=== PATIENT | male | born 1970 | race Caucasian/White ===

== ENCOUNTER 2024-02-08 19:25 | Emergency (ER) | payer OTHER, SELFPAY ==
--- NOTE | ~2024-02-08 | XR_ITS ---
EXAMINATION: XR chest 2V Exam Date/Time: 02/08/2024 19:40 CDT HISTORY: SOB WORSENING X 2 DAYS Comparison: 04/25/2019; CT chest 04/25/2019. RESULT: Lines, tubes, and devices: Left chest pacer/AICD. Lungs and pleura: Emphysematous changes in the upper lungs. Cardiomediastinal silhouette: Stable. Other: No acute osseous or upper abdominal finding. IMPRESSION: No acute cardiopulmonary process. Reviewed, dictated and finalized at location K.
[2024-02-08 19:32] VITALS: BP 145/96; PULSE 105; RESP 19; TEMP 36.6; O2SAT 97
[2024-02-08 19:48] LABS: Basophils Percent Auto 0.4 % (0.2-1.2); Eosinophils Absolute Auto 0.2 K/mm3 (0-0.3); Eosinophils Percent Auto 2.2 % (0-4.4); Hematocrit 47.4 % (42.0-52.0); Immature Granulocyte Absolute 0.03 K/mm3 (0.00-0.031); Immature Granulocyte Percent A 0.4 % (0-0.5); Lymphocytes Absolute Auto 2.25 K/mm3 (0.9-3.2); Lymphocytes Percent Auto 32.6 % (18.3-44.2); Mean Corpuscular HGB Conc 33.8 g/dl (32-36); Mean Corpuscular Hemoglobin 30.3 pg (26-34); Mean Corpuscular Volume 89.8 fl (80-100); Mean Platelet Volume 9.2 fl (7.4-10.4); Monocytes Absolute Auto 0.5 K/mm3 (0.1-0.6); Monocytes Percent Auto 7.7 % (2.6-8.5); Neutrophils Absolute Auto 3.9 K/mm3 (1.3-6.7); Neutrophils Percent Auto 56.7 % (45.5-73.1); Platelet Count Result 136 k/mm3 (150-375); Red Blood Count 5.28 M/mm3 (4.6-6.20); Red Cell Distribution Width 12.8 % (11.5-14.5); White Blood Count 6.9 K/mm3 (4.5-10.0)
[2024-02-08 19:56] LABS: INR 0.9; Prothrombin Time 12.5 Seconds (11.1-14.7)
[2024-02-08 19:57] LABS: Partial Thromboplastin Time 27.1 Seconds (22.3-36.8)
[2024-02-08 20:06] LABS: Alanine Aminotransferase 40 U/L (6-50); Albumin Level 4.2 g/dL (3.5-5.1); Alkaline Phosphatase 83 U/L (38-126); Anion Gap 5 mmol/L (4-12); Aspartate Amino Transferase 36 U/L (17-59); Bilirubin,Total 0.6 mg/dL (0.2-1.3); Blood Urea Nitrogen 16 mg/dL (9-20); Calcium 9.3 mg/dL (8.4-10.2); Carbon Dioxide 29 mmol/L (22-30); Chloride 106 mmol/L (98-107); Estimated CRCL calculation 95 ml/min; Estimated Glomerular Filt Rate > 60; Glucose 108 mg/dL (65-110); Potassium 4.3 mmol/L (3.4-5.0); Sodium 140 mmol/L (137-145)
[2024-02-08 20:08] VITALS: PULSE 92; O2SAT 95
[2024-02-08 20:10] VITALS: BP 144/98; PULSE 97; RESP 20; O2SAT 92
--- NOTE | 2024-02-08 20:11 | ECG_ITS ---
Test Date: 2024-02-08 20:17:00 Measurements Intervals [place] Rate: 92 P: 61 MA: 177 QRS: 70 QRSD: 88 T: 34 QT: 349 QTc: 433 Interpretive Statements SINUS RHYTHM LOW QRS VOLTAGE IN EXTREMITY LEADS [QRS DEFLECTION < 0.5 mV IN LIMB LEADS] No previous ECG available for comparison Electronically Signed On 02-09-2024 10:51:12 CDT by Fawn Licona M.D.
[2024-02-08 20:18] LABS: NT Pro B Type Natriuretic Pept 701 pg/mL (19.9-100); Troponin I < 0.012 ng/mL (0.000-0.034)
--- NOTE | 2024-02-08 20:22 | ED.SOB ---
HPI - SOB/Dyspnea General Chief Complaint: Shortness of Breath/Dyspnea Stated Complaint: bloated, SOB Time Seen by Provider: 02/08/24 20:17 Source: patient Mode of arrival: ambulatory Limitations: no limitations History of Present Illness HPI Narrative: 54-year-old male presenting for shortness of breath on exertion. History of CHF , ran out of his Lasix 3 days ago. he accidentally threw his prescription out in the garbage. He is not short of breath at rest but typically only when he walks upstairs or ambulates distances. No chest pain. He says it feels like he just needs some Lasix and to have a prescription. Related Data Allergies Allergy/AdvReac Type Severity Reaction Status Date / Time No Known Allergies Allergy Verified 02/08/24 20:11 Review of Systems Review of Systems: All systems reviewed & are unremarkable except as noted in HPI and below PMFSH Social History Social History Smoking status: Current every day smoker Alcohol intake: never Exam Narrative: Constitutional: Generally well appearing, no acute distress Head: Atraumatic, no deformities. Eyes: Pupils equal, round, and reactive to light. Neck: Supple, no tracheal deviation, no JVD. ENMT: Mucous membranes moist Cardiovascular: S1, S2 auscultated. No murmurs, rubs, or gallops. No S3/S4. Normal Distal pulses. 1+ pitting edema to lower extremities up to the upper ankles Respiratory: Lung sounds equal. No wheezes, rales, or rhonchi. Gastrointestinal: Abdomen was soft and non-tender. Non-distended. No rebound or guarding. Genitourinary: Deferred Musculoskeletal: Normal muscle tone and bulk. No obvious deformities or tenderness over extremities. Skin: No rashes. Neurological: Strength 5/5 in extremities. Cranial nerves I-XII grossly intact. Distal sensation intact. Mental Status: Awake, alert and oriented x3. Follows commands Course Vital Signs Vital signs: Vital Signs Temperature 36.6 C 02/08/24 19:32 Pulse Rate 105 H 02/08/24 19:32 Respiratory Rate 19 02/08/24 19:32 Blood Pressure 145/96 H 02/08/24 19:32 Pulse Oximetry 97 02/08/24 19:32 Oxygen Delivery Room Air 02/08/24 19:32 Temperature 36.6 C 02/08/24 19:32 Pulse Rate 97 02/08/24 20:10 Respiratory Rate 20 02/08/24 20:10 Blood Pressure 144/98 H 02/08/24 20:10 Pulse Oximetry 92 02/08/24 20:10 Oxygen Delivery Room Air 02/08/24 20:08 MDM - SOB/Dyspnea MDM Narrative Medical decision making narrative: 54-year-old male presenting for concern for CHF exacerbation. Seven shortness of breath on exertion self. Ran out of his Lasix 3 days ago. Item damage well-appearing, slightly hypertensive otherwise normal vitals. Normal cardio respiratory exam apart from some slight lower extremity swelling, symmetrical. Seems like mild CHF exacerbation. Obtain some basic labs and BNP. BNP was elevated at 700. Will give him a dose of Lasix here. He seems very stable at this point does not require admission, will be given prescription for his Lasix and instructed to follow-up with PCP. Pt feeling improved and would like to go home at this point. Return precautions were given to the patient include any new or worsening symptoms or development of and not limited to any chest pain, shortness of breath, lightheadedness, abdominal pain, fevers, chills. Patient understands and agrees. They are to follow-up with her PCP. All questions were answered. I reviewed the patient's vital signs, history, allergies, and labs and imaging workup. EKG interpretation: Sinus rhythm rate 92, normal intervals.? No ST elevation or depression.? No T-wave inversion.? Impression: Nonischemic Lab Data 02/08/24 19:40 02/08/24 19:40 Labs: Lab Results 02/08/24 Range/Units 19:40 WBC 6.9 (4.5-10.0) K/mm3 RBC 5.28 (4.6-6.20) M/mm3 Hgb 16.0 (14.0-18.0) g/dL Hct 47.4 (42.0-52.0) % [facility]
[2024-02-08] MEDS: FUROSEMIDE INJ 40 MG/4 ML VIAL IV PUSH (20:25)
[2024-02-08 20:38] VITALS: BP 139/94; PULSE 87; RESP 28; O2SAT 94
== END 2024-02-08 20:38 | disposition home or self-care (01) ==
PROVIDERS: Emergency Provider Emergency Medicine
DX: I50.43 Acute on chronic combined systolic (congestive) and diastolic (congestive) heart failure (principal); T50.1X6A Underdosing of loop [high-ceiling] diuretics, initial encounter; Z91.138 Patient's unintentional underdosing of medication regimen for other reason; F17.200 Nicotine dependence, unspecified, uncomplicated; Z79.899 Other long term (current) drug therapy
CPT/HCPCS: 36415; 71046; 80053; 83880; 84484; 85025; 85055; 85610; 85730; 93005; 96374; 99284; J1940

== ENCOUNTER 2024-03-14 15:02 | Emergency (ER) | payer OTHER, SELFPAY ==
--- NOTE | ~2024-03-14 | CT_ITS ---
CT lumbar spine wo con Ordering provider: Abimbola Thorne PA-C History: 54 years Male with . left sided low back pain . Comparison: None. Technique: CT lumbar spine without contrast. Automated exposure control and iterative reconstruction technique were employed. The dose-length product was 1269.62 mGy-cm. FINDINGS: VERTEBRAE: Normal height and alignment. No subluxation or visible acute fracture. 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 DISC SPACES: Well maintained. T12-L1: No stenosis. L1-L2: No stenosis. L2-L3: No stenosis. L3-L4: No stenosis. L4-L5: No stenosis. Diffuse disc bulge. L5-S1: No stenosis. Diffuse disc bulge with bilateral narrowing of the foramina and the root pankaj morenita. PARASPINOUS SOFT TISSUES: Normal aorta. Bilateral sacroiliitis. IMPRESSION: No acute fracture or dislocation. Limbus vertebrae. Diffuse disc bulge with bilateral narrowing of the foramina and the root compression at the level of L5-S1. Reviewed, dictated and finalized at location A. IMPRESSION: No acute fracture or dislocation. Limbus vertebrae. Diffuse disc bulge with bilateral narrowing of the foramina and the root compre ssion at the level of L5-S1.
[2024-03-14 15:15] VITALS: BP 121/84; PULSE 105; RESP 16; TEMP 36.3; O2SAT 94
--- NOTE | 2024-03-14 16:01 | ED.BACK ---
HPI - Back Pain/Injury General Chief Complaint: Back Pain/Injury <RAQUEL Jeffers Last Filed: 03/14/24 18:22> Stated Complaint: lower left back pain <RAQUEL Jeffers Last Filed: 03/14/24 18:22> Time Seen by Provider: 03/14/24 16:01 <RAQUEL Jeffers Last Filed: 03/14/24 18:22> Focused HPI: This is a 54 year old male that presents to the ER for left sided low back pain. Ongoing since yesterday. Worse with movement. He has not taken anything for pain. No recent injuries. Denies fever, vomiting, dysuria, numbness, weakness, or hematuria. GENERAL: Well-appearing, well-nourished, and in no acute distress. HEAD: Normocephalic, atraumatic. CHEST: Clear to auscultation. ?No respiratory distress. HEART: Regular rate and rhythm.? NEURO: ?Alert and oriented x3. Patient screened in triage and initial orders placed.? ?Additional care and disposition to be based upon?diagnostic testing and treatment. <RAQUEL Jeffers Last Filed: 03/14/24 18:22> Source: patient <RAQUEL Delaney Last Filed: 03/14/24 17:25> Mode of arrival: ambulatory <RAQUEL Delaney Last Filed: 03/14/24 17:25> Limitations: no limitations <RAQUEL Delaney Last Filed: 03/14/24 17:25> History of Present Illness HPI Narrative: Agree with above HPI. Denies radiation of pain. No saddle anesthesia, incontinence, weakness. <RAQUEL Delaney Last Filed: 03/14/24 17:25> Related Data Allergies/Adverse Reactions: Allergies Allergy/AdvReac Type Severity Reaction Status Date / Time No Known Allergies Allergy Verified 03/14/24 16:46 <RAQUEL Jeffers Last Filed: 03/14/24 18:22> Review of Systems Review of Systems: CONSTITUTIONAL: Denies fever, chills, or sweats. GASTROINTESTINAL: Denies abdominal pain, nausea, vomiting, or diarrhea. GENITOURINARY: Denies dysuria or hematuria. MUSCULOSKELETAL: See HPI. NEUROLOGIC: Denies headache, dizziness, numbness, or weakness. <Lian Mahajan PA-C - Last Filed: 03/14/24 17:25> All systems reviewed & are unremarkable except as noted in HPI and below <Lian Mahajan PA-C - Last Filed: 03/14/24 17:25> [facility] Past Medical History Medical History: Medical History (Updated 03/14/24 @ 18:22 by Abimbola Thorne PA-C) History of hypertension Non-ischemic cardiomyopathy <Abimbola Thorne PA-C - Last Filed: 03/14/24 18:22> Social History Social History: Social History Smoking status: Current every day smoker Alcohol intake: never <Abimbola Thorne PA-C - Last Filed: 03/14/24 18:22> Exam Narrative: GENERAL: Well appearing, Obese with BMI of 34.5, non-toxic, in no acute distress. HEAD: Normocephalic, atraumatic. RESPIRATORY: Airway patent, respirations nonlabored. CARDIOVASCULAR: Regular rate and rhythm ABDOMINAL: Soft, nontender, nondistended. Normoactive BS. no tenderness throughout abdomen, flank regions. MUSCULOSKELETAL: Moves all extremities. No gross deformities. Tenderness to palpation in left lumbar region. No midline lumbar spinal tenderness. Positive straight leg raise on left, reproducing pain. Sensation is intact. SKIN: Warm, dry, normal color. NEURO: A&O X3. Speech clear. Cranial nerves II-XII grossly intact. Steady gait. No ataxic movements. PSYCHIATRIC: Appropriate mood and affect. Normal interaction. <Lian Mahajan PA-C - Last Filed: 03/14/24 17:25> Course Vital Signs Vital signs: Vital Signs Temperature 97.3 F L 03/14/24 15:15 Pulse Rate 105 H 03/14/24 15:15 Respiratory Rate 16 03/14/24 15:15 Blood Pressure 121/84 03/14/24 15:15 Pulse Oximetry 94 03/14/24 15:15 Oxygen Delivery Room Air 03/14/24 15:15 Temperature 98 F 03/14/24 17:31 Pulse Rate 96 03/14/24 17:31 Respiratory Rate 15 03/14/24 17:31 Blood Pressure 106/87 03/14/24 1
[2024-03-14 16:45] VITALS: BP 115/93; PULSE 101; RESP 14; TEMP 36.6; O2SAT 95
[2024-03-14] MEDS: ACETAMINOPHEN 500 MG TABLET 1000 MG PO (16:53)
[2024-03-14] MEDS: KETOROLAC 30 MG/ML VIAL (*BKC) IM (16:55)
[2024-03-14 17:31] VITALS: BP 106/87; PULSE 96; RESP 15; TEMP 36.6; O2SAT 96
== END 2024-03-14 17:33 | disposition home or self-care (01) ==
PROVIDERS: Emergency Provider Physician Assistant
DX: M51.37 Other intervertebral disc degeneration, lumbosacral region (principal); S39.012A Strain of muscle, fascia and tendon of lower back, initial encounter; I42.8 Other cardiomyopathies; I10 Essential (primary) hypertension; X58.XXXA Exposure to other specified factors, initial encounter
CPT/HCPCS: 72131; 96372; 99284; A9270; J1885

== ENCOUNTER 2024-07-19 14:46 | Emergency (ER) | payer OTHER, SELFPAY ==
--- NOTE | ~2024-07-19 | XR_ITS ---
EXAMINATION: XR chest 2V DATE: 07/19/2024 15:09 INDICATION: Chest pain and shortness of breath TECHNIQUE: PA and lateral views of the chest were obtained. COMPARISON: Chest radiograph dated 02/08/2024 FINDINGS: The lungs remain clear with no focal airspace opacities, pulmonary edema, pleural effusion or pneumot horax. The cardiomediastinal silhouette is normal. Dual lead pacemaker/AICD seen with leads projectin g over the expected locations of the right atrium and right ventricle. Mild S-shaped scoliosis of t he thoracic spine with mild to moderate spondylosis. Cholecystectomy clips in right upper quadrant. IMPRESSION: 1. No acute cardiopulmonary disease. Reviewed, dictated and finalized at location B. GER TECHNICAL
--- NOTE | ~2024-07-19 | XR_ITS ---
EXAMINATION: XR abdomen/kub 1V DATE: 07/19/2024 16:51 INDICATION: 2 days of constipation TECHNIQUE: A supine view of the abdomen on 2 radiographs was obtained. COMPARISON: 01/26/2019 FINDINGS: Moderate amount of stool scattered throughout the colon. No dilated loops of gas-filled bowel to sugg est obstruction. Cholecystectomy clips in the right upper quadrant. Lung bases are clear. Heart size normal. Dual lead pacemaker/AICD seen with leads projecting over the expected locations of the right atrium and right ventricle. Mild lumbar levocurvature with mild spondylosis. Likely suture line in th e region of the tip the cecum suggesting prior appendectomy. IMPRESSION: 1. Normal bowel gas pattern with moderate amount of colonic stool. Reviewed, dictated and finalized at location B. UCTION MACHINE TENDER
[2024-07-19 14:48] VITALS: BP 136/94; PULSE 107; RESP 18; TEMP 36.6; O2SAT 94
--- NOTE | 2024-07-19 14:48 | ECG_ITS ---
Test Date: 2024-07-19 14:56:24 Measurements Intervals [place] Rate: 101 P: 63 SD: 171 QRS: 74 QRSD: 91 T: 57 QT: 343 QTc: 445 Interpretive Statements SINUS TACHYCARDIA BORDERLINE R WAVE PROGRESSION, ANTERIOR LEADS NONSPECIFIC ST-T WAVE ABNORMALITY- INF/HIGH LAT LEADS BASELINE ARTIFACT- I, II, III, AVR, AVL, AVF, V1, V4-V6 BORDERLINE ECG Compared to ECG 02/08/2024 20:17:00 HEART RATE HAS INCREASED Electronically Signed On 07-19-2024 15:01:45 GRAVITY PROSPECTOR by Charly Prescott D.O.
[2024-07-19 15:10] LABS: Basophils Absolute Auto 0.1 K/mm3 (0.0-0.1); Basophils Percent Auto 0.7 % (0.2-1.2); Eosinophils Absolute Auto 0.1 K/mm3 (0-0.3); Eosinophils Percent Auto 1.7 % (0-4.4); Hematocrit 50.4 % (42.0-52.0); Hemoglobin 17.5 g/dL (14.0-18.0); Immature Granulocyte Absolute 0.04 K/mm3 (0.00-0.031); Immature Granulocyte Percent A 0.5 % (0-0.5); Lymphocytes Absolute Auto 2.03 K/mm3 (0.9-3.2); Lymphocytes Percent Auto 27.2 % (18.3-44.2); Mean Corpuscular HGB Conc 34.7 g/dl (32-36); Mean Corpuscular Hemoglobin 30.6 pg (26-34); Mean Corpuscular Volume 88.1 fl (80-100); Mean Platelet Volume 9.4 fl (7.4-10.4); Monocytes Absolute Auto 0.7 K/mm3 (0.1-0.6); Monocytes Percent Auto 8.8 % (2.6-8.5); Neutrophils Absolute Auto 4.6 K/mm3 (1.3-6.7); Neutrophils Percent Auto 61.1 % (45.5-73.1); Platelet Count Result 161 k/mm3 (150-375); Red Blood Count 5.72 M/mm3 (4.6-6.20); Red Cell Distribution Width 12.5 % (11.5-14.5); White Blood Count 7.5 K/mm3 (4.5-10.0)
[2024-07-19 15:21] LABS: Alanine Aminotransferase 34 U/L (6-50); Albumin Level 4.1 g/dL (3.5-5.1); Alkaline Phosphatase 78 U/L (38-126); Anion Gap 6 mmol/L (4-12); Aspartate Amino Transferase 35 U/L (17-59); Bilirubin,Total 0.6 mg/dL (0.2-1.3); Blood Urea Nitrogen 14 mg/dL (9-20); Calcium 9.2 mg/dL (8.4-10.2); Carbon Dioxide 31 mmol/L (22-30); Chloride 103 mmol/L (98-107); Estimated CRCL calculation 77 ml/min; Estimated Glomerular Filt Rate > 60; Glucose 101 mg/dL (65-110); Potassium 3.9 mmol/L (3.4-5.0); Sodium 140 mmol/L (137-145)
[2024-07-19 16:27] VITALS: BP 127/90; PULSE 94; RESP 19; O2SAT 94
[2024-07-19 16:30] VITALS: O2SAT 94
[2024-07-19 17:00] VITALS: PULSE 94; RESP 26; O2SAT 93
--- NOTE | 2024-07-19 17:55 | ED.SOB ---
HPI - SOB/Dyspnea General Chief Complaint: Shortness of Breath/Dyspnea Stated Complaint: SOB and I haven't pooped in 2.5 days Time Seen by Provider: 07/19/24 16:35 History of Present Illness HPI Narrative: Patient is a 54-year-old male who presents ER with constipation. Reports he has not been able have bowel movement last 2 and half days. He has not tried a medication. Has had bowel surgery previously but he is passing gas and not having any issues with emesis or belching. No fevers or chills or sweats. Related Data Allergies Allergy/AdvReac Type Severity Reaction Status Date / Time No Known Allergies Allergy Verified 07/19/24 14:47 Review of Systems Review of Systems: All systems reviewed & are unremarkable except as noted in HPI and below Constitutional: Constitutional: Reports no additional constitutional complaints Cardiovascular: Cardiovascular: Reports no additional cardiovascular complaints Respiratory: Respiratory: Reports no additional respiratory complaints Gastrointestinal: Gastrointestinal: Reports no additional gastrointestinal complaints Musculoskeletal: Musculoskeletal: Reports no additional musculoskeletal complaints [facility] Past Medical History Medical History (Updated 07/19/24 @ 17:56 by Christopher Gomez MD) History of hypertension Non-ischemic cardiomyopathy Social History Social History Smoking status: Current every day smoker Alcohol intake: never Exam Narrative: GENERAL: Well-appearing, well-nourished, and in no acute distress. HEAD: Normocephalic, atraumatic. ENT: Mucous membranes moist. CHEST: Clear to auscultation. No respiratory distress. HEART: Regular rate and rhythm. Normal peripheral pulses. ABDOMEN: Soft, nontender, nondistended, normal active bowel sounds. EXTREMITIES: Normal range of motion. No edema. NEURO: Alert and oriented x3. PSYCH: Normal mood and affect. Course Course Emergency Course: Patient resting comfortably. No evidence of obstruction. Moderate constipation, magnesium citrate here and stool softeners for home. Vital Signs Vital signs: Vital Signs Temperature 97.9 F 07/19/24 14:48 Pulse Rate 107 H 07/19/24 14:48 Respiratory Rate 18 07/19/24 14:48 Blood Pressure 136/94 H 07/19/24 14:48 Pulse Oximetry 94 07/19/24 14:48 Oxygen Delivery Room Air 07/19/24 14:48 Temperature 97.9 F 07/19/24 14:48 Pulse Rate 90 07/19/24 18:10 Respiratory Rate 22 H 07/19/24 18:10 Blood Pressure 129/89 07/19/24 18:10 Pulse Oximetry 94 07/19/24 18:10 Oxygen Delivery Room Air 07/19/24 16:30 MDM - SOB/Dyspnea Lab Data 07/19/24 14:54 07/19/24 14:54 Labs: Lab Results 07/19/24 Range/Units 14:54 WBC 7.5 (4.5-10.0) K/mm3 RBC 5.72 (4.6-6.20) M/mm3 Hgb 17.5 (14.0-18.0) g/dL Hct 50.4 (42.0-52.0) % MCV 88.1 (80-100) fl MCH 30.6 (26-34) pg MCHC 34.7 (32-36) g/dl RDW 12.5 (11.5-14.5) % Plt Count 161 (150-375) k/mm3 MPV 9.4 (7.4-10.4) fl Immature Gran % (Auto) 0.5 (0-0.5) % Neut % (Auto) 61.1 (45.5-73.1) % Lymph % (Auto) 27.2 (18.3-44.2) % Terrell % (Auto) 8.8 H (2.6-8.5) % Eos % (Auto) 1.7 (0-4.4) % Baso % (Auto) 0.7 (0.2-1.2) % Lymph # (Auto) 2.03 (0.9-3.2) K/mm3 Terrell # (Auto) 0.7 H (0.1-0.6) K/mm3 Eos # (Auto) 0.1 (0-0.3) K/mm3 Baso # (Auto) 0.1 (0.0-0.1) K/mm3 Abs Immat Gran (auto) 0.04 H (0.00-0.031) K/mm3 Absolute Neuts (auto) 4.6 (1.3-6.7) K/mm3 Absolute Nucleated RBC 0.000 (0.0-0.012) K/mm3 Nucleated RBC % 0.0 (0.0-0.2) % Sodium 140 (137-145) mmol/L Potassium 3.9 (3.4-5.0) mmol/L Chloride 103 (98-107) mmol/L Carbon Dioxide 31 H (22-30) mmol/L Anion Gap 6 (4-12) mmol/L BUN 14 (9-20) mg/dL Creatinine 1.10 (0.7-1.3) mg/dL Estim Creat Clear Calc 77 ml/min Estimated GFR > 60 (59 - ) Glucose 101 (65-110) mg/dL Calcium 9.2 (8.4-10.2) mg/dL Total Bilirubin 0.6 (0.2-1.3) mg/dL AST 35 (17-59) U/L ALT 34 (6-50) U/L Alkaline Phosphatase 78 (38-126) U/L Total Protein 7.0 (6.3-8.2) g/dL Albumin 4.1 (3.5-5.1) g/dL Imaging Data Radiologist's impression: ITS Impressions Chest X-Ray 07/19/24 15:11 IMPRESSION: 1. No acute cardiopulmonary disease. Abdomen X-Ray 07/19/24 16:51 IMPRESSION: 1. Normal bowel gas pattern with moderate amount of colonic stool. Discharge Plan Discharge Clinical Impression: Constipation Patient Disposition: Home, Self-Care Condition: Stable Instructions: Constipation (ED) Additional Instructions: Return to the ER if you have fever over 101F, you cannot keep down food/water, you lose consciousness, or have additional concerns. Prescriptions: New docusate sodium [Col-Rite] 100 mg capsule 100 mg PO BID Qty: 14 0RF No Action albuterol sulfate [Ventolin HFA] 90 mcg/actuation HFA aerosol inhaler 1 inhalation INHALATION Q4H PRN (Reason: shortness of breath) Qty: 18 0RF furosemide 20 mg tablet 20 mg PO QAM Qty: 1 0RF potassium chloride [Klor-Con 10] 10 mEq tablet extended release 10 meq PO DAILY Qty: 1 0RF lisinopril 2.5 mg tablet 2.5 mg PO DAILY Qty: 1 0RF omeprazole 40 mg capsule,delayed release(DR/EC) 40 mg PO DAILY Qty: 1 0RF escitalopram oxalate 10 mg tablet 10 mg PO DAILY Qty: 1 0RF amitriptyline 150 mg tablet 150 mg PO ONCE Qty: 1 0RF cyclobenzaprine 10 mg tablet 10 mg PO TID Qty: 1 0RF fluticasone propion-salmeterol 113-14 mcg/actuation aerosol powdr breath activated 1 puff INHALATION BID Qty: 1 0RF carvedilol 6.25 mg tablet 6.25 mg PO Q12H MDD 2 tablets Qty: 60 0RF Rx Instructions: must administer with a meal/food methocarbamol 750 mg tablet 1,500 mg PO TID PRN (Reason: muscle spasm) Qty: 15 0RF lidocaine 5 % adhesive patch,medicated 1 patch topical DAILY Qty: 15 0RF Rx Instructions: leave on most painful area for up to 12 hrs furosemide 20 mg tablet 20 mg PO DAILY Qty: 20 0RF tizanidine 2 mg tablet 2 mg PO TID PRN (Reason: muscle spasticity) Qty: 90 0RF Follow-up/Referrals: UNKNOWN,DOCTOR [Primary Care Provider] - 1 Week
[2024-07-19 18:10] VITALS: BP 129/89; PULSE 90; RESP 22; O2SAT 94
[2024-07-19] MEDS: MAGNESIUM CITRATE 300 ML BTL PO (18:45)
== END 2024-07-19 18:49 | disposition home or self-care (01) ==
PROVIDERS: Emergency Provider Emergency Medicine
DX: K59.00 Constipation, unspecified (principal); I10 Essential (primary) hypertension; I42.8 Other cardiomyopathies; F17.210 Nicotine dependence, cigarettes, uncomplicated; R00.0 Tachycardia, unspecified; R94.31 Abnormal electrocardiogram [ECG] [EKG]
CPT/HCPCS: 36415; 71046; 74018; 80053; 85025; 93005; 99284; A9270

== ENCOUNTER 2025-01-03 08:21 | Emergency (ER) | payer OTHER, SELFPAY ==
--- NOTE | ~2025-01-03 | CT_ITS ---
CT lumbar spine wo con Ordering provider: Jaycee Patel APRN History: 54 years Male with . pain . Comparison: March 14, 2024. Technique: CT lumbar spine without contrast. Automated exposure control and iterative reconstruction technique were employed. The dose-length product was 975.15 mGy-cm. FINDINGS: VERTEBRAE: Normal height and alignment. No subluxation or visible acute fracture. Limbus vertebrae is seen at the level of L4 and L5 unchanged. DISC SPACES: Narrowing of the disc L3-L4. Otherwise, Well maintained. T12-L1: No stenosis. L1-L2: No stenosis. L2-L3: No stenosis. L3-L4: No stenosis. L4-L5: No stenosis. Mild diffuse disc bulge. L5-S1: No stenosis. Mild diffuse disc bulge. Bilateral nerve root compression is not excluded. PARASPINOUS SOFT TISSUES: Mild atheromatous disease of the abdominal aorta. Bilateral sacroiliitis. IMPRESSION: No acute osseous abnormality. Diffuse disc bulge at the level of L4-L5 and L5-S1. Bilateral nerve root compression at the level of L5-S1 is not excluded. Reviewed, dictated and finalized at location A. IMPRESSION: No acute osseous abnormality. Diffuse disc bulge at the level of L4-L5 and L5-S1. Bilateral nerve root compre ssion at the level of L5-S1 is not excluded.
[2025-01-03 08:23] VITALS: BP 120/101; PULSE 101; RESP 16; TEMP 36.4; O2SAT 99
--- OUTSIDE RECORDS SUMMARY | 2025-01-03 08:31 | XMS_ITS | Encounter Summary ---
Author Organization [facility] Address [address] [place] [address] Care Team Providers Care Replanting Machine Operator Name Role Phone Malcolm Conteh MD Primary Care Provider [phone] Reason for Visit * Reason Onset Date Comments TO NOTIFY PCP 07/19/2019 Encounter Details Date Type Department Care Team (Late st Contact Info) Description 07/19/2019 Telephone [facility] [address] [id number] [place] [address] [place] [address] [facility] [address] [place] [address] TO NOTIFY PCP Social History Tobacco Use Types Packs/Day Years Used Date Smoking Tobacco: Former Cigarettes 1 25 1 09/18/1993 - 07/19/2019 Smokeless Tobacco: Never Alcohol Use Standard Drinks/Week Comments Not Currently 0 (1 standard drink = 0.6 oz pur e alcohol) Feeling Safe Answer Date Recorded Within the last year, have y ou been afraid of your partner or ex-partner? No 07/19/2019 Within the last year, have y ou been humiliated or emotionally abused in other ways by your partner or ex-partner? No Within the last year, have y ou been kicked, hit, slapped, or otherwise physically hurt by your partner or ex-partner? No 07/19/2019 Within the last year, have y ou been raped or forced to have any kind of sexual activity by your partner or ex-partner? No 07/19/2019 Social Connections Answer Date Recorded In a typical week, how many times do you talk on the phone with family, friends, or neighbors? Patient declined 07/19/2019 How often do you get togethe r with friends or relatives? Patient declined 07/19/2019 How often do you attend spiritism or buddhism serv ices? Patient declined 07/19/2019 Do you belong to any clubs o r organizations such as spiritism groups, unions, fraternal or athletic groups, or school groups? Patient declined 07/19/2019 How often do you attend meet ings of the clubs or organizations you belong to? Patient declined 07/19/2019 Are you , , di vorced, , never , or living with a partner? Patient declined 07/19/2019 Financial Resource Strain Answer Date R ecorded How hard is it for you to pa y for the very basics like food, housing, medical care, and heating? Not very hard 07/19/2019 Food Insecurity Answer Date Recorded Within the past 12 months, y ou worried that your food would run out before you got the money to buy more. Patient declined Within the past 12 months, t he food you bought just didn't last and you didn't have money to get more. Patient declined Transportation Needs Answer Date Record ed In the past 12 months, has l ack of transportation kept you from medical appointments or from getting medications? Patient declined 07/19/2019 In the past 12 months, has l ack of transportation kept you from meetings, work, or from getting things needed for daily living? Patient declined 07/19/2019 Sex and Gender Information Value Date Recorded Sex Assigned at Not on file Legal Sex Male 10:51 PM CDT Gender Identity Not on file Sexual Orientation Not on file documented as of this encounter Plan of Treatment Not on file documented as of this encounter Visit Diagnoses Not on filedocumented in this encounter Care Teams Replanting Machine Operator Relationship Specialty Start Date End Date Malcolm Conteh MD [facility] [place] [address] PCP - General Internal Medicine 07/19/19 documented as of this encounter
--- OUTSIDE RECORDS SUMMARY | 2025-01-03 08:31 | XMS_ITS | Data Portability ---
Author Organization [facility] [place] [facility] Address [address] [place] [id number] Care Team Providers Care Medical Information Officer Name Role Phone HOWARD ELENA Primary Care Provider [phone] Assessment Encounter Date Assessment Date Assessment LastModified by Organization Details LastModified Time 12/13/2024 12/13/2024 Congestive heart failure secondary to cardiomyopathy, I will get a copy of his cardiac catheterization recent echocardiogram. I will continue with lisinopril. I increased carvedilol to 37.5 mg p.o. b.i.d. to optimize rate control. I will continue with furosemide. I will check a renal profile today in add spironolactone depending on his renal function and electrolytes. Hypertension, well-controlled continue with lisinopril and carvedilol. Lipid screen , I will check a fasting lipid profile today. Status post AICD , I will schedule him for AICD check. Elevated blood glucos e level in the past. I will check A1c today. I will see him again in 4 weeks. [email or web address] Not available 12/13/2024 10:44:18 Plan of Treatment Reminders Order Date Submit Date Provider Last Modified By Organization Details Last Modified Time Details Appointments ANY 2024 01:00P M Device Not available Not available Not available ANY 2024 01:15P M Lupillo san MD Not available Not available Not available NEW PATIENT 30 2024 09:30A M Howard Elena MD Not available Not available Not available Lab lipid panel, serum 2024 025 [facility], [address], [place], [address], 01/03/2025 07:51:05 HbA1c (hemoglo bin A1c), blood 2024 [facility], [address], [address], [place], [address], 01/03/2025 07:51:05 BMP, serum or plasma 2024 [facility], [address], [place], [address], 12/13/2024 21:22:39 CBC 2024 [facility], [address], [place], [address], 01/03/2025 07:51:05 Referral None recorded . Procedures ICD interrog ation, in-perso n (PROC) 2024 [facility] Not available 12/13/2024 10:45:43 Surgeries None recorded . Imaging electroc ardiogra m 2024 sandi In-Office Order, Internal Use Only DO Not Attach Compendium DO Not Attach Compendium, Do Not Delete/merge, [id number] 12/13/2024 10:38:42 Medication Orders carvedil ol 25 mg tablet 2024 [facility] [place], [address], 12/13/2024 10:38:55 lisinopr il 20 mg tablet 2024 025 [facility] [address], [address] [place], [address], 12/13/2024 10:38:55 furosemi de 40 mg tablet 2024 025 [facility] [address] [place], [address], 12/13/2024 10:38:55 tana m chloride ER 20 mEq tablet,e xtended release 2024 025 [facility], [address] [facility], [place], [address], 12/13/2024 10:38:54 Patient TargetsNo targets recorded. Patient Instructions Encounter Date Encounter Id Patient Instructions Last Modified By Organization Details Last Modified Time 12/13/2024 [id number] Quitting Tobacco: Care Instructions [email or web address] Not available 12/13/2024 10:38:41 A healthy lifestyle: care instructions sabdulaziz Not available 12/13/2024 10:38:42 Reason for Referral None Reported. Results Created Date Observation Date Name Description Value Unit Range Abnormal Flag Note LastModifiedBy Organization Detail LastModifiedTime 12/14/1912/13/2024 BASIC METAB OLIC PANEL sodium 141 mmol/ L 134-14 4 normal Not Available [facility] (Lab) [address] [place], [address], 12/13/2024 21:22:39 12/14/19 25 12/13/2024 BASIC METAB OLIC PANEL potassium 4.4 mmol/ L 3.5-5. 2 normal Not Available [facility] (Lab) [address] [facility], [place], [address], 12/13/2024 21:22:39 12/14/19 25 12/13/2024 BASIC METAB OLIC PANEL chloride 102 mmol/ L 96-106 normal Not Available [facility] (Lab) [address] [place], [address], 12/13/2024 21:22:39 12/14/19 25 12/13/2024 BASIC METAB OLIC PANEL carbon dioxide 26 mmol/ L 20-29 normal Not Available [facility] (Lab) [address] [place], [address], 12/13/2024 21:22:39 12/14/19 25 12/13/2024 BASIC METAB OLIC PANEL anion gap 18.0 mmol/ L Not Available [facility] (Lab) [address] [place], [address], 12/13/2024 21:22:39 12/14/19 25 12/13/2024 BASIC METAB OLIC PANEL blood urea nitrogen 16 mg/dL 6-24 normal Not Available [facility] (Lab) [address] [place], [address], 12/13/2024 21:22:39 12/14/19 25 12/13/2024 BASIC METAB OLIC PANEL creatinine 1.01 mg/dL 0.76-1 .27 normal Not Available [facility] (Lab) [address] [place], [address], 12/13/2024 21:22:39 12/14/19 25 12/13/2024 BASIC METAB OLIC PANEL glomerular filtration rate 88 mL/mi n/1 Not Available [facility] (Lab) [address] [place], [address], 12/13/2024 21:22:39 12/14/19 25 12/13/2024 BASIC METAB OLIC PANEL BUN creatinine ratio 16 9-20 normal Not Available [facility] (Lab) [address] [place], [address], 12/13/2024 21:22:39 12/14/19 25 12/13/2024 BASIC METAB OLIC PANEL glucose 111 mg/dL 70-99 high Not Available [facility] (Lab) [address] [place], [address], 12/13/2024 21:22:39 12/14/19 25 12/13/2024 BASIC METAB OLIC PANEL osmolality calculated 283 275-29 5 normal Not Available [facility] (Lab) [address] [place], [address], 12/13/2024 21:22:39 12/14/19 25 12/13/2024 BASIC METAB OLIC PANEL calcium 9.7 mg/dL 8.7-10 .2 normal Not Available [facility] (Lab) [address] [facility], [place], [address], 12/13/2024 21:22:39 12/14/19 25 12/13/2024 BASIC METAB OLIC PANEL hemolysis 27 0-19 high Sligh t to moder ate hemol ysis prese nt in speci men. The potas sium, AST, ALT, and direc t bilir ubin resul ts may be false ly eleva liliane. Not Available [facility] (Lab) [address] [facility], [place], [address], 12/13/2024 21:22:39 12/14/19 25 12/13/2024 BASIC METAB OLIC PANEL icterus 1 0.5-4. 9 Not Available [facility] (Lab) [address] [facility], [place], [address], 12/13/2024 21:22:39 12/14/19 25 12/13/2024 BASIC METAB OLIC PANEL lipemia 14 0-99 Not Available [facility] (Lab) [address] [facility], [place], [address], 12/13/2024 21:22:39 12/14/19 25 12/13/2024 elect rocar diogr am No observ ation record ed. ELEANOR In-Office Order Internal Use Only DO Not Attach Compendium DO Not Attach Compendium, Do Not Delete/merge, [id number] 12/13/2024 10:53:02 12/14/19 elect rocar diogr am No observ ation record ed. [email or web address] Not Available 12/13 10:53:03 Result Notes None recorded. Problems Name Problem SNOMED Code Status Onset Date Resolution Date Notes Provider Name and Address Organization Details Recorded Time Congestive heart failure 41574186 Active 2024 GUILLAUME Gentile, [facility] 10:38:37 Automatic implantable cardiac defibrillator in situ 342514959 Active 2024 GUILLAUME Gentile, [facility] 10:38:42 Hyperglycemia 38686517 Active 2024 GUILLAUME Gentile, [facility] 10:38:50 Notes:Some problems listed i n Document: #[id number] could not be added to this patient's chart. Please review this document and add these problems to the patient's chart manually as needed. Problem Notes Documentation Provider Name and Address Organization Details Recorded Time Testing Coordinator Consult Note : [facility] [address] [facility] [address], [facility] [id number], Michael (id #[id number], : 1970) [facility] [address] [place] [address] Encounter Summary - Progress Note Date Printed: 12/13/2024 Documents sent via fax will include the followingmessage: This fax may contain sensitive and confidential personal health information that is being sent for the sole use of the intended recipient. Unintended recipients are directed to securely destroy any materials received. You are hereby notified that the unauthorized disclosure or other unlawful use of this fax or any personal health information is prohibited. To the extent patient information contained in this fax is subject to 42 CFR Part 2, this regulation prohibits unauthorized disclosure of these records. If you received this fax in error, please visit [email or web address] [email or web address] to notify the sender and confirm that the information will be destroyed. If you do not have internet access, please call to notify the sender and confirm that the information will be destroyed. Thank you for your attention and cooperation. [ID:[id number]] Patient Altaf Dc (54yo, M) #[id number] 1970 Patient Demographics: Address [address] [place] [address] Work Phone Encounter Notes: Encounter Reason/DateTransition of Care Encounter hypertension, new patient dr ferrell 12/13/2024 - 09:00AM [facility] History of Present [id number] gentleman who has a history of cardiomyopathy with severely impaired left ventricular systolic function status post AICD placement referred to me for cardiovascular evaluation as he wants to reestablish with a new dehydrator.He denies complaints of chest pain tightness and pressure. He denies shortness of breath. He is complaining of bloating and abdominal distension. He has no peripheral edema. He denies AICD discharge. He has no dizziness lightheadedness or syncope. He admits for smoking. EK12/13/2024:Sinus Tachycardia,-Left atrial enlargement.-Poor R-wave progressionNon Specific intra ventricular conduction. LABS:07/05/22:cholesterol 190, triglycerides 134, HDL 43, LDL 120, a1c 7.8 CARDIAC TESTING:ECHO 01/23/18:Normal left ventricular size. Normal left ventricular wall thickness. Severe global left ventricular systolic function. Paradoxical septal motion consistent with IVCD or bundle branch block. Diastolic dysfunction is present. Increased left heart filling pressures based on elevated E/E. Ejection fraction is visually estimated at 20-25%. There is mild enlargement of left atrium. Normal right ventricular size. Normal right ventricular systolic function. Linear artifact and right ventricle suggestive of catheter (s), pacemaker lead (s), or ICD lead (s). There is moderate enlargement of right atrium. Linear artifact in right atrium suggestive of catheter (s), pacemaker lead (s), or ICD lead (s). Normal appearance of the tricuspid valve. Mild pulmonary hypertension based on right ventricular systolic pressure. Estimated peak RVSP is 43 mmHg. Mild tricuspid regurgitation. Sinus tachycardia.STRESS ECHO 04/04/14:Contrast enhancement was employed after initial imaging due to sub-optimal quality related to co-morbidity defined by patient s body habitus. Maximal Exercise Stress Echocardiogram, NEGATIVE for myocardial ischemia. Review of SystemsNone recorded Vitals Ht: 5 ft 7 in Fjjmut3412/13/2024 09:07 am Wt: 215.4 lbs With tipqwyo9712/13/2024 09:07 am BMI: 33.704 09:07 am BP: 118/92 sitting L arm12/13/2024 09:12 am Pulse: 102 bpm oyfbvuk6112/13/2024 09:32 am O2Sat: 97% Room Air at Rest12/13/2024 09:11 am Results/InterpretationsNon e recorded Physical ExamConstitutional:General Appearance: well-nourished and well-developed. Level of Distress: comfortable. Psychiatric:Mental Status: alert. Orientation: oriented to time, place, and person. Neck:Neck: supple and trachea midline. Carotid Arteries: bilateral normal upstroke and no bruits. Jugular Veins: normal jugular venous pressure. Lungs:Chest Exam: no thoracic deformity or chest wall tenderness and normal curvature. Auscultation: no wheezing, rales, or rhonchi and clear. Cardiovascular:Rate And Rhythm: regular. Heart Sounds: no rub, gallop, or click and normal S1 and physiologically split S2. Systolic Murmur: not heard. Diastolic Murmur: not heard. Extremities: no cyanosis, edema, or peripheral signs of emboli. Musculoskeletal:Inspection : no pedal edema. Neurologic:Motor: normal strength and tone. Neurological: no recent neurological change. Skin:Nails: no clubbing. Assessment and PlanCongestive heart failure secondary to cardiomyopathy,I will get a copy of his cardiac catheterization recent echocardiogram. I will continue with lisinopril. I increased carvedilol to 37.5 mg p.o. b.i.d. to optimize rate control. I will continue with furosemide. I will check a renal profile today in add spironolactone depending on his renal function and electrolytes. Hypertension,well-controll ed continue with lisinopril and carvedilol. Lipid screen, I will check a fasting lipid profile today. Status post AICD, I will schedule him for AICD check. Elevated blood glucose level in the past. I will check A1c today. I will see him again in 4 weeks. 1. OriiggG12.200: Nicotine dependence, unspecified, uncomplicated QUITTING TOBACCO: CARE INSTRUCTIONS 2. RwssxhaL12.9: Obesity, unspecified A HEALTHY LIFESTYLE: CARE INSTRUCTIONS 3. Congestive heart segllhyM10.9: Heart failure, unspecified ELECTROCARDIOGRAM BMP, SERUM OR PLASMA CBC 4. Essential qxtvydqpppiyV71: Essential (primary) hypertension 5. Renewal of rvydfeebgbfaW53.0: Encounter for issue of repeat prescription carvedilol 25 mg tablet - Take 1.5 tablet(s) twice a day by oral route for 90 days. Qty: (270) tablet Refills: 1 Pharmacy: [facility] lisinopril 20 mg tablet - Take 1 tablet(s) every day by oral route for 90 days. Qty: (90) tablet Refills: 1 Pharmacy: [facility] 361 furosemide 40 mg tablet - Take 1 tablet(s) every day by oral route for 90 days. Qty: (90) tablet Refills: 1 Pharmacy: [facility] 361 potassium chloride ER 20 mEq tablet,extended release - Take 1 tablet(s) every day by oral route for 90 days. Qty: (90) tablet Refills: 1 Pharmacy: [facility] 361 6. Automatic implantable cardiac defibrillator in situZ95.810: Presence of automatic (implantable) cardiac defibrillator ICD INTERROGATION, IN-PERSON (PROC)Place of service: OFFICE Procedure code: 05005, 12394 Authorization: [facility] - [facility] on or after 02/28/21 (Medicaid Replacement - HMO) [place] [address], [address] 7. Hyperlipidemia xspyadyizT48.220: Encounter for screening for lipoid disorders LIPID PANEL, SERUM 8. CkqorlgppgmdaW27.9: Hyperglycemia, unspecified HBA1C (HEMOGLOBIN A1C), BLOOD Return to Office to see Lupillo Hagen MD at [facility] on or around 12/13/2024 Lupillo Hagen MD for ANY 15 at [facility] on 01/10/2025 at 09:15 AM Patient Medical History: Allergies List Reviewed Allergies NKDA Some allergies listed in Document: #[id number] could not be added to this patient's chart. Please review this document and add these allergies to the patient's chart manually as needed. Medications Reviewed Medications NameDate Source albuterol sulfate 2.5 mg/3 mL (0.083 %) solution for nebulizationUSE 1 VIAL IN NEBULIZER EVERY 6 HOURS NEEDED FOR SHORTNESS OF WRIXMS19/15/22 filled surescripts carvediloL 25 mg tabletTake 1.5 tablet(s) twice a day by oral route for 90 days.12/13/24 prescribed Lupillo Hagen MD docusate sodium 100 mg capsuleTAKE 1 CAPSULE BY MOUTH TWICE DAILY07/20/24 filled surescripts furosemide 40 mg tabletTake 1 tablet(s) every day by oral route for 90 days.12/13/24 prescribed Lupillo Hagen MD lisinopriL 20 mg tabletTake 1 tablet(s) every day by oral route for 90 days.12/13/24 prescribed Lupillo Hagen MD potassium chloride ER 20 mEq tablet,extended releaseTake 1 tablet(s) every day by oral route for 90 days.12/13/24 prescribed Lupillo Hagen MD potassium chloride ER 20 mEq tablet,extended release(part/cryst)TAKE 1 BY MOUTH ONCE DAILY05/06/24 filled surescripts 12/13/24 confirmed verbally Family HistoryReviewed Family History states he is adopted but bio mom has cardiac issues Past Medical History (none recorded) Vaccine HistoryNone recorded Electronically Signed by: LUPILLO HAGEN MD Nan Nichols MA [facility], [place] - [place] 12/13/2024 15:30:32 Procedures Surgical History None recorded. Imaging Results Imaging Date Name Status LastModified by Organization Details LastModified Time 12/13/2024 electrocardiogram completed ELEANOR In-Offi ce Order Internal Use Only DO Not Attach Compendium DO Not Attach Compendium, Do Not Delete/merge, [id number] 12/13/2024 10:53:02 12/13/2024 electrocardiogram completed [email or web address] Informa tion not available 12/13/2024 10:53:03 Procedure Notes None recorded. Medical Equipment None Reported. Allergies No known drug allergies Medications Name Sig Start Date Stop Date Status Note LastModified by Organization Details LastModified Time furosemide 40 mg tablet TAKE 1 TABLET BY MOUTH ONCE DAILY active Not Available Not Available No t Available metformin 500 mg tablet TAKE 1 TABLET BY MOUTH ONCE DAILY WITH BREAKFAST 12/13 completed Not Available Not Available Not Available carvedilol 25 mg tablet TAKE 1 & 1/2 (ONE & ONE-HALF) TABLETS BY MOUTH TWICE DAILY active Not Available Not Available No t Available albuterol sulfate 2.5 mg/3 mL (0.083 %) solution for nebulizatio n USE 1 VIAL IN NEBULIZER EVERY 6 HOURS NEEDED FOR SHORTNESS OF BREATH active Not Available Not Available No t Available lisinopril 20 mg tablet TAKE 1 TABLET BY MOUTH ONCE DAILY active Not Available Not Available No t Available prednisone 20 mg tablet TAKE 2 TABLETS BY MOUTH ONCE DAILY FOR 1 DAY 12/13 completed Not Available Not Available Not Available potassium chloride ER 20 mEq tablet,exte nded release(par t/cryst) TAKE 1 BY MOUTH ONCE DAILY active Not Available Not Available No t Available methocarbam ol 750 mg tablet TAKE 2 TABLETS BY MOUTH THREE TIMES DAILY NEEDED FOR MUSCLE SPASM 12/13 completed Not Available Not Available Not Available pantoprazol e 40 mg tablet,omaira yed release TAKE 1 TABLET BY MOUTH ONCE DAILY 12/13 completed Not Available Not Available Not Available lisinopril 10 mg tablet TAKE 1 TABLET BY MOUTH ONCE DAILY 12/13 completed Not Available Not Available Not Available prednisone 50 mg tablet TAKE 1 TABLET BY MOUTH ONCE DAILY 12/13 completed Not Available Not Available Not Available docusate sodium 100 mg capsule TAKE 1 CAPSULE BY MOUTH TWICE DAILY active Not Available Not Available No t Available albuterol sulfate HFA 90 mcg/actuati on aerosol inhaler INHALE 2 PUFFS BY MOUTH EVERY 6 HOURS NEEDED FOR WHEEZING 12/13 completed Not Available Not Available Not Available naproxen 500 mg tablet TAKE 1 TABLET BY MOUTH EVERY 12 HOURS WITH FOOD 12/13 completed Not Available Not Available Not Available amoxicillin 875 mg-potassiu m clavulanate 125 mg tablet TAKE 1 TABLET BY MOUTH TWICE DAILY FOR 7 DAYS 12/13 completed Not Available Not Available Not Available azithromyci n 500 mg tablet TAKE 1 TABLET BY MOUTH ONCE DAILY 12/13 completed Not Available Not Available Not Available varenicline tartrate 0.5 mg (11)-1 mg (42) tablets in a dose pack TAKE DIRECTED ON INSIDE OF PACKAGE active Not Available Not Available No t Available Symbicort 160 mcg-4.5 mcg/actuati on HFA aerosol inhaler INHALE 2 PUFFS BY MOUTH TWICE DAILY 12/13 completed Not Available Not Available Not Available potassium chloride ER 20 mEq tablet,exte nded release TAKE 1 TABLET BY MOUTH ONCE DAILY active Not Available Not Available No t Available Vitals Date Recorded Body weight Body mass index (BMI) Body height Oxygen saturation Oxygen saturation in Arterial blood by Pulse oximetry Systolic blood pressure Diastolic blood pressure Provider Name and Address Organization Details Last Updated DateTime 5 94283.8 g 33.7 kg/m2 170.18 cm 97 % 97 % 118 mm[Hg] 92 mm[Hg] Huseyin Cuba MA [facility] 10:12:23 Date Recorded Heart rate Provider Name an d Address Organization Details Last Updated DateTime 12/13/2024 102 /min Lupillo Hagen MD Attn: Accounting,[address] [facility], [place], [address], [facility] 12/13/2024 10:32:23 Social History Question Answer Notes LastModified by Organizat ion Details LastModified Time Tobacco Smoking Status Current Every Day Smoker Huseyin Cuba MA null, [facility] 12/13/2024 10:08:50 What Was The Date Of Your Most Recent Tobacco Screening? 12/13/2024 Information not available 12/13/2024 At What Age Did You Start Smoking Tobacco? 15 Information not available 12/13/2024 How Many Years Have You Smoked Tobacco? 39 Information not available 12/13/2024 Sex: Unknown Functional Status None recorded. Mental Status None recorded. Family History Nothing Reported Notes:states he is adopted b ut bio mom has cardiac issues Medical History No medical history recorded. Past Encounters Encounter ID Performer Location Encounter Start Date Encounter Closed Date Diagnosis/Indication Diagnosis SNOMED-CT Code Diagnosis ICD10 Code Diagnosis Note [id number] Lupillo Hagen MD [facility] [address] [place] [address] 12/13/2024 09:56:59 12/14/2024 15:59:48 Smoker 01100782 F17.200 Obesity 005810503 E66.9 Congestive heart failure 70980801 I50.9 Essential hypertension 96599378 I10 Renewal of prescription 732358056 Z76.0 Automatic implantable cardiac defibrillator in situ 439683266 Z95.810 Hyperlipid emia screening 502387862 Z13.220 Hyperglycemia 63605185 R 73.9 Health Concerns Section Related Observation LastModified by Organization Detai ls LastModified Time None Recorded Concern Status LastModified by Organization Details LastModified Time None Recorded Advance Directives Directive None Recorded Payers Encounter Date Sequence Insurance Name Policy Number Policy Rodrigues Covered Member ID Rodrigues Member ID Guarantor Name 12/13/2024 1 [facility] - DOS ON OR AFTER 21 (MEDICAID REPLACEMENT - HMO) Altaf Dc [id number] Altaf Dc Notes Date Note Type Note Provider Name and Address Organization Details Recorded Time 12/13/2024 text/html 54-year-old meche hutton who has a history of cardiomyopathy with severely impaired left ventricular systolic function status post AICD placement referred to me for cardiovascular evaluation as he wants to reestablish with a new dehydrator.He denies complaints of chest pain tightness and pressure. He denies shortness of breath. He is complaining of bloating and abdominal distension. He has no peripheral edema. He denies AICD discharge. He has no dizziness lightheadedness or syncope. He admits for smoking. EK12/13/2024:Sinus Tachycardia,-Left atrial enlargement.-Poor R-wave progressionNon Specific intra ventricular conduction. LABS:07/05/22:choleste rol 190, triglycerides 134, HDL 43, LDL 120, a1c 7.8 CARDIAC TESTING:ECHO 01/23/18:Normal left ventricular size. Normal left ventricular wall thickness. Severe global left ventricular systolic function. Paradoxical septal motion consistent with IVCD or bundle branch block. Diastolic dysfunction is present. Increased left heart filling pressures based on elevated E/E. Ejection fraction is visually estimated at 20-25%. There is mild enlargement of left atrium. Normal right ventricular size. Normal right ventricular systolic function. Linear artifact and right ventricle suggestive of catheter (s), pacemaker lead (s), or ICD lead (s). There is moderate enlargement of right atrium. Linear artifact in right atrium suggestive of catheter (s), pacemaker lead (s), or ICD lead (s). Normal appearance of the tricuspid valve. Mild pulmonary hypertension based on right ventricular systolic pressure. Estimated peak RVSP is 43 mmHg. Mild tricuspid regurgitation. Sinus tachycardia.STRESS ECHO 04/04/14:Contrast enhancement was employed after initial imaging due to sub-optimal quality related to co-morbidity defined by patient s body habitus. Maximal Exercise Stress Echocardiogram, NEGATIVE for myocardial ischemia. Lupillo Hagen MD Attn: [address] [place], [id number], [place] [facility] 12/13/2024 10:44:51
--- OUTSIDE RECORDS SUMMARY | 2025-01-03 08:32 | XMS_ITS | CONTINUITY OF CARE DOCUMENT ---
Author Name leno daniefreddie Address Unknown Organization [facility] Address [address] [place] [address] Phone [phone] Care Team Providers Care Mock Up Builder Name Role Phone Ronald Ryan MD Unavailable Ronald Ryan MD Unavailable PROBLEMS Condition Status Date Provider Notes COPD active Ronald Ryan MD Other symptoms involving cardiovascular system completed - Tomeka Gerber MD Nonischemic cardiomyopathy EF 20-25% active Ronald Ryan MD Anxiety active Ronald Ryan MD Tobacco abuse active Ronald Ryan MD Biotronik dc (MRI Safe) ICD active Charbel Hallman 12/26/16--atr lead revision Chest pain-type to be determined active Tomeka Gerber MD CHF - systolic active Asim Chang MD HTN essential active Ronald Ryan MD Ventricular fibrillation active Mireille Cardenas MD SVT active Linda cai MD Arm pain, left active Ronald Ryan MD Shortness of breath active Ronald Ryan MD Cardiology examination active Ronald Ryan MD ENCOUNTERS Date Type Provider Location Encounter Diag nosis - In-person encounter Office Visit Ronald Ryan MD [facility] Cardiology examination - In-person encounter Office Visit Ronald Ryan MD [facility] - In-person encounter Office Visit Ronald Ryan MD [facility] - In-person encounter Office Visit Ronald Ryan MD [facility] - In-person encounter Office Visit Ronald Ryan MD [facility] Arm pain, leftShortness of breath - In-person encounter Office Visit Ronald Ryan MD [facility] - In-person encounter Office Visit Ronald Ryan MD [facility] - In-person encounter Office Visit Ronald Ryan MD [facility] - In-person encounter Office Visit Ronald Ryan MD [facility] - In-person encounter Office Visit Linda Cardenas MD [facility] - In-person encounter Office Visit Linda Cardenas MD [facility] - In-person encounter Office Visit Linda Cardenas MD [facility] Ventricular fibrillationSVT - In-person encounter Office Visit Ronald Ryan MD [facility] HTN essential - In-person encounter Office Visit Ronald Ryan MD [facility] - In-person encounter Office Visit Ronald Ryan MD [facility] - In-person encounter Office Visit Asim Chang MD [facility] Biotronik dc (MRI Safe) ICDCHF - systolic - In-person encounter Office Visit Ronald Ryan MD [facility] Tobacco abuse - In-person encounter Office Visit Ronald Ryan MD [facility] - In-person encounter Office Visit Tomeka Gerber MD [facility] Chest pain-type to b e determined - In-person encounter Office Visit Ronald Ryan MD [facility] - In-person encounter Office Visit Ronald Ryan MD [facility] - In-person encounter Office Visit Tomeka Gerber MD [facility] - In-person encounter Office Visit Tomeka Gerber MD [facility] Other symptoms involving cardiovascular system - In-person encounter Office Visit Ronald Ryan MD [facility] - In-person encounter Office Visit Ronald Ryan MD [facility] - In-person encounter Office Visit Ronald Ryan MD [facility] - In-person encounter Office Visit Ronald Ryan MD [facility] - In-person encounter Office Visit Ronald Ryan MD [facility] Nonischemic cardiomyopathy EF 20-25%AnxietyTobacco abuse VITAL SIGNS Date Observation Value Provider Body Mass Index (Ratio) 34.77 kg/m2 Bharat Ryan MD blood pressure, diastolic 90 mm[Hg] Zulma Pike blood pressure, systolic 127 mm[Hg] Jewell Pike oxygen saturation, oximetry 97 % Roseann Pike pulse rate 100 /min Roseann Pike respiratory rate E&M 12 /min Roseann Pike weight E&M 222 [lb_av] Roseann Pike height E&M 67 [in_i] Roseann Pike blood pressure, cuff size regular An tanya Pike Body Mass Index (Ratio) 34.92 kg/m2 Bharat Ryan MD blood pressure, diastolic 96 mm[Hg] Ja rret blood pressure, systolic 141 mm[Hg] Jar ret pulse rate 88 /min Adriel blood pressure, cuff size regular Ja rret oxygen saturation, oximetry 96 % Adriel respiratory rate E&M 16 /min Adriel weight E&M 223 [lb_av] Adriel height E&M 67 [in_i] Adriel Body Mass Index (Ratio) 35.24 kg/m2 Bharat Ryan MD blood pressure, cuff size regular Ja rret blood pressure, diastolic 87 mm[Hg] Ja rret blood pressure, systolic 126 mm[Hg] Jar ret pulse rate 95 /min Adriel respiratory rate E&M 12 /min Adriel oxygen saturation, oximetry 95 % Adriel weight E&M 225 [lb_av] Adriel height E&M 67 [in_i] Adriel y Body Mass Index (Ratio) 38.56 kg/m2 Bharat Ryan MD blood pressure, diastolic 85 mm[Hg] Jodie nkLogic blood pressure, systolic 131 mm[Hg] Harper kLogclaudia weight E&M 246.2 [lb_av] Alyce Pate pulse rate 96 /min Alyce Pate respiratory rate E&M 18 /min Alyce Pate blood pressure, diastolic 85 mm[Hg] Teto Pate blood pressure, systolic 131 mm[Hg] She vinay Pate oxygen saturation, oximetry 96 % Alyce Pate blood pressure, cuff size regular Teto Pate height E&M 67 [in_i] Alyce Pate Body Mass Index (Ratio) 37.74 kg/m2 Bharat Ryan MD blood pressure, diastolic 82 mm[Hg] St amirah [place] blood pressure, systolic 114 mm[Hg] Greg crispin [place] oxygen saturation, oximetry 93 % Mer [place] respiratory rate E&M 16 /min Sadiq lundberg [place] pulse rate 115 /min Mer Montes weight E&M 241 [lb_av] Mer Jacksonvt linda height E&M 67 [in_i] Mer [facility] blood pressure, cuff size large St macario [place] Body Mass Index (Ratio) 36.27 kg/m2 Bharat Ryan MD blood pressure, diastolic 89 mm[Hg] Li nkLog blood pressure, systolic 125 mm[Hg] Harper kLog blood pressure, cuff size large Ta richmond Van blood pressure, diastolic 89 mm[Hg] Ta richmond Van blood pressure, systolic 125 mm[Hg] Rhodes bruna Van oxygen saturation, oximetry 92 % Ene Van respiratory rate E&M 18 /min Ene Van pulse rate 98 /min Ene Van weight E&M 231.6 [lb_av] Ene Van height E&M 67 [in_i] Ene Van blood pressure, cuff size regular La Maliha Bereket blood pressure, diastolic 82 mm[Hg] Quin [place] blood pressure, systolic 132 mm[Hg] Sharon [place] weight in kilograms E&M 103.87 kg Rodolfo [place] height in centimeters E&M 170.18 cm Quin [place] Body Mass Index (Ratio) 35.86 kg/m2 Rodolfo [place] respiratory rate E&M 18 /min Theodora [place] pulse rate 82 /min Kerwin michelle oxygen saturation, oximetry 94 % Kerwin [place] weight E&M 229 [lb_av] Kerwin michelle height E&M 67 [in_i] Kerwin michelle Body Mass Index (Ratio) 36.02 kg/m2 Bharat Ryan MD blood pressure, diastolic 76 mm[Hg] Ca therine Deepak blood pressure, systolic 127 mm[Hg] Cat herine Deepak oxygen saturation, oximetry 95 % Sandra [place] respiratory rate E&M 14 /min Catheri ne [place] pulse rate 108 /min Sandra [place] weight E&M 230 [lb_av] Sandra Deepak blood pressure, cuff size regular Ca therine Deepak height E&M 67 [in_i] Sandra Deepak Body Mass Index (Ratio) 35.86 kg/m2 Tadaysi dominguez Arnold blood pressure, resting Yes Carlos Silva oxygen saturation, oximetry 94 % Diane Silva respiratory rate E&M 18 /min David Silva pulse rate 89 /min Carlosamparojosue garcia weight E&M 229 [lb_av] Diane garcia height E&M 67 [in_i] Diane gracia Body Mass Index (Ratio) 35.86 kg/m2 Kathrine Barrett blood pressure, diastolic 80 mm[Hg] Cy tyree Garner blood pressure, systolic 138 mm[Hg] Kath irais Garner blood pressure, cuff size regular Cy tyree Garner oxygen saturation, oximetry 95 % Samantha Garner pulse rate 82 /min Samantha trevino respiratory rate E&M 82 /min Samantha Garner weight E&M 229 [lb_av] Samantha Guptabel l height E&M 67 [in_i] Samantha Guptabel l Body Mass Index (Ratio) 36.36 kg/m2 Vitaliy Cardenas MD blood pressure, diastolic 80 mm[Hg] Aliyah Rangel blood pressure, systolic 128 mm[Hg] Samaria Rangel oxygen saturation, oximetry 94 % Elizabeth Rangel respiratory rate E&M 16 /min Devika Rangel pulse rate 97 /min Elizabeth dahl weight E&M 232.2 [lb_av] Elizabeth sommer height E&M 67 [in_i] Elizabeth Rodriaudrey dahl Body Mass Index (Ratio) 35.55 kg/m2 Bharat Ryan MD blood pressure, diastolic 96 mm[Hg] To nsha Leon blood pressure, systolic 129 mm[Hg] Ton sha Leon oxygen saturation, oximetry 96 % Tonsha Leon respiratory rate E&M 16 /min Tonsha Leon pulse rate 103 /min Tonsha Leon weight E&M 227 [lb_av] Tonsha Leon height E&M 67 [in_i] [facility] Leon Body Mass Index (Ratio) 34.45 kg/m2 Bharat Ryan MD blood pressure, diastolic 80 mm[Hg] Alhaji diehl Faye blood pressure, systolic 140 mm[Hg] Darius Sigalaby pulse rate 113 /min Dee [place] oxygen saturation, oximetry 94 % Dee [place] respiratory rate E&M 18 /min Dee Faye weight E&M 220 [lb_av] Dee [place] blood pressure, cuff size regular Kr shanita Sigalaby height E&M 67 [in_i] Dee Faye Body Mass Index (Ratio) 35.39 kg/m2 Bharat Ryan MD blood pressure, cuff size large Ke [facility]ri [facility] blood pressure, diastolic 86 mm[Hg] Ke rri Gruenenfelder blood pressure, systolic 110 mm[Hg] Ker ri Drissuenenfronaker oxygen saturation, oximetry 97 % Moni Kalyan respiratory rate E&M 20 /min Moni G ruchienenfronaker pulse rate 122 /min Moni Katerin lder weight E&M 226 [lb_av] Moni Gruenenfe lder height E&M 67 [in_i] Moni Gruenenfe er Body Mass Index (Ratio) 33.70 kg/m2 Boy Hallman blood pressure, diastolic 88 mm[Hg] Ke rri Gruenenfelder blood pressure, systolic 122 mm[Hg] Ker ri Gruenenfelder oxygen saturation, oximetry 94 % Moni Davider respiratory rate E&M 20 /min Moni G ruenenfelder pulse rate 120 /min Moni Conklin lder weight E&M 215.2 [lb_av] Moni High mary height E&M 67 [in_i] Moni Conklin er Body Mass Index (Ratio) 34.36 kg/m2 Bharat Ryan MD blood pressure, diastolic 81 mm[Hg] Aliyah Rangel blood pressure, systolic 122 mm[Hg] Samaria Rangel oxygen saturation, oximetry 97 % Elizabeth Rangel respiratory rate E&M 18 /min Devika Rangel pulse rate 65 /min Elizabeth dahl weight E&M 219.4 [lb_av] Elizabeth sommer height E&M 67 [in_i] Elizabeth Rodri nabila Body Mass Index (Ratio) 34.48 kg/m2 Bharat Ryan MD blood pressure, diastolic 93 mm[Hg] Aliyah Rangel blood pressure, systolic 133 mm[Hg] Samaria Rangel oxygen saturation, oximetry 96 % Elizabeth Rangel respiratory rate E&M 18 /min Devika Rangel pulse rate 96 /min Elizabeth Steve nabila weight E&M 220.2 [lb_av] Elizabeth Mejia kemal height E&M 67 [in_i] Elizabeth Mace claudealberto Body Mass Index (Ratio) 34.45 kg/m2 Moe Pemberton blood pressure, diastolic, left arm 80 mm [Hg] Carlyn Hoover blood pressure, systolic, left arm 132 mm [Hg] Carlyngem Ibanezhley blood pressure, diastolic, right arm 84 m m[Hg] Carlyngem Ibanezhley blood pressure, systolic, right arm 136 m m[Hg] Carlyn Sneha blood pressure, cuff size regular Te toby Hoover blood pressure, diastolic 80 mm[Hg] Te toby Ibanezhley blood pressure, systolic 132 mm[Hg] Dusty gemgabi IbanezSneha oxygen saturation, oximetry 98 % Carlyn Hoover respiratory rate E&M 18 /min Carlyn Ibanezhley pulse rate 112 /min Carlyn Sneha weight E&M 220 [lb_av] [facility] Body Mass Index (Ratio) 33.83 kg/m2 Bharat Ryan MD blood pressure, diastolic 90 mm[Hg] Baldev Pike blood pressure, systolic 140 mm[Hg] Zainab Pike oxygen saturation, oximetry 96 % Zainab Pike respiratory rate E&M 20 /min Zainab wilson pulse rate 108 /min Zainab Pike blood pressure, resting Yes Zainab Pike weight E&M 216 [lb_av] Zainab Pike height E&M 67 [in_i] Zainab Pike blood pressure, diastolic 74 mm[Hg] An jean Rehman blood pressure, systolic 130 mm[Hg] Harsh Rehman pulse rate 113 /min Gisele boateng oxygen saturation, oximetry 97 % Gisele Rehman respiratory rate E&M 18 /min Octaviano jarvis Rehman Body Mass Index (Ratio) 32.57 kg/m2 Anti philly Rehman weight E&M 208 [lb_av] Gisele Anthony s blood pressure, diastolic 70 mm[Hg] Aliyah Rangel blood pressure, systolic 110 mm[Hg] Samaria Rangel pulse rate 129 /min Elizabeth dahl oxygen saturation, oximetry 96 % Elizabeth Rangel respiratory rate E&M 18 /min Devika Rangel Body Mass Index (Ratio) 32.89 kg/m2 Joyce Rangel weight E&M 210 [lb_av] Elizabeth dahl blood pressure, diastolic 84 mm[Hg] Aliyah Rangel blood pressure, systolic 120 mm[Hg] Samaria Rangel pulse rate 113 /min Elizabeth dahl oxygen saturation, oximetry 91 % Elizabeth Rangel respiratory rate E&M 18 /min Devika Rangel Body Mass Index (Ratio) 33.36 kg/m2 Joyce Rangel weight E&M 213 [lb_av] Elizabeth dahl blood pressure, diastolic 80 mm[Hg] Aliyah Rangel blood pressure, systolic 112 mm[Hg] Samaria Rangel pulse rate 131 /min Elizabeth dahl oxygen saturation, oximetry 96 % Elizabeth Rangel respiratory rate E&M 18 /min Devika Rangel Body Mass Index (Ratio) 33.83 kg/m2 Joyce Rangel weight E&M 216 [lb_av] Elizabeth dahl blood pressure, diastolic 90 mm[Hg] Aliyah Rangel blood pressure, systolic 125 mm[Hg] Samaria Rangel pulse rate 109 /min Elizabeth dahl oxygen saturation, oximetry 98 % Elizabeth Rangel respiratory rate E&M 18 /min Devika Rangel Body Mass Index (Ratio) 34.08 kg/m2 Joyce Rangel weight E&M 217.6 [lb_av] Elizabeth sommer blood pressure, diastolic 91 mm[Hg] Wa kamran Blake blood pressure, systolic 130 mm[Hg] Radha kan Blake pulse rate 112 /min Nilda Lozano oxygen saturation, oximetry 98 % Nilda Lozano respiratory rate E&M 18 /min Nilda Lozano Body Mass Index (Ratio) 33.83 kg/m2 Daniella Lozano weight E&M 216 [lb_av] Nilda Lozano blood pressure, diastolic 89 mm[Hg] Aliyah Rangel blood pressure, systolic 128 mm[Hg] Samaria Rangel pulse rate 117 /min Elizabeth dahl oxygen saturation, oximetry 97 % Elizabeth Rangel respiratory rate E&M 18 /min Devika Rangel Body Mass Index (Ratio) 34.30 kg/m2 Joyce Rangel weight E&M 219 [lb_av] Elizabeth dahl height E&M 67 [in_i] Elizabeth dahl ALLERGIES No Known Drug Allergies RESULTS Date Observation Value Provider Reference Range Interpretation Location B-type natriuretic peptide 24.4 pg/mL Link[facility] 0.0-100.0 magnesium, serum 1.9 mg/dL [facility] 1.6-2.3 prothrombin time (patient) 9.8 s [facility] 9.1-12.0 international normalized ratio (INR) 0.9 [facility] 0.9-1.2 platelet count 146 X10E3/UL [facility] 150-450 Low red blood cell distribution width 13.1 % [facility] 11.6-15.4 mean corpuscular hemoglobin concentration, RBC 33.3 G/DL [facility] 31.5-35.7 mean corpuscular hemoglobin, RBC 30.3 pg [facility] 26.6-33.0 mean corpuscular volume, RBC 91 fL [facility] 79-97 hematocrit, blood 48.4 % [facility] 37.5-51.0 hemoglobin, blood 16.1 g/dL [facility] 13.0-17.7 erythrocyte (RBC) count 5.31 X10E6/UL [facility] 4.14-5.80 leukocyte count, blood 7.2 X10E3/UL [facility] 3.4-10.8 alanine aminotransferase (SGPT), serum 32 1/L [facility] 0-44 aspartate aminotransferase (SGOT), serum 23 1/L [facility] 0-40 alkaline phosphatase, serum 75 1/L [facility] 39-117 bilirubin, serum, total 0.6 mg/dL [facility] 0.0-1.2 albumin/globulin ratio, serum 2.3 [facility] 1.2-2.2 High globulin, serum 1.9 [facility] 1.5-4.5 albumin, serum 4.4 g/dL [facility] 4.0-5.0 protein, total, serum 6.3 g/dL [facility] 6.0-8.5 calcium, serum 9.4 mg/dL [facility] 8.7-10.2 carbon dioxide, venous blood 26 mmol/L [facility] 20-29 chloride, serum 104 mmol/L [facility] 96-106 potassium, serum 4.6 mmol/L [facility] 3.5-5.2 sodium, serum 143 mmol/L [facility] 332-585 4575/05 /01 urea nitrogen/creatinine ratio, serum 14 [facility] 9-20 eGFR if 107 mL/min/{1.7 3_m2} [facility] >59 eGFR if not 93 mL/min/{1.7 3_m2} [facility] >59 creatinine, serum 0.95 mg/dL [facility] 0.76-1.27 urea nitrogen, blood 13 mg/dL [facility] 6-24 blood glucose, random 94 mg/[facility] creatinine, serum 0.95 mg/dL [facility] urea nitrogen, blood 15 mg/dL [facility] carbon dioxide, serum, total 27 mmol/L [facility] chloride, serum 108 mmol/L [facility] potassium, serum 4.1 mmol/L [facility] sodium, serum 142 mmol/L [facility] LDL cholesterol, serum 88 mg/dL [facility] pro brain natriuretic peptide 701 pg/mL [facility] 0[facility]450 High Estimated Glomerular Filtration Rate (calc) 91 (?) [facility] >59 chloride, serum 100 mmol/L [facility] 98-107 potassium, serum 4.8 mmol/L [facility] 3.5-5.1 sodium, serum 141 mmol/L [facility] 115-215 0001/10 /19 creatinine, serum 0.9 mg/dL [facility] 0.7-1.2 carbon dioxide, venous blood 28 mmol/L [facility] 22-29 calcium, serum 9.6 mg/dL [facility] 8.6-10.2 urea nitrogen, blood 12 mg/dL [facility] 6-20 blood glucose, random 86 mg/dL [facility] 74-99 anion gap, serum 15.9 [facility] - albumin/globulin ratio, serum 2.0 g/dL [facility] 1.1 - 2.5 globulin, serum 2.2 [facility] 2.3 - 3.8 Low urea nitrogen/creatinine ratio, serum 17.8 [facility] - Estimated Glomerular Filtration Rate (calc) 96.6 (?) [facility] 59.0 - chloride, serum 102.1 mmol/L [facility] 98.0 - 107.0 potassium, serum 4.6 mmol/L [facility] 3.5 - 5.1 sodium, serum 141.0 mmol/L [facility] - 145.0 creatinine, serum 0.9 mg/[facility] 0[facility] - 1.2 carbon dioxide, venous blood 23.0 mmol/L [facility] 22.0 - 29.0 albumin, serum 4.4 g/dL [facility] 3.5 - 5.2 calcium, serum 9.2 mg/dL [facility] 8.6 - 10.2 aspartate aminotransferase (SGOT), serum 35.0 1/L [facility] 0.0 - 40.0 alkaline phosphatase, serum 72.0 1/L [facility] 40.0 - 130.0 alanine aminotransferase (SGPT), serum 62.0 1/L [facility] 0.[facility] - 41.0 High protein, total, serum 6.6 g/dL [facility] 6.6 - 8.7 bilirubin, serum, total 0.4 mg/dL [facility] 0[facility] - 1.2 urea nitrogen, blood 16.0 mg/dL [facility] 6.0 - 20.0 blood glucose, random 100.0 mg/dL [facility] 74.0 - 99.0 High red blood cell distribution width, size density 45.1 fL [facility] - immature granulocytes, percentage of total cells, blood 0.4 % [facility] - nucleated red blood cells as percent of blood leukocytes 0.0 % [facility] - red blood cell (erythrocyte) count, per high power field 0.0 10*3/UL [facility] - eosinophils as percent of blood leukocytes 1.4 % [facility] - neutrophils as percent of blood leukocytes 66.2 % [facility] - Absolute Neutrophils 4.9 CELLS/UL [facility] 1.5 - 7.8 basophils as percent of blood leukocytes 0.5 % [facility] - Absolute Basophils 0.0 CELLS/UL [facility] 0.0 - 0.2 monocytes as percent of blood leukocytes 6.5 % [facility] - Absolute Monocytes 0.5 CELLS/UL [facility] 0.2 - 1.0 lymphocytes as percent of blood leukocytes 25.0 % [facility] - Absolute Lymphocytes 1.8 CELLS/UL [facility] 0.9 - 3.9 mean platelet volume 9.8 (?) [facility] - platelet count 175.0 THOUSAND/UL [facility] 100.0 - 400.0 mean corpuscular hemoglobin concentration, RBC 31.6 G/DL [facility] 31.0 - 38.0 mean corpuscular hemoglobin, RBC 29.7 pg [facility] 25.0 - 35.0 mean corpuscular volume, RBC 93.9 fL [facility] 75.0 - 100.0 hematocrit, blood 51.2 % [facility] 35.0 - 55.0 hemoglobin, blood 16.2 g/dL [facility] 11.5 - 16.5 erythrocyte count, whole blood 5.5 MILLION/UL [facility] 3.5 - 5.5 Nitrite Urine Negative [facility] Negative urobilinogen, urine 0.2 E.U./dL mg/dl [facility] 0.2 - 1.0 specific gravity, urine 1.020 [facility] 1.001 - 1.035 KETONES, URINE Negative [facility] Negative bilirubin, urine Negative [facility] Negative Glucose Urine Negative [facility] Negative clarity, urine, point Clear [facility] Clear urine color Yellow [facility] yellow to cipriano activated partial thromboplastin time 26.6 SECONDS [facility] 23.0 - 33.0 prothrombin time (patient) 9.8 s [facility] 9.0 - 11.5 international normalized ratio (INR) 0.9 [facility] 0.9 - 1.1 anion gap, serum 13.4 [facility] - albumin/globulin ratio, serum 3.4 g/dL [facility] 1.1 - 2.5 High globulin, serum 2.3 [facility] 2.3 - 3.8 urea nitrogen/creatinine ratio, serum 19.0 [facility] - Estimated Glomerular Filtration Rate (calc) 85.5 (?) [facility] 59.0 - chloride, serum 99.6 mmol/L [facility] 98.0 - 107.0 potassium, serum 4.2 mmol/L [facility] 3.5 - 5.1 sodium, serum 142.0 mmol/L [facility] 136.0 - 145.0 creatinine, serum 1.0 mg/dL [facility] 0.7 - 1.2 carbon dioxide, venous blood 29.0 mmol/L [facility] 22.0 - 29.0 albumin, serum 5.0 g/dL [facility] 3.5 - 5.2 calcium, serum 10.0 mg/dL [facility] 8.6 - 10.2 aspartate aminotransferase (SGOT), serum 61.0 1/L [facility] 0.0 - 40.0 High alkaline phosphatase, serum 121.0 1/L [facility] 40.0 - 130.0 alanine aminotransferase (SGPT), serum 117.0 1/L [facility] 0.0 - 41.0 High protein, total, serum 7.3 g/dL [facility] 6.6 - 8.7 bilirubin, serum, total 0.7 mg/dL [facility] 0.0 - 1.2 urea nitrogen, blood 19.0 mg/dL [facility] 6.0 - 20.0 blood glucose, random 83.0 mg/dL [facility] 74.0 - 99.0 red blood cell distribution width, size density 43.4 fL [facility] - immature granulocytes, percentage of total cells, blood 0.7 % [facility] - nucleated red blood cells as percent of blood leukocytes 0.0 % [facility] - red blood cell (erythrocyte) count, per high power field 0.0 10*3/UL [facility] - eosinophils as percent of blood leukocytes 1.6 % [facility] - neutrophils as percent of blood leukocytes 70.1 % [facility] - Absolute Neutrophils 6.2 CELLS/UL [facility] 1.5 - 7.8 basophils as percent of blood leukocytes 0.5 % [facility] - Absolute Basophils 0.0 CELLS/UL [facility] 0.0 - 0.2 monocytes as percent of blood leukocytes 6.2 % [facility] - Absolute Monocytes 0.6 CELLS/UL [facility] 0.2 - 1.0 lymphocytes as percent of blood leukocytes 20.9 % [facility] - Absolute Lymphocytes 1.9 CELLS/UL [facility] 0.9 - 3.9 mean platelet volume 9.2 (?) [facility] - platelet count 187.0 THOUSAND/UL [facility] 100.0 - 400.0 mean corpuscular hemoglobin concentration, RBC 33.0 G/DL [facility] 31.0 - 38.0 mean corpuscular hemoglobin, RBC 30.1 pg [facility] 25.0 - 35.0 mean corpuscular volume, RBC 91.3 fL [facility] 75.0 - 100.0 hematocrit, blood 48.5 % [facility] 35.0 - 55.0 hemoglobin, blood 16.0 g/dL [facility] 11.5 - 16.5 erythrocyte count, whole blood 5.3 MILLION/UL [facility] 3.5 - 5.5 Nitrite Urine Negative [facility] Negative urobilinogen, urine 0.2 E.U./dL mg/dl [facility] 0.2 - 1.0 specific gravity, urine 1.025 [facility] 1.001 - 1.035 KETONES, URINE Negative [facility] Negative bilirubin, urine Negative [facility] Negative Glucose Urine Negative [facility] Negative clarity, urine, point Clear [facility] Yellow urine color Yellow [facility] yellow to cipriano activated partial thromboplastin time 27.3 SECONDS [facility] 23.0 - 33.0 prothrombin time (patient) 10.1 s [facility] 9.0 - 11.5 international normalized ratio (INR) 0.9 [facility] 0.9 - 1.1 urea nitrogen/creatinine ratio, serum 15.4 [facility] - Estimated Glomerular Filtration Rate (calc) 63.4 (?) [facility] 59.0 - chloride, serum 103.8 mmol/L [facility] 98.0 - 107.0 potassium, serum 4.8 mmol/L [facility] 3.5 - 5.1 sodium, serum 142.0 mmol/L [facility] 136.0 - 145.0 creatinine, serum 1.3 mg/dL [facility] 0.7 - 1.2 High carbon dioxide, venous blood 27.0 mmol/L [facility] 22.0 - 29.0 calcium, serum 9.3 mg/dL [facility] 8.6 - 10.2 urea nitrogen, blood 20.0 mg/dL [facility] 6.0 - 20.0 blood glucose, random 93.0 mg/dL [facility] 74.0 - 99.0 HISTORY OF MEDICATION USE Medication Status Instructions Dates Provider Indications Com ments varenicline 0.5 mg (11)- 1 mg (42) tablets,dose pack active Take 1 tablet by mouth as directed Days 1-3, take 0.5 once daily, then 4-7 twice daily, on day 8 take 2 tablets once daily Ronald Ryan MD potassium chloride 20 mEq tablet,ER particles/crystal s active Take 1 tablet by mouth once daily Ronald Ryan MD carvedilol 25 mg tablet active Take 1 tablet by mouth twice a day Ronald Ryan MD furosemide 40 mg tablet active Take 1 tablet by mouth twice a day Ronald Ryan MD lisinopril 20 mg tablet active Take 1 tablet by mouth once a day Ronald Ryan MD potassium chloride 20 mEq tablet,ER particles/crystal s completed Take 1 tablet by mouth once a day - Adriel Barragan potassium chloride 20 mEq tablet,ER particles/crystal s completed TAKE 1 BY MOUTH ONCE DAILY - Moni Gruenenfelder potassium chloride 20 mEq tablet,ER particles/crystal s completed Take 1 tablet by mouth once daily - Alyce Tong Continuing Month Box 1 mg tablet active Take 1 mg by mouth twice a day Ronald Ryan MD Chantix Starting Month Box 0.5 mg (11)- 1 mg (42) tablets,dose pack completed Take 1 tablet by mouth as directed Please take 0.5 mg for 2 weeks then 1 mg daily - Ronald Ryan MD potassium chloride 20 mEq tablet,ER particles/crystal s completed TAKE 1 BY MOUTH ONCE DAILY - Adriel Barragan furosemide 40 mg tablet completed Take 1 tablet by mouth twice daily - Moni Gryolandaer potassium chloride 20 mEq tablet,ER particles/crystal s completed Take 1 tablet by mouth once daily - Adriel Easterday potassium chloride 20 mEq tablet,ER particles/crystal s completed TAKE 1 BY MOUTH ONCE DAILY - Bianca Boyer carvedilol 25 mg tablet completed Take 1 tablet by mouth twice daily - Moni Biggs furosemide 40 mg tablet completed Take 1 tablet by mouth once daily - Bianca Boyer lisinopril 20 mg tablet completed Take 1 tablet by mouth once daily - Moni Biggs potassium chloride 20 mEq tablet,ER particles/crystal s completed Take 1 tablet by mouth once daily - Payton Cruz Eliquis 5 mg tablet completed 1 tablet twice a day - Ronald Ryan MD sotalol 80 mg tablet completed 1 tablet twice a day - Ronald Ryan MD magnesium oxide 400 mg (241.3 mg magnesium) tablet active 1 tablet twice a day Alyce Eugene NP CARVEDILOL 25 MG TABS completed Take 2 tablets by mouth twice daily - Antwon Jaquez METFORMIN HCL 1000 MG ORAL TABLET completed TAKE 1 2 (ONE HALF) TABLET BY MOUTH TWICE DAILY FOR 7 DAYS THEN 1 TWICE DAILY - Diane Silva #54, 31 days supply, Prescribed by AMADOR MARIN, Filled 09/09/2019 NICOTINE 14 MG/24HR TRANSDERMAL PATCH 24 HOUR completed Take one patch once daily - Elizabeth Rangel RA NICOTINE 21 MG/24HR TRANSDERMAL PATCH 24 HOUR completed Use patch once daily for two weeks - Elizabeth ALANISDERM CQ 21 MG/24HR TRANSDERMAL PATCH 24 HOUR completed Use as directed - Dee Mckinney furosemide 40 mg tablet completed Take 1 tablet by mouth twice a day - Yuri Almaraz DIGOX 125 MCG ORAL TABLET completed Once a day - Dee Mckinney ADULT ASPIRIN EC LOW STRENGTH 81 MG ORAL TABLET DELAYED RELEASE active once a day Moni Biggs AEROSPAN 80 MCG/ACT INHALATION AEROSOL SOLUTION completed Inhale 2 puffs by mouth twice daily - Dee Mckinney HYDROCODONE-ACETA MINOPHEN 7.5-325 MG ORAL TABLET completed one tab every 8 hours as needed - Zainab Pike MORPHINE SULFATE TABLET completed as directed for pain - Zainab Pike LASIX 20 MG ORAL TABLET completed One tablet each morning, half tablet each evening - Asim Chang MD ALDACTONE 50 MG ORAL TABLET completed 1 tablet daily - Dee Mckinney TRAMADOL HCL TABLET completed every 4-6 hours as needed - Moni Biggs CYCLOBENZAPRINE HCL 10 MG ORAL TABLET completed 3 times daily - Dee Mckinney Coreg 25 mg tablet completed 1 tablet by mouth twice a day - Ronald Ryan MD AMITRIPTYLINE HCL 150 MG ORAL TABLET completed ONE TAB. DAILY - Moni Biggs OMEPRAZOLE 40 MG ORAL CAPSULE DELAYED RELEASE completed once daily - Dee Mckinney POTASSIUM CHLORIDE JULIO ER 20 MEQ ORAL completed Take 1 tablet by mouth once a day - Diana ACOSTA HFA 17 MCG/ACT INHALATION AEROSOL SOLUTION completed 1 puff twice daily - Diane Silva QVAR 40 MCG/ACT INHALATION AEROSOL SOLUTION completed 2 puffs twice daily - Diana Gonzales RN ESCITALOPRAM OXALATE 10 MG ORAL TABLET completed once daily - Dee Mckinney MOBIC 15 MG ORAL TABLET completed once daily - Dee Mckinney lisinopril 10 mg tablet completed 1 tablet once a day - Ronald Ryan MD SOCIAL HISTORY Date Observation Value Provider alcohol use yes Ronald Ryan MD smoking, year quit 6 months Ronald chavez MD number of years as a smoker 40 a Ronald Ryan MD smoking history, tot al pack/day 1 Ronald Ryan MD cigarette use yes Ronald Martinez smoking status Former smoker Ronald Ryan MD alcohol use yes Ronald Ryan MD smoking, year quit 6 months Ronald chavez MD number of years as a smoker 40 a Ronald Ryan MD smoking history, tot al pack/day 1 Ronald Ryan MD cigarette use yes Ronald Martinez smoking status Former smoker Ronald Ryan MD social history E&M S moking History: Debi springer is a former smoker. Ronald Ryan MD social history reviewed E&M revi ewed - no changes required Ronald Ryan MD smoking, year quit 6 months Alyce Palacios kylahangel luis cigarette use yes Alyce Herlinda smoking status Former smoker Alyce Concetta longo social history reviewed E&M revi ewed - no changes required Ronald Ryan MD social history E&M S moking History: Debi springer is a former smoker. Ronald Ryan MD smoking, year quit 2016 Mer Trevor number of years as a smoker 40 a Mer Murray smoking history, tot al pack/day 1 Mer Murray cigarette use yes Mer ndiaye smoking status Former smoker Mer Dara haas alcohol use yes Ronald Ryan MD social history reviewed E&M revi ewed - no changes required Ronald Ryan MD social history E&M S moking History: Debi springer currently smokes every day. Debi springer has been counseled to quit. Ronald Ryan MD smoking/tobacco cess ation, patient education and counseling yes Ronald Ryan MD number of years as a smoker 40 a Ene Glass smoking history, tot al pack/day 1 Ene Glass cigarette use yes Ene Glass smoking status Current every day smoker Khalif Glass social history E&M S moking History: P atclemente currently smokes every day. P atient has been counseled to quit. Ronald Ryan MD smoking/tobacco cess ation, patient education and counseling yes Ronald Ryan MD smoking status Current every day smoker U alex Ryan MD social history reviewed E&M revi ewed - no changes required Ronald Ryan MD social history E&M S moking History: P atclemente currently smokes every day. P atient has been counseled to quit. Ronald Ryan MD social history reviewed E&M revi ewed - no changes required Ronald Ryan MD smoking/tobacco cess ation, patient education and counseling yes Sandra [place] smoking, year quit 2016 Sandra Deepak number of years as a smoker 21 a Sandra Deepak smoking history, tot al pack/day 0.5 Sandra Milwaukee cigarette use yes Sandra [place] smoking status Current every day smoker C hannahine Deepak social history E&M S moking History: P racheal currently smokes every day. P atclemente has been counseled to quit. Malinda Barrett social history reviewed E&M revi ewed - no changes required Malinda Barrett smoking/tobacco cess ation, patient education and counseling yes Diane Silva smoking, year quit 2016 Bradley Silva number of years as a smoker 21 a Diane Ricardo smoking history, tot al pack/day 0.5 Diane Silva cigarette use yes Bradleyomar meneses smoking status Current every day smoker Mario Silva social history E&M S moking History: P atient currently smokes every day. P atient has been counseled to quit. Antwon Jaquez social history reviewed E&M revi ewed - no changes required Antwon Jaquez smoking/tobacco cess ation, patient education and counseling yes Samantha Garner smoking, year quit 2015 Samantha Lopez shai number of years as a smoker 21 a Samantha Garner smoking history, tot al pack/day 0.5 Samantha Garner cigarette use yes Samantha Guptarachel johnson smoking status Current every day smoker John Garner number of grandchildren Linda Eugene NP social history E&M S moking History: P atient currently smokes every day. P atient has been counseled to quit. Alyce Eugene NP social history reviewed E&M revi ewed - no changes required Alyce Eugene NP smoking/tobacco cess ation, patient education and counseling yes Elizabeth Rangel smoking, year quit 2015 Elizabeth Juan Carlos number of years as a smoker 21 a Elizabeth Rangel smoking history, tot al pack/day 0.5 Elizabeth Rangel cigarette use yes Elizabeth sommer smoking status Current every day smoker Yosi Mikaela Rangel social history E&M S moking History: P atient currently smokes every day. P atient has been counseled to quit. Ronald Ryan MD social history reviewed E&M revi ewed - no changes required Ronald Ryan MD smoking/tobacco cess ation, patient education and counseling yes Tonsha Leon smoking, year quit 2015 Tonsha Mo ss number of years as a smoker 21 a Tonsha Leon smoking history, tot al pack/day 0.5 [facility] cigarette use yes [facility] smoking status Current every day smoker T mohit Leon social history reviewed E&M revi ewed - no changes required Ronald Ryan MD social history E&M S moking History: P atient currently smokes every day. P atient has been counseled to quit. Ronald Ryan MD social history reviewed E&M revi ewed - no changes required Ronald Ryan MD alcohol counseling yes Moni bermudez smoking/tobacco cess ation, patient education and counseling yes Moni Biggs alcohol use yes Moni morin smoking, year quit 2015 Moni Kiersten bermudez number of years as a smoker 21 a Moni Biggs smoking history, tot al pack/day 0.5 Moni Biggs cigarette use yes Moni Anila hernandez smoking status Current every day smoker K leonardo Biggs alcohol counseling yes Charbel Hallman alcohol use yes Charbel cabrera social history E&M Smoking Histo ry: P atient currently smokes every day. P atient has been counseled to quit. Charbel Hallman smoking/tobacco cess ation, patient education and counseling yes Asim Chang MD smoking, year quit 2015 Asim Chang MD number of years as a smoker 21 a Charbel Hallman smoking history, tot al pack/day 0.5 Asim Chang MD cigarette use yes Asim palacios MD smoking status Current every day smoker S jennifer Chang MD social history reviewed E&M revi ewed - no changes required Asim Chang MD social history reviewed E&M revi ewed - no changes required Ronald Ryan MD social history E&M Smoking Histo ry: P atient currently smokes every day. P atient has been counseled to quit. Ronald Ryan MD smoking/tobacco cess ation, patient education and counseling yes Elizabeth Rangel smoking, year quit 2015 ElizabethKatya Rangel number of years as a smoker 20 a Elizabeth Rangel smoking history, tot al pack/day 0.5 Ronald Ryan MD cigarette use yes Elizabeth sommer smoking status Current every day smoker Yosi Mikaela Rangel number of grandchildren Ronald Ryan MD S cari Washington NP number of years as a smoker 20 a Elizabeth Rangel smoking/tobacco cess ation, patient education and counseling yes Elizabeth Rangel smoking history, tot al pack/day 0.5 EilzabethKatya Rangel smoking, year quit 2015 Elizabeth Rangel cigarette use yes Elizabeth Mejia patriciaalberto smoking status Current every day smoker S cari Washington NP social history reviewed E&M revi ewed - no changes required Alyce Washington NP social history reviewed E&M revi ewed - no changes required Moe Pemberton smoking/tobacco cess ation, patient education and counseling yes Tomeka Gerber MD smoking status Current every day smoker M amparo Gerber MD number of grandchildren Tomeka Hoover social history E&M Patient is a former smoker. P atient currently smokes every day. Smoking History: P atient currently smokes every day. P atient has been counseled to quit. Ronald Ryan MD social history reviewed E&M revi ewed - no changes required Ronald Ryan MD smoking/tobacco cess ation, patient education and counseling yes Zainab Pike smoking status current every day smoker U alex Ryan MD social history reviewed E&M revi ewed - no changes required Ronald Ryan MD number of grandchildren Ronald Ryan MD A kaushik Rehman smoking status Former smoker Gisele marquez social history E&M Patient is a former smoker. Smoking History: Debi springer is a former smoker. Tomeka Gerber MD social history reviewed E&M revi ewed - no changes required Tomeka Gerber MD smoking, year quit 2015 Elizabeth Rangel cigarette use yes Elizabeth sommer smoking status Former smoker Elizabeth Segovia smoking/tobacco cess ation, patient education and counseling yes Ronald Ryan MD smoking status Former smoker Ronald Ryan MD social history reviewed E&M revi ewed - no changes required Ronald Ryan MD smoking, year quit 2015 Elizabeth Rangel cigarette use yes Elizabeth sommer social history reviewed E&M revi ewed - no changes required Ronald Ryan MD smoking, year quit 2015 Elziabeth Rangel cigarette use yes Elizabeth sommer smoking status Former smoker ElizabethKatya Segovia social history reviewed E&M revi ewed - no changes required Ronald Ryan MD smoking, year quit 2015 Elizabeth Rangel cigarette use yes Elizabeth sommer smoking status Former smoker Elizabethlinda Segovia social history reviewed E&M revi ewed - no changes required Ronald Ryan MD smoking, year quit 2015 Nilda gregory cigarette use yes Nilda smoking status Former smoker Nildakan Lozano social history E&M Patient is a former smoker. Smoking History: Debi springer is a former smoker. Ronald Ryan MD social history reviewed E&M revi ewed - no changes required Ronald Ryan MD smoking, year quit 2016 Elizabeth Rangel cigarette use yes Elizabeth sommer smoking status Former smoker Ronald Ryan MD FAMILY HISTORY Family Member Condition Full Brother Family History of Co ngestive Heart Failure: Mother Family History of Co ronary Artery Disease: INSURANCE PROVIDERS Payer name Policy type / Coverage type [place] [employer] party ID BRANT COMPLETE (2) Medicare [id number] 1 ADVANCE DIRECTIVES Name Date DISCUSSED - NO DECISION MADE TREATMENT PLAN Date Name Performer [id number],C,P robably combo of cardiomyopathy and COPD but does not appear to be fluid overloaded. Ronald Ryan MD [id number],C,s eems to be atypical. if he discontinues then we can do a stress test. Ronald Ryan MD [id number],B, B P today: 114/82 P rior BP: 125/89 (04/11/2022) Labs Reviewed: C reat: 0.95 (12/29/2020) L DL: 88 (02/06/2018) Roanld Ryan MD [id number],S, Ronald Ryan MD [id number],B,He has quit s moking Ronald Ryan MD [id number],C,H e seems to be stable and has not had edema. I have advised him to cut back his ferusomide to once daily and see how he does. Ronald Ryan MD [id number],C,H R 98. Increase lisinopril to 20mg daily. BP today: 125/89 P rior BP: 132/82 (01/06/2022) Labs Reviewed: C reat: 0.95 (12/29/2020) L DL: 88 (02/06/2018) Ronald Ryan MD [id number],JohnH as cut down 10 cigarretes/day. Says he is quitting April 30. T he Patient was reencouraged to stop smoking. Ronald Ryan MD [id number],C,W ill check his EF now and again have asked him to quit smoking. Ronald Ryan MD [id number],S,T he Patient was reencouraged to stop smoking. Ronald Ryan MD [id number],S, S SARAN ENCOURAGED TO STOP SMOKING; SMOKING CESSATION TECHNIQUES DISCUSSED. Ronald Ryan MD [id number],S B P today: 127/76 P rior BP: 138/80 (01/18/2021) His updated medication list for this problem includes: Coreg 25 Mg Tablet (Carvedilol) ..... 1 tablet by mouth twice a day Lisinopril 10 Mg Tablet (Lisinopril) ..... Take 1 tablet by mouth once daily Sotalol 80 Mg Tablet (Sotalol) ..... 1 tablet twice a day Furosemide 40 Mg Tablet (Furosemide) ..... Take 1 tablet by mouth twice a day Ronald Ryan MD [id number],S, E F 20%. His updated medication list for this problem includes: Coreg 25 Mg Tablet (Carvedilol) ..... 1 tablet by mouth twice a day Lisinopril 10 Mg Tablet (Lisinopril) ..... Take 1 tablet by mouth once daily Sotalol 80 Mg Tablet (Sotalol) ..... 1 tablet twice a day Furosemide 40 Mg Tablet (Furosemide) ..... Take 1 tablet by mouth twice a day Ronald Ryan MD [id number],S, C ompensated. Last EF 20%. His updated medication list for this problem includes: Lisinopril 10 Mg Tablet (Lisinopril) ..... Take 1 tablet by mouth once daily Coreg 12.5 Mg Tablet (Carvedilol) ..... 1 tablet twice a day Sotalol 80 Mg Tablet (Sotalol) ..... 1 tablet twice a day Furosemide 40 Mg Tablet (Furosemide) ..... Take 1 tablet by mouth twice a day Ronald Ryan MD Cardiology:Needs dev ice interrogation Ronald Ryan MD Cardiology:multifact orial, likely due to tobacco abuse, chf, copd Ronald Ryan MD Cardiology: H is updated medication list for this problem includes: Carvedilol 25 Mg Tablet (Carvedilol) ..... Take 1 tablet by mouth twice a day Furosemide 40 Mg Tablet (Furosemide) ..... Take 1 tablet by mouth twice a day Lisinopril 20 Mg Tablet (Lisinopril) ..... Take 1 tablet by mouth once a day BP today: 127/90 P rior BP: 141/96 (03/11/2024) Labs Reviewed: C reat: 0.95 (12/29/2020) L DL: 88 (02/06/2018) Ronald Ryan MD Cardiology:Echo 35% C ontinue medical therapy. a ppears compensated Ronald Ryan MD Cardiology:The Patie nt was reencouraged to stop smoking. Ronald Ryan MD Cardiology:EF improv ed to 35% I CD in place C ontinue medical therapy. This visit has been a part of the consistent, comprehensive, and ongoing management of the chronic medical condition(s) listed above for the patient. Ronald Ryan MD Cardiology:The Patie nt was reencouraged to stop smoking. Ronald Ryan MD Cardiology Ronald Ryan MD Cardiology Ronald Ryan MD Cardiology:EF improved to 45% Us kimberly Ryan MD Cardiology:This visi t has been a part of the consistent, comprehensive, and ongoing management of the chronic medical condition(s) listed above for the patient. H is updated medication list for this problem includes: Carvedilol 25 Mg Tablet (Carvedilol) ..... Take 1 tablet by mouth twice a day Furosemide 40 Mg Tablet (Furosemide) ..... Take 1 tablet by mouth twice a day Lisinopril 20 Mg Tablet (Lisinopril) ..... Take 1 tablet by mouth once a day BP today: 141/96 P rior BP: 126/87 (09/11/2023) Labs Reviewed: C reat: 0.95 (12/29/2020) L DL: 88 (02/06/2018) Ronald Ryan MD Cardiology:Reduce la six to once daily P CP needs to check labs to monitor K John kim f/u echo in 6 months Ronald Ryan MD Cardiology:Last EF was 45%. Repe at echo Ronald Ryan MD Cardiology: B P today: 126/87 P rior BP: 131/85 (04/24/2023) Labs Reviewed: C reat: 0.95 (12/29/2020) L DL: 88 (02/06/2018) Ronald Ryan MD Cardiology Ronald Ryan MD Cardiology:Probably combo of cardiomyopathy and COPD but does not appear to be fluid overloaded. Ronald Ryan MD Cardiology:seems to be atypical. if he discontinues then we can do a stress test. Ronald Ryan MD Cardiology: B P today: 114/82 P rior BP: 125/89 (04/11/2022) Labs Reviewed: C reat: 0.95 (12/29/2020) L DL: 88 (02/06/2018) Ronald Ryan MD Cardiology Ronald Ryan MD Cardiology:He has quit smoking U alex Ryna MD Cardiology:He seems to be stable and has not had edema. I have advised him to cut back his ferusomide to once daily and see how he does. Ronald Ryan MD Cardiology:HR 98. In crease lisinopril to 20mg daily. BP today: 125/89 P rior BP: 132/82 (01/06/2022) Labs Reviewed: C reat: 0.95 (12/29/2020) L DL: 88 (02/06/2018) Ronald Ryan MD Cardiology:Has cut d own 10 cigarretes/day. Says he is quitting April 30. T he Patient was reencouraged to stop smoking. Ronald Ryan MD Cardiology:Will chec k his EF now and again have asked him to quit smoking. Ronald Ryan MD Cardiology:The Patie nt was reencouraged to stop smoking. Ronald Ryan MD Cardiology: S SARAN ENCOURAGED TO STOP SMOKING; SMOKING CESSATION TECHNIQUES DISCUSSED. Ronald Ryan MD Cardiology: B P today: 127/76 P rior BP: 138/80 (01/18/2021) His updated medication list for this problem includes: Coreg 25 Mg Tablet (Carvedilol) ..... 1 tablet by mouth twice a day Lisinopril 10 Mg Tablet (Lisinopril) ..... Take 1 tablet by mouth once daily Sotalol 80 Mg Tablet (Sotalol) ..... 1 tablet twice a day Furosemide 40 Mg Tablet (Furosemide) ..... Take 1 tablet by mouth twice a day Ronald Ryan MD Cardiology: E F 20%. His updated medication list for this problem includes: Coreg 25 Mg Tablet (Carvedilol) ..... 1 tablet by mouth twice a day Lisinopril 10 Mg Tablet (Lisinopril) ..... Take 1 tablet by mouth once daily Sotalol 80 Mg Tablet (Sotalol) ..... 1 tablet twice a day Furosemide 40 Mg Tablet (Furosemide) ..... Take 1 tablet by mouth twice a day Ronald Ryan MD Cardiology: C ompensated. Last EF 20%. His updated medication list for this problem includes: Lisinopril 10 Mg Tablet (Lisinopril) ..... Take 1 tablet by mouth once daily Coreg 12.5 Mg Tablet (Carvedilol) ..... 1 tablet twice a day Sotalol 80 Mg Tablet (Sotalol) ..... 1 tablet twice a day Furosemide 40 Mg Tablet (Furosemide) ..... Take 1 tablet by mouth twice a day Ronald Ryan MD Cardiology 12:STRONG LY ENCOURAGED TO STOP SMOKING; SMOKING CESSATION TECHNIQUES DISCUSSED. Malinda Barrett Cardiology 12: T he following medications were removed from the medication list: Atrovent Hfa 17 Mcg/act Inhalation Aerosol Solution (Ipratropium bromide hfa) ..... 1 puff twice daily Pulmonary Functions Reviewed: O 2 sat: 94 (02/01/2021) Malinda Barrett Cardiology 12: P rior BP: 138/80 (01/18/2021) Labs Reviewed: C reat: 0.95 (12/29/2020) L DL: 88 (02/06/2018) His updated medication list for this problem includes: Sotalol Hcl 80 Mg Oral Tablet (Sotalol hcl) ..... One tab. twice daily Coreg 12.5 Mg Oral Tablet (Carvedilol) ..... One tab. twice daily Lisinopril 10 Mg Oral Tablet (Lisinopril) ..... One tab. daily Furosemide 40 Mg Oral Tablet (Furosemide) ..... Take 1 tablet by mouth twice daily Adult Aspirin Ec Low Strength 81 Mg Oral Tablet Delayed Release (Aspirin) ..... Daily Malinda Barertt Cardiology 12: s /p EPS and ablation onf 01/24/2021 E KG sinus His updated medication list for this problem includes: Sotalol Hcl 80 Mg Oral Tablet (Sotalol hcl) ..... One tab. twice daily Coreg 12.5 Mg Oral Tablet (Carvedilol) ..... One tab. twice daily Lisinopril 10 Mg Oral Tablet (Lisinopril) ..... One tab. daily Adult Aspirin Ec Low Strength 81 Mg Oral Tablet Delayed Release (Aspirin) ..... Daily Philipdaysialberto Barrett Electrophysiology fo llow up : P racheal advised to stop smoking Antwon Jaquez Electrophysiology fo llow up : H is updated medication list for this problem includes: Sotalol Hcl 80 Mg Oral Tablet (Sotalol hcl) ..... One tab. twice daily Coreg 12.5 Mg Oral Tablet (Carvedilol) ..... One tab. twice daily Lisinopril 10 Mg Oral Tablet (Lisinopril) ..... One tab. daily Furosemide 40 Mg Oral Tablet (Furosemide) ..... Take 1 tablet by mouth twice daily Adult Aspirin Ec Low Strength 81 Mg Oral Tablet Delayed Release (Aspirin) ..... Daily Antwon Jaquez Electrophysiology fo llow up : P racheal has ICD placed The following medications were removed from the medication list: Carvedilol 25 Mg Tabs (Carvedilol) ..... Take 2 tablets by mouth twice daily His updated medication list for this problem includes: Sotalol Hcl 80 Mg Oral Tablet (Sotalol hcl) ..... One tab. twice daily Coreg 12.5 Mg Oral Tablet (Carvedilol) ..... One tab. twice daily Lisinopril 10 Mg Oral Tablet (Lisinopril) ..... One tab. daily Furosemide 40 Mg Oral Tablet (Furosemide) ..... Take 1 tablet by mouth twice daily Adult Aspirin Ec Low Strength 81 Mg Oral Tablet Delayed Release (Aspirin) ..... Daily Antwon Jaquez Electrophysiology fo llow up : D evice interrogation revealed on episode of Vfib with frequent epiosdes of SVT. T o have ablation 01/24/21. His updated medication list for this problem includes: Sotalol Hcl 80 Mg Oral Tablet (Sotalol hcl) ..... One tab. twice daily Coreg 12.5 Mg Oral Tablet (Carvedilol) ..... One tab. twice daily Lisinopril 10 Mg Oral Tablet (Lisinopril) ..... One tab. daily Adult Aspirin Ec Low Strength 81 Mg Oral Tablet Delayed Release (Aspirin) ..... Daily Antwon Jaquez EP: B P today: 128/80 P rior BP: 129/96 (09/29/2019) Labs Reviewed: C reat: 0.95 (07/12/2018) L DL: 88 (02/06/2018) Alyce Eugene SURVEY RESEARCH MANAGER EP:Patient has ICD p laced Alyce Eugene SURVEY RESEARCH MANAGER EP:Patient advised t o stop smoking Alyce Eugene SURVEY RESEARCH MANAGER EP:Normally function ing device Alyce Eugene SURVEY RESEARCH MANAGER EP:Device interrogat ion revealed on episode of Vfib with frequent epiosdes of SVT. In consulting with Dr. Cardenas it was determined that this patient should undergo workup for pre-ablation. Ordered Pre-abaation CT and will order labs. We also adjusted his meds accordingly adding Sotalol 80mg BID, Magnesium Oxide 400mg BID, Eliquis 5mg BID, decreased Coreg to 12.5mg BID. I dr. cardenas reviewed ICD interogation findings I dr. cardenas saw and personally discussed indications alternatives and omplications of the planned procedure. Pt will be scheduled for CT and ablationSTART Sotalol 80mg one tablet twice a day S TART Magnesium Oxide 400mg one tablet twice a day D ECREASE Coreg to 12.5mg one tablet twice a day (sent this to pharmacy) Linda Cardenas MD EP:Patient had one e pisode of Vfib 10/30/2020 that spontaneously terminated, ICD did not discharge a shock. dr. cardenas reviewed ICD interogation findings I dr. cardenas reviewed ICD interogation findings I dr. cardenas saw and personally discussed indications alternatives and omplications of the planned procedure. Pt will be scheduled for CT and ablation START Sotalol 80mg one tablet twice a day S TART Magnesium Oxide 400mg one tablet twice a day D ECREASE Coreg to 12.5mg one tablet twice a day (sent this to pharmacy) Linda Cardenas MD Telehealth:Has been hospitalized in the past for exacerbation of COPD. Ronald Ryan MD Telehealth Ronald Ryan MD Telehealth:Monitorin g at home His updated medication list for this problem includes: Coreg 25 Mg Oral Tablet (Carvedilol) ..... Two tabs. twice daily Lisinopril 10 Mg Oral Tablet (Lisinopril) ..... One tab. daily Carvedilol 25 Mg Tabs (Carvedilol) ..... Take 2 tablets by mouth twice daily Furosemide 40 Mg Oral Tablet (Furosemide) ..... Take twice daily po. Ronald Ryan MD Cardiology Ronald Ryan MD Cardiology:Will incr ease lisinopril from 5 to 10 mg. B P today: 129/96 P rior BP: 140/80 (03/31/2019) Labs Reviewed: C reat: 0.95 (07/12/2018) L DL: 88 (02/06/2018) Ronald Ryan MD Cardiology:The Patie nt was reencouraged to stop smoking. Ronald Ryan MD Cardiology:Would lik e to start aldactone, but first would like to check blood work to check his potassium level. We will also increase his lisinopril from 5 mg to 10 mg. Ronald Ryan MD Cardiology:Will try nicotine pat ches. Ronald Ryan MD Cardiology:Continue BB, NORMA-I, but increase lisinopril to 5 mg daily and lasix to 40 mg twice daily. Ronald Ryan MD Cardiology Hospital Follow up :a s above. Ronald Ryan MD Cardiology Hospital Follow up Us kimberly Ryan MD Cardiology Hospital Follow up :The Patient was reencouraged to stop smoking. Ronald Ryan MD Cardiology Hospital Follow up :non ischemic cardiomyopathy. Will double the dose of his Coreg. Ronald Ryan MD Cardiology follow up :Being treated with Lisinopril, Coreg, Lasix. Lasix increased to 40mg daily after his last hospitalization. Asim Chang MD Cardiology follow up Asim abdi MD Cardiology follow up :Recurrent decompensation and NICMP. Biotronik AICD. LVEF 25%. T he following medications were removed from the medication list: Lasix 20 Mg Oral Tablet (Furosemide) ..... One tablet each morning, half tablet each evening His updated medication list for this problem includes: Furosemide 40 Mg Oral Tablet (Furosemide) ..... Once a day Digox 125 Mcg Oral Tablet (Digoxin) ..... Once a day Adult Aspirin Ec Low Strength 81 Mg Oral Tablet Delayed Release (Aspirin) ..... Daily Aldactone 50 Mg Oral Tablet (Spironolactone) ..... 1 tablet daily Coreg 25 Mg Oral Tablet (Carvedilol) ..... One tab. twice daily Lisinopril 20 Mg Oral Tablet (Lisinopril) ..... One tab. daily Asim Chang MD Cardiology:Being raoul ated with Lisinopril, Coreg, Lasix. Will increase Lasix to 20mg in the morning and 10mg in the evening. Will check his BMP and proBNP. Ronald Ryan MD Cardiology:Will repe at echo at next visit in 3 months to assess heart function. Alyce Washington NP Cardiology:on amitriptyline. Wes Gerber MD Cardiology:Clinicall y compensated. Continues on aldactone, lasix and coreg. Tomeka Gerber MD Cardiology Ronald Ryan MD Cardiology:increased lisinopril to 20 mg po once daily. Ronald Ryan MD Cardiology Tomeka Martinez Cardiology:Continue with medications. Clinically compensated. Tomeka Gebrer MD Cardiology Ronald Ryan MD Cardiology:still has ef of 25% w ill arrange for an ICD a lso increase coreg to 25mg po bid Ronald Ryan MD Cardiology Ronald Ryan MD Cardiology Ronald Ryan MD Cardiology:Will keep his current medication at same dose and reassess LV function at end of this month to determine if needs a defib or not. Ronald Ryan MD Cardiology:continue same meds and add lasix 20 mg po once daily. Ronald Ryan MD Cardiology Ronald Ryan MD Cardiology: H is updated medication list for this problem includes: Aldactone 50 Mg Oral Tabs (Spironolactone) ..... 1 tablet daily Carvedilol 12.5 Mg Tabs (Carvedilol) ..... One tab twice a day Lisinopril 10 Mg Tabs (Lisinopril) ..... One tab. daily Ronald Ryan MD Cardiology:Currently wearing a Lifevest. Will plan on seeing patient every 2 weeks to maximize his medications. Increased Lisinopril from 2.5mg to 5mg q.d. S tarted on Aldactone 50mg q.d. Ronald Ryan MD Date Name Complete Echo Complete Echo PROBNP, N TERMINAL BASIC METABOLIC PANE L W/EGFR Complete Echo PROBNP, N TERMINAL BASIC METABOLIC PANE L W/EGFR Complete Echo PROBNP, N TERMINAL CBC (H/H, RBC, INDIC ES, WBC, PLT) COMPREHENSIVE METABO LIC PANEL, W/EGFR PROTHROMBIN TIME WIT H INR ABLATION w/ Anesthes ia B TYPE NATRIURETIC P EPTIDE (BNP) MAGNESIUM CBC (H/H, RBC, INDIC ES, WBC, PLT) COMPREHENSIVE METABO LIC PANEL, W/EGFR CT Cardiac with cont rast (Pre-Ablation) BASIC METABOLIC PANE L W/EGFR BASIC METABOLIC PANE L W/EGFR Carotid Duplex Bilat eral Sleep Study Home MUGA (LVEF) Complete Echo PROBNP, N TERMINAL BASIC METABOLIC PANE L W/EGFR Complete Echo URINALYSIS, COMPLETE W/REFLEX TO CULTURE COMPREHENSIVE METABO LIC PANEL W/EGFR CBC (INCLUDES DIFF/P LT) PARTIAL THROMBOPLAST IN TIME, ACTIVATED PROTHROMBIN TIME WIT H INR URINALYSIS, COMPLETE W/REFLEX TO CULTURE PARTIAL THROMBOPLAST IN TIME, ACTIVATED PROTHROMBIN TIME WIT H INR CBC (INCLUDES DIFF/P LT) COMPREHENSIVE METABO LIC PANEL W/EGFR AICD Implant - GC Complete Echo BASIC METABOLIC PANE L W/EGFR HISTORY OF PROCEDURES Procedure Date Procedure Name Provider Procedure Notes S tatus Complex e/m visit ad d on Ronald Ryan MD completed EKG Ronald Ryan MD completed Complex e/m visit ad d on Ronald Ryan MD completed EKG Ronald Ryan MD completed EKG Ronald Ryan MD completed EKG Ronald Ryan MD completed EKG Linda boateng MD completed EKG Ronald Ryan MD completed ICM Interrogation, Remote (Prof) Ronald Ryan MD INTERROGATION EVAL REMOTE </30 D CV MNTR SYS completed ICM Interrogation, Remote (Tech) Ronald Ryan MD INTERROGATION EVAL REMOTE </30 D TECH REVIEW completed ICM Interrogation, Remote (Prof) Ronald Ryan MD INTERROGATION EVAL REMOTE </30 D CV MNTR SYS completed ICM Interrogation, Remote (Tech) Ronald Ryan MD INTERROGATION EVAL REMOTE </30 D TECH REVIEW completed EKG Ronald Ryan MD completed SNOMED-CT: 639273379 Smoking Cessation Counseling Ronald Ryan MD completed SNOMED-CT: [id number] Current Medications Documented Ronald Ryan MD completed SNOMED-CT: 49411100 Physical Exam, Performed: Pulse Exam of Foot Ronald Ryan MD completed SNOMED-CT: [id number] Current Medications Documented Ronald Ryan MD completed SNOMED-CT: 758454912 Smoking Cessation Counseling Tomeka Gerber MD completed SNOMED-CT: 57123382 Physical Exam, Performed: Pulse Exam of Foot Tomeka Gerber MD completed EKG Tomeka Gerber MD complet ed SNOMED-CT: [id number] Current Medications Documented Tomeka Gerber MD completed SNOMED-CT: 34023951 Physical Exam, Performed: Pulse Exam of Foot Ronald Ryan MD completed EKG Ronald Ryan MD completed SNOMED-CT: [id number] Current Medications Documented Ronald Ryan MD completed ICM Interrogation, Remote (Prof) Ronald Ryan MD INTERROGATION EVAL REMOTE </30 D CV MNTR SYS completed ICM Interrogation, Remote (Tech) Ronald Ryan MD INTERROGATION EVAL REMOTE </30 D TECH REVIEW completed ICM Interrogation, Remote (Prof) Ronald Ryan MD INTERROGATION EVAL REMOTE </30 D CV MNTR SYS completed ICM Interrogation, Remote (Tech) Ronald Ryan MD INTERROGATION EVAL REMOTE </30 D TECH REVIEW completed SNOMED-CT: 55259617 Physical Exam, Performed: Pulse Exam of Foot Ronald Ryan MD completed EKG Ronald Ryan MD completed SNOMED-CT: 473559521197326 Current Medications Documented Ronald Ryan MD completed EKG Tomeka Gerber MD complet ed SNOMED-CT: [id number] Current Medications Documented Tomeka Gerber MD completed SNOMED-CT: [id number] Current Medications Documented Ronald Ryan MD completed SNOMED-CT: 64124501 Physical Exam, Performed: Pulse Exam of Foot Ronald Ryan MD completed EKG Ronald Ryan MD completed SNOMED-CT: 345164568092896 Current Medications Documented Ronald Ryan MD completed SNOMED-CT: 036486819423889 Current Medications Documented Ronald Ryan MD completed SNOMED-CT: 498691818 Smoking Cessation Counseling Ronald Ryan MD completed SNOMED-CT: 58694450 Physical Exam, Performed: Pulse Exam of Foot Ronald Ryan MD completed EKG Ronald Ryan MD completed SNOMED-CT: 026051634546263 Current Medications Documented Ronald Ryan MD completed SNOMED-CT: 848506902 Smoking Cessation Counseling Ronald Ryan MD completed SNOMED-CT: 20243770 Physical Exam, Performed: Pulse Exam of Foot Ronald Ryan MD completed EKG Ronald Ryan MD completed SNOMED-CT: [id number] Current Medications Documented Ronald Ryan MD completed SNOMED-CT: 65314719 Physical Exam, Performed: Pulse Exam of Foot Ronald Ryan MD completed EKG Ronald Ryan MD completed SNOMED-CT: 376825291507777 Current Medications Documented Ronald Ryan MD completed
--- OUTSIDE RECORDS SUMMARY | 2025-01-03 08:32 | XMS_ITS | Data Portability ---
Author Organization [place] - [facility], [facility] Address [address] [place] [id number] Care Team Providers Care Professor Of Archaeology Name Role Phone BERONICA MARIN Primary Care Provider [phone] BERONICA MARIN Referring Provider [phone] FIORELLA HAGEN Venipuncturist Assessment Encounter Date Assessment Date Assessment LastModified by Organization Details LastModified Time 09/03/2023 09/03/2023 Medical decision making was of LOW [id number] Number and Complexity of Problems Addressed 2 or more self-limited or minor problems; or 1 stable chronic illness; or 1 acute, uncomplicated illness or injury Amount and/or Complexity of Data to be Reviewed and Analyzed Limited (Must meet the requirements of at least 1 of the 2 categories) Category 1: Tests and documents Any combination of 2 from the following: Review of prior external note(s) from each unique source review of the result(s) of each unique test ordering of each unique test or Category 2: Assessment requiring an independent historian(s) Risk of Complications and/or Morbidity or Mortality of Patient Management Low risk of morbidity from additional diagnostic testing or treatment [email or web address] Not available 09/03/2023 14:55:38 Plan of Treatment Reminders Order Date Submit Date Provider Last Modified By Organization Details Last Modified Time Details Appointments PHYSICAL/ ANNUAL WELLNESS 20 2024 04:00P M Beronica Marin NP Not available Not available Not available Lab None recorded. Referral None recorded. Procedures None recorded. Surgeries None recorded. Imaging XR, foot, 3 or more view 2023 024 [facility], [address], [place], [address], 11/23/2023 12:00:55 Medication Orders cyclobenz aprine 10 mg tablet 2023 024 [facility] [address] [place] [address], [address], 12/30/2023 11:39:11 Medrol (Wilder) 4 mg tablets in a dose pack 2023 024 [facility] [address] [place] [address], [address], 12/30/2023 11:39:13 ofloxacin 0.3 % ear drops [address], [address], 09/07/2023 09:09:43 amoxicill in 875 mg-potass ium clavulana te 125 mg tablet [address], [address], 09/07/2023 09:09:35 Patient TargetsNo targets recorded. Patient Instructions Encounter Date Encounter Id Patient Instructions Last Modified By Organization Details Last Modified Time 12/30/2023 [id number] [email or web address] Not available 12/30/2023 11:39:04 Reason for Referral None Reported. Results Created Date Observation Date Name Description Value Unit Range Abnormal Flag Note LastModifiedBy Organization Detail LastModifiedTime 07/06/20 23 07/06/2023 EKG 12 LEADS [id number] [facility] [address] [place] [address] Test Date: 07-06 Pat Name: JUDSON KIRKPATRICKLAUREN Arguello tment : Thomas nt ID: [id number] Room: [facility] ician : : 1970- 05-15 Reque sted By: Order Numbe r: [id number] Gaby fuentes MD: Measu remroya ts Inter vals [place] Rate: 91 P: 85 CA: 169 QRS: 85 QRSD: 98 T: 13 QT: 378 QTc: 466 Inter preti ve State ments Sinus rhyth m Low volta ge, extre mity leads Abnor mal R-wav e progr essio n, late trans ition Basel ine wande r in lead( s) V3 Not Available [facility] [address] [place] [address], [address], 07/06/2023 17:22:05 07/08/20 23 07/08/2023 EKG 12 LEADS [id number] [facility] [address] [place] [address] Test Date: 07-06 Pat Name: JUDSON CUNNINGHAM FELICITACharisma Cade Arguello tment : Thomas nt ID: [id number] Room: [facility] ician : : [birth year]12 Reque sted By: Order Numbe r: [id number] Gaby fuentes MD: Daisy hutchinson Measu remen ts Inter [facility]s [place] Rate: 91 P: 85 CA: 169 QRS: 85 QRSD: 98 T: 13 QT: 378 QTc: 466 Inter preti ve State ments Sinus rhyth m Abnor mal R-wav e progr essio n, late trans ition Elect spring paz On 07-07 23:57 :52 EVISCERATOR by Daisy hutchinson Not Available [facility] [address] [place] [address], [address], 07/08/2023 00:58:07 09/17/19 24 09/17/2023 EKG 12 LEADS [id number] perfor med Not Available [facility] [address] [place] [address], [address], 09/17/2023 16:58:47 09/17/19 24 09/17/2023 EKG 12 LEADS [id number] perfor med Not Available [facility] [address] [place] [address], [address], 09/17/2023 16:58:52 07/06/20 23 07/06/2023 CBC WITH AUTOM ATED DIFF WBC 5.7 10 4.2-9. 1 Not Available [facility] [address] [place] [address], [address], 07/06/2023 17:34:42 07/06/20 23 07/06/2023 CBC WITH AUTOM ATED DIFF RBC 5.04 10 4.60-6 .08 Not Available [facility] [address] [place] [address], [address], 07/06/2023 17:34:42 07/06/2007/06/2023 CBC WITH AUTOM ATED DIFF HGB 15.4 g/dL 13.7-1 7.5 Not Available [facility] [address] [place] [address], 30[address], 07/06/2023 17:34:42 07/06/2007/06/2023 CBC WITH AUTOM ATED DIFF HCT 46.3 % 40.1-5 1.0 Not Available [facility] [address] [place] [address], 80013, 07/06/2023 17:34:42 07/06/2007/06/2023 CBC WITH AUTOM ATED DIFF MCV 91.9 fL 80.0-9 7.0 Not Available [facility] [address] [place] [address], 6[address], 07/06/2023 17:34:42 07/06/20 23 07/06/2023 CBC WITH AUTOM ATED DIFF MCH 30.6 pg 29.0-3 4.5 Not Available [facility] [address] [place] [address], [address]7866, 07/06/2023 17:34:42 07/06/20 23 07/06/2023 CBC WITH AUTOM ATED DIFF MCHC 33.3 g/dL 32.5-3 5.5 Not Available [facility] [address] [place] [address], 25[address], 07/06/2023 17:34:42 07/06/20 23 07/06/2023 CBC WITH AUTOM ATED DIFF RDW 11.9 11.5-1 4.5 Not Available [facility] [address] [place] [address], [address], 07/06/2023 17:34:42 07/06/2007/06/2023 CBC WITH AUTOM ATED DIFF platelet 130 10 160-34 0 low Not Available [facility] [address] [place] [address], [address], 07/06/2023 17:34:42 07/06/20 23 07/06/2023 CBC WITH AUTOM ATED DIFF MPV 8.80 fL 9.0-12 .4 low Not Available [facility] [address] [place] [address], [address], 07/06/2023 17:34:42 07/06/2007/06/2023 CBC WITH AUTOM ATED DIFF marco% 60.5 % 34.0-6 7.9 Not Available [facility] [address] [place] [address], [address], 07/06/2023 17:34:42 07/06/2007/06/2023 CBC WITH AUTOM ATED DIFF lym% 27.7 % 22-53 Not Available [facility] [address] [place] [address], 113[address], 07/06/2023 17:34:42 07/06/2007/06/2023 CBC WITH AUTOM ATED DIFF mon% 8.60 % 5-12 Not Available [facility] [address] [place] [address], 0[address], 07/06/2023 17:34:42 07/06/2007/06/2023 CBC WITH AUTOM ATED DIFF eos% 2.40 % 0-7 Not Available [facility] [address] [place] [address], 6[address], 07/06/2023 17:34:42 07/06/20 23 07/06/2023 CBC WITH AUTOM ATED DIFF bas% 0.50 % 0-2 Not Available [facility] [address] [place] [address], [address], 07/06/2023 17:34:42 07/06/20 23 07/06/2023 CBC WITH AUTOM ATED DIFF Ig% 0.3 0-1.0 Not Available [facility] [address] [place] [address], [address], 07/06/2023 17:34:42 07/06/20 23 07/06/2023 CBC WITH AUTOM ATED DIFF marco# 3.46 10 1.5-7 Not Available [address], [place], [address], 07/06/2023 17:34:42 07/06/20 23 07/06/2023 CBC WITH AUTOM ATED DIFF lym# 1.6 10 1.18-4 .00 Not Available [address], [place], [address], 07/06/2023 17:34:42 07/06/20 23 07/06/2023 CBC WITH AUTOM ATED DIFF mon# 0.5 10 0.00-0 .90 Not Available [facility] [address] [place] [address], [place], [address], 07/06/2023 17:34:42 07/06/20 23 07/06/2023 CBC WITH AUTOM ATED DIFF eos# 0.1 10 0.00-0 .60 Not Available [address], [place], [address], 07/06/2023 17:34:42 07/06/20 23 07/06/2023 CBC WITH AUTOM ATED DIFF bas# 0.0 10 0.00-0 .10 Not Available [facility] [address] [place] [address], [place], [address], 07/06/2023 17:34:42 07/06/20 23 07/06/2023 CBC WITH AUTOM ATED DIFF Ig# 0.02 0-0.05 Not Available [facility] [address] [place] [address], [place], [address], 07/06/2023 17:34:42 07/06/20 23 07/06/2023 PROTI ME protime (PT) 9.5 secs 9.0-11 .5 Not Available [address], [address], 07/06/2023 17:45:22 07/06/20 23 07/06/2023 PROTI ME INR 0.9 ANDRÉS L RANGE FOR INR < OR = TO 1.0 (BECKY ENTS NOT ON ANTIC OAGUL ANT THERA PY). INR THERA PEUTI C RANGE 2.0 - 3.0 PREVE NTION AND TREAT MENT OF DVT 2.5 - 3.5 PREVE NTION OF RECUR RENT NV, OR POST CARDI AC VALVE REPLA CEMEN T. Not Available [facility] [address] [place] [address], [address], 07/06/2023 17:45:22 07/06/20 23 07/06/2023 PTT APTT 24.1 secs 24.0-3 2.80 Not Available [address], [address], 07/06/2023 17:45:27 07/06/20 23 07/06/2023 COMP METAB OLIC PNL glucose 116 mg/dL 74-106 high Not Available [address], [address], 07/06/2023 17:46:24 07/06/20 23 07/06/2023 COMP METAB OLIC PNL BUN 13 mg/dL 7-18 Not Available [facility] [address] [place] [address], [address], 07/06/2023 17:46:24 07/06/20 23 07/06/2023 COMP METAB OLIC PNL sodium 142 mmol/ L 136-14 5 Not Available [address], [address], 07/06/2023 17:46:24 07/06/20 23 07/06/2023 COMP METAB OLIC PNL K 4.0 mmol/ L 3.5-5. 1 Not Available [address] [place], [address], 07/06/2023 17:46:24 07/06/20 23 07/06/2023 COMP METAB OLIC PNL chloride 104 mmol/ L 98-107 Not Available [facility] [address] [place] [address], [address], 07/06/2023 17:46:24 07/06/20 23 07/06/2023 COMP METAB OLIC PNL tot CO2 30 mmol/ L 21.0-3 2.0 Not Available [facility] [address] [place] [address], [address], 07/06/2023 17:46:24 07/06/20 23 07/06/2023 COMP METAB OLIC PNL calcium 9.0 mg/dL 8.5-10 .1 Not Available [facility] [address] [place] [address], [address], 07/06/2023 17:46:24 07/06/20 23 07/06/2023 COMP METAB OLIC PNL creatinine 0.9 mg/dL 0.8-1. 3 Not Available [facility] [address] [place] [address], [address], 07/06/2023 17:46:24 07/06/20 23 07/06/2023 COMP METAB OLIC PNL alkaline phos 75 U/L 46-116 Not Available [facility] [address] [place] [address], [address], 07/06/2023 17:46:24 07/06/20 23 07/06/2023 COMP METAB OLIC PNL AST (SGOT) 38 U/L 15-37 high Not Available [facility] [address] [place] [address], [address], 07/06/2023 17:46:24 07/06/20 23 07/06/2023 COMP METAB OLIC PNL albumin 3.4 g/dL 3.4-5. 0 Not Available [facility] [address] [place] [address], [address], 07/06/2023 17:46:24 07/06/20 23 07/06/2023 COMP METAB OLIC PNL globulin 2.8 2.0-4. 8 Not Available [facility] [address] [place] [address], [address], 07/06/2023 17:46:24 07/06/20 23 07/06/2023 COMP METAB OLIC PNL total protein 6.2 g/dL 6.4-8. 2 low Not Available [facility] [address] [place] [address], [address], 07/06/2023 17:46:24 07/06/20 23 07/06/2023 COMP METAB OLIC PNL A/G ratio 1.2 0.7-3. 5 Not Available [facility] [address] [place] [address], [address], 07/06/2023 17:46:24 07/06/20 23 07/06/2023 COMP METAB OLIC PNL ALT (SGPT) 65 U/L 16-63 high Not Available [facility] [address] [place] [address], [address], 07/06/2023 17:46:24 07/06/20 23 07/06/2023 COMP METAB OLIC PNL total bilirubin 0.4 mg/dL 0.2-1. 1 Not Available [facility] [address] [place] [address], [address], 07/06/2023 17:46:24 07/06/20 23 07/06/2023 COMP METAB OLIC PNL GFR >60 60- Refer ence Range : [place] ge GFR Healt hy Adult : >60 mL/mi n/1.7 3 m2 Chron ic Kidne y Disea se: 15-60 mL/mi n/1.7 3 m2 Kidne y Failu re: <15/m L/min /1.73 m2 www.n iddk. nih.g ov MDRD study equat ion hasn' t been valid ated in child elinor <18 yrs of age, pregn ant women , the elder ly >85 yrs of age, or in some racia l or ethni c subgr oups, suc as Hispa nics. Outsi de the valid ated simon eters , estim ated GFR is less accur ate requi ring clini tamiko judgm ent on a case by case basis . Clini tamiko inter preta tion for other races and ages must be made by the clini aura . Futhe rmore , any of th e limit ation s with the use of serum creat inine relat ed to nutri zane l statu s o r medic ation usage hasn' t accou nted for the MDRD Study equat ion. For perso ns < 18 yrs of age, a pedia tric GFR calcu lator can be locat ed on the [facility] websi te: https :[email or web address] cardenas.an amaya.o rg/pr ofess ional s/kdo qi/gf r_cal culat or Not Available [facility] [address] [place] [address], [address], 07/06/2023 17:46:24 07/06/20 23 07/06/2023 COMP METAB OLIC PNL agap 11.7 mmol/ L 5.0-19 .0 Not Available [facility] [address] [place] [address], [address], 07/06/2023 17:46:24 07/06/20 23 07/06/2023 LIPAS E lipase 57 IU/L 16-77 Not Available [facility] [address] [place] [address], [address], 07/06/2023 17:46:33 07/06/20 23 07/06/2023 NATRI URETI C PEPTI DE BNP 90 pg/mL 0-50 high NON-C HF POPUL ATION (NORM AL POPUL ATION ) AGE <45YR 45-54 55-64 65-74 75+ MEAN OF BNP FOR MALES 9.8 14.3 19.2 23.3 46.1 FEMAL ES 17.0 25.2 33.6 37.7 76.5 CHF POPUL ATION NYHA FUNCT IONAL CLASS I II III IV MEAN OF BNP FOR MALES 145.5 306.4 557.4 927.9 FEMAL ES 148.5 384.5 613.8 858.4 RESUL TS OF STUDY CONDU CTED BY [employer] Not Available [facility] [address] [place] [address], [address], 07/06/2023 17:46:57 07/06/20 23 07/06/2023 NATRI URETI C PEPTI DE kit lot [id number] Not Available [facility] [address] [place] [address], 8[address]56, 07/06/2023 17:46:57 07/06/20 23 07/06/2023 NATRI URETI C PEPTI DE kit exp [id number] Not Available [facility] [address] [place] [address], [address], 07/06/2023 17:46:57 07/06/20 23 07/06/2023 TROPO ESME I HIGHL Y SENSI TIVE troponin I high sensitivity 11.8 NG/L <77- low lainez d to jaquelin at 1650 hs THE REFER ENCE RANGE IS BASED ON THE 99TH PERCE NTILE . ACCOR DING TO THE 4TH UNIVE RSAL DEFIN ITION OF ACUTE NV, AN ACUTE NV IS AN ACUTE MYOCA RDIAL INJUR Y WITH CLINI TAMIKO EVIDE NCE OF ACUTE MYOCA RDIAL ISCHE THEA WITH DETEC TION OF A RISE AND/O R FALL OF TROPO ESME WITH AT LEAST ONE VALUE >99TH PERCE NTILE REFER ENCE LIMIT . A SIGNI FICAN T OTT E (RISE AND/O R FALL) IS DEFIN ED : -IF THE PATIE NT'S RESUL T IS <99TH PERCE NTILE : AT LEAST A 50-60 % OTT E -IF THE PATIE NT'S RESUL T IS >99TH PERCE NTILE : AT LEAST A 20% OTT E BIOTI N FLO NTRAT IONS >300 NG/ML MAY LEAD TO FALSE LY DEPRE SSED RESUL TS. Not Available [facility] [address] [place] [address], [address], 07/06/2023 17:49:40 07/06/20 23 07/06/2023 ABBOT T ID NOW COVID 19 franco id now covid 19 NEGATI VE negati ve RESUL TS ARE FOR THE IDENT IFICA TION OF SARS- COV-2 RNA. THE SARS- COV-2 RNA IS GENER ALLY DETEC TABLE IN RESPI RATOR Y SAMPL ES DURIN G THE ACUTE PHASE OF INFEC TION. THE INTEN DED USE FOR ID NOW COVID -19 IS FOR TESTI NG SYMPT OMATI C PATIE NTS WITHI N THE FIRST SEVEN DAYS OF THE ONSET OF SYMPT OMS. POSIT LUCRECIA RESUL TS ARE INDIC ATIVE OF THE PRESE NCE OF SARS- COV-2 RNA; CLINI TAMIKO CORRE LATIO N WITH PATIE NT HISTO RY AND OTHER DIAGN OSTIC INFOR MATIO N IS NECES NICOLÁS TO DETER MINE PATIE NT INFEC TION STATU S. POSIT LUCRECIA RESUL TS DO NOT RULE OUT BACTE RIAL INFEC TION OR CO-IN FECTI ON WITH OTHER VIRUS ES. NEGAT LUCRECIA RESUL TS SHOUL D BE TREAT ED PRESU MPTIV E AND, IF INCON SISTE NT WITH CLINI TAMIKO SIGNS AND SYMPT OMS OR NECES NICOLÁS FOR PATIE NT MAMAG EMENT , SHOUL D BE TESTE D WITH DIFFE RENT AUTHO RIZED OR CLEAR ED MOLEC ULAR TESTS . NEGAT LUCRECIA RESUL TS DO NOT PRECL UDE SARS- COV-2 INFEC TION AND SHOUL D NOT BE USED THE SOLE BASIS FOR PATIE NT MANAG EMENT DECIS IONS. NEGAT LUCRECIA RESUL TS SHOUL D BE CONSI DERED IN THE DWAYNE XT OF A PATIE NT'S RECEN T EXPOS URES HISTO RY AND THE PRESE NCE OF CLINI TAMIKO SIGNS AND SYMPT OMS CONSI STENT WITH COVID -19. THIS TEST HAS BEEN AUTHO RIZED BY THE FDA UNDER AN EMERG ENCY USE AUTHO RIZAT ION (EUA) FOR USE BY AUTHO RIZED LABOR ATORI ES. Not Available [facility] [address] [place] [address], [address], 07/06/2023 18:09:35 07/06/20 23 07/06/2023 ABBOT T ID NOW COVID 19 internal qqc VALID Not Available [facility] [address] [place] [address], [address]61, 07/06/2023 18:09:35 07/06/20 23 07/06/2023 ABBOT T ID NOW COVID 19 kit lot [id number] Not Available [facility] [address] [place] [address] [place], [address], 07/06/2023 18:09:35 07/06/20 23 07/06/2023 ABBOT T ID NOW COVID 19 kit exp [id number] Not Available [address], [address], 07/06/2023 18:09:35 08/08/20 23 08/08/2023 CBC WITH AUTOM ATED DIFF WBC 6.2 10 4.2-9. 1 Not Available [address], [address], 08/08/2023 10:40:34 08/08/20 23 08/08/2023 CBC WITH AUTOM ATED DIFF RBC 5.56 10 4.60-6 .08 Not Available [facility] [address] [place] [address], [address]14, 08/08/2023 10:40:34 08/08/20 23 08/08/2023 CBC WITH AUTOM ATED DIFF HGB 16.5 g/dL 13.7-1 7.5 Not Available [address], [address], 08/08/2023 10:40:34 08/08/20 23 08/08/2023 CBC WITH AUTOM ATED DIFF HCT 50.8 % 40.1-5 1.0 Not Available [facility] [address] [place] [address], 24248, 08/08/2023 10:40:34 08/08/20 23 08/08/2023 CBC WITH AUTOM ATED DIFF MCV 91.4 fL 80.0-9 7.0 Not Available [facility] [address] [place] [address], 65685, 08/08/2023 10:40:34 08/08/20 23 08/08/2023 CBC WITH AUTOM ATED DIFF MCH 29.7 pg 29.0-3 4.5 Not Available [facility] [address] [place] [address], 92297, 08/08/2023 10:40:34 08/08/20 23 08/08/2023 CBC WITH AUTOM ATED DIFF MCHC 32.5 g/dL 32.5-3 5.5 Not Available [facility] [address] [place] [address], 36881, 08/08/2023 10:40:34 08/08/20 23 08/08/2023 CBC WITH AUTOM ATED DIFF RDW 11.9 11.5-1 4.5 Not Available [facility] [address] [place] [address], 72895, 08/08/2023 10:40:34 08/08/20 23 08/08/2023 CBC WITH AUTOM ATED DIFF platelet 155 10 160-34 0 low Not Available [facility] [address] [place] [address], 72328, 08/08/2023 10:40:34 08/08/20 23 08/08/2023 CBC WITH AUTOM ATED DIFF MPV 9.30 fL 9.0-12 .4 Not Available [facility] [address] [place] [address], 51352, 08/08/2023 10:40:34 08/08/20 23 08/08/2023 CBC WITH AUTOM ATED DIFF marco% 79.3 % 34.0-6 7.9 high Not Available [facility] [address] [place] [address], 75166, 08/08/2023 10:40:34 08/08/20 23 08/08/2023 CBC WITH AUTOM ATED DIFF lym% 10.3 % 22-53 low Not Available [facility] [address] [place] [address], 68647, 08/08/2023 10:40:34 08/08/20 23 08/08/2023 CBC WITH AUTOM ATED DIFF mon% 7.90 % 5-12 Not Available [facility] [address] [place] [address], 15415, 08/08/2023 10:40:34 08/08/20 23 08/08/2023 CBC WITH AUTOM ATED DIFF eos% 1.60 % 0-7 Not Available [address], [address], 08/08/2023 10:40:34 08/08/20 23 08/08/2023 CBC WITH AUTOM ATED DIFF bas% 0.30 % 0-2 Not Available [address], [address], 08/08/2023 10:40:34 08/08/20 23 08/08/2023 CBC WITH AUTOM ATED DIFF Ig% 0.6 0-1.0 Not Available [address], 817[address], 08/08/2023 10:40:34 08/08/20 23 08/08/2023 CBC WITH AUTOM ATED DIFF marco# 4.95 10 1.5-7 Not Available [address], [address]10, 08/08/2023 10:40:34 08/08/20 23 08/08/2023 CBC WITH AUTOM ATED DIFF lym# 0.6 10 1.18-4 .00 low Not Available [address], 56814, 08/08/2023 10:40:34 08/08/20 23 08/08/2023 CBC WITH AUTOM ATED DIFF mon# 0.5 10 0.00-0 .90 Not Available [address], [address], 08/08/2023 10:40:34 08/08/20 23 08/08/2023 CBC WITH AUTOM ATED DIFF eos# 0.1 10 0.00-0 .60 Not Available [facility] [address] [place] [address], 20189, 08/08/2023 10:40:34 08/08/20 23 08/08/2023 CBC WITH AUTOM ATED DIFF bas# 0.0 10 0.00-0 .10 Not Available [facility] [address] [place] [address], 48316, 08/08/2023 10:40:34 08/08/20 23 08/08/2023 CBC WITH AUTOM ATED DIFF Ig# 0.04 0-0.05 Not Available [facility] [address] [place] [address], 74280, 08/08/2023 10:40:34 08/08/20 23 08/08/2023 LACTI C ACID (PLAS MA) lactic acid 1.8 mmol/ L 0.4-2. 0 Not Available [facility] [address] [place] [address], 92992, 08/08/2023 10:42:29 08/08/20 23 08/08/2023 NATRI URETI C PEPTI DE BNP 19 pg/mL 0-50 NON-C HF POPUL ATION (NORM AL POPUL ATION ) AGE <45YR 45-54 55-64 65-74 75+ MEAN OF BNP FOR MALES 9.8 14.3 19.2 23.3 46.1 FEMAL ES 17.0 25.2 33.6 37.7 76.5 CHF POPUL ATION NYHA FUNCT IONAL CLASS I II III IV MEAN OF BNP FOR MALES 145.5 306.4 557.4 927.9 FEMAL ES 148.5 384.5 613.8 858.4 RESUL TS OF STUDY CONDU CTED BY [employer] Not Available [facility] [address] [place] [address], 61568, 08/08/2023 10:46:27 08/08/20 23 08/08/2023 NATRI URETI C PEPTI DE kit lot [id number] A Not Available [facility] [address] [place] [address], 43729, 08/08/2023 10:46:27 08/08/20 23 08/08/2023 NATRI URETI C PEPTI DE kit exp 2-29-2 4 Not Available [facility] [address] [place] [address], 39389, 08/08/2023 10:46:27 08/08/20 23 08/08/2023 COMP METAB OLIC PNL glucose 199 mg/dL 74-106 high Not Available [facility] [address] [place] [address], 48427, 08/08/2023 10:54:22 08/08/20 23 08/08/2023 COMP METAB OLIC PNL BUN 15 mg/dL 7-18 Not Available [facility] [address] [place] [address], 73524, 08/08/2023 10:54:22 08/08/20 23 08/08/2023 COMP METAB OLIC PNL sodium 138 mmol/ L 136-14 5 Not Available [facility] [address] [place] [address], 47048, 08/08/2023 10:54:22 08/08/20 23 08/08/2023 COMP METAB OLIC PNL K 4.2 mmol/ L 3.5-5. 1 Not Available [address], [address]87[address], 08/08/2023 10:54:22 08/08/20 23 08/08/2023 COMP METAB OLIC PNL chloride 98 mmol/ L 98-107 Not Available [facility] [address] [place] [address], 44090, 08/08/2023 10:54:22 08/08/20 23 08/08/2023 COMP METAB OLIC PNL tot CO2 30 mmol/ L 21.0-3 2.0 Not Available [facility] [address] [place] [address], 22854, 08/08/2023 10:54:22 08/08/20 23 08/08/2023 COMP METAB OLIC PNL calcium 9.4 mg/dL 8.5-10 .1 Not Available [facility] [address] [place] [address], [id number], 08/08/2023 10:54:22 08/08/20 23 08/08/2023 COMP METAB OLIC PNL creatinine 1.0 mg/dL 0.8-1. 3 Not Available [facility] [address] [place] [address], [id number], 08/08/2023 10:54:22 08/08/20 23 08/08/2023 COMP METAB OLIC PNL alkaline phos 86 U/L 46-116 Not Available [facility] [address] [place] [address], [place], [id number], 08/08/2023 10:54:22 08/08/20 23 08/08/2023 COMP METAB OLIC PNL AST (SGOT) 61 U/L 15-37 high Not Available [facility] [address] [place] [address], [id number], 08/08/2023 10:54:22 08/08/20 23 08/08/2023 COMP METAB OLIC PNL albumin 3.5 g/dL 3.4-5. 0 Not Available [address], [place], [address], 08/08/2023 10:54:22 08/08/20 23 08/08/2023 COMP METAB OLIC PNL globulin 3.3 2.0-4. 8 Not Available [facility] [address] [place] [address], [id number], 08/08/2023 10:54:22 08/08/20 23 08/08/2023 COMP METAB OLIC PNL total protein 6.8 g/dL 6.4-8. 2 Not Available [facility] [address] [place] [address], [id number], 08/08/2023 10:54:22 08/08/20 23 08/08/2023 COMP METAB OLIC PNL A/G ratio 1.1 0.7-3. 5 Not Available [facility] [address] [place], [address], 08/08/2023 10:54:22 08/08/20 23 08/08/2023 COMP METAB OLIC PNL ALT (SGPT) 83 U/L 16-63 high Not Available [facility] [address] [place], [address], 08/08/2023 10:54:22 08/08/20 23 08/08/2023 COMP METAB OLIC PNL total bilirubin 0.7 mg/dL 0.2-1. 1 Not Available [facility] [address] [place] [address], [id number], 08/08/2023 10:54:22 08/08/20 23 08/08/2023 COMP METAB OLIC PNL GFR >60 60- Refer ence Range : [place] [facility] GFR Healt hy Adult : >60 mL/mi n/1.7 3 m2 Chron ic Kidne y Disea se: 15-60 mL/mi n/1.7 3 m2 Kidne y Failu re: <15/m L/min /1.73 m2 [email or web address] [email or web address] nih.g ov MDRD study equat ion hasn' t been valid ated in child elinor <18 yrs of age, pregn ant women , the elder ly >85 yrs of age, or in some racia l or ethni c subgr oups, suc as Hispa nics. Outsi de the valid ated simon eters , estim ated GFR is less accur ate requi ring clini tamiko judgm ent on a case by case basis . Clini tamiko inter preta tion for other races and ages must be made by the clini aura . Futhe rmore , any of th e limit ation s with the use of serum creat inine relat ed to nutri zane l statu s o r medic ation usage hasn' t accou nted for the MDRD Study equat ion. For perso ns < 18 yrs of age, a pedia tric GFR calcu lator can be locat ed on the [facility] websi te: https ://ww w.kid monique.o rg/pr ofess ional s/kdo qi/gf r_cal culat or Not Available [address], [address], 08/08/2023 10:54:22 08/08/20 23 08/08/2023 COMP METAB OLIC PNL agap 14.3 mmol/ L 5.0-19 .0 Not Available [address], [address], 08/08/2023 10:54:22 08/08/20 23 08/08/2023 D-DIM ER, QUANT D-dimer, quantitative 249 NG/mL 100-60 0 D-Dim er is a scree urvashi test to be used to help rule out Deep Vein Throm bosis or Pulmo nary Embol ism. The D-Dim er resul t must be used in conju nctio n with the patie nt's histo ry (incl uding medic ation s) and clini tamiko prese ntati on to deter m ine if furth er confi rmato ry testi ng is requi red. The 90th perce ntile of measu r ement s is less than 400 ng/mL . (90% of andrés l popul ation will be 400 ng/mL or less) . Not Available [address], [address], 08/08/2023 10:55:08 08/08/20 23 08/08/2023 D-DIM ER, QUANT internal qqc VALID Not Available [facility] [address] [place] [address], [address], 08/08/2023 10:55:08 08/08/20 23 08/08/2023 D-DIM ER, QUANT kit lot [id number] Not Available [address], [address], 08/08/2023 10:55:08 08/08/20 23 08/08/2023 D-DIM ER, QUANT kit exp 2-16-2 4 Not Available [address], [address], 08/08/2023 10:55:08 08/08/20 23 08/08/2023 LIPAS E lipase >250 IU/L 16-77 high LIPAS E: 923 U/L Not Available [facility] [address] [place], [address], 08/08/2023 11:22:31 08/08/20 23 08/08/2023 COVID -19 PCR CEPHE ID covid-19 PCR cepheid NEGATI VE negati ve This test has been autho rized by the FDA under an Emerg ency Use Autho rizat ion (EUA) for use by autho rized labor atori es. Negat lucrecia resul ts do not precl ude SARS- CoV-2 and shoul d not be used as the sole basis for treat ment or other patie nt manag ement decis ions. Test resul ts shoul d be corre lated with the clini tamiko histo ry, epide miolo gical data, and other data avail able to the clini aura evalu ating the patie nt. Dillon calix w the Fact Sheet s for healt h care provi ders and patie nts at the [facility] shawna: https ://ww w.fda .gov/ media /1363 12/do wnloa d https ://ww w.fda .gov/ media /1363 13/do wnloa d https ://ww w.fda .gov/ media /1421 92/[place] [address] 1/stacey nload Metho dolog y: Real- Time RT-PC R Not Available [facility] [address] [place] [address], [address], 08/08/2023 11:26:18 08/08/20 23 08/08/2023 COVID -19 PCR CEPHE ID internal qqc VALID Not Available [facility] [address] [place], [address], 08/08/2023 11:26:18 08/08/20 23 08/08/2023 COVID -19 PCR CEPHE ID kit lot [id number] Not Available [facility] [address] [place] [address], [place], [address], 08/08/2023 11:26:18 08/08/20 23 08/08/2023 COVID -19 PCR CEPHE ID kit exp 07-03-2 4 Not Available [facility] [address] [place] [address], [place], [address], 08/08/2023 11:26:18 08/08/20 23 08/08/2023 FLU AB flu A and B screen REPORT report Refer ence Inter danielle: FLU A: NEGAT LUCRECIA FLU B: NEGAT LUCRECIA Not Available [facility] [address] [place] [address], [address], 08/08/2023 11:27:49 08/08/20 23 08/08/2023 FLU AB flu A NEGATI VE negati ve Refer ence Inter danielle: FLU A: NEGAT LUCRECIA FLU B: NEGAT LUCRECIA Not Available [facility] [address] [place] [address], [place], [address], 08/08/2023 11:27:49 08/08/20 23 08/08/2023 FLU AB flu B NEGATI VE negati ve Refer ence Inter danielle: FLU A: NEGAT LUCRECIA FLU B: NEGAT LUCRECIA Not Available [facility] [address] [place] [address], [place], [address], 08/08/2023 11:27:49 08/08/20 23 08/08/2023 FLU AB internal QC VALID Not Available [facility] [address] [place] [address], [place], [address], 08/08/2023 11:27:49 08/08/20 23 08/08/2023 FLU AB lot # [id number] Not Available [facility] [address] [place] [address], [address], 08/08/2023 11:27:49 08/08/20 23 08/08/2023 FLU AB kit exp 4 Not Available [facility] [address] [place] [address], [address], 08/08/2023 11:27:49 07/06/20 23 07/06/2023 XR, chest , [address] [address] IMAGIN G REPORT Name: NANCY THOMAS Room #: : 1969 Accoun t #: [id number] Bed #: Age: 53 Years Patien t Type: Outpat ient Order Date/T merle: 2022 04:51: 07 PM Sex: M Access ion#: Exam Descri ption: Exam Reason : [id number] XR CHEST 1V Chest Pain withou t Traum Dictat ed By: Venus Enrique Physic darlyn: IMELDA HUGHES [facility] Physic darlyn: IMELDA HUGHES y [facility] Physic darlyn: BERONICA MARIN EXAMIN ATION: XR CHEST 1V CLINIC AL HISTOR Y: 53 years Male,C hest Pain withou t Trauma /Injur y COMPAR DIANA: 2021 TECHNI QUE: Single radiog raphic view of the chest FINDIN GS: Left subcla vian dual-l ead transv enous cardia c pacema ker with atrial and ventri cular leads intact and unchan ged in positi on. The cardia c silhou ette and pulmon shin vascul arity are within normal limits . No pleura l effusi on or pneumo thorax . IMPRES MADISON: No active cardio pulmon shin diseas e . Electr onical ly signed by: Venus quesada MD 2022 05:00 PM EVISCERATOR Workst ation: [id number] PAGE [address] [facility] [address] [place] [address], [address], 07/07/2023 17:16:11 07/06/20 23 07/06/2023 CT, head, w/o contr ast [address] [address] IMAGIN G REPORT Name: NANCY THOMAS Steve Wilson Room #: : 1969 Accoun t #: [id number] Bed #: Age: 53 Years Patien t Type: Outpat ient Order Date/T merle: 2022 04:51: 17 PM Sex: M Access ion#: Exam Descri ption: Exam Reason : [id number] CT HEAD WO Declin ing State / weakne Dictat ed By: Bobby Dent Physic darlyn: HIDALG OIMELDA Attend ing Physic darlyn: HIDALG O, IMELDA Primar y Care Physic darlyn: BERONICA MARIN EXAMIN ATION: CT HEAD WO CLINIC AL HISTOR Y: 53 years. Male. Declin ing State / weakne ss. COMPAR DIANA: CT head obtain ed Septem 2021. TECHNI QUE: Axial imagin g of the brain was perfor med withou t IV contra st. Amos l and sagitt al reform ats were obtain ed. The exam was perfor med accord ing to our depart mental dose-o ptimiz ation progra m, which includ es automa lliiane exposu re contro l, adjust ment of the mA and/or kV accord ing to patien t size and/or use of iterat lucrecia recons tructi on techni que. DLP - 1080.7 mGy*cm . FINDIN GS: There is no acute intrac ranial hemorr bernardo. No large vascul ar territ ory infarc t is presen t. There is no signif icant midlin e shift. There is no hydroc ephalu s. There is athero sclero tic calcif icatio n of the caroti d siphon s. PAGE 1 OF 2 IMAGIN G REPORT Name: NANCY THOMAS Room #: : 1969 Accoun t #: [id number] Bed #: Age: 53 Years Patien t Type: Outpat ient Order Date/T merle: 2022 04:51: 17 PM Sex: M There are change s compat ible with a remote left medial orbita l wall fractu re. The orbits are otherw ise unrema rkable . The parana rajni sinuse s and mastoi d air cells are predom inantl y clear. There is no skull fractu re. No concer urvashi bone lesion s are identi fied. The extrac ranial soft tissue s are unrema rkable . IMPRES MADISON: 1. No acute hemorr bernardo, large vascul ar territ ory infarc t, or eviden ce of mass lesion . If clinic al concer n is high for an acute infarc t, MRI can be obtain ed for furthe r evalua tion. 2. Intrac ranial athero sclero sis. 3. Remote left medial orbita l wall fractu re. Electr onical ly signed by: Bobby damon MD 2022 05:25 PM EVISCERATOR Workst ation: [id number] PAGE [address] OF [address] [facility] [address] [place] [address], [address], 07/07/2023 17:16:12 07/13/20 23 elect zenia diogr am No observ ation record ed. [email or web address] Not Available 2022 17:50:07 08/08/20 23 08/08/2023 XR, chest , 1 view [facility] al [address] [place] [address] [id number] [phone] IMAGIN G REPORT Name: NANCY THOMAS Steve Room #: : 1969 Accoun t #: [id number] Bed #: Age: 53 Years Patien t Type: Outpat ient Order Date/T merle: 2022 09:32: 52 AM Sex: M Access ion#: Exam Descri ption: Exam Reason : [id number] XR CHEST 1V Chest Tightn ess Dictat ed By: Immanuel Verma Physic darlyn: CHRISTINA SHELBY [facility] Physic darlyn: CHRISTINA SHELBY Primar y [facility] Physic darlyn: BERONICA MARIN EXAMIN ATION: XR CHEST 1V CLINIC AL HISTOR Y: Chest Tightn ess COMPAR DIANA: Novemb er 2022 FINDIN GS: The lungs are clear. There is no pleura l effusi on or pneumo thorax . The cardio medias tinal silhou ette is withou t acute proces s. The osseou s struct ures are withou t acute proces s. Pacema ker device is stable . IMPRES MADISON: No acute proces s. Scolio sis. PAGE 1 OF 2 IMAGIN G REPORT Name: NANCY THOMAS L Room #: : 1969 Accoun t #: [id number] Bed #: Age: 53 Years Patien t Type: Outpat ient Order Date/T merle: 2022 09:32: 52 AM Sex: M RECOMM ENDATI ONS: Electr onical ly signed by: Immanuel gomez MD 2022 10:14 AM EVISCERATOR Workst ation: [id number] PAGE [address] OF [address] [facility] [address] [place] [address], [place], [address], 08/10/2023 23:20:21 08/09/20 23 08/08/2023 XR, chest , 2 view No observ ation record ed. [address] [facility] [address] [place], [address], 08/11/2023 15:47:17 08/10/20 23 08/08/2023 CT, abdom en + pelvi s, w/o contr ast No observ ation record ed. [address] [facility] [address] [place], [address], 08/11/2023 15:57:28 08/18/20 23 08/18/2023 elect rocar diogr am No observ ation record ed. [email or web address] Not Available 2022 22:18:53 08/18/20 23 08/18/2023 elect rocar diogr am No observ ation record ed. [email or web address] Not Available 2022 22:18:27 08/18/20 23 elect rocar diogr am No observ ation record ed. [email or web address] Not Available 2022 22:18:27 11/23/19 24 11/23/2023 XR, foot, 3 or more view No observ ation record ed. [email or web address] [facility] [address] [place], [address], 11/23/2023 16:17:36 11/24/19 24 11/23/2023 XR, foot, 3 or more view No observ ation record ed. [email or web address] [facility] [address] [place], [address], 11/24/2023 10:23:46 Result Notes None recorded. Problems Name Problem SNOMED Code Status Onset Date Resolution Date Notes Provider Name and Address Organization Details Recorded Time Injury of great toe 501059666 Active 2022 Not Available [facility] 3 13:15:37 Pain in throat 687837736 Active 2022 Not Available [facility] 3 13:15:37 Congestion of nasal sinus 10442776 Active 2022 Not Available [facility] 3 13:15:37 Cervical lymphadeno adonis 989253077 Active 2022 Not Available [facility] 3 13:15:37 Low back pain 944480377 Active 2022 Not Available [facility] 3 13:15:37 Lumbago with sciatica 177646336 Active 2022 Not Available [facility] 3 13:15:37 Neuralgia 39351594 Active 2022 Not Available [facility] 3 13:15:37 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 542470112 Active 2018 Deyakianna Gonsales [facility] 3 17:48:27 Syncope and collapse 797222836 Active 2015 [facility] 3 17:48:28 Hyperglyce thea due to type 2 diabetes mellitus 6269740320378 09 Active 2018 eDyakianna Gonsales [facility] 3 17:48:28 Left ventricula r cardiac dysfunctio n 203907151 Active 2021 [facility] 3 17:48:28 Chronic systolic heart failure 828962187 Active 2015 [facility] 3 17:48:28 Automatic implantabl e cardiac defibrilla tor in situ 263761070 Active 2015 [facility] 3 17:48:28 Essential hypertensi on 35101138 Active 2019 [facility] 3 17:48:28 Supraventr icular tachycardi a 5774215 Active 2020 [facility] 3 17:48:28 Acute hypoxemic respirator y failure 216227680 Active 2018 [facility] 3 17:48:28 Ventricula r fibrillati on 90336776 Active 2020 Jazzy apodaca, [facility] 3 17:48:28 Cardiomyop athy 30698028 Active 2015 Jazzy apodaca, [facility] 3 17:48:28 Otalgia of right ear 3997056936 Active 2022 Not Available [facility] 3 13:15:37 Impacted cerumen in left ear 2531038987715 101 Active 2022 Not Available [facility] 3 13:15:37 Impacted cerumen in right ear 7362065481589 103 Active 2022 Not Available [facility] 3 13:15:37 Otitis externa of right ear 8768018224796 101 Active 2022 Not Available [facility] 3 13:15:37 Pain of left shoulder joint 8503576188194 9109 Active 2022 Beronica Marin NP [address], [place], [address] , [facility] 3 11:47:06 Acute otitis media 6899487 Active 2023 SHMUEL Rose [address], [place], [address] , [facility] 4 14:52:48 Pain of toe of left foot 6812182892482 08 Active 2023 SHMUEL SORIANO [address], [place], [address] , [facility] 4 11:07:27 Left side sciatica 7674610649485 04 Active 2023 SHMUEL SORIANO [address], [place], [address] , [facility] 4 11:36:56 Disorder of lumbar disc 303329085 Active 2023 [facility] 4 14:12:08 Chronic obstructiv e pulmonary disease 99141703 Active 2018 Not Available [facility] 3 13:15:37 Insomnia 046987195 Active 2021 Not Available [facility] 3 13:15:37 Acute exacerbati on of chronic obstructiv e pulmonary disease 512339307 Active 2021 [facility] 3 17:48:27 Status migrainosu s 913991557 Active 2021 Not Available [facility] 3 13:15:37 Type 2 diabetes mellitus without complicati on 204249943 Active 2021 Not Available [facility] 3 13:15:37 Hypertensi ve disorder 21822578 Active 2018 Not Available [facility] 3 13:15:37 Congestive heart failure 25333533 Active 2015 Not Available [facility] 3 13:15:37 Acute respirator y failure 80627195 Active 2018 Not Available [facility] 3 13:15:37 Smoker 40258079 Active 2021 Not Available [facility] 3 13:15:37 Notes:heart defibrillator Problem Notes None recorded. Procedures Surgical History Date Name Laterality Status Provider Name and Address Organization Details Recorded Time 06/15/20 23 Ear Irrigation completed Dea Cervantes NP [address] [place], [address], [place] [facility] 06/15/2023 22:23:40 10/30/19 19 Appendectomy completed Not Available [facility] 09/07/2022 19:03:07 08/31/19 16 implantation of cardiac defibrillator lead completed Not Available [facility] 09/07/2022 19:03:07 cardiac catheterization completed Not Available [facility] 09/07/2022 19:03:07 Imaging Results Imaging Date Name Status LastModified by Organization Details LastModified Time 07/06/2023 XR, chest, 1 view completed [email or web address] [facility] [address] [place] [address], [address], 07/07/2023 17:16:11 07/06/2023 CT, head, w/o contrast completed [email or web address] [address] [place] [address], [address], 07/07/2023 17:16:12 07/13/2023 electrocardiogram completed Informa tion not available 07/14/2023 17:50:07 08/08/2023 XR, chest, 1 view completed [email or web address] [address] [place] [address], [address], 08/10/2023 23:20:21 08/08/2023 XR, chest, 2 view completed [email or web address] [address], [address], 08/11/2023 15:47:17 08/08/2023 CT, abdomen + pelvis, w/o contrast [facility] [place] [address] [place] [address], [address], 08/11/2023 15:57:28 08/18/2023 electrocardiogram completed Informa tion not available 08/20/2023 22:18:53 08/18/2023 electrocardiogram completed Informa tion not available 08/20/2023 22:18:27 08/18/2023 electrocardiogram completed Informa tion not available 08/20/2023 22:18:27 11/23/2023 XR, foot, 3 or more view completed [email or web address] [facility] [address] [place], [address], 11/23/2023 16:17:36 11/23/2023 XR, foot, 3 or more view completed [email or web address] [facility] [address] [place], [address], 11/24/2023 10:23:46 Procedure Notes None recorded. Medical Equipment None Reported. Allergies Allergen ID Allergen Name Allergen Category Reaction Reaction Severity Criticality Documentation Date Start Date Code Code System Note Provider Name and Address Organization Details Recorded Time 636757 No known allergy (situatio n) Not available Not available Not available Not available 06/15/2023 [address] 6003 SNOMED Jazzy [facility] 17:48:26 No known drug allergies Medications Name Sig Start Date Stop Date Status Note LastModified by Organization Details LastModified Time cyclobenz aprine 10 mg tablet Take 1 tablet 3 times a day by oral route as needed. 2023 active Not Available Not Available Not Avai lable furosemid e 40 mg tablet TAKE 1 TABLET BY MOUTH TWICE DAILY active Not Available Not Available No t Available metformin 500 mg tablet Take 1 tablet every day by oral route for 60 days. 10/21 completed caused too much diarrhea pt stopped this medicati on Not Available Not Available Not Available albuterol sulfate 0.63 mg/3 mL solution for nebulizat ion Inhale by inhalati on route. 06/03 completed uses as needed Not Available Not Available Not Available fluticaso ne 250 mcg-salme terol 50 mcg/dose blistr powdr for inhalatio n INHALE 1 PUFF BY MOUTH TWICE DAILY active Not Available Not Available No t Available carvedilo l 25 mg tablet TAKE 1 TABLET BY MOUTH TWICE DAILY active Not Available Not Available No t Available carvedilo l 6.25 mg tablet 02/16 completed Not Available Not Available Not Available prednison e 10 mg tablet TAKE 2 TABLETS BY MOUTH ONCE DAILY FOR 3 DAYS AND THEN 1 TABLET ONCE DAILY FOR 3 DAYS 09/03 completed Not Available Not Available Not Available carvedilo l 12.5 mg tablet TAKE 1 TABLET BY MOUTH TWICE DAILY 10/15 completed Not Available Not Available Not Available ipratropi um 0.5 mg-albute rol 3 mg (2.5 mg base)/3 mL nebulizat ion soln Inhale 3 mL every 6 hours by nebuliza tion route. active Started 08/14/23 dc from [facility]. Not Available Not Available Not Available tizanidin e 2 mg tablet 02/16 completed Not Available Not Available Not Available albuterol sulfate 2.5 mg/3 mL (0.083 %) solution for nebulizat ion 2.5 mg every 6 hours by inhalati on route. 03/23 completed Not Available Not Available Not Available azithromy justina 250 mg tablet TAKE 2 TABLETS BY MOUTH ON DAY 1 AND THEN TAKE 1 TABLET BY MOUTH ONCE A DAY ON DAY 2 THROUGH DAY 5 10/21 completed Not Available Not Available Not Available hydrocodo ne 5 mg-acetam inophen 325 mg tablet TAKE 1 TABLET BY MOUTH EVERY 6 HOURS NEEDED 12/29 completed Not Available Not Available Not Available sotalol 80 mg tablet TAKE 1 TABLET BY MOUTH TWICE DAILY 04/05 completed pt states he is no longer on this medicati on Not Available Not Available Not Available meloxicam 15 mg tablet TAKE 1 TABLET BY MOUTH ONCE DAILY WITH MEALS IN THE EVENING prn 04/15 completed Not Available Not Available Not Available lisinopri l 20 mg tablet TAKE 1 TABLET BY MOUTH ONCE DAILY active Not Available Not Available No t Available Medrol (Wilder) 4 mg tablets in a dose pack take as per package directio ns, start AM 2023 active Not Available Not Available Not Avai lable prednison e 20 mg tablet TAKE 2 TABLETS BY MOUTH ONCE DAILY FOR 5 DAYS 10/21 completed Not Available Not Available Not Available rizatript an 10 mg tablet 1 tab PO at onset headache s, can repeat in 2 hours if MAY not resolved or returns, max 2 tab in 24 hours active Not Available Not Available No t Available methylpre dnisolone 4 mg tablet 12/29 completed Not Available Not Available Not Available potassium chloride ER 10 mEq tablet,ex tended release 02/16 completed Not Available Not Available Not Available glimepiri de 2 mg tablet 02/16 completed Not Available Not Available Not Available Kenalog 40 mg/mL suspensio n for injection Take 1.5 mL by injectio n route. 02/24 completed Not Available Not Available Not Available Imitrex 50 mg tablet take 1 tab at onset of headache can repeat 1 tab in 2 hours if needed 12/29 completed Not Available Not Available Not Available meloxicam 7.5 mg tablet Take 7.5 mg by oral route. 12/29 completed Not Available Not Available Not Available ofloxacin 0.3 % ear drops INSTILL 10 DROPS INTO AFFECTED EAR(S) ONCE DAILY FOR 7 DAYS 09/07 completed Not Available Not Available Not Available amoxicill in 875 mg tablet 02/16 completed Not Available Not Available Not Available potassium chloride ER 20 mEq tablet,ex tended release(p art/cryst ) TAKE 1 TABLET BY MOUTH ONCE DAILY active Not Available Not Available No t Available amitripty line 25 mg tablet Take 1 tablet every day by oral route at bedtime. active Not Available Not Available No t Available magnesium oxide 400 mg (241.3 mg magnesium ) tablet TAKE 1 TABLET BY MOUTH TWICE DAILY 06/06 completed Not Available Not Available Not Available oxycodone -acetamin ophen 10 mg-325 mg tablet 02/16 completed Not Available Not Available Not Available amitripty line 10 mg tablet Take 1 tablet every day by oral route at bedtime. 06/03 completed Not Available Not Available Not Available baclofen 10 mg tablet 10 mg 3 times a day by oral route. 07/20 completed Not Available Not Available Not Available pantopraz ole 40 mg tablet,de layed release Take 40 mg by oral route. 12/29 completed Not Available Not Available Not Available metformin 1,000 mg tablet 1 tab PO BID active Not Available Not Available No t Available lisinopri l 10 mg tablet TAKE 1 TABLET BY MOUTH ONCE DAILY 06/03 completed increase d to lisinopr il 20mg daily by cardio Not Available Not Available Not Available prednison e 50 mg tablet TAKE 1 TABLET BY MOUTH ONCE DAILY 07/08 completed Not Available Not Available Not Available lidocaine 5 % topical patch 1 {patch} every 24 hours by topical route. 08/09 completed Not Available Not Available Not Available nicotine 21 mg/24 hr daily transderm al patch APPLY 1 PATCH TOPICALL Y ONCE DAILY active Not Available Not Available No t Available lisinopri l 5 mg tablet TAKE 1 TABLET BY MOUTH ONCE DAILY active Not Available Not Available No t Available levofloxa justina 500 mg tablet 02/16 completed Not Available Not Available Not Available levofloxa justina 750 mg tablet TK 1 T PO ONCE A DAY FOR PNEUMONI A 02/16 completed Not Available Not Available Not Available albuterol sulfate HFA 90 mcg/actua tion aerosol inhaler INHALE 2 PUFFS BY MOUTH EVERY 6 HOURS NEEDED FOR SHORTNES S OF BREATH active Not Available Not Available No t Available ketorolac 60 mg/2 mL intramusc ular solution Inject 2 mL by intramus cular route now 02/24 completed Not Available Not Available Not Available fluticaso ne propionat e 50 mcg/actua tion nasal spray,glen pension 02/16 completed Not Available Not Available Not Available lisinopri l 2.5 mg tablet TAKE 1 TABLET BY MOUTH IN THE MORNING 10/21 completed Not Available Not Available Not Available naproxen 500 mg tablet Take 1 tablet twice a day by oral route as needed. 06/03 completed Not Available Not Available Not Available amoxicill in 875 mg-potass ium clavulana te 125 mg tablet TAKE 1 TABLET BY MOUTH TWICE DAILY FOR 10 DAYS 09/07 completed Not Available Not Available Not Available amoxicill in 500 mg-potass ium clavulana te 125 mg tablet TAKE 2 TABLETS BY MOUTH EVERY 12 HOURS FOR 10 DAYS active Not Available Not Available No t Available neomycin- polymyxin -hydrocor t 3.5 mg-10,000 unit/mL-1 % ear drops,glen p INSTILL 4 DROPS INTO AFFECTED EAR(S) BY OTIC ROUTE 3 TIMES PER DAY x 7 days 07/06 completed Not Available Not Available Not Available azithromy justina 500 mg tablet TAKE 1 TABLET BY MOUTH ONCE DAILY 07/08 completed Not Available Not Available Not Available bupropion HCl XL 150 mg 24 hr tablet, extended release 150 mg by oral route. 10/21 completed switched to chantix Not Available Not Available Not Available Spiriva with HandiHale r 18 mcg and inhalatio n capsules Inhale 1 capsule every day by inhalati on route. 06/28 completed Not Available Not Available Not Available tizanidin e 2 mg capsule Take 1 capsule every 8 hours by oral route as needed. 12/05 completed Not Available Not Available Not Available Atrovent HFA 17 mcg/actua tion aerosol inhaler 02/16 completed Not Available Not Available Not Available furosemid e 08/03 completed Not Available Not Available Not Available carvedilo l 08/03 completed Not Available Not Available Not Available lisinopri l 08/03 completed Not Available Not Available Not Available varenicli ne tartrate 1 mg tablet as per package directio ns 2024 active Not Available Not Available Not Avai lable varenicli ne tartrate 0.5 mg (11)-1 mg (42) tablets in a dose pack TAKE BY MOUTH DIRECTED ON INSIDE OF PACKAGE 2024 active Not Available Not Available Not Avai lable Symbicort 160 mcg-4.5 mcg/actua tion HFA aerosol inhaler INHALE 2 PUFFS BY MOUTH TWICE DAILY 01/13 completed pt has not had to use this inhaler since quiting smoking Not Available Not Available Not Available potassium chloride ER 20 mEq tablet,ex tended release Take 1 tablet every day by oral route. 04/05 completed duplicat e Not Available Not Available Not Available guaifenes in ER 600 mg tablet, extended release 12 hr Take 1 tablet every 12 hours by oral route. 12/29 completed Started 08/14/23 dc from [facility]. Not Available Not Available Not Available fluticaso ne 113 mcg-salme terol 14 mcg/actua tion breath activated powdr 02/16 completed Not Available Not Available Not Available Fluzone Quad (PF) 60 mcg (15 mcg x 4)/0.5 mL IM syringe active Not Available Not Available Not Available Vitals Date Recorded Body height Body weight Body temperature Heart rate Oxygen saturation Oxygen saturation in Arterial blood by Pulse oximetry Systolic blood pressure Diastolic blood pressure Provider Name and Address Organization Details Last Updated DateTime 3 170.18 cm 000446. 17 g 97.9 [degF] 72 /min 98 % 98 % 124 mm[Hg] 80 mm[Hg] Lisa Damico [facility] 3 15:01:48 Date Recorded Body height Body mass index (BMI) Body weight Body temperature Heart rate Oxygen saturation Oxygen saturation in Arterial blood by Pulse oximetry Systolic blood pressure Diastolic blood pressure Provider Name and Address Organization Details Last Updated DateTime 3 170.18 cm 37.5 kg/m2 690292. 33 g 97.8 [degF] 73 /min 97 % 97 % 120 mm[Hg] 82 mm[Hg] Jazzy Gonsales [facility] 3 17:51:55 Date Recorded Body height Body mass index (BMI) Body weight Body temperature Heart rate Oxygen saturation Oxygen saturation in Arterial blood by Pulse oximetry Systolic blood pressure Diastolic blood pressure Provider Name and Address Organization Details Last Updated DateTime 4 170.18 cm 36.8 kg/m2 072766. 21 g 97.6 [degF] 83 /min 95 % 95 % 126 mm[Hg] 76 mm[Hg] Camilla Fanny [facility] 4 14:40:00 Date Recorded Body height Body mass index (BMI) Body weight Body temperature Oxygen saturation Oxygen saturation in Arterial blood by Pulse oximetry Heart rate Systolic blood pressure Diastolic blood pressure Provider Name and Address Organization Details Last Updated DateTime 4 170.18 cm 35.6 kg/m2 661609. 47 g 97.6 [degF] 96 % 96 % 107 /min 120 mm[Hg] 80 mm[Hg] Dora Archibald [facility] 4 10:39:23 Date Recorded Body height Body temperature Heart rate Oxygen saturation Oxygen saturation in Arterial blood by Pulse oximetry Systolic blood pressure Diastolic blood pressure Provider Name and Address Organization Details Last Updated DateTime 4 170.18 cm 97.6 [degF] 81 /min 94 % 94 % 120 mm[Hg] 80 mm[Hg] Dora Archibald [facility] 4 11:12:39 Social History Question Answer Notes LastModified by Organizat ion Details LastModified Time Tobacco Smoking Status Former [facility]oker [facility] 11:36:07 Do You Have An Advance Directive? No [id number] Information not available 09/07/2022 What Is Your Level Of Alcohol Consumption? None MIGRATION.99050 [id number] Information not available 09/07/2022 What Is Your Level Of Caffeine Consumption? Moderate MIGRATION.28115 25489 Information not available 09/07/2022 In The 14 Days Before Symptom Onset, Have You Had Close Contact With A Laboratory-confi rmed COVID-19 While That Case Was Ill? No MIGRATION.76053 90626 Information not available 09/07/2022 In The 14 Days Before Symptom Onset, Have You Had Close Contact With A Person Who Is Under Investigation For COVID-19 While That Person Was Ill? No MIGRATION.86275 17384 Information not available 09/07/2022 Are You Currently Employed? No On Disability MIGRATION.72049 [id number] Information not available 09/07/2022 What Type Of Diet Are You Following? REGULAR MIGRATION.37861 66754 Information not available 09/07/2022 Which Illicit Or Recreational Drugs Have You Used? Marijuana MIGRATION.87801 45102 Information not available 09/07/2022 Have There Been Any Changes To Your Family Or Social Situation? No MIGRATION.52338 34851 Information not available 09/07/2022 What Is The Fluoride Status Of Your Home? Unknown MIGRATION.06861 45109 Information not available 09/07/2022 Do You Use Insect Repellent Routinely? Yes MIGRATION.15163 83700 Information not available 09/07/2022 Are You In An Abusive/frighten ing Relationship? No MIGRATION.76375 02819 Information not available 09/07/2022 Do You Feel Safe At Home Yes MIGRATION.39610 91306 Information not available 09/07/2022 Do You Have A Medical Power Of Co Supervisor Grounds And Landscape? No MIGRATION.59929 67731 Information not available 09/07/2022 What Was The Date Of Your Most Recent Tobacco Screening? 09/07/2023 [email or web address] Information not available 09/07/2023 What Is Your Current Pack Years? 30ormorepack years MIGRATION.71216 05935 Information not available 09/07/2022 Do You Have Any Pets? Yes MIGRATION.91189 75487 Information not available 09/07/2022 What Is Your Relationship Status? MIGRATION.34650 82575 Information not available 09/07/2022 Do You Use Your Seat Belt Or Car Seat Routinely? Yes MIGRATION.65367 21901 Information not available 09/07/2022 Do You Have Smoke And Carbon Monoxide Detectors In Your Home? Yes MIGRATION.43814 42075 Information not available 09/07/2022 At What Age Did You Start Smoking Tobacco? 14 MIGRATION.31763 10862 Information not available 09/07/2022 Are You Passively Exposed To Smoke? No MIGRATION.71185 85446 Information not available 09/07/2022 Are There Any Smokers In Your House? No MIGRATION.01899 87655 Information not available 09/07/2022 How Much Tobacco Do You Smoke? 1 PPD MIGRATION.55863 48681 Information not available 09/07/2022 Do You Use Any Illicit Or Recreational Drugs? Yes MIGRATION.75790 43040 Information not available 09/07/2022 Do You Use Sunscreen Routinely? Yes MIGRATION.65974 23807 Information not available 09/07/2022 Have You Recently Traveled Abroad? No MIGRATION.65752 93297 Information not available 09/07/2022 Have You Used IV Drugs? No MIGRATION.06942 99135 Information not available 09/07/2022 Do You Have Any Dietary Restrictions? No MIGRATION.02079 34095 Information not available 09/07/2022 Do You Or Have You Ever Used Any Other Forms Of Tobacco Or Nicotine? No MIGRATION.36704 92118 Information not available 09/07/2022 Sex: Unknown Functional Status Question Answer Note LastModified by [facility] ion Details LastModified Time What is your exercise level? Occasional [id number] Information not available 09/07/2022 Mental Status None recorded. Family History Nothing Reported Notes:He was adopted Medical History Condition Response ALLERGIES/HAYFEVER Y INSOMNIA Y ASTHMA Y PULMONARY DISEASE Y HEADACHES/MIGRAINES Y HYPERTENSION Y CARDIAC ARRHYTHMIA Y OBESITY Y ATRIAL FIBRILLATION Y Immunizations Vaccine Type Date Status Note Provider Nam e and Address Organization Details Recorded Time Influenza, split virus, trivalent, preservative 2 completed Not Available [facility] 08/18/2023 04:04:02 Influenza, split virus, quadrivalent, preservative 9 completed Not Available [facility] 08/18/2023 04:04:02 COVID-19 vaccine, vector-nr, rS-Ad26, PF, 0.5 mL 1 completed Not Available [facility] 08/18/2023 04:04:02 Influenza, split virus, quadrivalent, preservative 0 completed Not Available [facility] 08/18/2023 04:04:02 Influenza, split virus, quadrivalent, PF 3 completed Dea Cervantes NP [address] [place] [address], [address], [facility] 06/15/2023 22:19:39 Past Encounters Encounter ID Performer Location Encounter Start Date Encounter Closed Date Diagnosis/Indication Diagnosis SNOMED-CT Code Diagnosis ICD10 Code Diagnosis Note [id number] Beronica Marin PODIATRIC FOOT AND ANKLE SPECIALIST [facility] [place] [address] [place] [address] 04/05/2021 00:00:00 04/05/2021 12:58:33 [id number] Beronica Marin PODIATRIC FOOT AND ANKLE SPECIALIST [facility] [place] [address] [place] [address] 06/06/2021 00:00:00 06/06/2021 12:16:46 [id number] Beronica Marin PODIATRIC FOOT AND ANKLE SPECIALIST [facility] [address] [address] 10/15/2021 00:00:00 10/15/2021 11:33:50 [id number] Beronica Marin PODIATRIC FOOT AND ANKLE SPECIALIST [facility] [address] [address] 06/03/2022 00:00:00 06/03/2022 11:40:32 [id number] Beronica Marni PODIATRIC FOOT AND ANKLE SPECIALIST [facility] [place] [address] [place] [address] 07/08/2022 00:00:00 07/10/2022 15:05:30 [id number] Beronica Marin NP [facility] [address] [address] 10/21/2022 11:19:39 10/21/2022 12:05:21 Hypertensive disorder 28128603 I10 BP looks very good, Reviewed DASH diet & exercise guidelines , check home BP reading 1 x week and call if greater than 140/90 x 2 readings Smoker 37043990 F17.200 Smoking cessation counseling and techniques reviewed at length with pt. Literature reviewed. Avoid triggers, support groups. reviewed how to use chantix, mech action and potential SE. hand out provided. reviewed needs to take for entire 6 mo for least chance relapse Injury of great toe 2827 02746 S99.922A [id number] DAISY LEY MD [facility] [address] [address] 11/12/2022 14:36:53 11/12/2022 15:43:14 Pain in throat 192313860 R07.0 11/10/22 rapid test in ER negative. persistent symptoms will recheck for strep & reflex to culture.ne gative strep Congestion of nasal sinus 97086864 R09.81 Gave recommenda tions for OTC's for symptomati c relief. Encouraged extra fluids and rest. Call if symptoms worsen or persist. Cervical lymphadenopathy 389976740 R59.0 right sided. history of smoking. Discussed if symptoms persist will send for ultrasound . Former hea vy tobacco smoker 0647134149 35731 Z87.895 [id number] Beronica Marin NP [facility] [address] [place] [address] 12/05/2022 14:43:42 12/05/2022 15:28:45 Congestive heart failure 49043458 I50.9 Lumbago with sciatica 20 5001632 M54.42 [id number] Beronica Marin NP [facility] [address] [address] 01/13/2023 15:26:44 01/13/2023 16:10:01 Chronic obstructive pulmonary disease 49432352 J44.9 Hypertensive disorder 38 272699 I10 BP looks very good, Reviewed DASH diet & exercise guidelines , check home BP reading 1 x week and call if greater than 140/90 x 2 readings Congestive heart failure 09384538 I50.9 Adult [facility] th examination 791679713 Z00.00 Reviewed healthy diet and exercise guidelines the Screening for malignant neoplasm of prostate 649803185 Z12.5 patient is over 50 years of age Hepatitis C screening 41 8517294 Z11.59 [id number] Beronica Marin NP [facility] [address] [address] 02/24/2023 14:44:46 02/24/2023 15:08:29 Neuralgia 50725013 M79.2 Advised patient if the rash appears to call [facility] and will prescribed antiviral, will not need an appointmen t for evaluation for prescripti on. At this time will not prescribe antivirals as not conclusive that this is herpetic, maybe nerve entrapment at cervical, shoulder or elbow. Advise over-the-c ounter topical lidocaine product by Jluis Oscar as needed and over-the-c ounter ibuprofen 3 tabs 3 times a day for 7 days for inflammati on to area [id number] MD MARIAMA WING_[facility] [address] [address] 06/15/2023 17:28:52 06/15/2023 18:22:04 Active or passive immunization 216751118 Z23 Impacted c erumen in left ear 7290894039 523714 H61.22 recommend debrox in left ear. Impacted c erumen in right ear 1132193311 027848 H61.21 resolved. after ear wash, slight erythema in canal, instructed to call if tenderness worsens or persists. Otalgia of right ear 982 9555959 H92.01 after ear wash. Avoid anything else in the ear for the next 3-5 days, slight erythema in canal, instructed to call if tenderness worsens or persists. [id number] MD MARIAMA ROMAN_[facility] [address] [place] [address] 09/03/2023 14:28:24 09/03/2023 14:56:16 Otitis externa of right ear 0755567442 484922 H60.91 Otic drops as directed. Discussed instructio ns for use. Recommende d avoidance of swimming and diving. Recommende d placement of a cotton ball coated in petroleum jelly in affected EAC(s) when bathing/sh owering. Recommende d follow up if persistent , new, or worsening symptoms. Patient verbalized understand ing and agreement to treatment plan. Acute otitis media 54008 03 H66.91 Will tx with abxs, take with food and probiotic, call if sxs don't improve [id number] MD MARIAMA WING[facility] [address] [address] 11/23/2023 10:21:40 11/23/2023 11:11:20 Pain of toe of left foot 8717320803 76318 M79.675 Dropped glass bowl on toe. Check STAT xray. Recommend rest, ice, elevation, and NSAIDs OTC as needed. Wear supportive shoe and latoya tape toe for comfort. [id number] DAISY LEY MD [facility] [address] [address] 12/30/2023 10:52:54 12/30/2023 11:41:05 Left side sciatica 5904701965 17722 M54.32 Discussed symptoms consistent with sciatica. Discussed can take several weeks to fully resolve. Start meds as prescribed . Discussed risk of sedation with muscle relaxer. Discussed gentle stretching , ice to help with inflammati on. Exercises provided. Avoid heavy lifting. Proper ergonomics discussed. Patient to call if not improving over worsening over next 6 weeks. Monitor changes in symptoms such as numbness, tingling or weakness in legs, changes in bowel or bladder habits or worsening back pain and call immediatel y if develops. Health Concerns Section Related Observation LastModified by Organization Detai ls LastModified Time None Recorded Concern Status LastModified by Organization Details LastModified Time None Recorded Advance Directives Directive N: Payers Encounter Date Sequence Insurance Name Policy Number Policy Rodrigues Covered Member ID Rodrigues Member ID Guarantor Name 02/24/2023 1 [facility] (MEDICARE REPLACEMENT /ADVANTAGE - HMO) lAtaf Madison [id number] Altaf Madison 06/15/2023 1 [facility] (MEDICARE REPLACEMENT /ADVANTAGE - HMO) Altaf Madison [id number] Altaf Madison 09/03/2023 2 [place] Altaf Madison [id number] Altaf Madison 09/03/2023 1 [facility] (MEDICARE REPLACEMENT /ADVANTAGE - HMO) Altaf Madison [id number] Altaf Madison 11/23/2023 1 [facility] (MEDICARE REPLACEMENT /ADVANTAGE - HMO) Altaf Madison [id number] Altaf Madison 12/30/2023 1 [facility] (MEDICARE REPLACEMENT /ADVANTAGE - HMO) lAtaf Madison [id number] Altaf Madison Notes Date Note Type Note Provider Name and Address Organization Details Recorded Time 02/24/2023 text/html 53 y/o male here c/o left elbow pain that he states feels more like a burning sensation in arm especially when something brushes his skin in the same area around elbow and denies any pain with movement or in joint/edema -- Pt is concerned that he has shingles ongoing x 3 days Beronica Marin NP [address] [place], [address], [facility] 02/24/2023 15:11:58 06/15/2023 text/html Here for R ear pain that started on Thursday. Pt would also like his flu shot.no swimming, nothing in the ear.Intake: at baselineOutput: at baselineAny fever: noneOther symptoms: denies sick symptoms todayTreatments: nothing Dea Cervantes NP [address] [place], [address], [facility] 06/15/2023 22:27:42 09/03/2023 text/html Bilateral ear pain. Right ear is more painful than the left x 2 days.No fever, nasal d/c, ST, decrease hearingTx with ibuprofen, excedrin with some relief.congestion, MAY, off balance SHMUEL Rose [address] [place], [address], [facility] 09/03/2023 14:56:41 11/23/2023 text/html 53 year old male here today with left middle toe pain since yesterday after dropping a glass bowl on it. Has been able to ambulate. No breaks in skin. SHMUEL SORIANO [address] [place], [address], [facility] 11/23/2023 12:05:53 12/30/2023 text/html 53 year old male here today with left hip pain since yesterday morning. Noticed upon waking up. No known injury. No change in activity recently. Pain worse with movement. No stiffness. No back pain. Pain and tingling radiates down into left calf. No weakness. No bowel or bladder incontinence. No dysuria. Has tried OTC ibuprofen with mild relief. SHMUEL SORIANO [address] [place], [address], [facility] 12/30/2023 12:11:39
--- OUTSIDE RECORDS SUMMARY | 2025-01-03 08:32 | XMS_ITS | Clinical Summary ---
Author Organization [facility] Address [address] [place] [address] Care Team Providers Care Power Generation Turbine Room Operator Name Role Phone Malcolm Conteh MD Primary Care Provider [phone] Source Comments [facility],non-owned Affiliates and Associated Physician Practices is amultiple site organization consisting of ambulatory clinics and hospital sitesin [place], [place], [place] and [place]. This disclosure is being madepursuant to the Care Everywhere program and may not contain all information available regarding this patient. Last updated 18.[facility] Allergies No known active allergies Medications * Be aware that medications may not be up to date on this document. Alwaysverify current medications with the patient. aspirin (ASPIRIN) 81 MG chew tabletIndicatio ns:Chest pain Take 1 Tab by mouth once daily 5 Active amitriptyline (ELAVIL) 150 MG tablet Take 150 mg by mouth at bedtime Active LORazepam (ATIVAN) 1 MG tablet Take by mouth every 8 hours as needed for Anxiety Active albuterol (PROVENTIL;VENT MAYA) (2.5 MG/3ML) 0.083% nebulizer solution Inhale by mouth 4 times daily as needed for Shortness of Breath or Wheezing Active lisinopril (PRINIVIL;ZESTR IL) 5 MG tablet Take 1 tablet by mouth once daily 60 tablet 1 7 Active nicotine (NICODERM CQ) 21 MG/24HR patch Apply 1 patch to skin once daily Active potassium chloride ER (KLOR-CON M) 10 MEQ tablet Take 10 mEq by mouth once daily Active oxyCODONE-aceta minophen (PERCOCET) 10-325 MG tablet Take 1 tablet by mouth every 4 hours as needed 12 tablet 9 Active lidocaine (LIDODERM) 5 % patch Apply 1 patch to skin once daily 30 patch 9 Active furosemide (LASIX) 40 MG tablet Take 1 tablet by mouth once daily 9 Active Active Problems Problem Noted Date Diagnosed Date Syncope and collapse 05/15/2019 Resolved Problems Problem Noted Date Diagnosed Date Resolved Date Pneumonia due to organism 07/25/2017 Immunizations Immunization Administration Dates Next Due INFLUENZA VACCINE, QUADR. (F LUZONE; FLULAVAL; FLUARIX; AFLURIA QUADRIVALENT; 6MO+), 0.5 ML (IIV4) 07/27/2017 Family History Medical History Relation Name Comments CAD (Coronary Artery Disease) Other mother Relation Name Status Comments Other Social History Tobacco Use Types Packs/Day Years Used Date Smoking Tobacco: Every Day Cigarettes 1 40 Started: 1985 Smokeless Tobacco: Never Tobacco Cessation:Ready to Q uit: No; Counseling Given: Yes Comments:says he knows he should quit smoking but doesn't want to Alcohol Use Standard Drinks/Week Comments No 0 (1 standard drink = 0.6 oz pur e alcohol) Sex and Gender Information Value Date Recorded Sex Assigned at Not on file Legal 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 Gender Identity Male 07/25/2017 5:45 PM PRODUCT DEMONSTRATOR Sexual Orientation Not on file Last Filed Vital Signs Vital Sign Reading Time Taken Comments Blood Pressure 104/66 05/18/2019 8:53 AM CDT Pulse 79 05/18/2019 8:53 AM CDT Temperature 36.8 C (98.3 F) 05/18/2019 8:53 AM CDT Respiratory Rate 16 05/18/2019 8:53 AM CDT Oxygen Saturation 93% 05/18/2019 8:53 AM CDT Inhaled Oxygen Concentration - - Weight 104.7 kg (230 lb 14.4 oz) 2018 11:22 AM CDT Height 170.2 cm (5' 7 ) 05/15/2019 5:51 PM CDT Body Mass Index 36.16 05/15/2019 5:51 PM CDT Plan of Treatment Health Maintenance Due Date Last Done Comments SASCHA (AGES 45-75) - COL ON CA SCREENING 1970 COLON MONITORING 1970 COLONOSCOPY - COLON CA SCREENING 1970 CT COLONOGRAPHY - COLON CA SCREENING 1970 Colorectal Cancer Screening 1970 FIT - COLON CA SCREENING 1970 FLEX SIG - COLON CA SCREENING 1970 DTAP/TDAP/TD VACCINES (1 - Tdap) 1989 HEPATITIS B VACCINE (1 of 3 - 19+ 3-dose series) 1989 PNEUMOCOCCAL VACCINE 50+ (1 of 1 - PCV) 01/13/2020 ZOSTER VACCINE (1 of 2) 01/13/2020 LIPID TESTING 04/20/2020 04/20/2015 COVID-19 VACCINE ( - 2023-2 5 season) 2024 DEPRESSION SCREENING 08/31/2024 INFLUENZA VACCINE (Season Ended) 2025 06/03/2018, 07/27/2017 HEPATITIS C SCREENING Completed 05/18/2019 HIV SCREENING Completed 05/18/2019 HIB VACCINE Aged Out No longer eligi ble based on patient's age to complete this topic HPV VACCINE Aged Out No longer eligi ble based on patient's age to complete this topic MENINGOCOCCAL (Group B) VACCINE SHARED DECISION-MAKING Aged Out No longer eligible based on patient's age to complete this topic MENINGOCOCCAL GROUPS A/C/Y/W VACCINE Aged Out No longer eligible b ased on patient's age to complete this topic Procedures Procedure Name Priority Date/Time Associated Diagnosis Comments HEPATITIS SCREEN ACUTE AM Draw 05/18/2019 5:23 AM CDT Thrombocytopenia HIV-1 HIV-2 ANTIBODY + HIV P24 AG PANEL AM Draw 05/18/2019 5:23 AM CDT Thrombocytopenia LIPID PROFILE AM Draw 04/20/2015 5:55 AM CDT Chest pain from Last 3 Months or Most Recently Relevant to Health Maintenance Results * HIV-1 HIV-2 ANTIBODY + HIV P24 AG PANEL (05/18/2019 5:23 AM CDT) HIV1/2 Ab + P24 Ag Non Reactive Non Reactive 05/18/2019 6:51 AM CDT [facility] Blood BLOOD SPECIMEN / Unknown Lab Venipuncture / Unknown 05/18/2019 5:23 AM CDT 05/18/2019 6:02 AM CDT Narrative [facility] - 05/18/2019 6:51 AM CDT No Laboratory evidence of HIV infection. Dimitri Jones MD LAB - CHEMISTRY ORDERABLES Fin al Result Performing Organization Address City/[facility]/ZIP Co de Phone Number [facility] [address] [place] [phone] * HEPATITIS SCREEN ACUTE (05/18/2019 5:23 AM CDT) HAV Antibody IgM Non Reactive Non Reactive 05/18/2019 6:51 AM CDT [facility] HBsAg Non Reactive Non Reactive 05/18/2019 6:51 AM CDT [facility] HBc Antibody IgM Non Reactive Non Reactive 05/18/2019 6:51 AM CDT [facility] HCV Antibody Screen Non Reactive Non Reactive 05/18/2019 6:51 AM CDT [facility] HCV S/C Ratio 0.05 0.00 - 0.79 05/18/2019 6:51 AM CDT [facility] Comment: Iybbca-cx-rzbxil ratio (S/CO) <0.80: Non Reactive Blood BLOOD SPECIMEN / Unknown Lab Venipuncture / Unknown 05/18/2019 5:23 AM CDT 05/18/2019 6:01 AM CDT Narrative [facility] - 05/18/2019 6:51 AM CDT Non Reactive - Antibodies to Hepatitis C virus (HCV) were not detected, result does not exclude early acute HCV infection. Dimitri Jones MD LAB - CHEMISTRY ORDERABLES Fin al Result Performing Organization Address City/[facility] Co de Phone Number [facility] [address] [place] [phone] * (ABNORMAL) LIPID PROFILE (04/20/2015 5:55 AM CDT) Cholesterol 109 <200 mg/dL 04/20/2015 6:46 AM CDT [facility] Triglycerides 95 <150 mg/dL 04/20/2015 6:46 AM CDT [facility] HDL Cholesterol 34(L) >40 mg/dL 04/20/2015 6:46 AM CDT [facility] LDL Calculated 56 <130 mg/dL 04/20/2015 6:46 AM CDT [facility] VLDL Calculated 19 <=30 mg/dL 04/20/2015 6:46 AM CDT [facility] Chol HDL Ratio 3.2 <4.5 04/20/2015 6:46 AM CDT [facility] LDL/HDL Ratio 1.6 <5.0 04/20/2015 6:46 AM CDT [facility] Blood BLOOD SPECIMEN / Unknown Lab Venipuncture / Unknown 04/20/2015 5:55 AM CDT 04/20/2015 6:18 AM CDT Ana Justin CAMERA ENGINEER-CLINIC MANAGER LAB - CHEMISTRY ORDERABL ES Final Result Performing Organization Address [facility] de Phone Number [facility] [address] [place] [address] from Last 3 Months or Most Recently Relevant to Health Maintenance Insurance [facility] Advance Directives * Full Code (Latest Code Status on File) Date Activated Date Inactivated Comments 05/15/2019 5:02 PM 05/18/2019 2:42 PM * Full Code Date Activated Date Inactivated Comments 07/25/2017 8:37 PM 07/30/2017 2:59 PM * Full Code Date Activated Date Inactivated Comments 04/19/2015 1:38 PM 04/20/2015 3:56 PM Care Teams Power Generation Turbine Room Operator Relationship Specialty Start Date End Date Malcolm Conteh MD [address] [place] [address] PCP - General Internal Medicine 04/19/15
--- OUTSIDE RECORDS SUMMARY | 2025-01-03 08:32 | XMS_ITS | Clinical Summary ---
Author Organization [facility] Address [address] [place] [address] Phone Care Team Providers Care Test Driller Name Role Phone Malcolm Conteh MD Primary Care Provider [phone] Allergies No known active allergies Medications carvedilol (COREG) 25 mg tablet Take 50 mg by mouth 2 times daily with meals. Active aspirin (ECOTRIN EC) 81 mg Tablet, Delayed Release (E.C.) Take 81 mg by mouth daily. Active methylPREDNISolon e (MEDROL DOSPACK) 4 mg Tablets, Dose Pack Take as directed on package 21 Tablet 07/23/2019 1:25 PM PROCEDURE ANALYST 9 Active furosemide (LASIX) 40 mg tablet Take 1 Tablet (40 mg) by mouth daily. 30 Tablet 9 Active potassium chloride (KLOR-CON) 10 mEq Extended Release tablet Take 1 Tablet (10 mEq) by mouth every other day. 10 Tablet 07/23/2019 1:25 PM PROCEDURE ANALYST 9 Active ipratropium-albut tao (DUONEB) 0.5 mg-3 mg(2.5 mg base)/3 mL Solution for Nebulization Use 1 vial (3 mL) with nebulizer 3 times daily as needed for Shortness of Breath. 90 mL 9 Active nicotine (NICODERM CQ) 14 mg/24 hr patch Apply 1 Patch to skin as directed 1 time daily as needed (craving cigarettes). 9 Active oxyCODONE (ROXICODONE) 5 mg tabletIndications :COPD with exacerbation (CMS/HCC),Hyperte nsive heart and chronic kidney disease with diastolic congestive heart failure, unspecified CKD stage, unspecified HF chronicity (CMS/HCC) Take 1 Tablet (5 mg) by mouth every 6 hours as needed for Severe Pain. Max Daily Amount: 20 mg 20 Tablet 07/23/2019 1:25 PM PROCEDURE ANALYST 9 Active polyethylene glycol (MIRALAX) 17 gram Powder in Packet Take 1 Packet (17 Grams) by mouth 1 time daily as needed for Constipation. 9 Active glimepiride (AMARYL) 2 mg tablet Take 1 Tablet (2 mg) by mouth daily with breakfast. 30 Tablet 07/23/2019 1:25 PM PROCEDURE ANALYST 9 Active Active Problems Problem Noted Date Diagnosed Date Type 2 diabetes mellitus with hyperglycemia 07/02 Diabetes mellitus with hyperglycemia 07/23/2019 Hyperkalemia 07/23/2019 Positive D dimer 07/22/2019 Acute systolic (congestive) heart failure 2018 Morbid obesity with BMI of 50.0-59.9, adult 07/02 Acute hypoxemic respiratory failure 07/19/2019 COPD with exacerbation 07/19/2019 Hypertensive heart and chron ic kidney disease with diastolic congestive heart failure 07/19/2019 Leukocytosis (leucocytosis) 07/19/2019 Demand ischemia 07/19/2019 GEORGINA (acute kidney injury) 07/19/2019 Elevated liver enzymes 07/19/2019 Obesity (BMI 30.0-34.9) 12/04/2018 Tobacco dependence 12/04/2018 Chronic obstructive pulmonar y disease with acute exacerbation Chronic systolic congestive heart failure HTN (hypertension), benign Atypical chest pain LV dysfunction Immunizations Immunization Administration Dates Next Due (PREVNAR 13)(6 WKS UP) PNEUM OCOCCAL CONJUGATE (PCV13) 0.5 ML, IM 12/03/2018 INFLUENZA VACCINE QUADRIVALENT 6 MOS UP PF IM Influenza Seasonal Unspecified Formulation IM ,06/03/2018 Family History * Patient is adopted Relation Name Status Comments Father Mother Social History Tobacco Use Types Packs/Day Years Used Date Smoking Tobacco: Former Cigarettes 1 25 1 09/18/1993 - 07/19/2019 Smokeless Tobacco: Never Tobacco Cessation:Counseling Given: No Alcohol Use Standard Drinks/Week Comments Not Currently [...] declined 07/19/2019 How often do you attend mandaeism or scientologist serv ices? Patient declined 07/19/2019 Do you belong to any clubs o r organizations such as mandaeism groups, unions, fraternal or athletic groups, or [...] on file Sexual Orientation Not on file Last Filed Vital Signs Vital Sign Reading Time Taken Comments Blood Pressure 125/81 07/23/2019 12:35 PM PROCEDURE ANALYST Pulse 93 07/23/2019 12:35 PM PROCEDURE ANALYST Temperature 36.7 C (98 F) 08/31/2019 11:28 AM PROCEDURE ANALYST Respiratory Rate 16 07/23/2019 12:35 PM PROCEDURE ANALYST Oxygen Saturation 91% 07/23/2019 12:35 PM PROCEDURE ANALYST Inhaled Oxygen Concentration - - Weight 113.4 kg (250 lb) 08/31/2019 11:28 AM PROCEDURE ANALYST Height 170.2 cm (5' 7 ) 08/31/2019 11:28 AM PROCEDURE ANALYST Body Mass Index 39.16 08/31/2019 11:28 AM PROCEDURE ANALYST Plan of Treatment Health Maintenance Due Date Last Done Comments DIABETES ANNUAL FOOT EXAM 01/13/1988 DIABETES ANNUAL RETINAL EXAM 01/13/1988 DIABETES MICROALBUMIN ANNUAL SCREEN 01/13/1988 LDL CHOLESTEROL ANNUAL 01/13/1988 DTAP/TDAP/TD VACCINES (1 - Tdap) 1989 HEPATITIS B VACCINES (1 of 3 - 19+ 3-dose series) 1989 COLORECTAL SCREENING 2015 Colorectal Cancer Screening 2015 FIT-DNA Q 3 years 2015 FIT/FOBT Q 1 year 2015 Flex Sig/CT Colonography Q 5 years 2015 ZOSTER VACCINE (1 of 2) 01/13/2020 DIABETES HBA1C Q 6 MONTHS 01/20/2020 07/22/2019 INFLUENZA VACCINE (#1) 2024 9, 09/18/2018, 06/03/2018, Additional history exists Medical Devices Implanted Type Area Box Inspector Device Identifier Shelf Expiration Date Model / Serial / Lot Cardiac Defibrillator Procedures Procedure Name Priority Date/Time Associated Diagnosis Comments HEMOGLOBIN A1C Routine 07/22/2019 4:53 PM PROCEDURE ANALYST from Last 3 Months or Most Recently Relevant to Health Maintenance Results * (ABNORMAL) HEMOGLOBIN A1C (07/22/2019 4:53 PM PROCEDURE ANALYST) HEMOGLOBIN A1C 7.5(H) <=5.6 % 07/22/2019 5:18 PM PROCEDURE ANALYST [facility] EST. AVG GLUCOSE, A1C 169 mg/dL 07/22/2019 5:18 PM PROCEDURE ANALYST [facility] Blood Venipuncture / Unknown 07/22/2019 4:53 PM PROCEDURE ANALYST 07/22/2019 5:03 PM PROCEDURE ANALYST Narrative [facility] - 07/22/2019 5:18 PM PROCEDURE ANALYST HGB A1C INTERPRETATION NORMAL: <5.7% PRE-DIABETES: 5.7 - 6.4% DIABETES: 6.5% OR GREATER Susan Mckenna MD CHEMISTRY ORDERABLES Final Resul t [facility] CLIA# [id number] [place] [address] from Last 3 Months or Most Recently Relevant to Health Maintenance Insurance [employer] MEDICAID RX [id number] Medicare Part D RX [employer] (INTERNAL) [facility] Advance Directives For more information, please contact: [phone] * Full Code (Latest Code Status on File) Date Activated Date Inactivated Comments 07/19/2019 12:17 PM 07/23/2019 4:02 PM * Full Code Date Activated Date Inactivated Comments 12/02/2018 9:56 AM 12/04/2018 6:18 PM Care Teams Test Driller Relationship Specialty Start Date End Date Malcolm Conteh MD [address] [place] [address] PCP - General Internal Medicine 07/19/19
--- OUTSIDE RECORDS SUMMARY | 2025-01-03 08:32 | XMS_ITS | Data Portability ---
Author Organization [facility], Main Office Address [address] [place] [address] Assessment No assessment recorded. Plan of Treatment Reminders Order Date Submit Date Provider Last Modified By Organization Details Last Modified Time Details Appointments None record ed. Lab None record ed. Referral None record ed. Procedures None record ed. Surgeries None record ed. Imaging None record ed. Medication Orders None record ed. Patient TargetsNo targets recorded. Patient InstructionsNo instructions recorded. Reason for Referral None Reported. Results Created Date Observation Date Name Description Value Unit Range Abnormal Flag Note LastModifiedBy Organization Detail LastModifiedTime 06/22/2006/22/2022 EKG 12 LEADS [id number] [facility] [address] [address] Test Date: 06-22 Pat Name: JUDSON Arguello tment : EOP Patie nt ID: [id number] Room: [facility] r: [facility] : : 01-12 Reque sted By: Order Numbe r: [id number] Gaby fuentes MD: Measu remen ts Inter vals [place] Rate: 93 P: 62 MS: 161 QRS: 90 QRSD: 93 T: 51 QT: 348 QTc: 433 Inter preti ve State ments Sinus rhyth m Borde rline right axis devia tion Low volta ge, extre mity leads Not Available [facility] [address] [place] [address], [place], [address], 06/22/2022 18:56:20 06/05/20 22 06/05/2022 EKG 12 LEADS [id number] [facility] [address] [place] [address] Test Date: 05-30 Pat Name: JUDSON EL MCCAL LISTE R Depar tment : EOP Patie nt ID: [id number] 6 Room: [facility] r: M Techn ician : : 01-12 Reque sted By: Order Karissa r: [id number] Gaby fuentes MD: Daisy fitzgerald ts Inter vals [place] Rate: 80 P: 69 MS: 176 QRS: 89 QRSD: 91 T: 44 QT: 373 QTc: 431 Inter preti ve State ments Sinus rhyth m Aziza londono kimberly Beverley d On 2021 23:23 :16 CDT by Daisy hutchinson Not Available [facility] [address] [place] [address], [address], 06/05/2022 00:23:24 05/30/20 22 05/30/2022 EKG 12 LEADS [id number] [facility] [address] [place] [address] Test Date: 05-30 Pat Name: JUDSON MENDEZ Cade Arguello tment : EOP Patie nt ID: [id number] 6 Room: [facility] r: M Techn ician : : 01-12 Reque sted By: Order Karissa r: [id number] Gaby fuentes MD: Bernardo fitzgerald ts Inter vals [place] Rate: 80 P: 69 MS: 176 QRS: 89 QRSD: 91 T: 44 QT: 373 QTc: 431 Inter preti ve State ments Sinus rhyth m Low volta ge, extre mity leads Not Available [facility] [address] [place] [address], [address], 05/30/2022 12:58:38 05/30/20 22 05/30/2022 ABBOT T ID NOW COVID 19 franco id now covid 19 negati ve negati ve RESUL TS ARE FOR THE [...] OF THE ONSET OF SYMPT OMS. POSIT LUCREICA RESUL TS ARE INDIC ATIVE OF THE PRESE NCE OF SARS- COV-2 RNA; CLINI LAW CORRE LATIO N WITH PATIE NT HISTO [...] AND, IF INCON SISTE NT WITH CLINI LAW SIGNS AND SYMPT OMS OR NECES NICOLÁS [...] RY AND THE PRESE NCE OF CLINI LAW SIGNS AND SYMPT OMS CONSI STENT WITH COVID -19. THIS TEST HAS BEEN AUTHO RIZED BY THE FDA UNDER AN EMERG ENCY USE AUTHO RIZAT ION (EUA) FOR USE BY AUTHO RIZED LABOR ATORI ES. Not Available [facility] [address] [place] [address], [address], 05/30/2022 09:58:57 05/30/20 22 05/30/2022 ABBOT T ID NOW COVID 19 internal qqc valid Not Available [facility] [address] [place] [address], 305[address], 05/30/2022 09:58:57 05/30/20 22 05/30/2022 ABBOT T ID NOW COVID 19 kit lot [id number] Not Available [facility] [address] [place] [address], 25050, 05/30/2022 09:58:57 05/30/20 22 05/30/2022 ABBOT T ID NOW COVID 19 kit exp [id number] Not Available [address], [address], 05/30/2022 09:58:57 05/30/20 22 05/30/2022 D-DIM ER, QUANT D-dimer, quantitative 110 NG/mL 100-60 0 D-Dim er is a scree urvashi test to be used to help rule out Deep Vein Throm bosis or Pulmo nary Embol ism. The D-Dim er resul t must be used in conju nctio n with the patie nt's histo ry (incl uding medic ation s) and clini law prese ntati on to deter m ine if furth er confi rmato ry testi ng is requi red. The 90th perce ntile of measu r ement s is less than 400 ng/mL . (90% of salina l popul ation will be 400 ng/mL or less) . Not Available [facility] [address] [place] [address], [address], 05/30/2022 09:45:56 05/30/20 22 05/30/2022 D-DIM ER, QUANT internal qqc valid Not Available [facility] [address] [place] [address], 027[address], 05/30/2022 09:45:56 05/30/20 22 05/30/2022 D-DIM ER, QUANT kit lot [id number] Not Available [address], [address], 05/30/2022 09:45:56 05/30/20 22 05/30/2022 D-DIM ER, QUANT kit exp [id number] Not Available [address], [address], 05/30/2022 09:45:56 05/30/20 22 05/30/2022 NATRI URETI C PEPTI DE BNP 63 pg/mL 0-50 high NON-C HF POPUL ATION [...] RESUL TS OF STUDY CONDU CTED BY Location INC. Not Available [facility] [address] [place] [address], [address], 05/30/2022 09:35:15 05/30/20 22 05/30/2022 NATRI URETI C PEPTI DE kit lot [id number] Not Available [facility] [address] [place] [address], [address], 05/30/2022 09:35:15 05/30/20 22 05/30/2022 NATRI URETI C PEPTI DE kit exp [id number] Not Available [facility] [address] [place] [address], 70[address], 05/30/2022 09:35:15 05/30/20 22 05/30/2022 COMP METAB OLIC PNL glucose 106 mg/dL 74-106 Not Available [address], [address], 05/30/2022 09:29:27 05/30/20 22 05/30/2022 COMP METAB OLIC PNL BUN 14 mg/dL 7-18 Not Available [facility] [address] [place] [address], [address]18[address], 05/30/2022 09:29:27 05/30/20 22 05/30/2022 COMP METAB OLIC PNL sodium 142 mmol/ L 136-14 5 Not Available [facility] [address] [place] [address], 21744, 05/30/2022 09:29:27 05/30/20 22 05/30/2022 COMP METAB OLIC PNL K 4.3 mmol/ L 3.5-5. 1 Not Available [facility] [address] [place] [address], [place], [address], 05/30/2022 09:29:27 05/30/20 22 05/30/2022 COMP METAB OLIC PNL chloride 103 mmol/ L 98-107 Not Available [facility] [address] [place] [address], [place], [address], 05/30/2022 09:29:27 05/30/20 22 05/30/2022 COMP METAB OLIC PNL tot CO2 35 mmol/ L 21.0-3 2.0 high Not Available [facility] [address] [place] [address] [place], [address], 05/30/2022 09:29:27 05/30/20 22 05/30/2022 COMP METAB OLIC PNL calcium 8.4 mg/dL 8.5-10 .1 low Not Available [facility] [address] [place] [address] [place], [address], 05/30/2022 09:29:27 05/30/20 22 05/30/2022 COMP METAB OLIC PNL creatinine 0.9 mg/dL 0.8-1. 3 Not Available [facility] [address] [place] [address] [place], [address], 05/30/2022 09:29:27 05/30/20 22 05/30/2022 COMP METAB OLIC PNL alkaline phos 74 U/L 38-126 Not Available [facility] [address] [place] [address] [place], [address], 05/30/2022 09:29:27 05/30/20 22 05/30/2022 COMP METAB OLIC PNL AST (SGOT) 22 U/L 15-37 Not Available [facility] [address] [place] [address] [place], [address], 05/30/2022 09:29:27 05/30/20 22 05/30/2022 COMP METAB OLIC PNL albumin 3.4 g/dL 3.4-5. 0 Not Available [facility] [address] [place] [address] [place], [address], 05/30/2022 09:29:27 05/30/20 22 05/30/2022 COMP METAB OLIC PNL globulin 3.0 2.0-4. 8 Not Available [facility] [address] [place] [address], 517[address], 05/30/2022 09:29:27 05/30/20 22 05/30/2022 COMP METAB OLIC PNL total protein 6.4 g/dL 6.4-8. 2 Not Available [facility] [address] [place] [address], 28860, 05/30/2022 09:29:27 05/30/20 22 05/30/2022 COMP METAB OLIC PNL A/G ratio 1.1 0.7-3. 5 Not Available [facility] [address] [place] [address], 9[address], 05/30/2022 09:29:27 05/30/20 22 05/30/2022 COMP METAB OLIC PNL ALT (SGPT) 52 U/L 21-72 Not Available [facility] [address] [place] [address], 11581, 05/30/2022 09:29:27 05/30/20 22 05/30/2022 COMP METAB OLIC PNL total bilirubin 0.5 mg/dL 0.2-1. 1 Not Available [facility] [address] [place] [address], 89[address], 05/30/2022 09:29:27 05/30/20 22 05/30/2022 COMP METAB OLIC PNL GFR >60 60- Refer ence Range : [place] ge GFR Healt hy Adult : >60 [...] is less accur ate requi ring clini law judgm ent on a case by case basis . Clini law inter preta tion for other races and [...] lator can be locat ed on the [facility] websi te: https ://sabina cardenas.an amaya.o ann/pr ofess ional s/kdo qi/gf r_cal culat or Not Available [facility] [address] [place] [address], [address], 05/30/2022 09:29:27 05/30/20 22 05/30/2022 COMP METAB OLIC PNL agap 8.7 mmol/ L 5.0-19 .0 Not Available [facility] [address] [place] [address], 64797, 05/30/2022 09:29:27 05/30/20 22 05/30/2022 CBC WITH AUTOM ATED DIFF WBC 6.7 10 4.2-9. 1 Not Available [address], [address], 05/30/2022 09:17:48 05/30/20 22 05/30/2022 CBC WITH AUTOM ATED DIFF RBC 5.38 10 4.60-6 .08 Not Available [facility] [address] [place] [address], 14892, 05/30/2022 09:17:48 05/30/20 22 05/30/2022 CBC WITH AUTOM ATED DIFF HGB 16.0 g/dL 13.7-1 7.5 Not Available [address] [place], [address], 05/30/2022 09:17:48 05/30/20 22 05/30/2022 CBC WITH AUTOM ATED DIFF HCT 50.2 % 40.1-5 1.0 Not Available [facility] [address] [place] [address], 17626, 05/30/2022 09:17:48 05/30/20 22 05/30/2022 CBC WITH AUTOM ATED DIFF MCV 93.3 fL 79.0-9 2.2 high Not Available [facility] [address] [place] [address], 51408, 05/30/2022 09:17:48 05/30/20 22 05/30/2022 CBC WITH AUTOM ATED DIFF MCH 29.7 pg 29.0-3 4.5 Not Available [facility] [address] [place] [address], 04610, 05/30/2022 09:17:48 05/30/20 22 05/30/2022 CBC WITH AUTOM ATED DIFF MCHC 31.9 g/dL 32.5-3 5.5 low Not Available [facility] [address] [place] [address], 04100, 05/30/2022 09:17:48 05/30/20 22 05/30/2022 CBC WITH AUTOM ATED DIFF RDW 12.2 11.5-1 4.5 Not Available [facility] [address] [place] [address], 93266, 05/30/2022 09:17:48 05/30/20 22 05/30/2022 CBC WITH AUTOM ATED DIFF platelet 133 10 160-34 0 low Not Available [facility] [address] [place] [address], 38337, 05/30/2022 09:17:48 05/30/20 22 05/30/2022 CBC WITH AUTOM ATED DIFF MPV 8.90 fL 9.0-12 .4 low Not Available [facility] [address] [place] [address], 08681, 05/30/2022 09:17:48 05/30/20 22 05/30/2022 CBC WITH AUTOM ATED DIFF marco% 60.8 % 34.0-6 7.9 Not Available [facility] [address] [place] [address], [place], [address], 05/30/2022 09:17:48 05/30/20 22 05/30/2022 CBC WITH AUTOM ATED DIFF lym% 28.5 % 22-53 Not Available [facility] [address] [place] [address], [place], [address], 05/30/2022 09:17:48 05/30/20 22 05/30/2022 CBC WITH AUTOM ATED DIFF mon% 7.20 % 5-12 Not Available [facility] [address] [place] [address], [place], [address], 05/30/2022 09:17:48 05/30/20 22 05/30/2022 CBC WITH AUTOM ATED DIFF eos% 2.70 % 0-7 Not Available [facility] [address] [place] [address], 97167, 05/30/2022 09:17:48 05/30/20 22 05/30/2022 CBC WITH AUTOM ATED DIFF bas% 0.40 % 0-2 Not Available [facility] [address] [place] [address], 03641, 05/30/2022 09:17:48 05/30/20 22 05/30/2022 CBC WITH AUTOM ATED DIFF Ig% 0.4 0-1.0 Not Available [facility] [address] [place] [address], 90600, 05/30/2022 09:17:48 05/30/20 22 05/30/2022 CBC WITH AUTOM ATED DIFF marco# 4.08 10 1.5-7 Not Available [facility] [address] [place] [address], 14476, 05/30/2022 09:17:48 05/30/20 22 05/30/2022 CBC WITH AUTOM ATED DIFF lym# 1.9 10 1.18-4 .00 Not Available [address], [address], 05/30/2022 09:17:48 05/30/20 22 05/30/2022 CBC WITH AUTOM ATED DIFF mon# 0.5 10 0.00-0 .90 Not Available [address], [address], 05/30/2022 09:17:48 05/30/20 22 05/30/2022 CBC WITH AUTOM ATED DIFF eos# 0.2 10 0.00-0 .60 Not Available [address], [address], 05/30/2022 09:17:48 05/30/20 22 05/30/2022 CBC WITH AUTOM ATED DIFF bas# 0.0 10 0.00-0 .10 Not Available [address], [address], 05/30/2022 09:17:48 05/30/20 22 05/30/2022 CBC WITH AUTOM ATED DIFF Ig# 0.03 0-0.05 Not Available [address], [address], 05/30/2022 09:17:48 06/22/20 22 06/22/2022 ABBOT T ID NOW COVID 19 franco id now covid 19 negati ve negati ve RESUL TS ARE FOR THE IDENT IFICA TION OF SARS- COV-2 RNA. THE SARS- COV-2 RNA IS GENER ALLY DETEC TABLE IN RESPI RATOR Y GRETCHEN ES KIMO G THE ACUTE PHASE OF INFEC TION. THE INTEN DED USE FOR ID NOW COVID -19 IS FOR TESTI NG SYMPT OMATI C PATIE NTS WITHI N THE FIRST SEVEN DAYS OF THE ONSET OF SYMPT OMS. POSIT LUCRECIA RESUL TS ARE INDIC ATIVE OF THE PRESE NCE OF SARS- COV-2 RNA; CLINI LAW CORRE LATIO N WITH PATIE NT HISTO [...] AND, IF INCON SISTE NT WITH CLINI LAW SIGNS AND SYMPT OMS OR NECES NICOLÁS [...] RY AND THE PRESE NCE OF CLINI LAW SIGNS AND SYMPT OMS CONSI STENT WITH COVID -19. THIS TEST HAS BEEN AUTHO RIZED BY THE FDA UNDER AN EMERG ENCY USE AUTHO RIZAT ION (EUA) FOR USE BY AUTHO RIZED LABOR ATORI ES. Not Available [facility] [address] [place] [address], 12730, 06/22/2022 19:18:38 06/22/20 22 06/22/2022 ABBOT T ID NOW COVID 19 internal qqc valid Not Available [facility] [address] [place] [address], 14704, 06/22/2022 19:18:38 06/22/20 22 06/22/2022 ABBOT T ID NOW COVID 19 kit lot [id number] Not Available [facility] [address] [place] [address], 14992, 06/22/2022 19:18:38 06/22/20 22 06/22/2022 ABBOT T ID NOW COVID 19 kit exp [id number] Not Available [facility] [address] [place] [address], 80321, 06/22/2022 19:18:38 06/22/2006/22/2022 COMP METAB OLIC PNL glucose 116 mg/dL 74-106 high Not Available [facility] [address] [place] [address], 73392, 06/22/2022 19:45:47 06/22/20 22 06/22/2022 COMP METAB OLIC PNL BUN 15 mg/dL 7-18 Not Available [facility] [address] [place] [address], 80770, 06/22/2022 19:45:47 06/22/20 22 06/22/2022 COMP METAB OLIC PNL sodium 142 mmol/ L 136-14 5 Not Available [facility] [address] [place] [address], 92079, 06/22/2022 19:45:47 06/22/2006/22/2022 COMP METAB OLIC PNL K 3.9 mmol/ L 3.5-5. 1 Not Available [facility] [address] [place] [address], 39044, 06/22/2022 19:45:47 06/22/2006/22/2022 COMP METAB OLIC PNL chloride 101 mmol/ L 98-107 Not Available [facility] [address] [place] [address], 94562, 06/22/2022 19:45:47 06/22/2006/22/2022 COMP METAB OLIC PNL tot CO2 35 mmol/ L 21.0-3 2.0 high Not Available [facility] [address] [place] [address], 97751, 06/22/2022 19:45:47 06/22/20 22 06/22/2022 COMP METAB OLIC PNL calcium 8.2 mg/dL 8.5-10 .1 low Not Available [facility] [address] [place] [address], 39702, 06/22/2022 19:45:47 06/22/20 22 06/22/2022 COMP METAB OLIC PNL creatinine 1.0 mg/dL 0.8-1. 3 Not Available [facility] [address] [place] [address], 94986, 06/22/2022 19:45:47 06/22/20 22 06/22/2022 COMP METAB OLIC PNL alkaline phos 65 U/L 38-126 Not Available [facility] [address] [place] [address], 45071, 06/22/2022 19:45:47 06/22/2006/22/2022 COMP METAB OLIC PNL AST (SGOT) 44 U/L 15-37 high Not Available [facility] [address] [place] [address], 62877, 06/22/2022 19:45:47 06/22/20 22 06/22/2022 COMP METAB OLIC PNL albumin 3.2 g/dL 3.4-5. 0 low Not Available [facility] [address] [place] [address], 66227, 06/22/2022 19:45:47 06/22/20 22 06/22/2022 COMP METAB OLIC PNL globulin 2.9 2.0-4. 8 Not Available [facility] [address] [place] [address], 14828, 06/22/2022 19:45:47 06/22/20 22 06/22/2022 COMP METAB OLIC PNL total protein 6.1 g/dL 6.4-8. 2 low Not Available [facility] [address] [place] [address], 02266, 06/22/2022 19:45:47 06/22/20 22 06/22/2022 COMP METAB OLIC PNL A/G ratio 1.1 0.7-3. 5 Not Available [address], [address]609, 06/22/2022 19:45:47 06/22/20 22 06/22/2022 COMP METAB OLIC PNL ALT (SGPT) 56 U/L 21-72 Not Available [facility] [address] [place], [address], 06/22/2022 19:45:47 06/22/2006/22/2022 COMP METAB OLIC PNL total bilirubin 0.3 mg/dL 0.2-1. 1 Not Available [facility] [address] [place], [address], 06/22/2022 19:45:47 06/22/20 22 06/22/2022 COMP METAB OLIC PNL GFR >60 60- Refer ence Range : [place] ge GFR Healt hy Adult : >60 [...] is less accur ate requi ring clini law judgm ent on a case by case basis . Clini law inter preta tion for other races and [...] lator can be locat ed on the [facility] websi te: https ://sabina amaya.dat juarez/pr beless ional s/kdo qi/gf r_cal culat or Not Available [facility] [address] [place], [address], 06/22/2022 19:45:47 06/22/2006/22/2022 COMP METAB OLIC PNL agap 10.2 mmol/ L 5.0-19 .0 Not Available [facility] [address] [place] [address], 63789, 06/22/2022 19:45:47 06/22/2006/22/2022 LACTI C ACID (PLAS MA) lactic acid 1.3 mmol/ L 0.4-2. 0 Not Available [address], [address], 06/22/2022 19:14:12 06/22/2006/22/2022 NATRI URETI C PEPTI DE BNP <15 pg/mL 0-50 NON-C HF POPUL ATION (NORM [...] RESUL TS OF STUDY CONDU CTED BY Location INC. Not Available [address], [address], 06/22/2022 19:05:18 06/22/2006/22/2022 NATRI URETI C PEPTI [place] kit lot [id number] Not Available [facility] [address] [place] [address], 04329, 06/22/2022 19:05:18 06/22/2006/22/2022 NATRI URETI C PEPTI DE kit exp [id number] Not Available [address], 07897, 06/22/2022 19:05:18 06/22/20 22 06/22/2022 CBC WITH AUTOM ATED DIFF WBC 3.8 10 4.2-9. 1 low Not Available [address], [place], [address], 06/22/2022 18:55:40 06/22/2006/22/2022 CBC WITH AUTOM ATED DIFF RBC 5.00 10 4.60-6 .08 Not Available [facility] [address] [place] [address], 63617, 06/22/2022 18:55:40 06/22/2006/22/2022 CBC WITH AUTOM ATED DIFF HGB 14.8 g/dL 13.7-1 7.5 Not Available [facility] [address] [place] [address], 16684, 06/22/2022 18:55:40 06/22/2006/22/2022 CBC WITH AUTOM ATED DIFF HCT 46.1 % 40.1-5 1.0 Not Available [facility] [address] [place] [address], 32461, 06/22/2022 18:55:40 06/22/2006/22/2022 CBC WITH AUTOM ATED DIFF MCV 92.2 fL 79.0-9 2.2 Not Available [facility] [address] [place] [address], 58424, 06/22/2022 18:55:40 06/22/2006/22/2022 CBC WITH AUTOM ATED DIFF MCH 29.6 pg 29.0-3 4.5 Not Available [facility] [address] [place] [address], 36761, 06/22/2022 18:55:40 06/22/2006/22/2022 CBC WITH AUTOM ATED DIFF MCHC 32.1 g/dL 32.5-3 5.5 low Not Available [facility] [address] [place] [address], 75646, 06/22/2022 18:55:40 06/22/2006/22/2022 CBC WITH AUTOM ATED DIFF RDW 12.3 11.5-1 4.5 Not Available [facility] [address] [place] [address], 02413, 06/22/2022 18:55:40 06/22/2006/22/2022 CBC WITH AUTOM ATED DIFF platelet 95 10 160-34 0 critical low Not Available [facility] [address] [place] [address], 36388, 06/22/2022 18:55:40 06/22/2006/22/2022 CBC WITH AUTOM ATED DIFF MPV 8.70 fL 9.0-12 .4 low Not Available [facility] [address] [place] [address], 18760, 06/22/2022 18:55:40 06/22/2006/22/2022 CBC WITH AUTOM ATED DIFF marco% 48.3 % 34.0-6 7.9 Not Available [facility] [address] [place] [address], 88044, 06/22/2022 18:55:40 06/22/2006/22/2022 CBC WITH AUTOM ATED DIFF lym% 39.5 % 22-53 Not Available [facility] [address] [place] [address], 98167, 06/22/2022 18:55:40 06/22/2006/22/2022 CBC WITH AUTOM ATED DIFF mon% 10.30 % 5-12 Not Available [facility] [address] [place] [address], 67292, 06/22/2022 18:55:40 06/22/2006/22/2022 CBC WITH AUTOM ATED DIFF eos% 1.10 % 0-7 Not Available [facility] [address] [place] [address], 78047, 06/22/2022 18:55:40 06/22/2006/22/2022 CBC WITH AUTOM ATED DIFF bas% 0.50 % 0-2 Not Available [facility] [address] [place] [address], 59006, 06/22/2022 18:55:40 06/22/20 22 06/22/2022 CBC WITH AUTOM ATED DIFF Ig% 0.3 0-1.0 Not Available [facility] [address] [place] [address], [place], [address], 06/22/2022 18:55:40 06/22/20 22 06/22/2022 CBC WITH AUTOM ATED DIFF marco# 1.82 10 1.5-7 Not Available [facility] [address] [place] [address], [place], [address], 06/22/2022 18:55:40 06/22/20 22 06/22/2022 CBC WITH AUTOM ATED DIFF lym# 1.5 10 1.18-4 .00 Not Available [facility] [address] [place] [address], [place], [address], 06/22/2022 18:55:40 06/22/20 22 06/22/2022 CBC WITH AUTOM ATED DIFF mon# 0.4 10 0.00-0 .90 Not Available [facility] [address] [place] [address], [place], [address], 06/22/2022 18:55:40 06/22/20 22 06/22/2022 CBC WITH AUTOM ATED DIFF eos# 0.0 10 0.00-0 .60 Not Available [facility] [address] [place] [address], [place], [address], 06/22/2022 18:55:40 06/22/20 22 06/22/2022 CBC WITH AUTOM ATED DIFF bas# 0.0 10 0.00-0 .10 Not Available [facility] [address] [place] [address], [place], [address], 06/22/2022 18:55:40 06/22/20 22 06/22/2022 CBC WITH AUTOM ATED DIFF Ig# 0.01 0-0.05 Not Available [facility] [address] [place] [address], [place], [address], 06/22/2022 18:55:40 06/06/20 21 06/06/2021 elect rocar diogr am No observ ation record ed. [id number] [email or web address] [address], [address], 10/29/2022 08:15:31 06/06/20 21 elect rocar diogr am No observ ation record ed. [id number] [email or web address] [address], [address], 10/29/2022 08:15:31 05/30/20 22 05/30/2022 XR, chest , [address] [address] KATHLEEN Frankel REPORT Name: NANCY THOMAS Room #: : 1969 Accoun t #: [id number] Bed #: Age: 52 Years Patien t Type: Outpat ient Order Date/T merle: 2021 08:32: 40 AM Sex: M Access ion#: Exam Descri ption: Exam Reason : [id number] XR CHEST 1V Dyspne a Dictat ed By: Harshil Enrique Physic darlyn: JANET ABREU Attend ing Physic darlyn: JANET ABREU Primar y Care Physic darlyn: AMADOR MARIN EXAMIN ATION: XR CHEST 1V CLINIC AL HISTOR Y: 52 years Male,D yspnea COMPAR DIANA: 020 TECHNI QUE: Single view chest FINDIN GS: Left subcla vian dual lead transv enous cardia c pacema ker with atrial and ventri cular leads intact and unchan ged in positi on. The lungs are clear of infilt rate. The cardia c silhou ette and pulmon shin vascul arity are within normal limits . No pleura l effusi on or pneumo thorax . IMPRES MADISON: No active cardio pulmon shin diseas e . Electr onical ly signed by: Harshil quesada MD 022 9:01 AM CDT Workst ation: [id number] PAGE 1 OF 1 [id number].[id number] Formerly [facility] [address] [place] [address], [address], 10/29/2022 08:15:31 05/30/20 22 05/30/2022 CT, head, w/o contr ast [facility] [address] [place] [address] [phone] IMAGIN G REPORT Name: NANCY THOMAS Steve Room #: : 1969 Accoun t #: [id number] Bed #: Age: 52 Years Patien t Type: Outpat ient Order Date/T merle: 2021 07:55: 00 AM Sex: M Access ion#: Exam Descri ption: Exam Reason : [id number] CT HEAD WO Headac he Dictat ed By: Harshil Enrique Physic darlyn: JANET ABREU Y Attend ing Physic darlyn: JANET ABREU Y Primar y Care Physic darlyn: AMADOR MARIN EXAMIN ATION: CT HEAD WO CLINIC AL HISTOR Y: 52 years Male,H eadach e COMPAR DIANA: There is no prior simila r study availa ble for correl ation. TECHNI QUE: Axial imagin g and 2-D reform atting perfor med withou t IV contra st. This exam was perfor med accord ing to our depart mental dose-o ptimiz ation progra m, which includ es automa liliane exposu re contro l, adjust ment of the mA and/or kV accord ing to patien t size and/or use of iterat lucrecia recons tructi on techni que. IV CONTRA ST: No IV contra st TOTAL DLP: 1065.3 mGy-cm FINDIN GS: No acute infarc t or intrac ranial hemorr bernardo. No mass lesion or mass effect . No midlin e shift. The extraa xial compar tment is unrema rkable . Mild bilate ral cerebr al and cerebe llar atroph y. No acute fractu re or bone malali gnment . No gross bone destru ction. The mastoi d air cells are well aerate d bilate rally. PAGE 1 OF 2 IMAGIN G REPORT Name: NANCY THOMAS Steve Wilson Room #: : 1969 Accoun t #: [id number] Bed #: Age: 52 Years Patien t Type: Outpat ient Order Date/T merle: 2021 07:55: 00 AM Sex: M Visual ized orbits and parana rajni sinuse s are unrema rkable . IMPRES MADISON: * No acute intrac ranial pathol ogy. * No mass effect or midlin e shift. * Mild age-re lated struct ural change s. Electr onical ly signed by: Harshil quesada MD 022 9:03 AM CDT Workst ation: LWRS [id number] PAGE 2 OF [id number], [address], 10/29/2022 08:15:31 06/12/20 22 05/30/2022 elect zenia berg am No observ ation record ed. [id number], [address], 10/29/2022 08:15:31 06/22/20 22 06/22/2022 XR, chest , 1 view [facility] [address] [place] [address] [id number] KATHLEEN Frankel REPORT Name: NANCY THMOAS Room #: : 1969 Accoun t #: [id number] Bed #: Age: 52 Years Patien t Type: Outpat ient Order Date/T merle: 2021 05:33: 00 PM Sex: M Access ion#: Exam Descri ption: Exam Reason : [id number] XR CHEST 1V Dyspne a Dictat ed By: Gokul, Mina Orderi ng Physic darlyn: HIDALG O, IMELDA Attend ing Physic dralyn: HIDALG O, IMELDA Primar y Care Physic darlyn: AMADOR MARIN INDICA TION: Dyspne a EXAMIN ATION/ TECHNI QUE: X-RAY - XR CHEST 1 VIEW COMPAR DIANA: Chest x-ray 022 __ FINDIN GS: LINES/ DEVICE S: AICD leads are stable in positi on LUNGS: No consol idatio n, edema or effusi on. No pneumo thorax . MEDIAS TINUM AND CARDIO VASCUL AR STRUCT URES: Cardia c silhou ette is not enlarg ed. Centra l airway s and medias tinal contou r are unrema rkable . BONES AND SOFT TISSUE S: Dextro convex scolio sis of the spine is again noted. IMPRES MADISON: PAGE 1 OF 2 IMAGIN G REPORT Name: NANCY THOMAS Steve Room #: : 1969 Accoun t #: [id number] Bed #: Age: 52 Years Patien t Type: Outpat clemente Order Date/T merle: 2021 05:33: 00 PM Sex: M No radiog raphic eviden ce of acute cardio pulmon shin Ugarte onical ly signed by: Mina Hodgson MD 2021 6:30 PM CDT Workst ation: 109-10 14ZPW PAGE 2 OF 2 [id number] Formerly [facility] [address] [place] [address], [address], 10/29/2022 08:15:31 07/01/20 22 06/22/2022 elect zenia diogr am No observ ation record ed. [id number].[id number] Not Available 10/29/2022 08:15:31 07/04/20 22 07/04/2022 XR, chest , 2 view No observ ation record ed. [id number] [facility], [place], [address], 10/29/2022 08:15:31 07/04/20 22 07/04/2022 CT, angio gram, chest + abdom en + pelvi s, w/ contr ast No observ ation record ed. [id number] [facility], [place], [address], 10/29/2022 08:15:31 Result Notes None recorded. Problems Name Problem SNOMED Code Status Onset Date Resolution Date Notes Provider Name and Address Organization Details Recorded Time Chronic obstructive pulmonary disease 06227725 Active 2018 Not Available [facility] 3 08:10:16 Insomnia 439061512 Active 2021 Not Available [facility] 3 08:10:16 Acute exacerbation of chronic obstructive pulmonary disease 294422237 Active Not Available [facility] 3 08:10:16 Status migrainosus 726702687 Active 2021 Not Available [facility] 3 08:10:17 Type 2 diabetes mellitus without complication 716189804 Active 2021 Not Available [facility] 3 08:10:17 Hypertensive disorder 94391417 Active 2018 Not Available [facility] 3 08:10:17 Congestive heart failure 41951588 Active 2015 Not Available [facility] 3 08:10:17 Acute respiratory failure 00058652 Active 2018 Not Available [facility] 3 08:10:17 Smoker 66621512 Active 2021 Not Available [facility] 3 08:10:17 Notes:heart defibrillator Problem Notes None recorded. Procedures Surgical History Date Name Laterality Status Provider Name and Address Organization Details Recorded Time 10/30/19 19 Appendectomy completed Not Available [facility] 10/29/2022 08:05:43 08/31/19 16 implantation of cardiac defibrillator lead completed Not Available [facility] 10/29/2022 08:05:43 cardiac catheterization completed Not Available [facility] 10/29/2022 08:05:43 Imaging Results Imaging Date Name Status LastModified by Organization Details LastModified Time 06/06/2021 electrocardiogram completed MIGRATION. [id number] [facility] [address] [facility] [address], [address], 10/29/2022 08:15:31 06/06/2021 electrocardiogram completed MIGRATION. [id number] 80111 [facility] [address] [facility] [address], [address], 10/29/2022 08:15:31 06/22/2022 electrocardiogram completed MIGRATION. [id number] Information not available 10/29/2022 08:15:31 07/04/2022 XR, chest, 2 view completed MIGRATION. [id number] [address] [facility], [place], [address], 10/29/2022 08:15:31 07/04/2022 CT, angiogram, chest + abdomen + pelvis, w/ contrast completed MIGRATION.[id number] 9[address] [facility] [address] [place], [address], 10/29/2022 08:15:31 06/22/2022 XR, chest, 1 view completed MIGRATION. [id number] [facility] [address] [place], [address], 10/29/2022 08:15:31 05/30/2022 XR, chest, 1 view completed MIGRATION. [id number] [id number] [facility] [address] [place], [address], 10/29/2022 08:15:31 05/30/2022 electrocardiogram completed MIGRATION. [id number] [facility] [address] [place], [address], 10/29/2022 08:15:31 05/30/2022 CT, head, w/o contrast completed MIGRATION.[id number] [facility] [address] [place], [address], 10/29/2022 08:15:31 Procedure Notes None recorded. Medical Equipment None Reported. Medications Name Sig Start Date Stop Date Status Note LastModified by Organization Details LastModified Time cyclobenz aprine 10 mg tablet Take 1 tablet 3 times a day by oral route as needed. active Not Available Not Available No t Available furosemid e 40 mg tablet TAKE 1 TABLET BY MOUTH TWICE DAILY active managed by cardiolo gy Not Available Not Available Not Available metformin 500 mg tablet Take 1 tablet every day by oral route for 60 days. active Not Available Not Available No t Available albuterol sulfate 0.63 mg/3 mL solution for nebulizat ion Inhale by inhalati on route. 06/03 completed uses as needed Not Available Not Available Not Available fluticaso ne 250 mcg-salme terol 50 mcg/dose blistr powdr for inhalatio n 02/16 completed Not Available Not Available Not Available carvedilo l 25 mg tablet TAKE 1 TABLET BY MOUTH TWICE DAILY active managed by cardiolo gy Not Available Not Available Not Available carvedilo l 6.25 mg tablet 02/16 completed Not Available Not Available Not Available carvedilo l 12.5 mg tablet TAKE 1 TABLET BY MOUTH TWICE DAILY 10/15 completed Not Available Not Available Not Available ipratropi um 0.5 mg-albute rol 3 mg (2.5 mg base)/3 mL nebulizat ion soln Inhale 1 mL every 4 hours by nebuliza tion route as needed. active Not Available Not Available No t Available tizanidin e 2 mg tablet 02/16 completed Not Available Not Available Not Available albuterol sulfate 2.5 mg/3 mL (0.083 %) solution for nebulizat ion Inhale 1 mL 4 times a day by inhalati on route as needed for 30 days. active Not Available Not Available No t Available azithromy justina 250 mg tablet TAKE 2 TABLETS BY MOUTH ON DAY 1 AND THEN TAKE 1 TABLET BY MOUTH ONCE A DAY ON DAY 2 THROUGH DAY 5 active Not Available Not Available No t Available sotalol 80 mg tablet TAKE 1 TABLET BY MOUTH TWICE DAILY 04/05 completed pt states he is no longer on this medicati on Not Available Not Available Not Available meloxicam 15 mg tablet Take 1 tablet every day by oral route with meals. active start evening at Dinner time Not Available Not Available Not Available lisinopri l 20 mg tablet Take 1 tablet every day by oral route for 90 days. active managed by cardiolo gy Not Available Not Available Not Available prednison e 20 mg tablet TAKE 2 TABLETS BY MOUTH ONCE DAILY FOR 5 DAYS active Not Available Not Available No t Available rizatript an 10 mg tablet 1 tab PO at onset headache s, can repeat in 2 hours if MAY not resolved or returns, max 2 tab in 24 hours active Not Available Not Available No t Available potassium chloride ER 10 mEq tablet,ex tended release 02/16 completed Not Available Not Available Not Available glimepiri de 2 mg tablet 02/16 completed Not Available Not Available Not Available Kenalog 40 mg/mL suspensio n for injection Take 1.5 mL by injectio n route. 04/05 completed Not Available Not Available Not Available Imitrex 50 mg tablet take 1 tab at onset of headache can repeat 1 tab in 2 hours if needed active Not Available Not Available No t Available amoxicill in 875 mg tablet 02/16 completed Not Available Not Available Not Available potassium chloride ER 20 mEq tablet,ex tended release(p art/cryst ) TAKE 1 TABLET BY MOUTH ONCE DAILY active managed by cardiolo gy Not Available Not Available Not Available amitripty line 25 mg tablet Take [...] ole 40 mg tablet,de layed release Take 1 tablet every day by oral route for 30 days. active Not Available Not Available No t Available metformin 1,000 mg tablet 1 tab [...] Not Available levofloxa justina 750 mg tablet 02/16 completed Not Available Not Available Not Available methylpre dnisolone 4 mg tablets in a dose pack TAKE BY MOUTH DIRECTED ON INSIDE OF PACKAGE active Not Available Not Available No t Available albuterol sulfate HFA 90 mcg/actua tion aerosol inhaler Inhale 2 puffs 4 times a day by inhalati on route as needed for 25 days. active Not Available Not Available No t Available ketorolac 60 mg/2 mL intramusc ular solution Inject 2 mL by intramus cular route now 07/08 completed Not Available Not Available Not [...] BY MOUTH TWICE DAILY FOR 7 DAYS 07/08 completed Not Available Not Available Not Available amoxicill in 500 mg-potass ium clavulana te 125 mg tablet TAKE 2 TABLETS BY MOUTH EVERY 12 HOURS FOR 10 DAYS active Not Available Not Available No t Available azithromy justina 500 mg tablet TAKE 1 TABLET BY MOUTH ONCE DAILY 07/08 completed Not Available Not Available Not Available bupropion HCl XL 150 mg 24 hr tablet, extended release active Not Available Not Available Not Available Spiriva [...] completed Not Available Not Available Not Available Symbicort 160 mcg-4.5 mcg/actua tion HFA aerosol inhaler Inhale 2 puffs twice a day by inhalati on route for 30 days. active Not Available Not Available No t Available potassium chloride ER 20 mEq tablet,ex tended release Take 1 tablet every day by oral route. 04/05 completed duplicat e Not Available Not Available Not Available fluticaso ne 113 mcg-salme terol 14 mcg/actua tion breath activated powdr 02/16 completed Not Available Not Available Not Available Fluzone Quad (PF) 60 mcg (15 mcg x 4)/0.5 mL IM syringe active Not Available Not Available Not Available Vitals Date Recorded Body mass index (BMI) Body height Oxygen saturation Oxygen saturation in Arterial blood by Pulse oximetry Pain severity - 0-10 verbal numeric rating [Score] - Reported Heart rate Body temperature Body weight Systolic blood pressure Diastolic blood pressure Provider Name and Address Organization Details Last Updated DateTime 1 35.1 kg/m2 170.18 cm 95 % 95 % 0 93 /min 97.7 [degF] 944547. 69 g 110 mm[Hg] 68 mm[Hg] Not Available [facility] 3 08:08:02 Date Recorded Body mass index (BMI) Body height Oxygen saturation Oxygen saturation in Arterial blood by Pulse oximetry Heart rate Respiratory rate Body temperature Body weight Systolic blood pressure Diastolic blood pressure Provider Name and Address Organization Details Last Updated DateTime 1 34.7 kg/m2 170.18 cm 93 % 93 % 89 /min 18 /min 98 [degF] 490192. 71 g 106 mm[Hg] 72 mm[Hg] Not Available [facility] 3 08:08:02 Date Recorded Body mass index (BMI) Body height Oxygen saturation Oxygen saturation in Arterial blood by Pulse oximetry Heart rate Body temperature Body weight Systolic blood pressure Diastolic blood pressure Provider Name and Address Organization Details Last Updated DateTime 2 35.6 kg/m2 170.18 cm 95 % 95 % 95 /min 97.8 [degF] 861069. 93 g 120 mm[Hg] 80 mm[Hg] Not Available [facility] 3 08:08:02 Date Recorded Body mass index (BMI) Body height Oxygen saturation Oxygen saturation in Arterial blood by Pulse oximetry Heart rate Body temperature Body weight Systolic blood pressure Diastolic blood pressure Provider Name and Address Organization Details Last Updated DateTime 2 36.3 kg/m2 170.18 cm 93 % 93 % 88 /min 97.8 [degF] 096910. 43 g 108 mm[Hg] 80 mm[Hg] Not Available [facility] 3 08:08:02 Date Recorded Body mass index (BMI) Body height Oxygen saturation Oxygen saturation in Arterial blood by Pulse oximetry Heart rate Body temperature Body weight Systolic blood pressure Diastolic blood pressure Provider Name and Address Organization Details Last Updated DateTime 2 35.6 kg/m2 170.18 cm 96 % 96 % 102 /min 97.8 [degF] 842713. 47 g 94 mm[Hg] 60 mm[Hg] Not Available [facility] 08:08:02 Social History Question Answer Notes LastModified by Organizat ion Details LastModified Time Tobacco Smoking Status Current Every Day Smoker Not Available [facility] 10/29/2022 08:05:26 Do You Have An Advance Directive? No MIGRATION.[id number] Information not available 10/29/2022 What Is Your Level Of Alcohol Consumption? None MIGRATION.032774 7960 Information not available 10/29/2022 What Is Your Level Of Caffeine Consumption? Moderate MIGRATION.986631 6671 Information not available 10/29/2022 In The 14 Days Before Symptom Onset, Have You Had Close Contact With A Laboratory-confirm ed COVID-19 While That Case Was Ill? No MIGRATION.[id number] 1968 Information not available 10/29/2022 In The 14 Days Before Symptom Onset, Have You Had Close Contact With A Person Who Is Under Investigation For COVID-19 While That Person Was Ill? No MIGRATION.845726 1603 Information not available 10/29/2022 What Type Of Diet Are You Following? REGULAR MIGRATION.172819 3218 Information not available 10/29/2022 Which Illicit Or Recreational Drugs Have You Used? Marijuana MIGRATION.647474 0773 Information not available 10/29/2022 Have There Been Any Changes To Your Family Or Social Situation? No MIGRATION.080567 4995 Information not available 10/29/2022 What Is The Fluoride Status Of Your Home? Unknown MIGRATION.785627 1802 Information not available 10/29/2022 Do You Use Insect Repellent Routinely? Yes MIGRATION.336225 2595 Information not available 10/29/2022 Do You Have A Medical Power Of Market Gardener? No MIGRATION.093960 2897 Information not available 10/29/2022 What Was The Date Of Your Most Recent Tobacco Screening? 06/03/2022 MIGRATION.677373 3522 Information not available 10/29/2022 What Is Your Current Pack Years? 30ormorepacky ears MIGRATION.455892 8416 Information not available 10/29/2022 Do You Have Any Pets? Yes MIGRATION.602877 1718 Information not available 10/29/2022 What Is Your Relationship Status? MIGRATION.504714 7916 Information not available 10/29/2022 Do You Use Your Seat Belt Or Car Seat Routinely? Yes MIGRATION.674470 4072 Information not available 10/29/2022 Do You Have Smoke And Carbon Monoxide Detectors In Your Home? Yes MIGRATION.169463 3216 Information not available 10/29/2022 At What Age Did You Start Smoking Tobacco? 14 MIGRATION.550869 1410 Information not available 10/29/2022 Are You Passively Exposed To Smoke? No MIGRATION.854078 2818 Information not available 10/29/2022 Are There Any Smokers In Your House? No MIGRATION.740120 2024 Information not available 10/29/2022 How Much Tobacco Do You Smoke? 1 PPD MIGRATION.797254 2609 Information not available 10/29/2022 Do You Use Any Illicit Or Recreational Drugs? Yes MIGRATION.788231 6519 Information not available 10/29/2022 Do You Use Sunscreen Routinely? Yes MIGRATION.641089 6671 Information not available 10/29/2022 Have You Recently Traveled Abroad? No MIGRATION.497451 2966 Information not available 10/29/2022 Have You Used IV Drugs? No MIGRATION.339334 6222 Information not available 10/29/2022 Do You Have Any Dietary Restrictions? No MIGRATION.987691 9691 Information not available 10/29/2022 Do You Or Have You Ever Used Any Other Forms Of Tobacco Or Nicotine? No MIGRATION.469172 1065 Information not available 10/29/2022 Sex: Unknown Functional Status Question Answer Note LastModified by Organizat ion Details LastModified Time What is your exercise level? Occasional [id number] 26 Information not available 10/29/2022 Mental Status None recorded. Family History Nothing Reported Notes:He was adopted Medical History Condition Response CARDIAC ARRHYTHMIA Y HEADACHES/MIGRAINES Y ATRIAL FIBRILLATION Y ASTHMA Y ALLERGIES/HAYFEVER Y PULMONARY DISEASE Y HYPERTENSION Y Immunizations Vaccine Type Date Status Note Provider Nam e and Address Organization Details Recorded Time Influenza, split virus, trivalent, preservative 2 completed Not Available [facility] 10/29/2022 08:15:10 Influenza, split virus, quadrivalent, preservative 9 completed Not Available [facility] 10/29/2022 08:15:10 COVID-19 vaccine, vector-nr, rS-Ad26, PF, 0.5 mL 1 completed Not Available [facility] 10/29/2022 08:15:10 Influenza, split virus, quadrivalent, preservative 0 completed Not Available [facility] 10/29/2022 08:15:10 Past Encounters Encounter ID Performer Location Encounter Start Date Encounter Closed Date Diagnosis/Indication Diagnosis SNOMED-CT Code Diagnosis ICD10 Code Diagnosis Note [id number] _ATHN_MIGR ATION_1 _ATHENA_M IGRATION_ DEFAULT_1 _1 , 04/05/2021 00:00:00 04/05/2021 12:58:33 [id number] _ATHN_MIGR ATION_1 _ATHENA_M IGRATION_ DEFAULT_1 _1 , 06/06/2021 00:00:00 06/06/2021 12:16:46 [id number] _ATHN_MIGR ATION_1 _ATHENA_M IGRATION_ DEFAULT_1 _1 , 10/15/2021 00:00:00 10/15/2021 11:33:50 [id number] _ATHN_MIGR ATION_1 _ATHENA_M IGRATION_ DEFAULT_1 _1 , 06/03/2022 00:00:00 06/03/2022 11:40:32 [id number] _ATHN_MIGR ATION_1 _ATHENA_M IGRATION_ DEFAULT_1 _1 , 07/08/2022 00:00:00 07/10/2022 15:05:30 Health Concerns Section Related Observation LastModified by Organization Detai ls LastModified Time None Recorded Concern Status LastModified by Organization Details LastModified Time None Recorded Advance Directives Directive N: Payers None recorded.
--- OUTSIDE RECORDS SUMMARY | 2025-01-03 09:41 | XMS_ITS | CONTINUITY OF CARE DOCUMENT ---
Author Name leno daniefreddie Address Unknown Organization [facility] Address [address] [place] [address] Phone [phone] Care Team Providers Care College Admissions Counselor Name Role Phone Ronald Ryan MD Unavailable Rnoald Ryan MD Unavailable [phone] PROBLEMS Condition Status Date Provider Notes COPD [...] In-person encounter Office Visit Ronald Ryan MD [facility] Cardiology examination - In-person encounter Office Visit Ronald Ryan MD [facility] - In-person encounter Office Visit Ronald Ryan MD [facility] - In-person encounter Office Visit Ronald Ryan MD [facility] - In-person encounter Office Visit Ronald Ryan MD [facility] Arm pain, leftShortness of breath - In-person encounter Office Visit Ronald Ryan MD [facility] - In-person encounter Office Visit Ronald Ryan MD [facility] - In-person encounter Office Visit Ronald Ryan MD [facility] - In-person encounter Office Visit Ronald Ryan MD [facility] - In-person encounter Office Visit Linda Cardenas MD [facility] - In-person encounter Office Visit Linda Cardenas MD [facility] - In-person encounter Office Visit Linda Cardenas MD [facility] Ventricular fibrillationSVT - In-person encounter Office Visit Ronald Ryan MD [facility] HTN essential - In-person encounter Office Visit Ronald Ryan MD [facility] - In-person encounter Office Visit Ronald Ryan MD [facility] - In-person encounter Office Visit Asim Chang MD [facility] Biotronik dc (MRI Safe) ICDCHF - systolic - In-person encounter Office Visit Ronald Ryan MD [facility] Tobacco abuse - In-person encounter Office Visit Ronald Ryan MD [facility] - In-person encounter Office Visit Tomeka Gerber MD [facility] Chest pain-type to b e determined - In-person encounter Office Visit Ronald Ryan MD [facility] - In-person encounter Office Visit Ronald Ryan MD [facility] - In-person encounter Office Visit Tomeka Gerber MD [facility] - In-person encounter Office Visit Tomeka Gerber MD [facility] Other symptoms involving cardiovascular system - In-person encounter Office Visit Ronald Ryan MD [facility] - In-person encounter Office Visit Ronald Ryan MD [facility] - In-person encounter Office Visit Ronald Ryna MD [facility] - In-person encounter Office Visit Ronald Ryan MD [facility] - In-person encounter Office Visit Ronald Ryan MD [facility] Nonischemic cardiomyopathy EF 20-25%AnxietyTobacco abuse VITAL [...] blood pressure, diastolic 82 mm[Hg] St amirah [place] blood pressure, systolic 114 mm[Hg] Greg crispin [place] oxygen saturation, oximetry 93 % Mer [place] respiratory rate E&M 16 /min Sadiq lundberg [place] pulse rate 115 /min Mer Montes weight E&M 241 [lb_av] Mer Jacksonnd linda height E&M 67 [in_i] Mer [facility] blood pressure, cuff size large St macaroi [place] Body Mass Index (Ratio) 36.27 kg/m2 Bharat [...] Deepak oxygen saturation, oximetry 95 % Sandra Garretson respiratory rate E&M 14 /min Catheri ne Garretson pulse rate 108 /min Sandra Garretson weight E&M 230 [lb_av] Sandra Deepak blood [...] Diane garcia height E&M 67 [in_i] Diane garcia Body Mass Index (Ratio) 35.86 kg/m2 Kathrine [...] [lb_av] Tonsha Leon height E&M 67 [in_i] [facility] Leon Body Mass Index (Ratio) 34.45 kg/m2 Bharat Ryan MD blood pressure, diastolic 80 mm[Hg] Alhaji diehl Faye blood pressure, systolic 140 mm[Hg] Darius Sigalaby pulse rate 113 /min Dee Wappapello oxygen saturation, oximetry 94 % Dee [place] respiratory rate E&M 18 /min Dee Faye weight E&M 220 [lb_av] Dee [place] blood pressure, cuff size regular Kr shanita Sigalaby height E&M 67 [in_i] Dee Faye Body Mass Index (Ratio) 35.39 kg/m2 Bharat Ryan MD blood pressure, cuff size large [facility] blood pressure, diastolic 86 mm[Hg] Ke rri [...] Ibanezhley blood pressure, systolic 132 mm[Hg] Dusty egmgabi IbanezSneha oxygen saturation, oximetry 98 % Carlyn Hoover respiratory rate E&M 18 /min Carlyn Ibanezhley pulse rate 112 /min Carlyn Sneha weight E&M 220 [lb_av] [facility] Body Mass Index (Ratio) 33.83 kg/m2 Bharat [...] Elizabeth sommer blood pressure, diastolic 91 mm[Hg] Ne kamran Blake blood pressure, systolic 130 mm[Hg] [...] [employer] 3.5-5.2 sodium, serum 143 mmol/L [facility] [phone] /01 urea nitrogen/creatinine ratio, serum 14 [employer] 9-20 eGFR if 107 mL/min/{1.7 3_m2} [employer] >59 eGFR if not 93 mL/min/{1.7 3_m2} [employer] >59 creatinine, serum 0.95 mg/dL [facility] 0.76-1.27 urea nitrogen, blood 13 mg/dL [facility] 6-24 blood glucose, random 94 mg/dL [facility]99 creatinine, serum 0.95 mg/dL [facility] urea nitrogen, blood 15 mg/dL [facility] carbon dioxide, serum, total 27 mmol/L [facility] chloride, serum 108 mmol/L [facility] potassium, serum 4.1 mmol/L [facility] sodium, serum 142 mmol/L [facility] LDL cholesterol, serum 88 mg/dL [facility] pro brain natriuretic peptide 701 pg/mL [facility] 0-450 High Estimated Glomerular Filtration Rate (calc) 91 (?) [facility] >59 chloride, serum 100 mmol/L [facility] 98-107 potassium, serum 4.8 mmol/L [employer] 3.5-5.1 sodium, serum 141 mmol/L [employer] [phone]/10 /19 creatinine, serum 0.9 mg/dL [facility] 0.7-1.2 [...] - 5.1 sodium, serum 141.0 mmol/L [facility] 136.[facility] - 145.0 creatinine, serum 0.9 mg/dL [facility] 0[facility] - 1.2 carbon dioxide, venous blood 23.0 mmol/L [facility] 22.0 - 29.0 albumin, serum 4.4 g/dL [facility] 3.5 - 5.2 calcium, serum 9.2 mg/dL [facility] 8.6 - 10.2 aspartate aminotransferase (SGOT), serum 35.0 1/L [facility] 0.0 - 40.0 alkaline phosphatase, serum 72.0 1/L [facility] 40.0 - 130.0 alanine aminotransferase (SGPT), serum 62.0 1/L [facility] 0.0 - 41.0 High protein, total, serum 6.6 g/dL [facility] 6.6 - 8.7 bilirubin, serum, total 0.4 mg/dL [facility] 0.0 - 1.2 urea nitrogen, blood 16.0 mg/dL [facility] 6.0 - 20.0 blood glucose, random 100.0 mg/dL [facility] 74.0 - 99.0 High red blood cell distribution width, size density 45.1 fL [facility] - immature granulocytes, percentage of total cells, blood 0.4 % [facility] - nucleated red blood cells as percent of blood leukocytes 0.0 % [facility] - red blood cell (erythrocyte) count, per high power field 0.0 10*3/UL [facility] - eosinophils as percent of blood leukocytes 1.4 % [facility] - neutrophils as percent of blood leukocytes 66.2 % [facility] - Absolute Neutrophils 4.9 CELLS/UL [facility] 1.5 - 7.8 basophils as percent of blood leukocytes 0.5 % [facility] - Absolute Basophils 0.0 CELLS/UL [facility] 0.0 [...] MD smoking history, tot al pack/day 1 Ronadl Ryan MD cigarette use yes Ronald Martinez [...] ation, patient education and counseling yes Sandra Garretson smoking, year quit 2016 Sandra Deepak number of years as a smoker 21 a Sandra Deepak smoking history, tot al pack/day 0.5 Sandra Garretson cigarette use yes Sandra Garretson smoking status Current every day smoker C [...] Leon smoking history, tot al pack/day 0.5 [facility] cigarette use yes [facility] smoking status Current every day smoker T [...] Rangel smoking history, tot al pack/day 0.5 ElizabethKatya Rangel smoking, year quit 2015 Elizabeth Rangel [...] Payer name Policy type / Coverage type [place] red green party ID BRANT COMPLETE (2) Medicare [id number] 1 ADVANCE DIRECTIVES Name Date DISCUSSED - NO DECISION MADE TREATMENT PLAN Date Name Performer [id number],C,P robably combo of cardiomyopathy and COPD but does not appear to be fluid overloaded. Ronald Ryan MD [id number],C,s eems to be atypical. if he discontinues then we can do a stress test. Ronald Ryan MD [id number],B, B P today: 114/82 P rior BP: 125/89 (04/11/2022) Labs Reviewed: C reat: 0.95 (12/29/2020) L DL: 88 (02/06/2018) Ronald Ryan MD [id number],S, Ronald Ryan MD [id number],B,He has quit s moking Ronald Ryan MD [id number],C,H e seems to be stable and has not had edema. I have advised him to cut back his ferusomide to once daily and see how he does. Ronald Ryan MD [id number],C,H R 98. Increase lisinopril to 20mg daily. BP today: 125/89 P rior BP: 132/82 (01/06/2022) Labs Reviewed: C reat: 0.95 (12/29/2020) L DL: 88 (02/06/2018) Ronald Ryan MD [id number],JohnH as cut down 10 cigarretes/day. Says he is quitting April 30. T he Patient was reencouraged to stop smoking. Ronald Ryan MD [id number],C,W ill check his EF now and again have asked him to quit smoking. Ronald Ryan MD [id number],S,T he Patient was reencouraged to stop smoking. Ronald Ryan MD [id number],S, S SARAN ENCOURAGED TO STOP SMOKING; SMOKING CESSATION TECHNIQUES DISCUSSED. Ronald Ryan MD [id number],S B P today: 127/76 P rior BP: [...] mouth twice a day Ronald Ryan MD [id number],S, E F 20%. His updated medication list [...] mouth twice a day Ronald Ryan MD [id number],S, C ompensated. Last EF 20%. His updated [...] MD Cardiology:He has quit smoking U alex Ryan MD Cardiology:He seems to be stable and [...] Tablet Delayed Release (Aspirin) ..... Daily Malinda Barrett [facility] 12: s /p EPS and ablation [...] (07/12/2018) L DL: 88 (02/06/2018) Alyce Eugene SHOE DESIGNER EP:Patient has ICD p laced Alyce Eugene SHOE DESIGNER EP:Patient advised t o stop smoking Alyce Eugene SHOE DESIGNER EP:Normally function ing device Alyce Eugene SHOE DESIGNER EP:Device interrogat ion revealed on episode of [...] Martinez Cardiology:Continue with medications. Clinically compensated. Tomeka Gerber MD Cardiology Ronald Ryan MD Cardiology:still has [...] completed EKG Ronald Ryan MD completed SNOMED-CT: 740482625 Smoking Cessation Counseling Ronald Ryan MD completed SNOMED-CT: 636338274148603 Current Medications Documented Ronald Ryan MD completed SNOMED-CT: 95384141 Physical Exam, Performed: Pulse Exam of Foot Ronald Ryan MD completed SNOMED-CT: 480532094553213 Current Medications Documented Ronald Ryan MD completed SNOMED-CT: 347296977 Smoking Cessation Counseling Tomeka Gerber MD completed SNOMED-CT: 92857800 Physical Exam, Performed: Pulse Exam of Foot Tomeka Gerber MD completed EKG Tomeka Gerber MD complet ed SNOMED-CT: 904136704516683 Current Medications Documented Tomeka Gerber MD completed SNOMED-CT: 35309290 Physical Exam, Performed: Pulse Exam of Foot Ronald Ryan MD completed EKG Ronald Ryan MD completed SNOMED-CT: 699010061031532 Current Medications Documented Ronald Ryan MD completed [...] REMOTE </30 D TECH REVIEW completed SNOMED-CT: 89559694 Physical Exam, Performed: Pulse Exam of Foot Ronald Ryan MD completed EKG Ronald Ryan MD completed SNOMED-CT: 904729147858853 Current Medications Documented Ronald Ryan MD completed EKG Tomeka Gerber MD complet ed SNOMED-CT: 898184439312840 Current Medications Documented Tomeka Gerber MD completed SNOMED-CT: 940120535586410 Current Medications Documented Ronald Ryan MD completed SNOMED-CT: 27433793 Physical Exam, Performed: Pulse Exam of Foot Ronald Ryan MD completed EKG Ronald Ryan MD completed SNOMED-CT: 937506937294228 Current Medications Documented Ronald Ryan MD completed SNOMED-CT: 654715519534977 Current Medications Documented Ronald Ryan MD completed SNOMED-CT: 933617868 Smoking Cessation Counseling Ronald Ryan MD completed SNOMED-CT: 16215176 Physical Exam, Performed: Pulse Exam of Foot Ronald Ryan MD completed EKG Ronald Ryan MD completed SNOMED-CT: 151465186675420 Current Medications Documented Ronald Ryan MD completed SNOMED-CT: 401800551 Smoking Cessation Counseling Ronald Ryan MD completed SNOMED-CT: 35456920 Physical Exam, Performed: Pulse Exam of Foot Ronald Ryan MD completed EKG Ronald Ryan MD completed SNOMED-CT: 404319385188954 Current Medications Documented Ronald Ryan MD completed SNOMED-CT: 70902763 Physical Exam, Performed: Pulse Exam of Foot Ronald Ryan MD completed EKG Ronald Ryan MD completed SNOMED-CT: 736234983755081 Current Medications Documented Ronald Ryan MD completed
--- OUTSIDE RECORDS SUMMARY | 2025-01-03 09:41 | XMS_ITS | Encounter Summary ---
Author Organization [facility] Address [address] [place] [address] Care Team Providers Care Mat Making Machine Tender Name Role Phone Malcolm Conteh MD Primary Care Provider [phone] Reason for Visit * Reason Onset Date Comments TO NOTIFY PCP 07/19/2019 Encounter Details Date Type Department Care Team (Late st Contact Info) Description 07/19/2019 Telephone [facility] [address] [place] [address] [place] [address] [facility] [address] [place] [address] TO NOTIFY PCP Social History [...] declined 07/19/2019 How often do you attend pentecostal or jainism serv ices? Patient declined 07/19/2019 Do you belong to any clubs o r organizations such as pentecostal groups, unions, fraternal or athletic groups, or [...] on filedocumented in this encounter Care Teams Mat Making Machine Tender Relationship Specialty Start Date End Date Malcolm Conteh MD [facility] [place] [address] PCP - General Internal Medicine 07/19/19 documented as of this encounter
--- OUTSIDE RECORDS SUMMARY | 2025-01-03 09:42 | XMS_ITS | Clinical Summary ---
Author Organization [facility] Address [address] [place] [address] Phone Care Team Providers Care Cut File Clerk Name Role Phone Malcolm Conteh MD Primary Care Provider [phone] Allergies No known active allergies Medications carvedilol (COREG) 25 mg tablet Take 50 mg by mouth 2 times daily with meals. Active aspirin (ECOTRIN EC) 81 mg Tablet, Delayed Release (E.C.) Take 81 mg by mouth daily. Active methylPREDNISolon e (MEDROL DOSPACK) 4 mg Tablets, Dose Pack Take as directed on package 21 Tablet 07/23/2019 1:25 PM PATIENT SAFETY OFFICER 9 Active furosemide (LASIX) 40 mg tablet Take 1 Tablet (40 mg) by mouth daily. 30 Tablet 9 Active potassium chloride (KLOR-CON) 10 mEq Extended Release tablet Take 1 Tablet (10 mEq) by mouth every other day. 10 Tablet 07/23/2019 1:25 PM PATIENT SAFETY OFFICER 9 Active ipratropium-albut tao (DUONEB) 0.5 mg-3 [...] 20 mg 20 Tablet 07/23/2019 1:25 PM PATIENT SAFETY OFFICER 9 Active polyethylene glycol (MIRALAX) 17 gram Powder in Packet Take 1 Packet (17 Grams) by mouth 1 time daily as needed for Constipation. 9 Active glimepiride (AMARYL) 2 mg tablet Take 1 Tablet (2 mg) by mouth daily with breakfast. 30 Tablet 07/23/2019 1:25 PM PATIENT SAFETY OFFICER 9 Active Active Problems Problem Noted Date [...] declined 07/19/2019 How often do you attend gnosticist or nondenominational serv ices? Patient declined 07/19/2019 Do you belong to any clubs o r organizations such as gnosticist groups, unions, fraternal or athletic groups, or [...] Comments Blood Pressure 125/81 07/23/2019 12:35 PM PATIENT SAFETY OFFICER Pulse 93 07/23/2019 12:35 PM PATIENT SAFETY OFFICER Temperature 36.7 C (98 F) 08/31/2019 11:28 AM PATIENT SAFETY OFFICER Respiratory Rate 16 07/23/2019 12:35 PM PATIENT SAFETY OFFICER Oxygen Saturation 91% 07/23/2019 12:35 PM PATIENT SAFETY OFFICER Inhaled Oxygen Concentration - - Weight 113.4 kg (250 lb) 08/31/2019 11:28 AM PATIENT SAFETY OFFICER Height 170.2 cm (5' 7 ) 08/31/2019 11:28 AM PATIENT SAFETY OFFICER Body Mass Index 39.16 08/31/2019 11:28 AM PATIENT SAFETY OFFICER Plan of Treatment Health Maintenance Due Date [...] history exists Medical Devices Implanted Type Area Field Education Coordinator Device Identifier Shelf Expiration Date Model / Serial / Lot Cardiac Defibrillator Procedures Procedure Name Priority Date/Time Associated Diagnosis Comments HEMOGLOBIN A1C Routine 07/22/2019 4:53 PM PATIENT SAFETY OFFICER from Last 3 Months or Most Recently Relevant to Health Maintenance Results * (ABNORMAL) HEMOGLOBIN A1C (07/22/2019 4:53 PM PATIENT SAFETY OFFICER) HEMOGLOBIN A1C 7.5(H) <=5.6 % 07/22/2019 5:18 PM PATIENT SAFETY OFFICER [facility] EST. AVG GLUCOSE, A1C 169 mg/dL 07/22/2019 5:18 PM PATIENT SAFETY OFFICER [facility] Blood Venipuncture / Unknown 07/22/2019 4:53 PM PATIENT SAFETY OFFICER 07/22/2019 5:03 PM PATIENT SAFETY OFFICER Narrative [facility] - 07/22/2019 5:18 PM PATIENT SAFETY OFFICER HGB A1C INTERPRETATION NORMAL: <5.7% PRE-DIABETES: 5.7 - 6.4% DIABETES: 6.5% OR GREATER Susan Mckenna MD CHEMISTRY ORDERABLES Final Resul t [facility] CLIA# [id number] [address] [place] [address] from Last 3 Months or Most Recently Relevant to Health Maintenance Insurance HEALTH PLAN MEDICAID RX [id number] Medicare Part D RX [employer] (INTERNAL) [facility] Plans Advance Directives For more information, please contact: [phone] * Full Code (Latest Code Status on File) Date Activated Date Inactivated Comments 07/19/2019 12:17 PM 07/23/2019 4:02 PM * Full Code Date Activated Date Inactivated Comments 12/02/2018 9:56 AM 12/04/2018 6:18 PM Care Teams Cut File Clerk Relationship Specialty Start Date End Date Malcolm Conteh MD [address] [place] [address] PCP - General Internal Medicine 07/19/19
--- OUTSIDE RECORDS SUMMARY | 2025-01-03 09:42 | XMS_ITS | Clinical Summary ---
Author Organization [facility] Address [address] [place] [address] Care Team Providers Care Automotive Fuel Injection Servicer Name Role Phone Malcolm Conteh MD Primary Care Provider [phone] Source Comments [facility],non-owned Affiliates and Associated Physician Practices is amultiple site organization consisting of ambulatory clinics and hospital sitesin [place], [place], [place] and [place]. This disclosure is being madepursuant to the Care Everywhere program and may not contain all information available regarding this patient. Last updated 18.[facility] Allergies No known active allergies Medications * [...] on file Legal Sex Male 5:33 AM BELT BUILDER HELPER Gender Identity Male 07/25/2017 5:45 PM BELT BUILDER HELPER Sexual Orientation Not on file Last Filed [...] Reactive Non Reactive 05/18/2019 6:51 AM CDT [facility] Blood BLOOD SPECIMEN / Unknown Lab Venipuncture / Unknown 05/18/2019 5:23 AM CDT 05/18/2019 6:02 AM CDT Narrative [facility] - 05/18/2019 6:51 AM CDT No Laboratory evidence of HIV infection. Dimitri Jones MD LAB - CHEMISTRY ORDERABLES Fin al Result Performing Organization Address City/[facility]/ZIP Co de Phone Number [facility] [address] [place] [phone] * HEPATITIS SCREEN ACUTE (05/18/2019 5:23 AM CDT) HAV Antibody IgM Non Reactive Non Reactive 05/18/2019 6:51 AM CDT [facility] HBsAg Non Reactive Non Reactive 05/18/2019 6:51 AM CDT [facility] HBc Antibody IgM Non Reactive Non Reactive 05/18/2019 6:51 AM CDT [facility] HCV Antibody Screen Non Reactive Non Reactive 05/18/2019 6:51 AM CDT [facility] HCV S/C Ratio 0.05 0.00 - 0.79 05/18/2019 6:51 AM CDT [facility] Comment: Mxshix-mr-txgrzq ratio (S/CO) <0.80: Non Reactive Blood BLOOD SPECIMEN / Unknown Lab Venipuncture / Unknown 05/18/2019 5:23 AM CDT 05/18/2019 6:01 AM CDT Narrative [facility] - 05/18/2019 6:51 AM CDT Non Reactive - Antibodies to Hepatitis C virus (HCV) were not detected, result does not exclude early acute HCV infection. Dimitri Jones MD LAB - CHEMISTRY ORDERABLES Fin al Result Performing Organization Address City/[facility] Co de Phone Number [facility] [address] [place] [address] * (ABNORMAL) LIPID PROFILE (04/20/2015 5:55 AM CDT) Cholesterol 109 <200 mg/dL 04/20/2015 6:46 AM CDT [facility] Triglycerides 95 <150 mg/dL 04/20/2015 6:46 AM CDT [facility] HDL Cholesterol 34(L) >40 mg/dL 04/20/2015 [...] CDT 04/20/2015 6:18 AM CDT Ana Justin SWITCH ADJUSTER-AFFILIATE MARKETING SPECIALIST LAB - CHEMISTRY ORDERABL ES Final Result Performing Organization Address [facility] de Phone Number [facility] [address] [place] [address] from Last 3 Months or Most Recently Relevant to Health Maintenance Insurance [facility] Advance Directives * Full Code (Latest Code Status on File) Date Activated Date Inactivated Comments 05/15/2019 5:02 PM 05/18/2019 2:42 PM * Full Code Date Activated Date Inactivated Comments 07/25/2017 8:37 PM 07/30/2017 2:59 PM * Full Code Date Activated Date Inactivated Comments 04/19/2015 1:38 PM 04/20/2015 3:56 PM Care Teams Automotive Fuel Injection Servicer Relationship Specialty Start Date End Date Malcolm Conteh MD [address] [place] [address] PCP - General Internal Medicine 04/19/15
--- NOTE | 2025-01-03 09:47 | ED.GENADULT ---
HPI - General Adult General Chief complaint: Back Pain/Injury Stated complaint: lower back pain Time Seen by Provider: 01/03/25 09:10 History of Present Illness HPI narrative: Altaf Rhodes is a 54-year-old male presents today with complaints of having mid lower back pain that started to 3 days ago. He states that it come on gradual and feels like it is getting worse. Denies any previous history of back issues or back surgeries. He states while he is sitting and at rest pain is about a 02/04/2010 pain is worse with movements land on his left side. He states sometimes the mid lower back pain radiates down his left leg but currently is not. He denies any numbness or tingling to his legs denies any loss of bowel bladder. Denies any known trauma falls or injury. Related Data Allergies Allergy/AdvReac Type Severity Reaction Status Date / Time No Known Allergies Allergy Verified 01/03/25 08:26 Review of Systems Review of Systems: All systems reviewed & are unremarkable except as noted in HPI and below PMFSH Past Medical History Medical History History of hypertension Non-ischemic cardiomyopathy Social History Social History Smoking status: Current every day smoker Alcohol intake: never Exam Narrative: GENERAL: Well-appearing, well-nourished, and in no acute distress. HEAD: Normocephalic, atraumatic. EYES: PERRLA and EOMI. ENT: Nares clear, no rhinorrhea or epistaxis. Mucous membranes moist. Oropharynx without tonsillar hypertrophy exudate or other lesions. NECK: Supple. No adenopathy or masses. No carotid bruits or JVD CHEST: Clear to auscultation. No respiratory distress. No wheezes rales or rhonchi HEART: Regular rate and rhythm. No murmur heard. Normal peripheral pulses. ABDOMEN: Soft, nontender, nondistended, normal active bowel sounds. EXTREMITIES: Normal range of motion. No edema. SKIN: Warm, dry, no rash. NEURO: No focal deficits. Alert and oriented x3. PSYCH: Normal mood and affect. Course Vital Signs Vital signs: Vital Signs Temperature 36.4 C L 01/03/25 08:23 Pulse Rate 101 H 01/03/25 08:23 Respiratory Rate 16 01/03/25 08:23 Blood Pressure 120/101 H 01/03/25 08:23 Pulse Oximetry 99 01/03/25 08:23 Oxygen Delivery Room Air 01/03/25 08:23 Temperature 36.4 C L 01/03/25 08:23 Pulse Rate 101 H 01/03/25 08:23 Respiratory Rate 16 01/03/25 08:23 Blood Pressure 120/101 H 01/03/25 08:23 Pulse Oximetry 99 01/03/25 08:23 Oxygen Delivery Room Air 01/03/25 08:23 Medical Decision Making MDM Narrative Medical decision making narrative: 54-year-old male with mid lower back pain that came on gradually over the past 2-3 days pain is worse with movement. No cervical thoracic spinal tenderness with palpation noted. Positive lower lumbar spinal tenderness with palpation. No obvious deformities, no rashes, no erythema no ecchymosis. 5/5 strength to upper and lower extremities no saddle paresthesia Ambulatory without difficulty. NO fever/chills No CVA tenderness, denies any urinary symptoms Concern for muscle spasm, bulging discs, fracture plan to check imaging and treat his pain with Valium, hydrocodone and Toradol shot. CT- No acute osseous abnormality. Diffuse disc bulge at the level of L4-L5 and L5-S1. Bilateral nerve root compression at the level of L5-S1 is not excluded. Patient re-evaluated around 11 and states his pain is much better ambulatory without difficulty he feels ready to be discharged home. Updated patient with the findings of the bulging disc on the CT that is likely causing his discomfort. Will start him on anti-inflammatories and muscle relaxers with continued rest ice and heat alternate. Encouraged to follow up with primary care doctor in 1 week return for any worsening symptoms red flag symptoms discussed and neurosurgery follow-up for the bulging discs. Patient agrees with this plan and denies having any further questions at this time. Medical Records Medical records reviewed: Yes I reviewed the external patient's medical records. Vital Signs Vital Signs: Vital Signs Temperature 36.4 C L 01/03/25 08:23 Pulse Rate 101 H 01/03/25 08:23 Respiratory Rate 16 01/03/25 08:23 Blood Pressure 120/101 H 01/03/25 08:23 Pulse Oximetry 99 05/06/25 08:23 Oxygen Delivery Room Air 01/03/25 08:23 Temperature 36.4 C L 01/03/25 08:23 Pulse Rate 101 H 01/03/25 08:23 Respiratory Rate 16 01/03/25 08:23 Blood Pressure 120/101 H 01/03/25 08:23 Pulse Oximetry 99 01/03/25 08:23 Oxygen Delivery Room Air 01/03/25 08:23 Vitals reviewed by me Imaging Data Radiologist's impression: Impressions Lumbar Spine CT 01/03/25 10:00 IMPRESSION: No acute osseous abnormality. Diffuse disc bulge at the level of L4-L5 and L5-S1. Bilateral nerve root compression at the level of L5-S1 is not excluded. Discharge Plan Discharge Clinical Impression: Bulging discs Sciatica Qualifiers: Laterality: left Qualified Code(s): M54.32 - Sciatica, left side Patient Disposition: Home Condition: Stable Instructions: Antibiotic Form Additional Instructions: Continue to take naproxen twice daily for pain Continue to take the cyclobenzaprine for severe muscle spasms please take note that this medication may make you sleepy do not drive or operate machinery while taking this medication. Continue to rest using ice and heat alternate to the areas of pain This should improve with rest and continuing the anti-inflammatories however if you have any worsening symptoms such as numbness tingling loss of bowel or bladder increased pain or fevers then you will need to return to the ER Otherwise follow-up with your primary care doctor in 1 week You may also follow-up with neurosurgery for follow-up regarding your bulging discs Patient Language: Montenegrin Prescriptions: New naproxen 500 mg tablet 500 mg PO BID PRN (Reason: pain) Qty: 20 0RF cyclobenzaprine 10 mg tablet 10 mg PO TID PRN (Reason: muscle spasm) Qty: 30 0RF No Action albuterol sulfate [Ventolin HFA] 90 mcg/actuation HFA aerosol inhaler 1 inhalation INHALATION Q4H PRN (Reason: shortness of breath) Qty: 18 0RF furosemide 20 mg tablet 20 mg PO QAM Qty: 1 0RF potassium chloride [Klor-Con 10] 10 mEq tablet extended release 10 meq PO DAILY Qty: 1 0RF lisinopril 2.5 mg tablet 2.5 mg PO DAILY Qty: 1 0RF omeprazole 40 mg capsule,delayed release(DR/EC) 40 mg PO DAILY Qty: 1 0RF escitalopram oxalate 10 mg tablet 10 mg PO DAILY Qty: 1 0RF amitriptyline 150 mg tablet 150 mg PO ONCE Qty: 1 0RF cyclobenzaprine 10 mg tablet 10 mg PO TID Qty: 1 0RF fluticasone propion-salmeterol 113-14 mcg/actuation aerosol powdr breath activated 1 puff INHALATION BID Qty: 1 0RF carvedilol 6.25 mg tablet 6.25 mg PO Q12H MDD 2 tablets Qty: 60 0RF Rx Instructions: must administer with a meal/food methocarbamol 750 mg tablet 1,500 mg PO TID PRN (Reason: muscle spasm) Qty: 15 0RF lidocaine 5 % adhesive patch,medicated 1 patch topical DAILY Qty: 15 0RF Rx Instructions: leave on most painful area for up to 12 hrs docusate sodium [Col-Rite] 100 mg capsule 100 mg PO BID Qty: 14 0RF furosemide 20 mg tablet 20 mg PO DAILY Qty: 20 0RF tizanidine 2 mg tablet 2 mg PO TID PRN (Reason: muscle spasticity) Qty: 90 0RF Follow-up/Referrals: Nicole Prescott MD [Physician] - 2 Weeks UNKNOWN,DOCTOR [Primary Care Provider] - Time of Disposition: 11:23
[2025-01-03] MEDS: HYDROcodone/acetaminophen (*CRX) 5-325 MG TABLET 1 TAB PO (10:06)
[2025-01-03] MEDS: diazePAM (*CRX) 5 MG TABLET PO (10:07)
[2025-01-03] MEDS: KETOROLAC 30 MG/ML VIAL (*BKC) IM (10:07)
[2025-01-03 11:33] VITALS: BP 126/78; PULSE 83; RESP 16; O2SAT 96
== END 2025-01-03 11:37 | disposition home or self-care (01) ==
PROVIDERS: Emergency Provider Nurse Practitioner Family
DX: M54.42 Lumbago with sciatica, left side (principal); I10 Essential (primary) hypertension
CPT/HCPCS: 72131; 96372; 99284; A9270; J1885

== ENCOUNTER 2025-01-12 06:08 | Inpatient (IN) | payer OTHER, SELFPAY ==
[2025-01-12] VITALS (12 sets, daily range): BP systolic 111–126; BP diastolic 80–97; PULSE 84–114; RESP 17–25; TEMP 36.1–36.7; O2SAT 93–95; BMI 33.4
--- NOTE | 2025-01-12 | ECHO_ITS ---
Patient Info Name: Altaf Rhodes Age: 55 years : 1970 Gender: Male Ht: 72 in Wt: 222 lbs BSA: 2.29 m2 HR: 79 bpm BP: 119 / 95 mmHg Technical Quality: Fair Exam Date: 01/12/2025 11:24 AM Patient Status: I Admit Date: 01/12/2025 Exam Type: CA echo dop color flow w con Complete two-dimensional, color flow and Doppler transthoracic echocardiogram is performed with contrast to opacify the left ventricle and to improve the deliniation of the left ventricle endocardial borders. Staff Referring Physician: Denis Haas C.O.D. Biller: Estrella Harrison Attending Provider: Lindsey Adan Contrast/Agitated Saline Contrast/Ag. Saline: Definity Amount: 3.00 ml Existing IV Access: Yes IV Access Condition: patent with no signs of infiltration Summary 1. The left ventricle is normal size with severely reduced systolic function. The left ventricular ejection fraction is visually estimated to be 25-30%. There is global hypokinesis. 2. The right ventricle is normal in size and systolic function. 3. There are no significant valvular abnormalities. Left Ventricle The left ventricle is normal size with severely reduced systolic function. The left ventricular ejection fraction is visually estimated to be 25-30%. There is global hypokinesis. Right Ventricle The right ventricle is normal in size and systolic function. Linear artifact in right ventricle suggestive of catheter(s), pacemaker lead(s), or ICD lead(s). Left Atria The left atrium is normal size. Right Atria Linear artifact in the right atrium suggestive of catheter(s), pacemaker lead(s), or ICD lead(s). The right atrium is normal size. Atrial Septum The atrial septum is normal by color Doppler. Aortic Valve The aortic valve is trileaflet and opens well. There is no aortic regurgitation. Pulmonic Valve The pulmonic valve is normal. Mitral Valve The mitral valve leaflets are normal. There is trace mitral regurgitation. Tricuspid Valve The tricuspid valve is grossly normal. Pericardium/Pleural Pericardium is normal in appearance with no evidence for significant pericardial effusion. Inferior Vena Cava Normal inferior vena cava with >50% collapse upon inspiration consistent with normal right atrial pressure, 3 mmHg. Aorta The aortic root at the level of the sinus of Valsalva measures 3.9 cm in diameter. Left Ventricular Outflow Tract Name Value Normal LVOT 2D LVOT Diameter 2.0 cm LVOT Doppler LVOT Peak Velocity 80 cm/s LVOT Peak Gradient 3 mmHg LVOT Mean Gradient 2 mmHg LVOT VTI 14 cm LVOT VTI/AV VTI Ratio 0.8 LVOT Stroke Volume 42 ml LVOT CO 11.7 l/min LVOT CI 5.1 l/min/m2 Pulmonic Valve Name Value Normal PV Doppler PV Peak Velocity 59 cm/s PV Peak Gradient 1 mmHg Mitral Valve Name Value Normal MV Diastolic Function MV E Peak Velocity 58 cm/s MV A Peak Velocity 43 cm/s MV E/A 1.3 MV Decel Time (PW) 155 ms MV Annular TDI MV E/e' (Septal) 10.7 MV E/e' (Lateral) 9.6 MV E/e' (Average) 10.2 Tricuspid Valve Name Value Normal Estimated PAP/RSVP RA Pressure 3 mmHg <=5 TV Annular TDI TV Lateral Zoila s' Velocity 8.4 cm/s >=9.5 Aorta Name Value Normal Ascending Aorta Ao Root Diameter (MM) 3.9 cm Ao Root Diam Index (MM) 1.7 cm/m2 Aortic Valve Name Value Normal AV Doppler AV Peak Velocity 87 cm/s AV Peak Gradient 3 mmHg AV Mean Gradient 2 mmHg AV VTI 18 cm AV Area (Cont Eq VTI) 2.4 cm2 >=3.0 AV Area (Cont Eq Vik) 2.8 cm2 AV DI (Vik) 0.93 AV Regurgitation 2D LVOT Area 3.1 cm2 Ventricles Name Value Normal LV Dimensions 2D/MM IVS Diastolic Thickness (2D) 0.8 cm 0.6-1.0 LVID Diastole (2D) 5.7 cm 4.2-5.8 LVIW Diastolic Thickness (2D) 0.9 cm 0.6-1.0 LVID Systole (2D) 5.1 cm 2.5-4.0 LVOT Diameter 2.0 cm LV Mass (2D Cubed) 174.56 g 88.00-224.00 LV Mass Index (2D Cubed) 76 g/m2 49-115 Relative Wall Thickness (2D) 0.30 <=0.42 LV Fractional Shortening/Ejection Fraction 2D/MM LV Fractional Shortening (2D) 10 % 25-43 LV EF (2D Teichholz) 22 % LV Diastolic Volume (4C MOD) 167 ml LV EF (4C MOD) 33 % LV Diastolic Volume (2C MOD) 120 ml LV EF (2C MOD) 31 % LV Diastolic Volume (BP MOD) 145 ml 62-150 LV Diastolic Volume Index (BP MOD) 63 ml/m2 34-74 LV Systolic Volume (BP MOD) 101 ml 21-61 LV Systolic Volume Index (BP MOD) 44 ml/m2 11-31 LV EF (BP MOD) 31 % 52-72 LV Diastolic Length (4C) 8.0 cm LV Systolic Length (4C) 7.0 cm LV Stroke Volume (4C MOD) 55 ml RV Dimensions 2D/MM RVID Diastole (2D) 3.8 cm 2.1-3.5 Atria Name Value Normal LA Dimensions LA Dimension (MM) 4.1 cm 3.0-4.0 LA Volume (4C A-L) 76 ml LA Volume (BP A-L) 77 ml RA Dimensions RA Systolic Major [place] Length (4C) 4.6 cm 2.1-2.7 RA Area (4C) 14.9 cm2 <=18.0 Report Signatures
--- NOTE | ~2025-01-12 | XR_ITS ---
Clinical Indication: Shortness of breath PA and lateral views of the chest: Comparison: 07/19/2024 Findings: Possible minimal bibasilar pulmonary edema. No pleural effusion. Cardiomediastinal silhoue tte is stable, with pacemaker device. Bones and soft tissues are unremarkable. Impression: Possible minimal bibasilar pulmonary edema changes. Reviewed, dictated and finalized at location . Impression: Possible minimal bibasilar pulmonary edema changes.
--- OUTSIDE RECORDS SUMMARY | 2025-01-12 06:10 | XMS_ITS | Data Portability ---
Author Organization [facility] [place] [facility] Address [address] [place] [address] Care Team Providers Care Adz Worker Name Role Phone HOWARD ELENA Primary Care Provider Assessment Encounter Date Assessment Date Assessment LastModified [...] available Lab lipid panel, serum 2024 025 [facility], [address], [place], [address], 01/03/2025 07:51:05 HbA1c (hemoglo bin A1c), blood 2024 025 [facility], [address], [place], [address], 01/03/2025 07:51:05 BMP, serum or plasma 2024 [facility], [address], [place], [address], 12/13/2024 21:22:39 CBC 2024 [facility], [address], [place], [address], 01/03/2025 07:51:05 Referral None recorded . Procedures ICD interrog ation, in-perso n (PROC) 2024 025 [email or web address] Not available 01/10/2025 10:10:57 Surgeries None recorded . Imaging electroc ardiogra m 2024 025 sandi In-Office Order, Internal Use Only DO Not Attach Compendium DO Not Attach Compendium, Do Not Delete/merge, [id number] 12/13/2024 10:38:42 Medication Orders carvedil ol 25 mg tablet 2024 025 [facility] [place], [address], 12/13/2024 10:38:55 lisinopr il 20 mg tablet 2024 025 [facility], [address] [place], [address], 12/13/2024 10:38:55 furosemi de 40 mg tablet 2024 025 [facility], [address] [place], [address], 12/13/2024 10:38:55 tana m chloride ER 20 mEq tablet,e xtended release 2024 025 [facility], [address] [facility], [place], [address], 12/13/2024 10:38:54 Patient TargetsNo targets recorded. Patient Instructions Encounter Date Encounter Id Patient Instructions Last Modified By Organization Details Last Modified Time 12/13/2024 [id number] Quitting Tobacco: Care Instructions [email or web address] Not available 12/13/2024 10:38:41 A healthy lifestyle: care instructions [email or web address] Not available 12/13/2024 10:38:42 Reason for Referral None Reported. Results Created Date Observation Date Name Description Value Unit Range Abnormal Flag Note LastModifiedBy Organization Detail LastModifiedTime 12/14/1912/13/2024 BASIC METAB OLIC PANEL sodium 141 mmol/ L 134-14 4 normal Not Available [facility] (Lab) [address] [place], [address], 12/13/2024 21:22:39 12/14/19 25 12/13/2024 BASIC METAB OLIC PANEL potassium 4.4 mmol/ L 3.5-5. 2 normal Not Available [facility] (Lab) [address] [facility], [place], [address], 12/13/2024 21:22:39 12/14/19 25 12/13/2024 BASIC METAB OLIC PANEL chloride 102 mmol/ L 96-106 normal Not Available [facility] (Lab) [address] [place], [address], 12/13/2024 21:22:39 12/14/19 25 12/13/2024 BASIC METAB OLIC PANEL carbon dioxide 26 mmol/ L 20-29 normal Not Available [facility] (Lab) [address] [place], [address], 12/13/2024 21:22:39 12/14/19 25 12/13/2024 BASIC METAB OLIC PANEL anion gap 18.0 mmol/ L Not Available [facility] (Lab) [address] [place], [address], 12/13/2024 21:22:39 12/14/19 25 12/13/2024 BASIC METAB OLIC PANEL blood urea nitrogen 16 mg/dL 6-24 normal Not Available [facility] (Lab) [address] [place], [address], 12/13/2024 21:22:39 12/14/19 25 12/13/2024 BASIC METAB OLIC PANEL creatinine 1.01 mg/dL 0.76-1 .27 normal Not Available [facility] (Lab) [address] [place], [address], 12/13/2024 21:22:39 12/14/19 25 12/13/2024 BASIC METAB OLIC PANEL glomerular filtration rate 88 mL/mi n/1 Not Available [facility] (Lab) [address] [place], [address], 12/13/2024 21:22:39 12/14/19 25 12/13/2024 BASIC METAB OLIC PANEL BUN creatinine ratio 16 9-20 normal Not Available [facility] (Lab) [address] [place], [address], 12/13/2024 21:22:39 12/14/19 25 12/13/2024 BASIC METAB OLIC PANEL glucose 111 mg/dL 70-99 high Not Available [facility] (Lab) [address] [place], [address], 12/13/2024 21:22:39 12/14/19 25 12/13/2024 BASIC METAB OLIC PANEL osmolality calculated 283 275-29 5 normal Not Available [facility] (Lab) [address] [place], [address], 12/13/2024 21:22:39 12/14/19 25 12/13/2024 BASIC METAB OLIC PANEL calcium 9.7 mg/dL 8.7-10 .2 normal Not Available [facility] (Lab) [address] [facility], [place], [address], 12/13/2024 21:22:39 12/14/19 25 12/13/2024 BASIC METAB OLIC PANEL hemolysis 27 0-19 high Sligh t to moder ate hemol ysis prese nt in speci men. The potas sium, AST, ALT, and direc t bilir ubin resul ts may be false ly eleva liliane. Not Available [facility] (Lab) [address] [facility], [place], [address], 12/13/2024 21:22:39 12/14/19 25 12/13/2024 BASIC METAB OLIC PANEL icterus 1 0.5-4. 9 Not Available [facility] (Lab) [address] [facility], [place], [address], 12/13/2024 21:22:39 12/14/19 25 12/13/2024 BASIC METAB OLIC PANEL lipemia 14 0-99 Not Available [facility] (Lab) [address] [facility], [place], [address], 12/13/2024 21:22:39 12/14/19 25 12/13/2024 elect rocar diogr am No observ ation record ed. ELEANOR In-Office Order Internal Use Only DO Not Attach Compendium DO Not Attach Compendium, Do Not Delete/merge, [id number] 12/13/2024 10:53:02 12/14/19 elect rocar diogr am No observ ation record ed. [email or web address] Not Available 12/13 10:53:03 Result Notes None recorded. Problems Name Problem SNOMED Code Status Onset Date Resolution Date Notes Provider Name and Address Organization Details Recorded Time Congestive heart failure 80468694 Active 2024 GUILLAUME Gentile, [facility] 10:38:37 Automatic implantable cardiac defibrillator in situ 459821451 Active 2024 GUILLAUME Gentile, [place] 10:38:42 Hyperglycemia 15439422 Active 2024 GUILLAUME Gentile, [place] 10:38:50 Notes:Some problems listed i n Document: #[id number] could not be added to this patient's chart. Please review this document and add these problems to the patient's chart manually as needed. Problem Notes Documentation Provider Name and Address Organization Details Recorded Time Online Merchandising Specialist Consult Note : [facility] [address] [facility] [address], [facility] [email or web address], Michael (id #[id number], : 1970) [facility] [address] [place] [address] Encounter Summary - Progress Note Date Printed: [...] received this fax in error, please visit [email or web address] Fax to notify the sender and confirm that the information will be destroyed. If you do not have internet access, please call to notify the sender and confirm that the information will be destroyed. Thank you for your attention and cooperation. [ID:[id number]] Patient Altaf Dc (54yo, M) #[id number] 1970 Patient Demographics: Address [address] [place] [address] Work Phone Encounter Notes: Encounter Reason/DateTransition of Care Encounter hypertension, new patient dr ferrell 12/13/2024 - 09:00AM [facility] History of Present Kemijuh57-spsl-gli gentleman who has a history of cardiomyopathy with severely impaired left ventricular systolic function status post AICD placement referred to me for cardiovascular evaluation as he wants to reestablish with a new posting specialist.He denies complaints of chest pain tightness and [...] recorded Vitals Ht: 5 ft 7 in Sudrvz4212/13/2024 09:07 am Wt: 215.4 lbs With faournl6112/13/2024 09:07 am BMI: 33.704 09:07 am BP: 118/92 sitting L arm12/13/2024 09:12 am Pulse: 102 bpm ylloisj6212/13/2024 09:32 am O2Sat: 97% Room Air at [...] see him again in 4 weeks. 1. RlknuaL57.200: Nicotine dependence, unspecified, uncomplicated QUITTING TOBACCO: CARE INSTRUCTIONS 2. CszlwctN78.9: Obesity, unspecified A HEALTHY LIFESTYLE: CARE INSTRUCTIONS 3. Congestive heart ttwravwZ14.9: Heart failure, unspecified ELECTROCARDIOGRAM BMP, SERUM OR PLASMA CBC 4. Essential eshyhiijoeilY39: Essential (primary) hypertension 5. Renewal of lwlwnwasaibcK52.0: Encounter for issue of repeat prescription carvedilol 25 mg tablet - Take 1.5 tablet(s) twice a day by oral route for 90 days. Qty: (270) tablet Refills: 1 Pharmacy: [facility] lisinopril 20 mg tablet - Take 1 tablet(s) every day by oral route for 90 days. Qty: (90) tablet Refills: 1 Pharmacy: [facility] furosemide 40 mg tablet - Take 1 tablet(s) every day by oral route for 90 days. Qty: (90) tablet Refills: 1 Pharmacy: [facility] potassium chloride ER 20 mEq tablet,extended release - Take 1 tablet(s) every day by oral route for 90 days. Qty: (90) tablet Refills: 1 Pharmacy: [facility] 6. Automatic implantable cardiac defibrillator in situZ95.810: Presence of automatic (implantable) cardiac defibrillator ICD INTERROGATION, IN-PERSON (PROC)Place of service: OFFICE Procedure code: 37010, 56297 Authorization: [facility] on or after 02/28/21 (Medicaid Replacement - HMO) [place] [address], [address] 7. Hyperlipidemia rbgyanlpoE98.220: Encounter for screening for lipoid disorders LIPID PANEL, SERUM 8. PxdjluvqbnrsbX30.9: Hyperglycemia, unspecified HBA1C (HEMOGLOBIN A1C), BLOOD Return to Office to see Lupillo Hagen MD at [facility] on or around 12/13/2024 Lupillo Hagen MD for ANY 15 at [facility] on 01/10/2025 at 09:15 AM Patient Medical History: Allergies List Reviewed Allergies NKDA Some allergies listed in Document: #[id number] could not be added to this patient's chart. Please review this document and add these allergies to the patient's chart manually as needed. Medications Reviewed Medications NameDate Source albuterol sulfate 2.5 mg/3 mL (0.083 %) solution for nebulizationUSE 1 VIAL IN NEBULIZER EVERY 6 HOURS NEEDED FOR SHORTNESS OF YWCUZI56/15/22 filled surescripts carvediloL 25 mg tabletTake 1.5 [...] by: LUPILLO HAGEN MD Nan Nichols MA [facility], [place] - [facility] 12/13/2024 15:30:32 Procedures Surgical History None recorded. Imaging Results Imaging Date Name Status LastModified by Organization Details LastModified Time 12/13/2024 electrocardiogram completed ELEANOR In-Offi ce Order Internal Use Only DO Not Attach Compendium DO Not Attach Compendium, Do Not Delete/merge, [id number] 12/13/2024 10:53:02 12/13/2024 electrocardiogram completed [email or web address] Informa [...] Address Organization Details Last Updated DateTime 5 38763.8 g 33.7 kg/m2 170.18 cm 97 % 97 % 118 mm[Hg] 92 mm[Hg] Huseyin Cuba MA [facility] 10:12:23 Date Recorded Heart rate Provider Name an d Address Organization Details Last Updated DateTime 12/13/2024 102 /min Lupillo Hagen MD Attn: Accounting,[address] [facility], [place], [address], [facility] 12/13/2024 10:32:23 Social History Question Answer Notes LastModified by Organizat ion Details LastModified Time Tobacco Smoking Status Current Every Day Smoker Huseyin Cuba MA null, [facility] 12/13/2024 10:08:50 What Was The Date Of [...] SNOMED-CT Code Diagnosis ICD10 Code Diagnosis Note [id number] Lupillo Hagen MD [facility] [place] [facility] [address] [facility] [address] [place] [address] 12/13/2024 09:56:59 12/14/2024 15:59:48 Smoker 45858807 F17.200 Obesity 237653713 E66.9 Congestive heart failure 26788058 I50.9 Essential hypertension 36711352 I10 Renewal of prescription 606677270 Z76.0 Automatic implantable cardiac defibrillator in situ 734535243 Z95.810 Hyperlipid emia screening 018315192 Z13.220 Hyperglycemia 08453779 R 73.9 Health Concerns Section Related Observation LastModified by Organization Detai ls LastModified Time None Recorded Concern Status LastModified by Organization Details LastModified Time None Recorded Advance Directives Directive None Recorded Payers Encounter Date Sequence Insurance Name Policy Number Policy Rodrigues Covered Member ID Rodrigues Member ID Guarantor Name 12/13/2024 1 [facility] - DOS ON OR AFTER 21 (MEDICAID REPLACEMENT - HMO) Altaf Dc [id number] Altaf Dc Notes Date Note Type Note Provider Name and Address Organization Details Recorded Time 12/13/2024 text/html 54-year-old meceh hutton who has a history of cardiomyopathy with severely impaired left ventricular systolic function status post AICD placement referred to me for cardiovascular evaluation as he wants to reestablish with a new posting specialist.He denies complaints of chest pain tightness and [...] ischemia. Lupillo Hagen MD Attn: Accounting[address] [place], [address], [place] [facility] 12/13/2024 10:44:51
--- OUTSIDE RECORDS SUMMARY | 2025-01-12 06:10 | XMS_ITS | Data Portability ---
Author Organization [place] [facility] Address [address] [place] [id number] Care Team Providers Care Miller Kiln Dried Salt Name Role Phone AMADOR RODRIGUEZ Primary Care Provider AMADOR RODRIGUEZ Referring Provider FIORELLA HAGEN Nursing Technician Assessment Encounter Date Assessment Date Assessment LastModified by Organization Details LastModified Time 09/03/2023 09/03/2023 Medical decision making was of LOW [id number] Number and Complexity of Problems Addressed 2 [...] PHYSICAL/ ANNUAL WELLNESS 20 2024 04:00P M Amador Rodriguez NP Not available Not available Not available Lab None recorded. Referral None recorded. Procedures None recorded. Surgeries None recorded. Imaging XR, foot, 3 or more view 2023 024 [facility], [address], [place], [address], 11/23/2023 12:00:55 Medication Orders cyclobenz aprine 10 mg tablet 2023 024 [facility] [address] [place] [address], [address], 12/30/2023 11:39:11 Medrol (Wilder) 4 mg tablets in a dose pack 2023 024 [facility] [address] [place] [address], [address], 12/30/2023 11:39:13 ofloxacin 0.3 % ear drops [address], [address], 09/07/2023 09:09:43 amoxicill in 875 mg-potass ium clavulana te 125 mg tablet [address], [address], 09/07/2023 09:09:35 Patient TargetsNo targets recorded. Patient Instructions Encounter Date Encounter Id Patient Instructions Last Modified By Organization Details Last Modified Time 12/30/2023 [id number] sciatica [email or web address] Not available 12/30/2023 11:39:04 Reason for Referral None Reported. Results Created Date Observation Date Name Description Value Unit Range Abnormal Flag Note LastModifiedBy Organization Detail LastModifiedTime 07/06/20 23 07/06/2023 EKG 12 LEADS [id number] [facility] [address] [place] [address] Test Date: 07-06 Pat Name: JUDSON CUNNINGHAM VANESSA Arguello tment : Thomas nt ID: [id number] Room: [facility] ician : : [id number] Reque sted By: Order Numbe r: [id number] 0900 Gaby fuentes MD: Meascoreen remroya ts Inter vals [place] Rate: 91 P: 85 [place]: 169 QRS: 85 QRSD: 98 T: 13 QT: 378 QTc: 466 Inter preti ve State ments Sinus rhyth m Low volta ge, extre mity leads Abnor mal R-wav e progr essio n, late trans ition Basel ine wande r in lead( s) V3 Not Available [facility] [address] [place] [address], [address], 07/06/2023 17:22:05 07/08/20 23 07/08/2023 EKG 12 LEADS [id number] [facility] [address] [place] [address] Test Date: 07-06 Pat Name: JUDSON CUNNINGHAM FELICITACharisma Cade Arguello tment : Thomas nt ID: [id number] Room: [facility] ician : : [id number] Reque sted By: Order Numbe r: [id number] 0900 Readdorie fuentes MD: Daisy hutchinson Measu remen ts Inter vals [place] Rate: 91 P: 85 [place]: 169 QRS: 85 QRSD: 98 T: 13 QT: 378 QTc: 466 Inter preti ve State ments Sinus rhyth m Abnor mal R-wav e progr essio n, late trans ition Elect spring paz On 07-07 23:57 :52 ESTHETICIAN/SPA COORDINATOR by Daisy hutchinson Not Available [facility] [address] [place] [address], [address], 07/08/2023 00:58:07 09/17/19 24 09/17/2023 EKG 12 LEADS [id number] perfor med Not Available [facility] [address] [place] [address], [address], 09/17/2023 16:58:47 09/17/19 24 09/17/2023 EKG 12 LEADS [id number] perfor med Not Available [facility] [address] [place] [address], [address], 09/17/2023 16:58:52 07/06/20 23 07/06/2023 CBC WITH AUTOM ATED DIFF WBC 5.7 10 4.2-9. 1 Not Available [facility] [address] [place] [address], [address], 07/06/2023 17:34:42 07/06/20 23 07/06/2023 CBC WITH AUTOM ATED DIFF RBC 5.04 10 4.60-6 .08 Not Available [facility] [address] [place] [address], [address], 07/06/2023 17:34:42 07/06/20 23 07/06/2023 CBC WITH AUTOM ATED DIFF HGB 15.4 g/dL 13.7-1 7.5 Not Available [facility] [address] [place] [address], [address], 07/06/2023 17:34:42 07/06/2007/06/2023 CBC WITH AUTOM ATED DIFF HCT 46.3 % 40.1-5 1.0 Not Available [facility] [address] [place] [address], [address], 07/06/2023 17:34:42 07/06/2007/06/2023 CBC WITH AUTOM ATED DIFF MCV 91.9 fL 80.0-9 7.0 Not Available [facility] [address] [place] [address], [address], 07/06/2023 17:34:42 07/06/20 23 07/06/2023 CBC WITH AUTOM ATED DIFF MCH 30.6 pg 29.0-3 4.5 Not Available [facility] [address] [place] [address], [address], 07/06/2023 17:34:42 07/06/20 23 07/06/2023 CBC WITH AUTOM ATED DIFF MCHC 33.3 g/dL 32.5-3 5.5 Not Available [facility] [address] [place] [address], [address], 07/06/2023 17:34:42 07/06/20 23 07/06/2023 CBC WITH AUTOM ATED DIFF RDW 11.9 11.5-1 4.5 Not Available [facility] [address] [place] [address], [address], 07/06/2023 17:34:42 07/06/2007/06/2023 CBC WITH AUTOM ATED DIFF platelet 130 10 160-34 0 low Not Available [facility] [address] [place] [address], [place], [address], 07/06/2023 17:34:42 07/06/20 23 07/06/2023 CBC WITH AUTOM ATED DIFF MPV 8.80 fL 9.0-12 .4 low Not Available [facility] [address] [place] [address], [place], [address], 07/06/2023 17:34:42 07/06/2007/06/2023 CBC WITH AUTOM ATED DIFF marco% 60.5 % 34.0-6 7.9 Not Available [facility] [address] [place] [address], [address], 07/06/2023 17:34:42 07/06/2007/06/2023 CBC WITH AUTOM ATED DIFF lym% 27.7 % 22-53 Not Available [facility] [address] [place] [address], [address], 07/06/2023 17:34:42 07/06/2007/06/2023 CBC WITH AUTOM ATED DIFF mon% 8.60 % 5-12 Not Available [facility] [address] [place] [address], [address], 07/06/2023 17:34:42 07/06/2007/06/2023 CBC WITH AUTOM ATED DIFF eos% 2.40 % 0-7 Not Available [facility] [address] [place] [address], [address], 07/06/2023 17:34:42 07/06/20 23 07/06/2023 CBC WITH AUTOM ATED DIFF bas% 0.50 % 0-2 Not Available [facility] [address] [place] [address], [address], 07/06/2023 17:34:42 07/06/20 23 07/06/2023 CBC WITH AUTOM ATED DIFF Ig% 0.3 0-1.0 Not Available [facility] [address] [place] [address], [address], 07/06/2023 17:34:42 07/06/20 23 07/06/2023 CBC WITH AUTOM ATED DIFF marco# 3.46 10 1.5-7 Not Available [address], [address], 07/06/2023 17:34:42 07/06/20 23 07/06/2023 CBC WITH AUTOM ATED DIFF lym# 1.6 10 1.18-4 .00 Not Available [address], [place], [address], 07/06/2023 17:34:42 07/06/20 23 07/06/2023 CBC WITH AUTOM ATED DIFF mon# 0.5 10 0.00-0 .90 Not Available [facility] [address] [place] [address], [place], [address], 07/06/2023 17:34:42 07/06/20 23 07/06/2023 CBC WITH AUTOM ATED DIFF eos# 0.1 10 0.00-0 .60 Not Available [address], [address], 07/06/2023 17:34:42 07/06/20 23 07/06/2023 CBC WITH AUTOM ATED DIFF bas# 0.0 10 0.00-0 .10 Not Available [facility] [address] [place] [address], [place], [address], 07/06/2023 17:34:42 07/06/20 23 07/06/2023 CBC WITH AUTOM ATED DIFF Ig# 0.02 0-0.05 Not Available [facility] [address] [place] [address], [place], [address], 07/06/2023 17:34:42 07/06/20 23 07/06/2023 PROTI ME protime (PT) 9.5 secs 9.0-11 .5 Not Available [address], [address], 07/06/2023 17:45:22 07/06/20 23 07/06/2023 PROTI ME INR 0.9 ANDRÉS L RANGE FOR INR < OR = TO 1.0 (BECKY ENTS NOT ON ANTIC OAGUL ANT THERA PY). INR THERA PEUTI C RANGE 2.0 - 3.0 PREVE NTION AND TREAT MENT OF DVT 2.5 - 3.5 PREVE NTION OF RECUR RENT NH, OR POST CARDI AC VALVE REPLA CEMEN T. Not Available [facility] [address] [place] [address], [address], 07/06/2023 17:45:22 07/06/20 23 07/06/2023 PTT APTT 24.1 secs 24.0-3 2.80 Not Available [address], [address], 07/06/2023 17:45:27 07/06/20 23 07/06/2023 COMP METAB OLIC PNL glucose 116 mg/dL 74-106 high Not Available [address], [address], 07/06/2023 17:46:24 07/06/20 23 07/06/2023 COMP METAB OLIC PNL BUN 13 mg/dL 7-18 Not Available [facility] [address] [place] [address], [address], 07/06/2023 17:46:24 07/06/20 23 07/06/2023 COMP METAB OLIC PNL sodium 142 mmol/ L 136-14 5 Not Available [facility] [address] [place] [address], [address], 07/06/2023 17:46:24 07/06/20 23 07/06/2023 COMP METAB OLIC PNL K 4.0 mmol/ L 3.5-5. 1 Not Available [facility] [address] [place] [address], [address], 07/06/2023 17:46:24 07/06/20 23 07/06/2023 COMP METAB OLIC PNL chloride 104 mmol/ L 98-107 Not Available [facility] [address] [place] [address], [address], 07/06/2023 17:46:24 07/06/20 23 07/06/2023 COMP METAB OLIC PNL tot CO2 30 mmol/ L 21.0-3 2.0 Not Available [facility] [address] [place] [address], 15[address], 07/06/2023 17:46:24 07/06/20 23 07/06/2023 COMP METAB OLIC PNL calcium 9.0 mg/dL 8.5-10 .1 Not Available [facility] [address] [place] [address], [address], 07/06/2023 17:46:24 07/06/20 23 07/06/2023 COMP METAB OLIC PNL creatinine 0.9 mg/dL 0.8-1. 3 Not Available [facility] [address] [place] [address], [address], 07/06/2023 17:46:24 07/06/20 23 07/06/2023 COMP METAB OLIC PNL alkaline phos 75 U/L 46-116 Not Available [facility] [address] [place] [address], [address], 07/06/2023 17:46:24 07/06/20 23 07/06/2023 COMP METAB OLIC PNL AST (SGOT) 38 U/L 15-37 high Not Available [facility] [address] [place] [address], [address], 07/06/2023 17:46:24 07/06/20 23 07/06/2023 COMP METAB OLIC PNL albumin 3.4 g/dL 3.4-5. 0 Not Available [facility] [address] [place] [address], [address]85, 07/06/2023 17:46:24 07/06/20 23 07/06/2023 COMP METAB OLIC PNL globulin 2.8 2.0-4. 8 Not Available [facility] [address] [place] [address], [address], 07/06/2023 17:46:24 07/06/20 23 07/06/2023 COMP METAB OLIC PNL total protein 6.2 g/dL 6.4-8. 2 low Not Available [facility] [address] [place] [address], [address], 07/06/2023 17:46:24 07/06/20 23 07/06/2023 COMP METAB OLIC PNL A/G ratio 1.2 0.7-3. 5 Not Available [facility] [address] [place] [address], 835[address], 07/06/2023 17:46:24 07/06/20 23 07/06/2023 COMP METAB OLIC PNL ALT (SGPT) 65 U/L 16-63 high Not Available [facility] [address] [place] [address], [address], 07/06/2023 17:46:24 07/06/20 23 07/06/2023 COMP METAB OLIC PNL total bilirubin 0.4 mg/dL 0.2-1. 1 Not Available [facility] [address] [place] [address], 26[address], 07/06/2023 17:46:24 07/06/20 23 07/06/2023 COMP METAB OLIC PNL GFR >60 60- Refer ence Range : [place] ge GFR Healt hy Adult : >60 [...] can be locat ed on the [facility] websi te: https ://sabina cardenas.an amaya.o ann/pr ofess ional s/kdo qi/gf r_cal culat or Not Available [facility] [address] [place] [address], [address], 07/06/2023 17:46:24 07/06/20 23 07/06/2023 COMP METAB OLIC PNL agap 11.7 mmol/ L 5.0-19 .0 Not Available [facility] [address] [place] [address], [address], 07/06/2023 17:46:24 07/06/20 23 07/06/2023 LIPAS E lipase 57 IU/L 16-77 Not Available [facility] [address] [place] [address], [address], 07/06/2023 17:46:33 07/06/20 23 07/06/2023 NATRI URETI [...] RESUL TS OF STUDY CONDU CTED BY [employer] Not Available [facility] [address] [place] [address], [address], 07/06/2023 17:46:57 07/06/20 23 07/06/2023 NATRI URETI C PEPTI DE kit lot [id number] Not Available [facility] [address] [place] [address], [address], 07/06/2023 17:46:57 07/06/20 23 07/06/2023 NATRI URETI C PEPTI DE kit exp [id number] Not Available [facility] [address] [place] [address], [address], 07/06/2023 17:46:57 07/06/20 23 07/06/2023 TROPO ESME I HIGHL Y SENSI TIVE troponin I high sensitivity 11.8 NG/L <77- low lainez d to jaquelin at 1650 hs THE REFER ENCE RANGE IS BASED ON THE 99TH PERCE NTILE . ACCOR DING TO THE 4TH UNIVE RSAL DEFIN ITION OF ACUTE NH, AN ACUTE NH IS AN ACUTE MYOCA RDIAL INJUR Y WITH CLINI LAW EVIDE NCE OF ACUTE MYOCA RDIAL ISCHE [...] LY DEPRE SSED RESUL TS. Not Available [facility] [address] [place] [address], [address], 07/06/2023 17:49:40 07/06/20 23 07/06/2023 ABBOT T [...] AUTHO RIZED LABOR ATORI ES. Not Available [facility] [address] [place] [address], [address], 07/06/2023 18:09:35 07/06/20 23 07/06/2023 ABBOT T ID NOW COVID 19 internal qqc VALID Not Available [facility] [address] [place] [address], [address], 07/06/2023 18:09:35 07/06/20 23 07/06/2023 ABBOT T ID NOW COVID 19 kit lot [id number] Not Available [facility] [address] [place] [address], [address], 07/06/2023 18:09:35 07/06/20 23 07/06/2023 ABBOT T ID NOW COVID 19 kit exp [id number] Not Available [address], [address], 07/06/2023 18:09:35 08/08/20 23 08/08/2023 CBC WITH AUTOM ATED DIFF WBC 6.2 10 4.2-9. 1 Not Available [address], [address], 08/08/2023 10:40:34 08/08/20 23 08/08/2023 CBC WITH AUTOM ATED DIFF RBC 5.56 10 4.60-6 .08 Not Available [facility] [address] [place] [address], 82966, 08/08/2023 10:40:34 08/08/20 23 08/08/2023 CBC WITH AUTOM ATED DIFF HGB 16.5 g/dL 13.7-1 7.5 Not Available [address], [address], 08/08/2023 10:40:34 08/08/20 23 08/08/2023 CBC WITH AUTOM ATED DIFF HCT 50.8 % 40.1-5 1.0 Not Available [facility] [address] [place] [address], 25[address], 08/08/2023 10:40:34 08/08/20 23 08/08/2023 CBC WITH AUTOM ATED DIFF MCV 91.4 fL 80.0-9 7.0 Not Available [facility] [address] [place] [address], [address], 08/08/2023 10:40:34 08/08/20 23 08/08/2023 CBC WITH AUTOM ATED DIFF MCH 29.7 pg 29.0-3 4.5 Not Available [facility] [address] [place] [address], [place], [address], 08/08/2023 10:40:34 08/08/20 23 08/08/2023 CBC WITH AUTOM ATED DIFF MCHC 32.5 g/dL 32.5-3 5.5 Not Available [facility] [address] [place] [address], [place], [address], 08/08/2023 10:40:34 08/08/20 23 08/08/2023 CBC WITH AUTOM ATED DIFF RDW 11.9 11.5-1 4.5 Not Available [facility] [address] [place] [address], [place], [address], 08/08/2023 10:40:34 08/08/20 23 08/08/2023 CBC WITH AUTOM ATED DIFF platelet 155 10 160-34 0 low Not Available [facility] [address] [place] [address], [place], [address], 08/08/2023 10:40:34 08/08/20 23 08/08/2023 CBC WITH AUTOM ATED DIFF MPV 9.30 fL 9.0-12 .4 Not Available [facility] [address] [place] [address], [place], [address], 08/08/2023 10:40:34 08/08/20 23 08/08/2023 CBC WITH AUTOM ATED DIFF marco% 79.3 % 34.0-6 7.9 high Not Available [facility] [address] [place] [address], 13[address], 08/08/2023 10:40:34 08/08/20 23 08/08/2023 CBC WITH AUTOM ATED DIFF lym% 10.3 % 22-53 low Not Available [facility] [address] [place] [address], [address], 08/08/2023 10:40:34 08/08/20 23 08/08/2023 CBC WITH AUTOM ATED DIFF mon% 7.90 % 5-12 Not Available [facility] [address] [place] [address], 912[address], 08/08/2023 10:40:34 08/08/20 23 08/08/2023 CBC WITH AUTOM ATED DIFF eos% 1.60 % 0-7 Not Available [address], [address], 08/08/2023 10:40:34 08/08/20 23 08/08/2023 CBC WITH AUTOM ATED DIFF bas% 0.30 % 0-2 Not Available [address], [address], 08/08/2023 10:40:34 08/08/20 23 08/08/2023 CBC WITH AUTOM ATED DIFF Ig% 0.6 0-1.0 Not Available [address], [address], 08/08/2023 10:40:34 08/08/20 23 08/08/2023 CBC WITH AUTOM ATED DIFF marco# 4.95 10 1.5-7 Not Available [address], [address], 08/08/2023 10:40:34 08/08/20 23 08/08/2023 CBC WITH AUTOM ATED DIFF lym# 0.6 10 1.18-4 .00 low Not Available [address], [address], 08/08/2023 10:40:34 08/08/20 23 08/08/2023 CBC WITH AUTOM ATED DIFF mon# 0.5 10 0.00-0 .90 Not Available [address], [address], 08/08/2023 10:40:34 08/08/20 23 08/08/2023 CBC WITH AUTOM ATED DIFF eos# 0.1 10 0.00-0 .60 Not Available [address], [place], [address], 08/08/2023 10:40:34 08/08/20 23 08/08/2023 CBC WITH AUTOM ATED DIFF bas# 0.0 10 0.00-0 .10 Not Available [facility] [address] [place] [address], 11548, 08/08/2023 10:40:34 08/08/20 23 08/08/2023 CBC WITH AUTOM ATED DIFF Ig# 0.04 0-0.05 Not Available [facility] [address] [place] [address], 17561, 08/08/2023 10:40:34 08/08/20 23 08/08/2023 LACTI C ACID (PLAS MA) lactic acid 1.8 mmol/ L 0.4-2. 0 Not Available [facility] [address] [place] [address], [address], 08/08/2023 10:42:29 08/08/20 23 08/08/2023 NATRI URETI [...] RESUL TS OF STUDY CONDU CTED BY [employer] Not Available [facility] [address] [place] [address], 017[address], 08/08/2023 10:46:27 08/08/20 23 08/08/2023 NATRI URETI C PEPTI DE kit lot [id number] A Not Available [facility] [address] [place] [address], 19452, 08/08/2023 10:46:27 08/08/20 23 08/08/2023 NATRI URETI C PEPTI DE kit exp 2-29-2 4 Not Available [facility] [address] [place] [address], 30[address], 08/08/2023 10:46:27 08/08/20 23 08/08/2023 COMP METAB OLIC PNL glucose 199 mg/dL 74-106 high Not Available [facility] [address] [place] [address], 63092, 08/08/2023 10:54:22 08/08/20 23 08/08/2023 COMP METAB OLIC PNL BUN 15 mg/dL 7-18 Not Available [facility] [address] [place] [address], 80115, 08/08/2023 10:54:22 08/08/20 23 08/08/2023 COMP METAB OLIC PNL sodium 138 mmol/ L 136-14 5 Not Available [facility] [address] [place] [address], 17346, 08/08/2023 10:54:22 08/08/20 23 08/08/2023 COMP METAB OLIC PNL K 4.2 mmol/ L 3.5-5. 1 Not Available [facility] [address] [place] [address], 33309, 08/08/2023 10:54:22 08/08/20 23 08/08/2023 COMP METAB OLIC PNL chloride 98 mmol/ L 98-107 Not Available [facility] [address] [place] [address], 30693, 08/08/2023 10:54:22 08/08/20 23 08/08/2023 COMP METAB OLIC PNL tot CO2 30 mmol/ L 21.0-3 2.0 Not Available [facility] [address] [place] [address], 70569, 08/08/2023 10:54:22 08/08/20 23 08/08/2023 COMP METAB OLIC PNL calcium 9.4 mg/dL 8.5-10 .1 Not Available [facility] [address] [place] [address], 85644, 08/08/2023 10:54:22 08/08/20 23 08/08/2023 COMP METAB OLIC PNL creatinine 1.0 mg/dL 0.8-1. 3 Not Available [facility] [address] [place] [address], 83371, 08/08/2023 10:54:22 08/08/20 23 08/08/2023 COMP METAB OLIC PNL alkaline phos 86 U/L 46-116 Not Available [facility] [address] [place] [address], [place], [address], 08/08/2023 10:54:22 08/08/20 23 08/08/2023 COMP METAB OLIC PNL AST (SGOT) 61 U/L 15-37 high Not Available [facility] [address] [place] [address], 99559, 08/08/2023 10:54:22 08/08/20 23 08/08/2023 COMP METAB OLIC PNL albumin 3.5 g/dL 3.4-5. 0 Not Available [address], [address], 08/08/2023 10:54:22 08/08/20 23 08/08/2023 COMP METAB OLIC PNL globulin 3.3 2.0-4. 8 Not Available [facility] [address] [place] [address], 60554, 08/08/2023 10:54:22 08/08/20 23 08/08/2023 COMP METAB OLIC PNL total protein 6.8 g/dL 6.4-8. 2 Not Available [facility] [address] [place] [address], 56[address], 08/08/2023 10:54:22 08/08/20 23 08/08/2023 COMP METAB OLIC PNL A/G ratio 1.1 0.7-3. 5 Not Available [facility] [address] [place], [address], 08/08/2023 10:54:22 08/08/20 23 08/08/2023 COMP METAB OLIC PNL ALT (SGPT) 83 U/L 16-63 high Not Available [facility] [address] [place], [address], 08/08/2023 10:54:22 08/08/20 23 08/08/2023 COMP METAB OLIC PNL total bilirubin 0.7 mg/dL 0.2-1. 1 Not Available [facility] [address] [place], [address], 08/08/2023 10:54:22 08/08/20 23 08/08/2023 COMP METAB OLIC PNL GFR >60 60- Refer ence Range : [place] ge GFR Healt hy Adult : >60 [...] can be locat ed on the [facility] websi te: https ://ww w.kid monique.o rg/pr ofess ional s/kdo qi/gf r_cal culat or Not Available [address], [address], 08/08/2023 10:54:22 08/08/20 23 08/08/2023 COMP METAB OLIC PNL agap 14.3 mmol/ L 5.0-19 .0 Not Available [address], [address], 08/08/2023 10:54:22 08/08/20 23 08/08/2023 D-DIM ER, [...] 400 ng/mL or less) . Not Available [address], [address], 08/08/2023 10:55:08 08/08/20 23 08/08/2023 D-DIM ER, QUANT internal qqc VALID Not Available [facility] [address] [place] [address], [address], 08/08/2023 10:55:08 08/08/20 23 08/08/2023 D-DIM ER, QUANT kit lot [id number] Not Available [address], [address], 08/08/2023 10:55:08 08/08/20 23 08/08/2023 D-DIM ER, QUANT kit exp 2-16-2 4 Not Available [address], [address], 08/08/2023 10:55:08 08/08/20 23 08/08/2023 LIPAS E lipase >250 IU/L 16-77 high LIPAS E: 923 U/L Not Available [facility] [address] [place], [address], 08/08/2023 11:22:31 08/08/20 23 08/08/2023 COVID -19 [...] d be corre lated with the clini law histo [id number]|2025 12:55:26|2025 12:55:26|IVDEFINITY||||"Prior to administration of IV Definity the patient was educated on the risks and benefits of the imaging enhancing agent including potential adverse side effects. The patient verbalized understanding. Allergies were verified. No exclusion criteria were identified and at least one of the following inclusion criteria were met: 1) physician request, 2) patient technically difficult to image (per the [place] [employer] guidelines of two or more segments not discernable within the apical view), or 3) questionable left ventricular function. "
--- OUTSIDE RECORDS SUMMARY | 2025-01-12 06:10 | XMS_ITS | Clinical Summary ---
Author Organization [facility] Address [address] [place] [address] Care Team Providers Care Metal Filer Name Role Phone Malcolm Conteh MD Primary Care Provider [phone] Source Comments [facility],non-owned Affiliates and Associated Physician Practices is amultiple site organization consisting of ambulatory clinics and hospital sitesin [place], [place], [place] and [place]. This disclosure is being madepursuant to the Care Everywhere program and may not contain all information available regarding this patient. Last updated 18.[facility] Allergies No known active allergies Medications * [...] on file Legal Sex Male 5:33 AM RIVET SPINNER Gender Identity Male 07/25/2017 5:45 PM RIVET SPINNER Sexual Orientation Not on file Last Filed [...] Reactive Non Reactive 05/18/2019 6:51 AM CDT [facility] Blood BLOOD SPECIMEN / Unknown Lab Venipuncture / Unknown 05/18/2019 5:23 AM CDT 05/18/2019 6:02 AM CDT Narrative [facility] - 05/18/2019 6:51 AM CDT No Laboratory evidence of HIV infection. Dimitri Jones MD LAB - CHEMISTRY ORDERABLES Fin al Result Performing Organization Address City/[facility]/ZIP Co de Phone Number [facility] [address] [place] [phone] * HEPATITIS SCREEN ACUTE (05/18/2019 5:23 AM CDT) HAV Antibody IgM Non Reactive Non Reactive 05/18/2019 6:51 AM CDT [facility] HBsAg Non Reactive Non Reactive 05/18/2019 6:51 AM CDT [facility] HBc Antibody IgM Non Reactive Non Reactive 05/18/2019 6:51 AM CDT [facility] HCV Antibody Screen Non Reactive Non Reactive 05/18/2019 6:51 AM CDT [facility] HCV S/C Ratio 0.05 0.00 - 0.79 05/18/2019 6:51 AM CDT [facility] Comment: Myuuoa-ls-ftqywj ratio (S/CO) <0.80: Non Reactive Blood BLOOD SPECIMEN / Unknown Lab Venipuncture / Unknown 05/18/2019 5:23 AM CDT 05/18/2019 6:01 AM CDT Narrative [facility] - 05/18/2019 6:51 AM CDT Non Reactive - Antibodies to Hepatitis C virus (HCV) were not detected, result does not exclude early acute HCV infection. Dimitri Jones MD LAB - CHEMISTRY ORDERABLES Fin al Result Performing Organization Address City/[facility] [[email or web address]] Co de Phone Number [facility] [address] [place] [phone] * (ABNORMAL) LIPID PROFILE (04/20/2015 5:55 AM CDT) Cholesterol 109 <200 mg/dL 04/20/2015 6:46 AM CDT [facility] Triglycerides 95 <150 mg/dL 04/20/2015 6:46 AM CDT [facility] HDL Cholesterol 34(L) >40 mg/dL 04/20/2015 [...] CDT 04/20/2015 6:18 AM CDT Ana Justin BUFFING AND SUEDING MACHINE OPERATOR-MEDIA TRAFFIC MANAGER LAB - CHEMISTRY ORDERABL ES Final Result Performing Organization Address [facility] de Phone Number [facility] [address] [place] [address] from Last 3 Months or Most Recently Relevant to Health Maintenance Insurance [facility] Advance Directives * Full Code (Latest Code Status on File) Date Activated Date Inactivated Comments 05/15/2019 5:02 PM 05/18/2019 2:42 PM * Full Code Date Activated Date Inactivated Comments 07/25/2017 8:37 PM 07/30/2017 2:59 PM * Full Code Date Activated Date Inactivated Comments 04/19/2015 1:38 PM 04/20/2015 3:56 PM Care Teams Metal 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
--- OUTSIDE RECORDS SUMMARY | 2025-01-12 06:10 | XMS_ITS | Clinical Summary ---
Author Organization [facility] Address [address] [place] [address] Phone Care Team Providers Care Hydrotherapist Name Role Phone Malcolm Conteh MD Primary Care Provider [phone] Allergies No known active allergies Medications carvedilol (COREG) 25 mg tablet Take 50 mg by mouth 2 times daily with meals. Active aspirin (ECOTRIN EC) 81 mg Tablet, Delayed Release (E.C.) Take 81 mg by mouth daily. 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 30 Tablet 9 Active potassium chloride (KLOR-CON) 10 mEq Extended Release tablet Take 1 Tablet (10 mEq) by mouth every other day. 10 Tablet 07/23/2019 1:25 PM [employer] 9 Active ipratropium-albut tao (DUONEB) 0.5 mg-3 [...] 20 mg 20 Tablet 07/23/2019 1:25 PM [employer]JUST[employer] JOIST 9 Active polyethylene glycol (MIRALAX) 17 gram Powder in Packet Take 1 Packet (17 Grams) by mouth 1 time daily as needed for Constipation. 9 Active glimepiride (AMARYL) 2 mg tablet Take 1 Tablet (2 mg) by mouth daily with breakfast. 30 Tablet 07/23/2019 1:25 PM [employer]IST 9 Active Active Problems Problem Noted Date [...] declined 07/19/2019 How often do you attend jainism or zoroastrian serv ices? Patient declined 07/19/2019 Do you belong to any clubs o r organizations such as jainism groups, unions, fraternal or athletic groups, or [...] Comments Blood Pressure 125/81 07/23/2019 12:35 PM [employer]IST Pulse 93 07/23/2019 12:35 PM [employer] Temperature 36.7 C (98 F) 08/31/2019 11:28 AM LAB[employer] JOIST Respiratory Rate 16 07/23/2019 12:35 PM LABOR[employer] ADJUST[employer] JOIST Oxygen Saturation 91% 07/23/2019 12:35 PM [employer] JOIST Inhaled Oxygen Concentration - - Weight 113.4 kg (250 lb) 08/31/2019 11:28 AM [employer] JO[employer] Height 170.2 cm (5' 7 ) 08/31/2019 11:28 AM LAB[employer]JUST[employer] JOIST Body Mass Index 39.16 08/31/2019 11:28 AM LAB[employer] JOIST Plan of Treatment Health Maintenance Due Date [...] history exists Medical Devices Implanted Type Area Manager Control Device Identifier Shelf Expiration Date Model / Serial / Lot Cardiac Defibrillator Procedures Procedure Name Priority Date/Time Associated Diagnosis Comments HEMOGLOBIN A1C Routine 07/22/2019 4:53 PM [employer] from Last 3 Months or Most Recently Relevant to Health Maintenance Results * (ABNORMAL) HEMOGLOBIN A1C (07/22/2019 4:53 PM LAB[employer] JOIST) HEMOGLOBIN A1C 7.5(H) <=5.6 % 07/22/2019 5:18 PM [employer] JOIST [facility] EST. AVG GLUCOSE, A1C 169 mg/dL 07/22/2019 5:18 PM LAB[employer]IST 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 - 07/22/2019 5:18 PM [employer] JOIST HGB A1C INTERPRETATION NORMAL: <5.7% PRE-DIABETES: 5.7 - 6.4% DIABETES: 6.5% OR GREATER Susan Mckenna MD CHEMISTRY ORDERABLES Final Resul t [facility] CLIA# [id number] [address] [place] [address] from Last 3 Months or Most Recently Relevant to Health Maintenance Insurance [employer] MEDICAID RX [id number] Medicare Part D RX [employer] (INTERNAL) [facility] Advance Directives For more information, please contact: [phone] * Full Code (Latest Code Status on File) Date Activated Date Inactivated Comments 07/19/2019 12:17 PM 07/23/2019 4:02 PM * Full Code Date Activated Date Inactivated Comments 12/02/2018 9:56 AM 12/04/2018 6:18 PM Care Teams Hydrotherapist Relationship Specialty Start Date End Date Malcolm Conteh MD [address] [place] [address] PCP - General Internal Medicine 07/19/19
--- OUTSIDE RECORDS SUMMARY | 2025-01-12 06:10 | XMS_ITS | Encounter Summary ---
Author Organization [facility] Address [address] [place] [address] Care Team Providers Care Product Marketing Programs Manager Name Role Phone Malcolm Conteh MD Primary Care Provider [phone] Reason for Visit * Reason Onset Date Comments TO NOTIFY PCP 07/19/2019 Encounter Details Date Type Department Care Team (Late st Contact Info) Description 07/19/2019 Telephone [facility] [address] [place] [address] [place] [address] [facility] [address] [place] [address] TO NOTIFY PCP Social History [...] declined 07/19/2019 How often do you attend adventism or advent serv ices? Patient declined 07/19/2019 Do you belong to any clubs o r organizations such as adventism groups, unions, fraternal or athletic groups, or [...] on filedocumented in this encounter Care Teams Product Marketing Programs Manager Relationship Specialty Start Date End Date Malcolm Conteh MD [facility] [place] [address] PCP - General Internal Medicine 07/19/19 documented as of this encounter
--- OUTSIDE RECORDS SUMMARY | 2025-01-12 06:10 | XMS_ITS | Data Portability ---
Author Organization [employer], Main Office Address [address] [place] [address] Assessment No assessment recorded. Plan of Treatment [...] Organization Detail LastModifiedTime 06/22/2006/22/2022 EKG 12 LEADS [id number] [facility] [address] [address] Test Date: 06-22 Pat Name: JUDSON Arguello tment : EOP Patie nt ID: [id number] Room: [facility]: [facility] : : 01-12 Reque sted By: Order Numbe r: [id number] Gaby fuentes MD: Measu remen ts Inter vals Greig Rate: 93 P: 62 [place]: 161 QRS: 90 QRSD: 93 T: 51 QT: 348 QTc: 433 Inter preti ve State ments Sinus rhyth m Borde rline right axis devia tion Low volta ge, extre mity leads Not Available [facility] [address] [place] [address], [place], [address], 06/22/2022 18:56:20 06/05/20 22 06/05/2022 EKG 12 LEADS [id number] [facility] [address] [place] [address] Test Date: 05-30 Pat Name: JUDSON Mohamud Depar tment : EOP Patie nt ID: [id number] Room: Gende r: M Techn ician : : 01-12 Reque sted By: Order Karissa r: [id number] Gaby fuentes MD: Daisy fitzgerald ts Inter vals Greig Rate: 80 P: 69 [place]: 176 QRS: 89 QRSD: 91 T: 44 QT: 373 QTc: 431 Inter preti ve State ments Sinus rhyth m Aziza londono kimberly Beverley d On 2021 23:23 :16 CDT by Daisy hutchinson Not Available [facility] [address] [place] [address], [address], 06/05/2022 00:23:24 05/30/20 22 05/30/2022 EKG 12 LEADS [id number] [facility] [address] [place] [address] Test Date: 05-30 Pat Name: JUDSON CUNNINGHAM VANESSA Arguello tment : EOP Patie nt ID: [id number] Room: Gende r: M Techn ician : : 01-12 Reque sted By: Order Karissa r: [id number] Gaby fuentes MD: Bernardo fitzgerald ts Inter vals Greig Rate: 80 P: 69 [place]: 176 QRS: 89 QRSD: 91 T: 44 QT: 373 QTc: 431 Inter preti ve State ments Sinus rhyth m Low volta ge, extre mity leads Not Available [facility] [address] [place] [address], [address], 05/30/2022 12:58:38 05/30/20 22 05/30/2022 ABBOT T [...] AUTHO RIZED LABOR ATORI ES. Not Available [facility] [address] [place] [address], [address], 05/30/2022 09:58:57 05/30/20 22 05/30/2022 ABBOT T ID NOW COVID 19 internal qqc valid Not Available [facility] [address] [place] [address], [address], 05/30/2022 09:58:57 05/30/20 22 05/30/2022 ABBOT T ID NOW COVID 19 kit lot [id number] Not Available [facility] [address] [place] [address], [address], 05/30/2022 09:58:57 05/30/20 22 05/30/2022 ABBOT T ID NOW COVID 19 kit exp [id number] Not Available [address], [address], 05/30/2022 09:58:57 05/30/20 22 05/30/2022 D-DIM ER, [...] 400 ng/mL or less) . Not Available [facility] [address] [place] [address], [address], 05/30/2022 09:45:56 05/30/20 22 05/30/2022 D-DIM ER, QUANT internal qqc valid Not Available [address], [address], 05/30/2022 09:45:56 05/30/20 22 05/30/2022 D-DIM ER, QUANT kit lot [id number] Not Available [address], [address], 05/30/2022 09:45:56 05/30/20 22 05/30/2022 D-DIM ER, QUANT kit exp [id number] Not Available [address], [address], 05/30/2022 09:45:56 05/30/20 22 05/30/2022 NATRI URETI [...] RESUL TS OF STUDY CONDU CTED BY [employer] Not Available [facility] [address] [place] [address], [address], 05/30/2022 09:35:15 05/30/20 22 05/30/2022 NATRI URETI C PEPTI DE kit lot [id number] Not Available [facility] [address] [place] [address], [address], 05/30/2022 09:35:15 05/30/20 22 05/30/2022 NATRI URETI C PEPTI DE kit exp [id number] Not Available [facility] [address] [place] [address], [address], 05/30/2022 09:35:15 05/30/20 22 05/30/2022 COMP METAB OLIC PNL glucose 106 mg/dL 74-106 Not Available [address], [address], 05/30/2022 09:29:27 05/30/20 22 05/30/2022 COMP METAB OLIC PNL BUN 14 mg/dL 7-18 Not Available [facility] [address] [place] [address], [address], 05/30/2022 09:29:27 05/30/20 22 05/30/2022 COMP METAB OLIC PNL sodium 142 mmol/ L 136-14 5 Not Available [facility] [address] [place] [address], [address], 05/30/2022 09:29:27 05/30/20 22 05/30/2022 COMP METAB OLIC PNL K 4.3 mmol/ L 3.5-5. 1 Not Available [facility] [address] [place] [address], [place], [address], 05/30/2022 09:29:27 05/30/20 22 05/30/2022 COMP METAB OLIC PNL chloride 103 mmol/ L 98-107 Not Available [facility] [address] [place] [address], [place], [address], 05/30/2022 09:29:27 05/30/20 22 05/30/2022 COMP METAB OLIC PNL tot CO2 35 mmol/ L 21.0-3 2.0 high Not Available [facility] [address] [place] [address] [place], [address], 05/30/2022 09:29:27 05/30/20 22 05/30/2022 COMP METAB OLIC PNL calcium 8.4 mg/dL 8.5-10 .1 low Not Available [facility] [address] [place] [address] [place], [address], 05/30/2022 09:29:27 05/30/20 22 05/30/2022 COMP METAB OLIC PNL creatinine 0.9 mg/dL 0.8-1. 3 Not Available [facility] [address] [place] [address] [place], [address], 05/30/2022 09:29:27 05/30/20 22 05/30/2022 COMP METAB OLIC PNL alkaline phos 74 U/L 38-126 Not Available Pending sale to [facility] [address] [place] [address] [place], [address], 05/30/2022 09:29:27 05/30/20 22 05/30/2022 COMP METAB OLIC PNL AST (SGOT) 22 U/L 15-37 Not Available [facility] [address] [place] [address] [place], [address], 05/30/2022 09:29:27 05/30/20 22 05/30/2022 COMP METAB OLIC PNL albumin 3.4 g/dL 3.4-5. 0 Not Available [facility] [address] [place] [address] [place], [address], 05/30/2022 09:29:27 05/30/20 22 05/30/2022 COMP METAB OLIC PNL globulin 3.0 2.0-4. 8 Not Available [facility] [address] [place] [address] [place], [address], 05/30/2022 09:29:27 05/30/20 22 05/30/2022 COMP METAB OLIC PNL total protein 6.4 g/dL 6.4-8. 2 Not Available [facility] [address] [place] [address], [place], [address], 05/30/2022 09:29:27 05/30/20 22 05/30/2022 COMP METAB OLIC PNL A/G ratio 1.1 0.7-3. 5 Not Available [facility] [address] [place] [address], [address], 05/30/2022 09:29:27 05/30/20 22 05/30/2022 COMP METAB OLIC PNL ALT (SGPT) 52 U/L 21-72 Not Available [facility] [address] [place] [address], [place], [address], 05/30/2022 09:29:27 05/30/20 22 05/30/2022 COMP METAB OLIC PNL total bilirubin 0.5 mg/dL 0.2-1. 1 Not Available [facility] [address] [place] [address], [address], 05/30/2022 09:29:27 05/30/20 22 05/30/2022 COMP METAB OLIC PNL GFR >60 60- Refer ence Range : [place] ge GFR Healt hy Adult : >60 [...] lator can be locat ed on the [facility] websi te: https ://sabina cardenas.an bourney.o rg/pr ofess ional s/kdo qi/gf r_cal culat or Not Available [facility] [address] [place] [address], [address], 05/30/2022 09:29:27 05/30/20 22 05/30/2022 COMP METAB OLIC PNL agap 8.7 mmol/ L 5.0-19 .0 Not Available [facility] [address] [place] [address], [address], 05/30/2022 09:29:27 05/30/20 22 05/30/2022 CBC WITH AUTOM ATED DIFF WBC 6.7 10 4.2-9. 1 Not Available [facility] [address] [place] [address], [address], 05/30/2022 09:17:48 05/30/20 22 05/30/2022 CBC WITH AUTOM ATED DIFF RBC 5.38 10 4.60-6 .08 Not Available [facility] [address] [place] [address], [address], 05/30/2022 09:17:48 05/30/20 22 05/30/2022 CBC WITH AUTOM ATED DIFF HGB 16.0 g/dL 13.7-1 7.5 Not Available [facility] [address] [place] [address], [address], 05/30/2022 09:17:48 05/30/20 22 05/30/2022 CBC WITH AUTOM ATED DIFF HCT 50.2 % 40.1-5 1.0 Not Available [facility] [address] [place] [address], [address], 05/30/2022 09:17:48 05/30/20 22 05/30/2022 CBC WITH AUTOM ATED DIFF MCV 93.3 fL 79.0-9 2.2 high Not Available [facility] [address] [place] [address], [address], 05/30/2022 09:17:48 05/30/20 22 05/30/2022 CBC WITH AUTOM ATED DIFF MCH 29.7 pg 29.0-3 4.5 Not Available [facility] [address] [place] [address], [address], 05/30/2022 09:17:48 05/30/20 22 05/30/2022 CBC WITH AUTOM ATED DIFF MCHC 31.9 g/dL 32.5-3 5.5 low Not Available [facility] [address] [place] [address], 86[address], 05/30/2022 09:17:48 05/30/20 22 05/30/2022 CBC WITH AUTOM ATED DIFF RDW 12.2 11.5-1 4.5 Not Available [facility] [address] [place] [address], 7[address], 05/30/2022 09:17:48 05/30/20 22 05/30/2022 CBC WITH AUTOM ATED DIFF platelet 133 10 160-34 0 low Not Available [facility] [address] [place] [address], [address], 05/30/2022 09:17:48 05/30/20 22 05/30/2022 CBC WITH AUTOM ATED DIFF MPV 8.90 fL 9.0-12 .4 low Not Available [facility] [address] [place] [address], [address], 05/30/2022 09:17:48 05/30/20 22 05/30/2022 CBC WITH AUTOM ATED DIFF marco% 60.8 % 34.0-6 7.9 Not Available [facility] [address] [place] [address], [place], [address], 05/30/2022 09:17:48 05/30/20 22 05/30/2022 CBC WITH AUTOM ATED DIFF lym% 28.5 % 22-53 Not Available [facility] [address] [place] [address], [place], [address], 05/30/2022 09:17:48 05/30/20 22 05/30/2022 CBC WITH AUTOM ATED DIFF mon% 7.20 % 5-12 Not Available [facility] [address] [place] [address], [address], 05/30/2022 09:17:48 05/30/20 22 05/30/2022 CBC WITH AUTOM ATED DIFF eos% 2.70 % 0-7 Not Available [facility] [address] [place] [address], [address], 05/30/2022 09:17:48 05/30/20 22 05/30/2022 CBC WITH AUTOM ATED DIFF bas% 0.40 % 0-2 Not Available [facility] [address] [place] [address], [address], 05/30/2022 09:17:48 05/30/20 22 05/30/2022 CBC WITH AUTOM ATED DIFF Ig% 0.4 0-1.0 Not Available [facility] [address] [place] [address], [address], 05/30/2022 09:17:48 05/30/20 22 05/30/2022 CBC WITH AUTOM ATED DIFF marco# 4.08 10 1.5-7 Not Available [facility] [address] [place] [address], [address], 05/30/2022 09:17:48 05/30/20 22 05/30/2022 CBC WITH AUTOM ATED DIFF lym# 1.9 10 1.18-4 .00 Not Available [address], [address], 05/30/2022 09:17:48 05/30/20 22 05/30/2022 CBC WITH AUTOM ATED DIFF mon# 0.5 10 0.00-0 .90 Not Available [address], [address], 05/30/2022 09:17:48 05/30/20 22 05/30/2022 CBC WITH AUTOM ATED DIFF eos# 0.2 10 0.00-0 .60 Not Available [address], [address], 05/30/2022 09:17:48 05/30/20 22 05/30/2022 CBC WITH AUTOM ATED DIFF bas# 0.0 10 0.00-0 .10 Not Available [address], [address], 05/30/2022 09:17:48 05/30/20 22 05/30/2022 CBC WITH AUTOM ATED DIFF Ig# 0.03 0-0.05 Not Available [address], [address], 05/30/2022 09:17:48 06/22/20 22 06/22/2022 ABBOT T [...] AUTHO RIZED LABOR ATORI ES. Not Available [facility] [address] [place] [address], [address], 06/22/2022 19:18:38 06/22/20 22 06/22/2022 ABBOT T ID NOW COVID 19 internal qqc valid Not Available [facility] [address] [place] [address], [address], 06/22/2022 19:18:38 06/22/20 22 06/22/2022 ABBOT T ID NOW COVID 19 kit lot [id number] Not Available [facility] [address] [place] [address], [address], 06/22/2022 19:18:38 06/22/20 22 06/22/2022 ABBOT T ID NOW COVID 19 kit exp [id number] Not Available [facility] [address] [place] [address], [address], 06/22/2022 19:18:38 06/22/2006/22/2022 COMP METAB OLIC PNL glucose 116 mg/dL 74-106 high Not Available [facility] [address] [place] [address], 10046, 06/22/2022 19:45:47 06/22/20 22 06/22/2022 COMP METAB OLIC PNL BUN 15 mg/dL 7-18 Not Available [facility] [address] [place] [address], [address], 06/22/2022 19:45:47 06/22/2006/22/2022 COMP METAB OLIC PNL sodium 142 mmol/ L 136-14 5 Not Available [facility] [address] [place] [address], [address]65, 06/22/2022 19:45:47 06/22/2006/22/2022 COMP METAB OLIC PNL K 3.9 mmol/ L 3.5-5. 1 Not Available [facility] [address] [place] [address], [address]69, 06/22/2022 19:45:47 06/22/2006/22/2022 COMP METAB OLIC PNL chloride 101 mmol/ L 98-107 Not Available [facility] [address] [place] [address], 99169, 06/22/2022 19:45:47 06/22/2006/22/2022 COMP METAB OLIC PNL tot CO2 35 mmol/ L 21.0-3 2.0 high Not Available [facility] [address] [place] [address], [address], 06/22/2022 19:45:47 06/22/20 22 06/22/2022 COMP METAB OLIC PNL calcium 8.2 mg/dL 8.5-10 .1 low Not Available [facility] [address] [place] [address], 29605, 06/22/2022 19:45:47 06/22/20 22 06/22/2022 COMP METAB OLIC PNL creatinine 1.0 mg/dL 0.8-1. 3 Not Available [facility] [address] [place] [address], [address]69, 06/22/2022 19:45:47 06/22/20 22 06/22/2022 COMP METAB OLIC PNL alkaline phos 65 U/L 38-126 Not Available Pending sale to [facility] [address] [place] [address], [address], 06/22/2022 19:45:47 06/22/2006/22/2022 COMP METAB OLIC PNL AST (SGOT) 44 U/L 15-37 high Not Available [facility] [address] [place] [address], [address], 06/22/2022 19:45:47 06/22/2006/22/2022 COMP METAB OLIC PNL albumin 3.2 g/dL 3.4-5. 0 low Not Available [facility] [address] [place] [address], [address], 06/22/2022 19:45:47 06/22/20 22 06/22/2022 COMP METAB OLIC PNL globulin 2.9 2.0-4. 8 Not Available [address], [address], 06/22/2022 19:45:47 06/22/2006/22/2022 COMP METAB OLIC PNL total protein 6.1 g/dL 6.4-8. 2 low Not Available [facility] [address] [place] [address], [address]842, 06/22/2022 19:45:47 06/22/20 22 06/22/2022 COMP METAB OLIC PNL A/G ratio 1.1 0.7-3. 5 Not Available [address], [address], 06/22/2022 19:45:47 06/22/20 22 06/22/2022 COMP METAB OLIC PNL ALT (SGPT) 56 U/L 21-72 Not Available [facility] [address] [place], [address], 06/22/2022 19:45:47 06/22/2006/22/2022 COMP METAB OLIC PNL total bilirubin 0.3 mg/dL 0.2-1. 1 Not Available [facility] [address] [place], [address], 06/22/2022 19:45:47 06/22/20 22 06/22/2022 COMP METAB OLIC PNL GFR >60 60- Refer ence Range : [place] ge GFR Healt hy Adult : >60 [...] lator can be locat ed on the [facility] websi te: https ://sabina amaya.dat juarez/pr adrián irvingal s/kdo qi/gf r_cal culat or Not Available [facility] [address] [place], [address], 06/22/2022 19:45:47 06/22/2006/22/2022 COMP METAB OLIC PNL agap 10.2 mmol/ L 5.0-19 .0 Not Available [facility] [address] [place] [address], [address]99, 06/22/2022 19:45:47 06/22/2006/22/2022 LACTI C ACID (PLAS MA) lactic acid 1.3 mmol/ L 0.4-2. 0 Not Available [facility] [address] [place] [address], 48966, 06/22/2022 19:14:12 06/22/2006/22/2022 NATRI URETI C PEPTI [...] RESUL TS OF STUDY CONDU CTED BY [employer] Not Available [address], [address], 06/22/2022 19:05:18 06/22/2006/22/2022 NATRI URETI C PEPTI DE kit lot [id number] Not Available [facility] [address] [place] [address], [address], 06/22/2022 19:05:18 06/22/2006/22/2022 NATRI URETI C PEPTI DE kit exp [id number] Not Available [address], [address], 06/22/2022 19:05:18 06/22/20 22 06/22/2022 CBC WITH AUTOM ATED DIFF WBC 3.8 10 4.2-9. 1 low Not Available [address], [place], [address], 06/22/2022 18:55:40 06/22/2006/22/2022 CBC WITH AUTOM ATED DIFF RBC 5.00 10 4.60-6 .08 Not Available [facility] [address] [place] [address], 12668, 06/22/2022 18:55:40 06/22/2006/22/2022 CBC WITH AUTOM ATED DIFF HGB 14.8 g/dL 13.7-1 7.5 Not Available [facility] [address] [place] [address], 19875, 06/22/2022 18:55:40 06/22/2006/22/2022 CBC WITH AUTOM ATED DIFF HCT 46.1 % 40.1-5 1.0 Not Available [facility] [address] [place] [address], 59502, 06/22/2022 18:55:40 06/22/2006/22/2022 CBC WITH AUTOM ATED DIFF MCV 92.2 fL 79.0-9 2.2 Not Available [facility] [address] [place] [address], 20215, 06/22/2022 18:55:40 06/22/2006/22/2022 CBC WITH AUTOM ATED DIFF MCH 29.6 pg 29.0-3 4.5 Not Available [facility] [address] [place] [address], 71191, 06/22/2022 18:55:40 06/22/2006/22/2022 CBC WITH AUTOM ATED DIFF MCHC 32.1 g/dL 32.5-3 5.5 low Not Available [facility] [address] [place] [address], 25[address], 06/22/2022 18:55:40 06/22/2006/22/2022 CBC WITH AUTOM ATED DIFF RDW 12.3 11.5-1 4.5 Not Available [facility] [address] [place] [address], [place], [address], 06/22/2022 18:55:40 06/22/2006/22/2022 CBC WITH AUTOM ATED DIFF platelet 95 10 160-34 0 critical low Not Available [facility] [address] [place] [address], 74948, 06/22/2022 18:55:40 06/22/2006/22/2022 CBC WITH AUTOM ATED DIFF MPV 8.70 fL 9.0-12 .4 low Not Available [facility] [address] [place] [address], [place], [address], 06/22/2022 18:55:40 06/22/2006/22/2022 CBC WITH AUTOM ATED DIFF marco% 48.3 % 34.0-6 7.9 Not Available [facility] [address] [place] [address], 13424, 06/22/2022 18:55:40 06/22/2006/22/2022 CBC WITH AUTOM ATED DIFF lym% 39.5 % 22-53 Not Available [facility] [address] [place] [address], 75959, 06/22/2022 18:55:40 06/22/2006/22/2022 CBC WITH AUTOM ATED DIFF mon% 10.30 % 5-12 Not Available [facility] [address] [place] [address], 29764, 06/22/2022 18:55:40 06/22/2006/22/2022 CBC WITH AUTOM ATED DIFF eos% 1.10 % 0-7 Not Available [facility] [address] [place] [address], 6[address]40, 06/22/2022 18:55:40 06/22/2006/22/2022 CBC WITH AUTOM ATED DIFF bas% 0.50 % 0-2 Not Available [facility] [address] [place] [address], 32111, 06/22/2022 18:55:40 06/22/20 22 06/22/2022 CBC WITH AUTOM ATED DIFF Ig% 0.3 0-1.0 Not Available [facility] [address] [place] [address], [place], [address], 06/22/2022 18:55:40 06/22/20 22 06/22/2022 CBC WITH AUTOM ATED DIFF marco# 1.82 10 1.5-7 Not Available [facility] [address] [place] [address], [place], [address], 06/22/2022 18:55:40 06/22/20 22 06/22/2022 CBC WITH AUTOM ATED DIFF lym# 1.5 10 1.18-4 .00 Not Available [facility] [address] [place] [address], [place], [address], 06/22/2022 18:55:40 06/22/20 22 06/22/2022 CBC WITH AUTOM ATED DIFF mon# 0.4 10 0.00-0 .90 Not Available [facility] [address] [place] [address], [place], [address], 06/22/2022 18:55:40 06/22/20 22 06/22/2022 CBC WITH AUTOM ATED DIFF eos# 0.0 10 0.00-0 .60 Not Available [facility] [address] [place] [address], [place], [address], 06/22/2022 18:55:40 06/22/20 22 06/22/2022 CBC WITH AUTOM ATED DIFF bas# 0.0 10 0.00-0 .10 Not Available [facility] [address] [place] [address], [place], [address], 06/22/2022 18:55:40 06/22/20 22 06/22/2022 CBC WITH AUTOM ATED DIFF Ig# 0.01 0-0.05 Not Available [facility] [address] [place] [address], [place], [address], 06/22/2022 18:55:40 06/06/20 21 06/06/2021 elect rocar diogr am No observ ation record ed. [id number] [email or web address] [address], [address], 10/29/2022 08:15:31 06/06/20 21 elect rocar diogr am No observ ation record ed. [id number] [email or web address] [address], [address], 10/29/2022 08:15:31 05/30/20 22 05/30/2022 XR, chest , [address] [place] [address] KATHLEEN Frankel REPORT Name: NANCY THOMAS Room #: : 1969 Accoun t #: [id number] Bed #: Age: 52 Years Patien t Type: Outpat ient Order Date/T merle: 2021 08:32: 40 AM Sex: M Access ion#: Exam Descri ption: Exam Reason : [id number] XR CHEST 1V Dyspne a Dictat [...] 022 9:01 AM CDT Workst ation: [id number] PAGE 1 OF 1 [id number] [facility] [address] [place] [address], [address], 10/29/2022 08:15:31 05/30/20 22 05/30/2022 CT, head, w/o contr ast [facility] al [address] [place] [id number] IMAGIN G REPORT Name: NANCY THOMAS Steve Room #: : 1969 Accoun t #: [id number] Bed #: Age: 52 Years Patien t Type: Outpat ient Order Date/T merle: 2021 07:55: 00 AM Sex: M Access ion#: Exam Descri ption: Exam Reason : [id number] CT HEAD WO Headac he Dictat [...] l, adjust ment of the mA and/or [id number]|2025-01-15 10:08:10|2025-01-15 10:08:10|PM.PNCARD||||"Progress Note: A&P Assessment and Plan (1) Cardiomyopathy: Code(s): I42.9 - Cardiomyopathy, unspecified Status: Acute Assessment and Plan: Nonischemic cardiomyopathy, EF 25-30%. Continue Coreg 6.25 mg q.12 hours Continue lisinopril 2.5 mg daily Continue spironolactone 25 mg daily Can also add Jardiance if he is able to afford it He has an ICD (2) Acute exacerbation of CHF (congestive heart failure): Code(s): I50.9 - Heart failure, unspecified Status: Acute Assessment and Plan: Acute on chronic systolic heart failure secondary to running out of medications. Improving with IV furosemide DC IV furosemide and start furosemide 40 mg p.o. daily today Strict intake and output Daily weights CHF counseling (3) Hypertension: Code(s): I10 - Essential (primary) hypertension Status: Acute Assessment and Plan: Blood pressure is at goal. (4) Tobacco use disorder: Code(s): F17.200 - Nicotine dependence, unspecified, uncomplicated Status: Acute Assessment and Plan: Counseling performed Subjective Date/time seen: 01/15/25 10:08 Interval history: Patient is 55 years pld male with history of combined CHF, COPD, GERD presented with SOB and chest pain since this morning. Patient notes his SOB is worse with activity. denies any cough/fever/chills. ayaz weight gain but has bilateral leg swelling. patient also complain of tightening midsternal chest pain, non radiating. presented to ER for further management. lab test showed Normal troponin, elevated BNP. admitted for IV lasix. patient was seen and examined at bedside. breathing improving still has mild chest pain.he already had breakfast. will continue Lasix. Echo LVef 25% Date of service 01/14/2025: He is feeling better. Swelling has improved. Shortness breath still present but better. Date of service 01/15/2025: Overall feeling pretty good and thinks he is study for discharge. Shortness breath is better. No swelling. No chest pain Review of Systems Review of Systems: All systems reviewed & are unremarkable except as noted in HPI and below Constitutional: Constitutional: Denies body ache(s) Cardiovascular: Cardiovascular: Denies pedal edema, Denies palpitations and Reports dyspnea Respiratory: Respiratory: Reports dyspnea Gastrointestinal: Gastrointestinal: Denies heartburn Endocrine: Endocrine: Denies palpitations Exam Const: General: comfortable, no acute distress, alert and awake Orientation/consciousness: patient oriented x3 HENMT: Head: normal to inspection Eyes: General: appearance normal, both eyes and all related structures Sclera: sclerae normal Pupils: Equal, round and reactive pupils present Neck: Neck: normal visual inspection, supple and no JVD Carotids: normal carotid upstroke Resp: Effort & Inspection: normal respiratory effort Auscultation: clear to auscultation bilaterally and rales on the left in the lower lung arreola Cardio: Rate: regular rate Rhythm: regular rhythm Heart sounds: S1 normal heart sound present, S2 normal heart sound present and no murmurs GI: Auscultation: normal bowel sounds Skin: General skin exam: normal color Neuro: General: patient oriented x3 Cranial nerves: Yes Equal, round and reactive pupils present Speech: normal speech Extrem: General: normal to inspection Other: no edema Psych: Appearance: grossly normal Mental Status: mental status grossly normal Objective Data Vital Signs Vital Signs: Vital Signs - 24 hr 01/14/25 14:00 01/14/25 20:00 01/14/25 20:54 Temperature 36.4 C Pulse Rate 86 85 85 Respiratory Rate 20 20 Blood Pressure 115/79 119/74 Pulse Oximetry 99 97 97 Oxygen Delivery Room Air 01/15/25 05:16 01/15/25 09:08 Temperature 36.5 C Pulse Rate 84 68 Respiratory Rate 20 Blood Pressure 102/69 Pulse Oximetry 94 Oxygen Delivery Intake/Output Intake/Output: Intake & Output 01/12/25 01/13/25 01/14/25 01/15/25 23:59 23:59 23:59 23:59 Intake Total 1300 1340 2430 780 Output Total 850 1000 Balance 6269 599 6853 780 Meds/Results Medications: Active Medications Generic Name Dose Route Start Last Admin Trade Name Freq PRN Reason Stop Dose Admin Alprazolam 0.25 mg 01/14/25 17:32 01/14/25 20:38 Alprazolam (*Crx) 0.25 Mg Tablet PO 0.25 mg TID PRN Administration Anxiety Calcium Carbonate 200 mg 01/14/25 14:48 01/14/25 20:38 Calcium Carbonate (Tums) 500 Mg (200 Mg Elemental) PO 200 mg Q6H PRN Administration Indigestion Carvedilol 6.25 mg 01/12/25 11:00 01/15/25 09:08 Carvedilol 6.25 Mg Tablet PO 6.25 mg Q12HR ZEINA Administration Cyclobenzaprine HCl 10 mg 01/12/25 10:14 01/14/25 14:37 Cyclobenzaprine Hcl 10 Mg Tablet PO 10 mg TID PRN Administration muscle spasm Enoxaparin Sodium 40 mg 01/13/25 09:00 01/15/25 09:09 Enoxaparin 40 Mg/0.4 Ml Syringe SUB-Q 40 mg DAILY ZEINA Administration Furosemide 40 mg 01/15/25 09:00 01/15/25 09:08 Furosemide Inj 40 Mg/4 Ml Vial IV PUSH 40 mg DAILY ZEINA Administration Lisinopril 2.5 mg 01/12/25 09:00 01/15/25 09:08 Lisinopril 2.5 Mg Tablet PO 2.5 mg DAILY ZEINA Administration Perflutren Lipid Microsphere 0 ml 01/13/25 07:13 Perflutren Lipid Microspheres 1.5 Ml Vial Diluted To 10 Ml Total Volume IV PUSH 01/16/25 07:13 ONCE PRN adequate visualization Protocol Spironolactone 25 mg 01/14/25 09:00 01/15/25 09:08 Spironolactone 25 Mg Tablet PO 25 mg QAM ZIENA Administration Radiology Results: ITS Impressions Chest X-Ray 01/12/25 06:55 Impression: Possible minimal bibasilar pulmonary edema changes. Labs Labs: Laboratory Results - last 24 hr 01/15/25 04:32 WBC 6.5 RBC 5.44 Hgb 16.1 Hct 49.3 MCV 90.6 MCH 29.6 MCHC 32.7 RDW 12.3 Plt Count 112 L MPV 9.4 Sodium 137 Potassium 4.7 Chloride 100 Carbon Dioxide 33 H Anion Gap 4 BUN 20 Creatinine 1.02 Estim Creat Clear Calc 80 Estimated GFR > 60 Glucose 122 H Calcium 9.1"
--- NOTE | 2025-01-12 06:11 | ECG_ITS ---
Test Date: 2025-01-12 06:20:59 Measurements Intervals [employer] Rate: 108 P: 56 VT: 193 QRS: 78 QRSD: 92 T: 44 QT: 329 QTc: 443 Interpretive Statements SINUS TACHYCARDIA POSSIBLE LEFT ATRIAL ENLARGEMENT [-0.1mV P WAVE IN V1/V2] LOW QRS VOLTAGE IN EXTREMITY LEADS [QRS DEFLECTION < 0.5 mV IN LIMB LEADS] ABNORMAL RHYTHM ECG Compared to ECG 07/19/2024 14:56:24 Low QRS voltage now present Electronically Signed On 01-12-2025 16:01:19 CDT by Aries Katz M.D.
[2025-01-12] MEDS: ASPIRIN 81 MG CHEWABLE TABLET 324 MG PO (06:28)
[2025-01-12 06:36] LABS: Basophils Percent Auto 0.5 % (0.2-1.2); Eosinophils Absolute Auto 0.2 K/mm3 (0-0.3); Eosinophils Percent Auto 2.4 % (0-4.4); Hematocrit 52.5 % (42.0-52.0); Hemoglobin 17.3 g/dL (14.0-18.0); Immature Granulocyte Absolute 0.04 K/mm3 (0.00-0.031); Immature Granulocyte Percent A 0.6 % (0-0.5); Immature Platelet Fraction Pct 1.9 % (0.9-11.2); Lymphocytes Absolute Auto 1.53 K/mm3 (0.9-3.2); Lymphocytes Percent Auto 24.3 % (18.3-44.2); Mean Corpuscular Hemoglobin 29.7 pg (26-34); Mean Corpuscular Volume 90.1 fl (80-100); Mean Platelet Volume 9.3 fl (7.4-10.4); Monocytes Absolute Auto 0.5 K/mm3 (0.1-0.6); Monocytes Percent Auto 7.3 % (2.6-8.5); Neutrophils Absolute Auto 4.1 K/mm3 (1.3-6.7); Neutrophils Percent Auto 64.9 % (45.5-73.1); Platelet Count Result 132 k/mm3 (150-375); Red Blood Count 5.83 M/mm3 (4.6-6.20); Red Cell Distribution Width 12.5 % (11.5-14.5); White Blood Count 6.3 K/mm3 (4.5-10.0)
[2025-01-12 06:49] LABS: Alanine Aminotransferase 35 U/L (6-50); Albumin Level 4.2 g/dL (3.5-5.1); Alkaline Phosphatase 72 U/L (38-126); Anion Gap 6 mmol/L (4-12); Aspartate Amino Transferase 38 U/L (17-59); Bilirubin,Total 1.1 mg/dL (0.2-1.3); Blood Urea Nitrogen 14 mg/dL (9-20); Carbon Dioxide 32 mmol/L (22-30); Chloride 103 mmol/L (98-107); Estimated CRCL calculation 92 ml/min; Estimated Glomerular Filt Rate > 60; Glucose 104 mg/dL (65-110); Lipase 73 U/L (23-300); Potassium 3.8 mmol/L (3.4-5.0); Sodium 141 mmol/L (137-145)
[2025-01-12 06:50] LABS: INR 0.9; Prothrombin Time 12.4 Seconds (11.1-14.7)
[2025-01-12 06:51] LABS: Partial Thromboplastin Time 26.1 Seconds (22.3-36.8)
[2025-01-12 07:01] LABS: NT Pro B Type Natriuretic Pept 2290 pg/mL (19.9-100); Troponin I < 0.012 ng/mL (0.000-0.034)
[2025-01-12] MEDS: FUROSEMIDE INJ 40 MG/4 ML VIAL IV PUSH ×2 (07:15→17:03)
--- OUTSIDE RECORDS SUMMARY | 2025-01-12 07:29 | XMS_ITS | Clinical Summary ---
Author Organization [facility] Address [address] [place] [address] Care Team Providers Care Toy Designer Name Role Phone Malcolm Conteh MD Primary Care Provider [phone] Source Comments [facility],non-owned Affiliates and Associated Physician Practices is amultiple site organization consisting of ambulatory clinics and hospital sitesin [place], [place], [place] and [place]. This disclosure is being madepursuant to the Care Everywhere program and may not contain all information available regarding this patient. 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 Dimitri Jones MD LAB - CHEMISTRY ORDERABLES Fin al Result Performing Organization Address City/[facility]/ZIP Co de Phone Number [facility] [address] [place] [phone] * HEPATITIS SCREEN ACUTE (05/18/2019 5:23 AM CDT) HAV Antibody IgM Non Reactive Non Reactive 05/18/2019 6:51 AM CDT [facility] HBsAg Non Reactive Non Reactive 05/18/2019 6:51 AM CDT [facility] HBc Antibody IgM Non Reactive Non Reactive 05/18/2019 6:51 AM CDT [facility] HCV Antibody Screen Non Reactive Non Reactive 05/18/2019 6:51 AM CDT [facility] HCV S/C Ratio 0.05 0.00 - 0.79 05/18/2019 6:51 AM CDT [facility] Comment: Cxqsuo-he-uysqeq ratio (S/CO) <0.80: Non Reactive Blood BLOOD SPECIMEN / Unknown Lab Venipuncture / Unknown 05/18/2019 5:23 AM CDT 05/18/2019 6:01 AM CDT Narrative [facility] - 05/18/2019 6:51 AM CDT Non Reactive - Antibodies to Hepatitis C virus (HCV) were not detected, result does not exclude early acute HCV infection. Dimitri Jones MD LAB - CHEMISTRY ORDERABLES Fin al Result Performing Organization Address City/[facility] Co de Phone Number [facility] [address] [place] [phone] * (ABNORMAL) LIPID PROFILE (04/20/2015 5:55 AM CDT) Cholesterol 109 <200 mg/dL 04/20/2015 6:46 AM CDT [facility] Triglycerides 95 <150 mg/dL 04/20/2015 6:46 AM CDT [facility] HDL Cholesterol 34(L) >40 mg/dL [...] CDT 04/20/2015 6:18 AM CDT Ana Justin BUSINESS SUPPORT LIAISON-SODA CLERK LAB - CHEMISTRY ORDERABL ES Final Result Performing Organization Address [facility] de Phone Number [facility] [address] [place] [address] from Last 3 Months or Most Recently Relevant to Health Maintenance Insurance [facility] Advance Directives * Full Code (Latest Code Status on File) Date Activated Date Inactivated Comments 05/15/2019 5:02 PM 05/18/2019 2:42 PM * Full Code Date Activated Date Inactivated Comments 07/25/2017 8:37 PM 07/30/2017 2:59 PM * Full Code Date Activated Date Inactivated Comments 04/19/2015 1:38 PM 04/20/2015 3:56 PM Care Teams Toy Designer Relationship Specialty Start Date End Date Malcolm Conteh MD [address] [place] [address] PCP - General Internal Medicine 04/19/15
--- OUTSIDE RECORDS SUMMARY | 2025-01-12 07:29 | XMS_ITS | Encounter Summary ---
Author Organization [facility] Address [address] [place] [address] Care Team Providers Care Parts Salesman Name Role Phone Malcolm Conteh MD Primary Care Provider [phone] Reason for Visit * Reason Onset Date Comments TO NOTIFY PCP 07/19/2019 Encounter Details Date Type Department Care Team (Late st Contact Info) Description 07/19/2019 Telephone [facility] [address] [place] [address] [place] [address] [facility] [address] [place] [address] TO NOTIFY PCP Social History [...] declined 07/19/2019 How often do you attend nondenominational or yazidi serv ices? Patient declined 07/19/2019 Do you belong to any clubs o r organizations such as nondenominational groups, unions, fraternal or athletic groups, or [...] on filedocumented in this encounter Care Teams Parts Salesman Relationship Specialty Start Date End Date Malcolm Conteh MD [facility] [place] [address] PCP - General Internal Medicine 07/19/19 documented as of this encounter
--- OUTSIDE RECORDS SUMMARY | 2025-01-12 07:29 | XMS_ITS | Clinical Summary ---
Author Organization [facility] Address [address] [place] [address] Phone Care Team Providers Care Wheel Borer Name Role Phone Malcolm Conteh MD Primary Care Provider [phone] Allergies No known active allergies Medications carvedilol (COREG) 25 mg tablet Take 50 mg by mouth 2 times daily with meals. Active aspirin (ECOTRIN EC) 81 mg Tablet, Delayed Release (E.C.) Take 81 mg by mouth daily. Active methylPREDNISolon e (MEDROL DOSPACK) 4 mg Tablets, Dose Pack Take as directed on package 21 Tablet 07/23/2019 1:25 PM CONTINUOUS DRIER OPERATOR 9 Active furosemide (LASIX) 40 mg tablet Take 1 Tablet (40 mg) by mouth daily. 30 Tablet 9 Active potassium chloride (KLOR-CON) 10 mEq Extended Release tablet Take 1 Tablet (10 mEq) by mouth every other day. 10 Tablet 07/23/2019 1:25 PM CONTINUOUS DRIER OPERATOR 9 Active ipratropium-albut tao (DUONEB) 0.5 mg-3 [...] 20 mg 20 Tablet 07/23/2019 1:25 PM CONTINUOUS DRIER OPERATOR 9 Active polyethylene glycol (MIRALAX) 17 gram Powder in Packet Take 1 Packet (17 Grams) by mouth 1 time daily as needed for Constipation. 9 Active glimepiride (AMARYL) 2 mg tablet Take 1 Tablet (2 mg) by mouth daily with breakfast. 30 Tablet 07/23/2019 1:25 PM CONTINUOUS DRIER OPERATOR 9 Active Active Problems Problem Noted Date [...] declined 07/19/2019 How often do you attend jew or confucianism serv ices? Patient declined 07/19/2019 Do you belong to any clubs o r organizations such as jew groups, unions, fraternal or athletic groups, or [...] Comments Blood Pressure 125/81 07/23/2019 12:35 PM CONTINUOUS DRIER OPERATOR Pulse 93 07/23/2019 12:35 PM CONTINUOUS DRIER OPERATOR Temperature 36.7 C (98 F) 08/31/2019 11:28 AM CONTINUOUS DRIER OPERATOR Respiratory Rate 16 07/23/2019 12:35 PM CONTINUOUS DRIER OPERATOR Oxygen Saturation 91% 07/23/2019 12:35 PM CONTINUOUS DRIER OPERATOR Inhaled Oxygen Concentration - - Weight 113.4 kg (250 lb) 08/31/2019 11:28 AM CONTINUOUS DRIER OPERATOR Height 170.2 cm (5' 7 ) 08/31/2019 11:28 AM CONTINUOUS DRIER OPERATOR Body Mass Index 39.16 08/31/2019 11:28 AM CONTINUOUS DRIER OPERATOR Plan of Treatment Health Maintenance Due Date [...] history exists Medical Devices Implanted Type Area [employer] Clerk Device Identifier Shelf Expiration Date Model / Serial / Lot Cardiac Defibrillator Procedures Procedure Name Priority Date/Time Associated Diagnosis Comments HEMOGLOBIN A1C Routine 07/22/2019 4:53 PM CONTINUOUS DRIER OPERATOR from Last 3 Months or Most Recently Relevant to Health Maintenance Results * (ABNORMAL) HEMOGLOBIN A1C (07/22/2019 4:53 PM CONTINUOUS DRIER OPERATOR) HEMOGLOBIN A1C 7.5(H) <=5.6 % 07/22/2019 5:18 PM CONTINUOUS DRIER OPERATOR [facility] EST. AVG GLUCOSE, A1C 169 mg/dL 07/22/2019 5:18 PM CONTINUOUS DRIER OPERATOR [facility] Blood Venipuncture / Unknown 07/22/2019 4:53 PM CONTINUOUS DRIER OPERATOR 07/22/2019 5:03 PM CONTINUOUS DRIER OPERATOR Narrative [facility] - 07/22/2019 5:18 PM CONTINUOUS DRIER OPERATOR HGB A1C INTERPRETATION NORMAL: <5.7% PRE-DIABETES: 5.7 - 6.4% DIABETES: 6.5% OR GREATER Susan Mckenna MD CHEMISTRY ORDERABLES Final Resul t [facility] CLIA# [id number] [place] [address] from Last 3 Months or Most Recently Relevant to Health Maintenance Insurance [employer] MEDICAID RX [id number] Medicare Part D RX [employer] (INTERNAL) [facility] Advance Directives For more information, please contact: [phone] * Full Code (Latest Code Status on File) Date Activated Date Inactivated Comments 07/19/2019 12:17 PM 07/23/2019 4:02 PM * Full Code Date Activated Date Inactivated Comments 12/02/2018 9:56 AM 12/04/2018 6:18 PM Care Teams Wheel Borer Relationship Specialty Start Date End Date Malcolm Conteh MD [address] [place] [address] PCP - General Internal Medicine 07/19/19
[2025-01-12 07:30] LABS: Influenza A QL RT-PCR Negative (Negative); Influenza B QL RT-PCR Negative (Negative); RSV RNA, RT-PCR Negative (Negative); SARS-CoV-2 RNA PCR Negative (Negative)
--- NOTE | 2025-01-12 07:53 | ED_ITS ---
HPI - Chest Pain General Chief Complaint: Chest Pain Stated Complaint: sob/chest tightness Time Seen by Provider: 01/12/25 06:59 History of Present Illness HPI narrative: Patient history of CHF for the last few days has noticed swelling to his legs and hands and abdomen, with increasing shortness of breath, he is already on Lasix, this feels like a CHF exacerbation. Related Data Allergies Allergy/AdvReac Type Severity Reaction Status Date / Time No Known Allergies Allergy Verified 01/12/25 06:09 Review of Systems 2 Review of Systems: All systems reviewed & are unremarkable except as noted in HPI and below PMFSH Past Medical History Medical History History of hypertension Non-ischemic cardiomyopathy Social History Social History Smoking status: Current every day smoker Alcohol intake: never Exam 2 Narrative: EXAMINATION OF ORGAN SYSTEMS/BODY AREAS: Constitutional: Vital signs per nursing GENERAL:[No acute distress, non-toxic appearing.] HEAD: Normal with no signs of head trauma. EYES: EOMI, conjunctiva normal ENT: Hearing grossly intact LUNGS: Sitting upright in bed without respiratory distress, no wheezing HEART: [Regular rate and rhythm] ABD: [Soft], [nontender to palpation] EXT: Some pedal edema SKIN: [No rashes or lesions.] NEURO: [Alert and oriented x 3. No gross focal sensory or strength deficits.] PSYCH: Normal affect Course Vital Signs Vital signs: Vital Signs Temperature 98.1 F 01/12/25 06:20 Pulse Rate 114 H 01/12/25 06:20 Respiratory Rate 17 01/12/25 06:20 Blood Pressure 111/97 H 01/12/25 06:20 Pulse Oximetry 93 01/12/25 06:20 Oxygen Delivery Room Air 01/12/25 06:20 Temperature 98.1 F 01/12/25 06:20 Pulse Rate 96 01/12/25 07:10 Respiratory Rate 25 H 01/12/25 07:10 Blood Pressure 119/95 H 01/12/25 07:10 Pulse Oximetry 93 01/12/25 07:10 Oxygen Delivery Room Air 01/12/25 06:25 MDM - Chest Pain MDM Narrative Medical decision making narrative: 55-year-old male presenting to the emergency department with chest tightness, dyspnea, orthopnea and edema, presentation and history of CHF, consistent with most likely CHF exacerbation vs ACS/WI, COPD exacerbation, pneumonia, unlikely PE without unilateral leg swelling or pain. IV is established and cardiac workup is initiated. EKG: Performed in triage and interpreted by me. [Sinus rhythm]. Rate 108. [Normal] axis. AL 193. QRS duration 92. QTc 443. No pathologic Q waves. No ST segment elevation or depression to suggest acute ischemia. Chest x-ray is performed and on my independent interpretation remarkable for [cardiomegaly with pulmonary vascular congestion]. Patient is started on lasix. Labs significant for elevated BNP 22 90, negative troponin. [The patient would like to be admitted for further diuresis and I feel this is quite reasonable, discussed with hospitalist for admission for CHF exacerbation and further management.] Lab Data 01/12/25 06:27 01/12/25 06:27 Labs: Lab Results 01/12/25 01/12/25 Range/Units 06:27 06:31 WBC 6.3 (4.5-10.0) K/mm3 RBC 5.83 (4.6-6.20) M/mm3 Hgb 17.3 (14.0-18.0) g/dL Hct 52.5 H (42.0-52.0) % MCV 90.1 (80-100) fl MCH 29.7 (26-34) pg MCHC 33.0 (32-36) g/dl RDW 12.5 (11.5-14.5) % Plt Count 132 L (150-375) k/mm3 MPV 9.3 (7.4-10.4) fl Immature Gran % (Auto) 0.6 H (0-0.5) % Neut % (Auto) 64.9 (45.5-73.1) % Lymph % (Auto) 24.3 (18.3-44.2) % [place] % (Auto) 7.3 (2.6-8.5) % Eos % (Auto) 2.4 (0-4.4) % Baso % (Auto) 0.5 (0.2-1.2) % Lymph # (Auto) 1.53 (0.9-3.2) K/mm3 [place] # (Auto) 0.5 (0.1-0.6) K/mm3 Eos # (Auto) 0.2 (0-0.3) K/mm3 Baso # (Auto) 0.0 (0.0-0.1) K/mm3 Abs Immat Gran (auto) 0.04 H (0.00-0.031) K/mm3 Absolute Neuts (auto) 4.1 (1.3-6.7) K/mm3 Absolute Nucleated RBC 0.000 (0.0-0.012) K/mm3 Nucleated RBC % 0.0 (0.0-0.2) % % Immature Plt Fraction 1.9 (0.9-11.2) % PT 12.4 (11.1-14.7) Seconds INR 0.9 APTT 26.1 (22.3-36.8) Seconds Sodium 141 (137-145) mmol/L Potassium 3.8 (3.4-5.0) mmol/L Chloride 103 (98-107) mmol/L Carbon Dioxide 32 H (22-30) mmol/L Anion Gap 6 (4-12) mmol/L BUN 14 (9-20) mg/dL Creatinine 0.99 (0.7-1.3) mg/dL Estim Creat Clear Calc 92 ml/min Estimated GFR > 60 (59 - ) Glucose 104 (65-110) mg/dL Calcium 9.0 (8.4-10.2) mg/dL Total Bilirubin 1.1 (0.2-1.3) mg/dL AST 38 (17-59) U/L ALT 35 (6-50) U/L Alkaline Phosphatase 72 (38-126) U/L Troponin I < 0.012 (0.000-0.034) ng/mL NT-Pro-B Natriuret Pep 2290 H (19.9-100) pg/mL Total Protein 7.0 (6.3-8.2) g/dL Albumin 4.2 (3.5-5.1) g/dL Lipase 73 (23-300) U/L Influenza A (RT-PCR) Negative (Negative) Influenza B (RT-PCR) Negative (Negative) RSV (RT-PCR) Negative (Negative) SARS-CoV-2 RNA (RT-PCR) Negative (Negative) Discharge Plan Discharge Clinical Impression: Acute exacerbation of CHF (congestive heart failure) Patient Disposition: Still a Patient Condition: Stable Patient Language: Lithuanian Prescriptions: No Action albuterol sulfate [Ventolin HFA] 90 mcg/actuation HFA aerosol inhaler 1 inhalation INHALATION Q4H PRN (Reason: shortness of breath) Qty: 18 0RF furosemide 20 mg tablet 20 mg PO QAM Qty: 1 0RF potassium chloride [Klor-Con 10] 10 mEq tablet extended release 10 meq PO DAILY Qty: 1 0RF lisinopril 2.5 mg tablet 2.5 mg PO DAILY Qty: 1 0RF omeprazole 40 mg capsule,delayed release(DR/EC) 40 mg PO DAILY Qty: 1 0RF escitalopram oxalate 10 mg tablet 10 mg PO DAILY Qty: 1 0RF amitriptyline 150 mg tablet 150 mg PO ONCE Qty: 1 0RF cyclobenzaprine 10 mg tablet 10 mg PO TID Qty: 1 0RF fluticasone propion-salmeterol 113-14 mcg/actuation aerosol powdr breath activated 1 puff INHALATION BID Qty: 1 0RF carvedilol 6.25 mg tablet 6.25 mg PO Q12H MDD 2 tablets Qty: 60 0RF Rx Instructions: must administer with a meal/food methocarbamol 750 mg tablet 1,500 mg PO TID PRN (Reason: muscle spasm) Qty: 15 0RF lidocaine 5 % adhesive patch,medicated 1 patch topical DAILY Qty: 15 0RF Rx Instructions: leave on most painful area for up to 12 hrs docusate sodium [Col-Rite] 100 mg capsule 100 mg PO BID Qty: 14 0RF furosemide 20 mg tablet 20 mg PO DAILY Qty: 20 0RF naproxen 500 mg tablet 500 mg PO BID PRN (Reason: pain) Qty: 20 0RF cyclobenzaprine 10 mg tablet 10 mg PO TID PRN (Reason: muscle spasm) Qty: 30 0RF tizanidine 2 mg tablet 2 mg PO TID PRN (Reason: muscle spasticity) Qty: 90 0RF Follow-up/Referrals: UNKNOWN,DOCTOR [Primary Care Provider] -
--- NOTE | 2025-01-12 09:07 | ADMGEN ---
This patient, Altaf Rhodes, was admitted to Medical Room 247-. Patient/family oriented to hospital policies and general routines including ID bracelet, bed and alarms, visiting hours, pain management, procedures, bathroom and other care routines, personal items, smoking policy, room service/diet, and visiting hours. Information on how to activate the Rapid Response Team has been discussed. Patient/Family are encouraged to report perceived risks to care and to ask questions if they do not understand what they are told or what they should do.
[2025-01-12 09:26] LABS: Troponin I < 0.012 ng/mL (0.000-0.034)
--- NOTE | 2025-01-12 10:49 | P.HP_ITS ---
H&P: HPI History of Present Illness Date/Time: 01/12/25 10:49 Chief Complaint: SOB Narrative: Patient is 55 years pld male with history of combined CHF, COPD, GERD presented with SOB and chest pain since this morning. Patient notes his SOB is worse with activity. denies any cough/fever/chills. ayaz weight gain but has bilateral leg swelling. patient also complain of tightening midsternal chest pain, non radia ting. presented to ER for further management. lab test showed Normal troponin, elevated BNP. admitted for IV lasix. patient was seen and examined at bedside. breathing improving still has mild chest pain.he already had breakfast. will contineu Lasix. will get Echo. Review of Systems Review of Systems: All systems reviewed & are unremarkable except as noted in HPI and below PMFSH Past Medical History Medical History History of hypertension Non-ischemic cardiomyopathy Social History Social History Years smoked: 30 Smoking status: Current every day smoker Alcohol intake: former Substance use: current Substance use type: marijuana Do You Feel Safe in your Home?: Yes Lack of Transportation: No Lack of Food: Sometimes True Current Housing: I Have Housing Concerned About Future Housing: No Difficulty Paying Gas/Electric Bills: No Difficulty Paying for Meds: No Currently Unemployed: No Education: High School Diploma/GED Difficulty w/ Childcare or Family Care: No Spiritual care concerns: No Meds Home Medications and Allergies Home Medications Medication Instructions Recorded Confirmed Type albuterol sulfate 90 mcg/actuation 1 inhalation inhalation Q4H PRN 07/12/19 01/12/25 Rx aerosol inhaler (Ventolin HFA) shortness of breath #18 grams carvedilol 6.25 mg tablet 6.25 mg PO Q12H #60 tabs 07/12/19 01/12/25 Rx cyclobenzaprine 10 mg tablet 10 mg PO TID #1 tablet 07/12/19 01/12/25 Rx escitalopram oxalate 10 mg tablet 10 mg PO DAILY #1 tablet 07/12/19 01/12/25 Rx fluticasone 113 mcg-salmeterol 14 1 puff inhalation BID #1 ea 07/12/19 01/12/25 Rx mcg/actuation breath activated powdr furosemide 20 mg tablet 20 mg PO QAM #1 tablet 07/12/19 01/12/25 Rx lisinopril 2.5 mg tablet 2.5 mg PO DAILY #1 tablet 07/12/19 01/12/25 Rx omeprazole 40 mg capsule,delayed 40 mg PO DAILY #1 cap 07/12/19 01/12/25 Rx release potassium chloride 10 mEq 10 meq PO DAILY #1 tablet 07/12/19 01/12/25 Rx tablet,extended release (Klor-Con) docusate sodium 100 mg capsule 100 mg PO BID #14 caps 07/19/24 01/12/25 Rx (Col-Rite) cyclobenzaprine 10 mg tablet 10 mg PO TID PRN muscle spasm #30 01/03/25 01/12/25 Rx tabs naproxen 500 mg tablet 500 mg PO BID PRN pain #20 tabs 01/03/25 01/12/25 Rx furosemide 20 mg tablet 20 mg PO Q12H 01/12/25 01/12/25 History lidocaine 5 % topical patch 1 patch topical PRN pain 01/12/25 01/12/25 History Allergies Allergy/AdvReac Type Severity Reaction Status Date / Time No Known Allergies Allergy Verified 01/12/25 09:27 Vital Signs Vital Signs - 24 hr 01/12/25 06:20 01/12/25 06:25 01/12/25 06:49 Temperature 98.1 F Pulse Rate 114 H 94 Respiratory Rate 17 Blood Pressure 111/97 H Pulse Oximetry 93 93 Oxygen Delivery Room Air Room Air 01/12/25 07:10 01/12/25 09:58 Temperature Pulse Rate 96 Respiratory Rate 25 H Blood Pressure 119/95 H Pulse Oximetry 93 Oxygen Delivery Room Air Exam Narrative: EXAMINATION OF ORGAN SYSTEMS/BODY AREAS: Constitutional: Vital signs per nursing GENERAL:[No acute distress, non-toxic appearing.] HEAD: Normal with no signs of head trauma. EYES: EOMI, conjunctiva normal ENT: Hearing grossly intact LUNGS: Sitting upright in bed without respiratory distress, no wheezing HEART: [Regular rate and rhythm] ABD: [Soft], [nontender to palpation] EXT: Some pedal edema SKIN: [No rashes or lesions.] NEURO: [Alert and oriented x 3. No gross focal sensory or strength deficits.] PSYCH: Normal affect H&P: Results Labs Labs: Short CBC 01/12/25 Range/Units 06:27 WBC 6.3 (4.5-10.0) K/mm3 Hgb 17.3 (14.0-18.0) g/dL Hct 52.5 H (42.0-52.0) % Plt Count 132 L (150-375) k/mm3 BMP 01/12/25 06:27 Sodium 141 Potassium 3.8 Chloride 103 Carbon Dioxide 32 H BUN 14 Creatinine 0.99 Glucose 104 Calcium 9.0 Cardiac Enzymes 01/12/25 01/12/25 Range/Units 06:27 08:48 Troponin I < 0.012 < 0.012 (0.000-0.034) ng/mL Liver Function 01/12/25 Range/Units 06:27 Total Bilirubin 1.1 (0.2-1.3) mg/dL AST 38 (17-59) U/L ALT 35 (6-50) U/L Alkaline Phosphatase 72 (38-126) U/L Albumin 4.2 (3.5-5.1) g/dL Assessment and Plan Assessment and plan (1) Acute exacerbation of CHF (congestive heart failure): Code(s): I50.9 - Heart failure, unspecified Status: Acute (2) Adjustment disorder with mixed anxiety and depressed mood: Code(s): F43.23 - Adjustment disorder with mixed anxiety and depressed mood Status: Acute (3) Chronic bilateral low back pain with left-sided sciatica: Code(s): M54.42 - Lumbago with sciatica, left side; G89.29 - Other chronic pain Status: Acute (4) Chronic obstructive pulmonary disease, unspecified: Code(s): J44.9 - Chronic obstructive pulmonary disease, unspecified Status: Acute Plan SOB; Acute on chronic chf elevated PROBNP will get Echo continue IV lasix tele monitoring chest pain troponin negative. will continue trend Echo pending COPd not taking medicatin continue to monitor HTN Lisinopril, Coreg chronic back pain pain meds as needed
[2025-01-12] MEDS: carvediloL 6.25 MG TABLET PO ×2 (11:00→20:52)
[2025-01-12] MEDS: lisinopriL 2.5 MG TABLET PO (11:00)
[2025-01-12] MEDS: PERFLUTREN LIPID MICROSPHERES 1.5 ML VIAL DILUTED TO 10 ML TOTAL VOLUME IV PUSH (11:45)
--- NOTE | 2025-01-12 12:18 | ECG_ITS ---
Test Date: 2025-01-12 12:29:16 Measurements Intervals [place] Rate: 87 P: 56 CT: 184 QRS: 86 QRSD: 101 T: 24 QT: 365 QTc: 440 Interpretive Statements SINUS RHYTHM POSSIBLE LEFT ATRIAL ENLARGEMENT [-0.1mV P-WAVE IN V1/V2] LOW QRS VOLTAGE IN EXTREMITY LEADS [QRS DEFLECTION < 0.5 mV IN LIMB LEADS] ABNORMAL ECG Compared to ECG 01/12/2025 06:20:59 Sinus tachycardia no longer present Electronically Signed On 01-13-2025 09:41:55 CDT by Magdaleno Wright M.D.
[2025-01-12 12:38] LABS: Troponin I < 0.012 ng/mL (0.000-0.034)
[2025-01-13 05:59] VITALS: BP 118/83; PULSE 103; RESP 16; TEMP 36.3; O2SAT 94
[2025-01-13] MEDS: lisinopriL 2.5 MG TABLET PO (08:24)
[2025-01-13] MEDS: FUROSEMIDE INJ 40 MG/4 ML VIAL IV PUSH ×2 (08:24→16:58)
[2025-01-13 08:25] VITALS: PULSE 100; RESP 16; O2SAT 94
[2025-01-13] MEDS: carvediloL 6.25 MG TABLET PO ×2 (08:25→20:39)
--- NOTE | 2025-01-13 09:06 | PM.CNCAR ---
Assessment and Plan Assessment and plan (1) Cardiomyopathy: Code(s): I42.9 - Cardiomyopathy, unspecified Status: Acute Assessment and Plan: Nonischemic cardiomyopathy, EF 25-30%. Continue Coreg 6.25 mg q.12 hours Continue lisinopril 2.5 mg daily Add spironolactone 25 mg daily Can also add Jardiance if he is able to afford it He has an ICD (2) Acute exacerbation of CHF (congestive heart failure): Code(s): I50.9 - Heart failure, unspecified Status: Acute Assessment and Plan: Acute on chronic systolic heart failure secondary to running out of medications. Improving with IV furosemide Continue with IV furosemide for today, 40 mg IV b.i.d. Strict intake and output Daily weights CHF counseling (3) Hypertension: Code(s): I10 - Essential (primary) hypertension Status: Acute Assessment and Plan: Blood pressure is at goal. (4) Tobacco use disorder: Code(s): F17.200 - Nicotine dependence, unspecified, uncomplicated Status: Acute Assessment and Plan: Counseling performed History of Present Illness History of Present Illness Consult date/time: 01/13/25 09:06 Requesting physician: Lindsey Adan MD Consult reason: congestive heart failure Reason For Visit: CHF Exac Narrative: Altaf Rhodes is a 55 year old male with nonischemic cardiomyopathy who follows with a final block press operator in [place], patient cannot remember the name. He presents to the hospital with a chief complaint of shortness of breath. Cardiology is consulted for cardiomyopathy. Patient states that he had to switch final block press operator because his former final block press operator no longer took his insurance. He did see his new final block press operator once. He had some trouble getting refills for his medications due to these switching cardiologists, therefore he tried to “stretch out “his medications to last him longer and probably was not taking his medications as prescribed for about a week he estimates. He has received IV furosemide and is feeling better. Still has some orthopnea. Denies any chest pain, palpitations, swelling, syncope, pre-syncope. Review of Systems Review of Systems: All systems reviewed & are unremarkable except as noted in HPI and below PMFSH Past Medical History Medical History History of hypertension Non-ischemic cardiomyopathy Social History Social History Years smoked: 30 Smoking status: Current every day smoker Alcohol intake: former Substance use: current Substance use type: marijuana Do You Feel Safe in your Home?: Yes Lack of Transportation: No Lack of Food: Sometimes True Current Housing: I Have Housing Concerned About Future Housing: No Difficulty Paying Gas/Electric Bills: No Difficulty Paying for Meds: No Currently Unemployed: No Education: High School Diploma/GED Difficulty w/ Childcare or Family Care: No Spiritual care concerns: No Meds Home Medications and Allergies Home Medications Medication Instructions Recorded Confirmed Type albuterol sulfate 90 mcg/actuation 1 inhalation inhalation Q4H PRN 07/12/19 01/12/25 Rx aerosol inhaler (Ventolin HFA) shortness of breath #18 grams carvedilol 6.25 mg tablet 6.25 mg PO Q12H #60 tabs 07/12/19 01/12/25 Rx cyclobenzaprine 10 mg tablet 10 mg PO TID #1 tablet 07/12/19 01/12/25 Rx escitalopram oxalate 10 mg tablet 10 mg PO DAILY #1 tablet 07/12/19 01/12/25 Rx fluticasone 113 mcg-salmeterol 14 1 puff inhalation BID #1 ea 07/12/19 01/12/25 Rx mcg/actuation breath activated powdr furosemide 20 mg tablet 20 mg PO QAM #1 tablet 07/12/19 01/12/25 Rx lisinopril 2.5 mg tablet 2.5 mg PO DAILY #1 tablet 07/12/19 01/12/25 Rx omeprazole 40 mg capsule,delayed 40 mg PO DAILY #1 cap 07/12/19 01/12/25 Rx release potassium chloride 10 mEq 10 meq PO DAILY #1 tablet 07/12/19 01/12/25 Rx tablet,extended release (Klor-Con) docusate sodium 100 mg capsule 100 mg PO BID #14 caps 07/19/24 01/12/25 Rx (Col-Rite) cyclobenzaprine 10 mg tablet 10 mg PO TID PRN muscle spasm #30 01/03/25 01/12/25 Rx tabs naproxen 500 mg tablet 500 mg PO BID PRN pain #20 tabs 01/03/25 01/12/25 Rx furosemide 20 mg tablet 20 mg PO Q12H 01/12/25 01/12/25 History lidocaine 5 % topical patch 1 patch topical PRN pain 01/12/25 01/12/25 History Allergies Allergy/AdvReac Type Severity Reaction Status Date / Time No Known Allergies Allergy Verified 01/12/25 09:27 Vital Signs Vital Signs - 24 hr 01/12/25 09:58 01/12/25 11:00 01/12/25 11:03 Temperature Pulse Rate 94 94 Respiratory Rate Blood Pressure 118/82 Pulse Oximetry 93 Oxygen Delivery Room Air 01/12/25 11:18 01/12/25 14:00 01/12/25 20:52 Temperature 36.6 C Pulse Rate 98 84 Respiratory Rate 18 Blood Pressure 111/80 Pulse Oximetry 93 95 Oxygen Delivery Room Air 01/12/25 20:53 01/12/25 20:54 01/12/25 21:45 Temperature 36.1 C L Pulse Rate 84 84 Respiratory Rate 18 Blood Pressure 126/89 112/82 Pulse Oximetry 95 95 Oxygen Delivery Room Air 01/13/25 05:59 01/13/25 08:25 Temperature 36.3 C L Pulse Rate 103 H 100 Respiratory Rate 16 Blood Pressure 118/83 Pulse Oximetry 94 Oxygen Delivery Exam Const: General: comfortable, no acute distress, alert and awake Orientation/consciousness: patient oriented x3 HENMT: Head: normal to inspection Eyes: General: appearance normal, both eyes and all related structures Pupils: Equal, round and reactive pupils present Neck: Neck: normal visual inspection, supple and no JVD Carotids: normal carotid upstroke Resp: Effort & Inspection: normal respiratory effort Auscultation: rales on the left in the lower lung arreola Cardio: Rate: regular rate Rhythm: regular rhythm Heart sounds: S1 normal heart sound present, S2 normal heart sound present and no murmurs GI: Auscultation: normal bowel sounds Skin: General skin exam: normal color Neuro: General: patient oriented x3 Cranial nerves: Yes Equal, round and reactive pupils present Extrem: General: normal to inspection Other: no edema Psych: Appearance: grossly normal Mental Status: mental status grossly normal Results Labs and Meds 01/12/25 06:27 01/12/25 06:27 Lab results: Cardiac Enzymes 01/12/25 01/12/25 Range/Units 08:48 12:12 Troponin I < 0.012 < 0.012 (0.000-0.034) ng/mL Intake and Output 01/12/25 01/13/25 01/13/25 23:59 07:59 15:59 Intake Total 1060 200 350 Output Total 450 Balance 1060 -250 350 Intake: Oral 1060 200 350 Output: Urine 450 Other: # Unmeasured Voids 3
[2025-01-13] MEDS: ENOXAPARIN 40 MG/0.4 ML SYRINGE SUB-Q (09:44)
--- NOTE | 2025-01-13 12:22 | P.PNIM_ITS ---
Progress Note: A&P Assessment and Plan (1) Acute exacerbation of CHF (congestive heart failure): Code(s): I50.9 - Heart failure, unspecified Status: Acute (2) Adjustment disorder with mixed anxiety and depressed mood: Code(s): F43.23 - Adjustment disorder with mixed anxiety and depressed mood Status: Acute (3) Chronic bilateral low back pain with left-sided sciatica: Code(s): M54.42 - Lumbago with sciatica, left side; G89.29 - Other chronic pain Status: Acute (4) Chronic obstructive pulmonary disease, unspecified: Code(s): J44.9 - Chronic obstructive pulmonary disease, unspecified Status: Acute Plan SOB; Acute on chronic chf elevated PROBNP Echo LVEF 25% continue IV lasix tele monitoring cardiology team on board recommended continue IV lasix, added spironolactone chest pain improving troponin negative. will continue trend Echo Ef 25% COPd not taking medication continue to monitor HTN Lisinopril, Coreg chronic back pain pain meds as needed Subjective Date/time seen: 01/13/25 12:22 Interval history: Patient is 55 years pld male with history of combined CHF, COPD, GERD presented with SOB and chest pain since this morning. Patient notes his SOB is worse with activity. denies any cough/fever/chills. ayaz weight gain but has bilateral leg swelling. patient also complain of tightening midsternal chest pain, non radiating. presented to ER for further management. lab test showed Normal troponin, elevated BNP. admitted for IV lasix. patient was seen and examined at bedside. breathing improving still has mild chest pain.he already had breakfast. will continue Lasix. Echo LVef 25% 01/13/25 patient was seen and examined at bedside. he is feeling better. his breathing is better. cardiology team was consulted. spironolactone was added. continue with lasix. Review of Systems Review of Systems: All systems reviewed & are unremarkable except as noted in HPI and below Exam Narrative: EXAMINATION OF ORGAN SYSTEMS/BODY AREAS: Constitutional: Vital signs per nursing GENERAL:[No acute distress, non-toxic appearing.] HEAD: Normal with no signs of head trauma. EYES: EOMI, conjunctiva normal ENT: Hearing grossly intact LUNGS: Sitting upright in bed without respiratory distress, no wheezing HEART: [Regular rate and rhythm] ABD: [Soft], [nontender to palpation] EXT: Some pedal edema SKIN: [No rashes or lesions.] NEURO: [Alert and oriented x 3. No gross focal sensory or strength deficits.] PSYCH: Normal affect Objective Data Vital Signs Vital Signs: Vital Signs - 24 hr 01/12/25 14:00 01/12/25 20:52 01/12/25 20:53 Temperature 97.8 F Pulse Rate 98 84 84 Respiratory Rate 18 Blood Pressure 111/80 126/89 Pulse Oximetry 95 Oxygen Delivery 01/12/25 20:54 01/12/25 21:45 01/13/25 05:59 Temperature 97 F L 97.4 F L Pulse Rate 84 103 H Respiratory Rate 18 16 Blood Pressure 112/82 118/83 Pulse Oximetry 95 95 94 Oxygen Delivery Room Air 01/13/25 08:25 01/13/25 08:25 Temperature Pulse Rate 100 Respiratory Rate 16 Blood Pressure Pulse Oximetry 94 Oxygen Delivery Room Air Intake/Output Intake/Output: Intake & Output 01/10/25 01/11/25 01/12/25 01/13/25 23:59 23:59 23:59 23:59 Intake Total 1300 550 Output Total 850 Balance 1300 -300 Meds/Results Medications: Active Medications Generic Name Dose Route Start Last Admin Trade Name Freq PRN Reason Stop Dose Admin Carvedilol 6.25 mg 01/12/25 11:00 01/13/25 08:25 Carvedilol 6.25 Mg Tablet PO 6.25 mg Q12HR ZEINA Administration Cyclobenzaprine HCl 10 mg 01/12/25 10:14 Cyclobenzaprine Hcl 10 Mg Tablet PO TID PRN muscle spasm Enoxaparin Sodium 40 mg 01/13/25 09:00 01/13/25 09:44 Enoxaparin 40 Mg/0.4 Ml Syringe SUB-Q 40 mg DAILY ZEINA Administration Furosemide 40 mg 01/12/25 17:00 01/13/25 08:24 Furosemide Inj 40 Mg/4 Ml Vial IV PUSH 40 mg BID ZEINA Administration Lisinopril 2.5 mg 01/12/25 09:00 01/13/25 08:24 Lisinopril 2.5 Mg Tablet PO 2.5 mg DAILY ZEINA Administration Perflutren Lipid Microsphere 0 ml 01/13/25 07:13 Perflutren Lipid Microspheres 1.5 Ml Vial Diluted To 10 Ml Total Volume IV PUSH 01/16/25 07:13 ONCE PRN adequate visualization Protocol Spironolactone 25 mg 01/14/25 09:00 Spironolactone 25 Mg Tablet PO QAM [facility] Radiology Results: ITS Impressions Chest X-Ray 01/12/25 06:55 Impression: Possible minimal bibasilar pulmonary edema changes. Labs Labs: Laboratory Results - last 24 hr 01/12/25 12:12 Troponin I < 0.012
[2025-01-13 13:33] VITALS: BP 120/81; PULSE 95; RESP 18; TEMP 36.4; O2SAT 92
[2025-01-13 20:07] VITALS: BP 112/80; PULSE 87; RESP 20; TEMP 36.5; O2SAT 96
[2025-01-13 20:39] VITALS: PULSE 88
[2025-01-14 04:39] VITALS: BP 105/73; PULSE 79; RESP 20; TEMP 36.5; O2SAT 94
[2025-01-14 04:39] LABS: Hematocrit 50.3 % (42.0-52.0); Hemoglobin 16.9 g/dL (14.0-18.0); Immature Platelet Fraction Pct 2.6 % (0.9-11.2); Mean Corpuscular HGB Conc 33.6 g/dl (32-36); Mean Corpuscular Volume 89.3 fl (80-100); Mean Platelet Volume 9.7 fl (7.4-10.4); Platelet Count Result 132 k/mm3 (150-375); Red Blood Count 5.63 M/mm3 (4.6-6.20); Red Cell Distribution Width 12.4 % (11.5-14.5); White Blood Count 6.8 K/mm3 (4.5-10.0)
[2025-01-14 04:49] LABS: Anion Gap 6 mmol/L (4-12); Blood Urea Nitrogen 22 mg/dL (9-20); Calcium 9.1 mg/dL (8.4-10.2); Carbon Dioxide 32 mmol/L (22-30); Chloride 98 mmol/L (98-107); Estimated CRCL calculation 83 ml/min; Estimated Glomerular Filt Rate > 60; Glucose 107 mg/dL (65-110); Potassium 4.2 mmol/L (3.4-5.0); Sodium 136 mmol/L (137-145)
[2025-01-14] MEDS: FUROSEMIDE INJ 40 MG/4 ML VIAL IV PUSH (08:32)
[2025-01-14] MEDS: ENOXAPARIN 40 MG/0.4 ML SYRINGE SUB-Q (08:32)
[2025-01-14 08:33] VITALS: PULSE 80
[2025-01-14] MEDS: lisinopriL 2.5 MG TABLET PO (08:33)
[2025-01-14] MEDS: SPIRONOLACTONE 25 MG TABLET PO (08:33)
[2025-01-14] MEDS: carvediloL 6.25 MG TABLET PO ×2 (08:33→20:38)
[2025-01-14 08:40] VITALS: PULSE 80; RESP 20; O2SAT 94
--- NOTE | 2025-01-14 10:05 | P.PNCA_ITS ---
Progress Note: A&P Assessment and Plan (1) Cardiomyopathy: Code(s): I42.9 - Cardiomyopathy, unspecified Status: Acute Assessment and Plan: Nonischemic cardiomyopathy, EF 25-30%. * Continue Coreg 6.25 mg q.12 hours * Continue lisinopril 2.5 mg daily * Continue spironolactone 25 mg daily * Can also add Jardiance if he is able to afford it * He has an ICD (2) Acute exacerbation of CHF (congestive heart failure): Code(s): I50.9 - Heart failure, unspecified Status: Acute Assessment and Plan: Acute on chronic systolic heart failure secondary to running out of medications. Improving with IV furosemide * BUN is starting to rise. Will reduce his furosemide down to 40 mg IV daily and transition to oral tomorrow. * Strict intake and output * Daily weights * CHF counseling (3) Hypertension: Code(s): I10 - Essential (primary) hypertension Status: Acute Assessment and Plan: Blood pressure is at goal. (4) Tobacco use disorder: Code(s): F17.200 - Nicotine dependence, unspecified, uncomplicated Status: Acute Assessment and Plan: Counseling performed Subjective Date/time seen: 01/14/25 10:05 Interval history: Patient is 55 years pld male with history of combined CHF, COPD, GERD presented with SOB and chest pain since this morning. Patient notes his SOB is worse with activity. denies any cough/fever/chills. ayaz weight gain but has bilateral leg swelling. patient also complain of tightening midsternal chest pain, non radiating. presented to ER for further management. lab test showed Normal troponin, elevated BNP. admitted for IV lasix. patient was seen and examined at bedside. breathing improving still has mild chest pain.he already had breakfast. will continue Lasix. Echo LVef 25% Date of service 01/14/2025: He is feeling better. Swelling has improved. Shortness breath still present but better. Review of Systems Review of Systems: All systems reviewed & are unremarkable except as noted in HPI and below Constitutional: Constitutional: Denies body ache(s) Cardiovascular: Cardiovascular: Denies pedal edema and Denies palpitations Respiratory: Respiratory: Reports dyspnea Gastrointestinal: Gastrointestinal: Denies heartburn Exam Const: General: comfortable, no acute distress, alert and awake Orientation/consciousness: patient oriented x3 HENMT: Head: normal to inspection Eyes: General: appearance normal, both eyes and all related structures Sclera: sclerae normal Neck: Neck: normal visual inspection, supple and no JVD Resp: Effort & Inspection: normal respiratory effort Auscultation: clear to auscultation bilaterally Cardio: Rate: regular rate Rhythm: regular rhythm Heart sounds: S1 normal heart sound present, S2 normal heart sound present and no murmurs GI: Auscultation: normal bowel sounds Skin: General skin exam: normal color Neuro: General: patient oriented x3 Speech: normal speech Extrem: General: normal to inspection Other: no edema Psych: Appearance: grossly normal Mental Status: mental status grossly normal Objective Data Vital Signs Vital Signs: Vital Signs - 24 hr 01/13/25 13:33 01/13/25 20:07 01/13/25 20:39 Temperature 36.4 C 36.5 C Pulse Rate 95 87 88 Respiratory Rate 18 20 Blood Pressure 120/81 112/80 Pulse Oximetry 92 96 Oxygen Delivery 01/14/25 04:39 01/14/25 08:33 01/14/25 08:40 Temperature 36.5 C Pulse Rate 79 80 80 Respiratory Rate 20 20 Blood Pressure 105/73 Pulse Oximetry 94 94 Oxygen Delivery Room Air Intake/Output Intake/Output: Intake & Output 01/11/25 01/12/25 01/13/25 01/14/25 23:59 23:59 23:59 23:59 Intake Total 1300 1340 390 Output Total 850 Balance 1300 490 390 Meds/Results Medications: Active Medications Generic Name Dose Route Start Last Admin Trade Name Freq PRN Reason Stop Dose Admin Carvedilol 6.25 mg 01/12/25 11:00 01/14/25 08:33 Carvedilol 6.25 Mg Tablet PO 6.25 mg Q12HR ZEINA Administration Cyclobenzaprine HCl 10 mg 01/12/25 10:14 Cyclobenzaprine Hcl 10 Mg Tablet PO TID PRN muscle spasm Enoxaparin Sodium 40 mg 01/13/25 09:00 01/14/25 08:32 Enoxaparin 40 Mg/0.4 Ml Syringe SUB-Q 40 mg DAILY ZEINA Administration Furosemide 40 mg 01/12/25 17:00 01/14/25 08:32 Furosemide Inj 40 Mg/4 Ml Vial IV PUSH 40 mg BID ZEINA Administration Lisinopril 2.5 mg 01/12/25 09:00 01/14/25 08:33 Lisinopril 2.5 Mg Tablet PO 2.5 mg DAILY ZEINA Administration Perflutren Lipid Microsphere 0 ml 01/13/25 07:13 Perflutren Lipid Microspheres 1.5 Ml Vial Diluted To 10 Ml Total Volume IV PUSH 01/16/25 07:13 ONCE PRN adequate visualization Protocol Spironolactone 25 mg 01/14/25 09:00 01/14/25 08:33 Spironolactone 25 Mg Tablet PO 25 mg QAM ZEINA Administration Radiology Results: ITS Impressions Chest X-Ray 01/12/25 06:55 Impression: Possible minimal bibasilar pulmonary edema changes. Labs Labs: Laboratory Results - last 24 hr 01/14/25 04:04 WBC 6.8 RBC 5.63 Hgb 16.9 Hct 50.3 MCV 89.3 MCH 30.0 MCHC 33.6 RDW 12.4 Plt Count 132 L MPV 9.7 % Immature Plt Fraction 2.6 Sodium 136 L Potassium 4.2 Chloride 98 Carbon Dioxide 32 H Anion Gap 6 BUN 22 H Creatinine 0.99 Estim Creat Clear Calc 83 Estimated GFR > 60 Glucose 107 Calcium 9.1
--- NOTE | 2025-01-14 11:07 | PM.IMPN ---
Progress Note: A&P Assessment and Plan (1) Acute exacerbation of CHF (congestive heart failure): Code(s): I50.9 - Heart failure, unspecified Status: Acute (2) Adjustment disorder with mixed anxiety and depressed mood: Code(s): F43.23 - Adjustment disorder with mixed anxiety and depressed mood Status: Acute (3) Chronic bilateral low back pain with left-sided sciatica: Code(s): M54.42 - Lumbago with sciatica, left side; G89.29 - Other chronic pain Status: Acute (4) Chronic obstructive pulmonary disease, unspecified: Code(s): J44.9 - Chronic obstructive pulmonary disease, unspecified Status: Acute Plan SOB; Acute on chronic chf elevated PROBNP Echo LVEF 25% continue IV lasix daily switch to Po tomorrow tele monitoring cardiology team on board recommended continue IV lasix, spironolactone chest pain improved troponin negative. will continue trend Echo Ef 25% COPd not taking medication continue to monitor HTN Lisinopril, Coreg chronic back pain pain meds as needed Subjective Date/time seen: 01/14/25 11:07 Interval history: Patient is 55 years pld male with history of combined CHF, COPD, GERD presented with SOB and chest pain since this morning. Patient notes his SOB is worse with activity. denies any cough/fever/chills. ayaz weight gain but has bilateral leg swelling. patient also complain of tightening midsternal chest pain, non radiating. presented to ER for further management. lab test showed Normal troponin, elevated BNP. admitted for IV lasix. patient was seen and examined at bedside. breathing improving still has mild chest pain.he already had breakfast. will continue Lasix. Echo LVef 25% 01/13/25 patient was seen and examined at bedside. he is feeling better. his breathing is better. cardiology team was consulted. spironolactone was added. continue with lasix. 01/14/25 patient was seen and examined at bedside. he is feeling fine, breathing is better. denies chest pain, ABd pain, Nausea vomiting. cardiology team on board lasix changed to daily. Review of Systems Review of Systems: All systems reviewed & are unremarkable except as noted in HPI and below Exam Narrative: EXAMINATION OF ORGAN SYSTEMS/BODY AREAS: Constitutional: Vital signs per nursing GENERAL:[No acute distress, non-toxic appearing.] HEAD: Normal with no signs of head trauma. EYES: EOMI, conjunctiva normal ENT: Hearing grossly intact LUNGS: Sitting upright in bed without respiratory distress, no wheezing HEART: [Regular rate and rhythm] ABD: [Soft], [nontender to palpation] EXT: Some pedal edema SKIN: [No rashes or lesions.] NEURO: [Alert and oriented x 3. No gross focal sensory or strength deficits.] PSYCH: Normal affect Objective Data Vital Signs Vital Signs: Vital Signs - 24 hr 01/13/25 13:33 01/13/25 20:07 01/13/25 20:39 Temperature 97.6 F 97.7 F Pulse Rate 95 87 88 Respiratory Rate 18 20 Blood Pressure 120/81 112/80 Pulse Oximetry 92 96 Oxygen Delivery 01/14/25 04:39 01/14/25 08:33 01/14/25 08:40 Temperature 97.7 F Pulse Rate 79 80 80 Respiratory Rate 20 20 Blood Pressure 105/73 Pulse Oximetry 94 94 Oxygen Delivery Room Air Intake/Output Intake/Output: Intake & Output 01/11/25 01/12/25 01/13/25 01/14/25 23:59 23:59 23:59 23:59 Intake Total 1300 1340 870 Output Total 850 Balance 1300 490 870 Meds/Results Medications: Active Medications Generic Name Dose Route Start Last Admin Trade Name Freq PRN Reason Stop Dose Admin Carvedilol 6.25 mg 01/12/25 11:00 01/14/25 08:33 Carvedilol 6.25 Mg Tablet PO 6.25 mg Q12HR ZEINA Administration Cyclobenzaprine HCl 10 mg 01/12/25 10:14 Cyclobenzaprine Hcl 10 Mg Tablet PO TID PRN muscle spasm Enoxaparin Sodium 40 mg 01/13/25 09:00 01/14/25 08:32 Enoxaparin 40 Mg/0.4 Ml Syringe SUB-Q 40 mg DAILY ZEINA Administration Furosemide 40 mg 01/15/25 09:00 Furosemide Inj 40 Mg/4 Ml Vial IV PUSH DAILY ZEINA Lisinopril 2.5 mg 01/12/25 09:00 01/14/25 08:33 Lisinopril 2.5 Mg Tablet PO 2.5 mg DAILY ZEINA Administration Perflutren Lipid Microsphere 0 ml 01/13/25 07:13 Perflutren Lipid Microspheres 1.5 Ml Vial Diluted To 10 Ml Total Volume IV PUSH 01/16/25 07:13 ONCE PRN adequate visualization Protocol Spironolactone 25 mg 01/14/25 09:00 01/14/25 08:33 Spironolactone 25 Mg Tablet PO 25 mg QAM ZEINA Administration Radiology Results: ITS Impressions Chest X-Ray 01/12/25 06:55 Impression: Possible minimal bibasilar pulmonary edema changes. Labs Labs: Laboratory Results - last 24 hr 01/14/25 04:04 WBC 6.8 RBC 5.63 Hgb 16.9 Hct 50.3 MCV 89.3 MCH 30.0 MCHC 33.6 RDW 12.4 Plt Count 132 L MPV 9.7 % Immature Plt Fraction 2.6 Sodium 136 L Potassium 4.2 Chloride 98 Carbon Dioxide 32 H Anion Gap 6 BUN 22 H Creatinine 0.99 Estim Creat Clear Calc 83 Estimated GFR > 60 Glucose 107 Calcium 9.1
[2025-01-14 14:00] VITALS: BP 115/79; PULSE 86; O2SAT 99
[2025-01-14] MEDS: CYCLOBENZAPRINE HCL 10 MG TABLET PO (14:37)
[2025-01-14] MEDS: CALCIUM CARBONATE (TUMS) 500 MG (200 MG ELEMENTAL) PO ×2 (15:05→20:38)
[2025-01-14 20:00] VITALS: PULSE 85; RESP 20; O2SAT 97
[2025-01-14] MEDS: ALPRAZolam (*CRX) 0.25 MG TABLET PO (20:38)
[2025-01-14 20:54] VITALS: BP 119/74; PULSE 85; RESP 20; TEMP 36.4; O2SAT 97
[2025-01-15 05:03] LABS: Hematocrit 49.3 % (42.0-52.0); Hemoglobin 16.1 g/dL (14.0-18.0); Mean Corpuscular HGB Conc 32.7 g/dl (32-36); Mean Corpuscular Hemoglobin 29.6 pg (26-34); Mean Corpuscular Volume 90.6 fl (80-100); Mean Platelet Volume 9.4 fl (7.4-10.4); Platelet Count Result 112 k/mm3 (150-375); Red Blood Count 5.44 M/mm3 (4.6-6.20); Red Cell Distribution Width 12.3 % (11.5-14.5); White Blood Count 6.5 K/mm3 (4.5-10.0)
[2025-01-15 05:16] VITALS: BP 102/69; PULSE 84; RESP 20; TEMP 36.5; O2SAT 94
[2025-01-15 05:17] LABS: Anion Gap 4 mmol/L (4-12); Blood Urea Nitrogen 20 mg/dL (9-20); Calcium 9.1 mg/dL (8.4-10.2); Carbon Dioxide 33 mmol/L (22-30); Chloride 100 mmol/L (98-107); Estimated CRCL calculation 80 ml/min; Estimated Glomerular Filt Rate > 60; Glucose 122 mg/dL (65-110); Potassium 4.7 mmol/L (3.4-5.0); Sodium 137 mmol/L (137-145)
[2025-01-15 09:08] VITALS: PULSE 68
[2025-01-15] MEDS: carvediloL 6.25 MG TABLET PO (09:08)
[2025-01-15] MEDS: SPIRONOLACTONE 25 MG TABLET PO (09:08)
[2025-01-15] MEDS: lisinopriL 2.5 MG TABLET PO (09:08)
[2025-01-15] MEDS: FUROSEMIDE INJ 40 MG/4 ML VIAL IV PUSH (09:08)
[2025-01-15] MEDS: ENOXAPARIN 40 MG/0.4 ML SYRINGE SUB-Q (09:09)
--- NOTE | 2025-01-15 10:08 | P.PNCA_ITS ---
Progress Note: A&P Assessment and Plan (1) Cardiomyopathy: Code(s): I42.9 - Cardiomyopathy, unspecified Status: Acute Assessment and Plan: Nonischemic cardiomyopathy, EF 25-30%. * Continue Coreg 6.25 mg q.12 hours * Continue lisinopril 2.5 mg daily * Continue spironolactone 25 mg daily * Can also add Jardiance if he is able to afford it * He has an ICD (2) Acute exacerbation of CHF (congestive heart failure): Code(s): I50.9 - Heart failure, unspecified Status: Acute Assessment and Plan: Acute on chronic systolic heart failure secondary to running out of medications. Improving with IV furosemide * DC IV furosemide and start furosemide 40 mg p.o. daily today * Strict intake and output * Daily weights * CHF counseling (3) Hypertension: Code(s): I10 - Essential (primary) hypertension Status: Acute Assessment and Plan: Blood pressure is at goal. (4) Tobacco use disorder: Code(s): F17.200 - Nicotine dependence, unspecified, uncomplicated Status: Acute Assessment and Plan: Counseling performed Subjective Date/time seen: 01/15/25 10:08 Interval history: Patient is 55 years pld male with history of combined CHF, COPD, GERD presented with SOB and chest pain since this morning. Patient notes his SOB is worse with activity. denies any cough/fever/chills. ayaz weight gain but has bilateral leg swelling. patient also complain of tightening midsternal chest pain, non radiating. presented to ER for further management. lab test showed Normal troponin, elevated BNP. admitted for IV lasix. patient was seen and examined at bedside. breathing improving still has mild chest pain.he already had breakfast. will continue Lasix. Echo LVef 25% Date of service 01/14/2025: He is feeling better. Swelling has improved. Shortness breath still present but better. Date of service 01/15/2025: Overall feeling pretty good and thinks he is study for discharge. Shortness breath is better. No swelling. No chest pain Review of Systems Review of Systems: All systems reviewed & are unremarkable except as noted in HPI and below Constitutional: Constitutional: Denies body ache(s) Cardiovascular: Cardiovascular: Denies pedal edema, Denies palpitations and Reports dyspnea Respiratory: Respiratory: Reports dyspnea Gastrointestinal: Gastrointestinal: Denies heartburn Endocrine: Endocrine: Denies palpitations Exam Const: General: comfortable, no acute distress, alert and awake Orientation/consciousness: patient oriented x3 HENMT: Head: normal to inspection Eyes: General: appearance normal, both eyes and all related structures Sclera: sclerae normal Pupils: Equal, round and reactive pupils present Neck: Neck: normal visual inspection, supple and no JVD Carotids: normal carotid upstroke Resp: Effort & Inspection: normal respiratory effort Auscultation: clear to auscultation bilaterally and rales on the left in the lower lung arreola Cardio: Rate: regular rate Rhythm: regular rhythm Heart sounds: S1 normal heart sound present, S2 normal heart sound present and no murmurs GI: Auscultation: normal bowel sounds Skin: General skin exam: normal color Neuro: General: patient oriented x3 Cranial nerves: Yes Equal, round and reactive pupils present Speech: normal speech Extrem: General: normal to inspection Other: no edema Psych: Appearance: grossly normal Mental Status: mental status grossly normal Objective Data Vital Signs Vital Signs: Vital Signs - 24 hr 01/14/25 14:00 01/14/25 20:00 01/14/25 20:54 Temperature 36.4 C Pulse Rate 86 85 85 Respiratory Rate 20 20 Blood Pressure 115/79 119/74 Pulse Oximetry 99 97 97 Oxygen Delivery Room Air 01/15/25 05:16 01/15/25 09:08 Temperature 36.5 C Pulse Rate 84 68 Respiratory Rate 20 Blood Pressure 102/69 Pulse Oximetry 94 Oxygen Delivery Intake/Output Intake/Output: Intake & Output 01/12/25 01/13/25 01/14/25 01/15/25 23:59 23:59 23:59 23:59 Intake Total 1300 1340 2430 780 Output Total 850 1000 Balance 0597 275 4759 780 Meds/Results Medications: Active Medications Generic Name Dose Route Start Last Admin Trade Name Freq PRN Reason Stop Dose Admin Alprazolam 0.25 mg 01/14/25 17:32 01/14/25 20:38 Alprazolam (*Crx) 0.25 Mg Tablet PO 0.25 mg TID PRN Administration Anxiety Calcium Carbonate 200 mg 01/14/25 14:48 01/14/25 20:38 Calcium Carbonate (Tums) 500 Mg (200 Mg Elemental) PO 200 mg Q6H PRN Administration Indigestion Carvedilol 6.25 mg 01/12/25 11:00 01/15/25 09:08 Carvedilol 6.25 Mg Tablet PO 6.25 mg Q12HR ZEINA Administration Cyclobenzaprine HCl 10 mg 01/12/25 10:14 01/14/25 14:37 Cyclobenzaprine Hcl 10 Mg Tablet PO 10 mg TID PRN Administration muscle spasm Enoxaparin Sodium 40 mg 01/13/25 09:00 01/15/25 09:09 Enoxaparin 40 Mg/0.4 Ml Syringe SUB-Q 40 mg DAILY ZEINA Administration Furosemide 40 mg 01/15/25 09:00 01/15/25 09:08 Furosemide Inj 40 Mg/4 Ml Vial IV PUSH 40 mg DAILY ZEINA Administration Lisinopril 2.5 mg 01/12/25 09:00 01/15/25 09:08 Lisinopril 2.5 Mg Tablet PO 2.5 mg DAILY ZEINA Administration Perflutren Lipid Microsphere 0 ml 01/13/25 07:13 Perflutren Lipid Microspheres 1.5 Ml Vial Diluted To 10 Ml Total Volume IV PUSH 01/16/25 07:13 ONCE PRN adequate visualization Protocol Spironolactone 25 mg 01/14/25 09:00 01/15/25 09:08 Spironolactone 25 Mg Tablet PO 25 mg QAM ZEINA Administration Radiology Results: ITS Impressions Chest X-Ray 01/12/25 06:55 Impression: Possible minimal bibasilar pulmonary edema changes. Labs Labs: Laboratory Results - last 24 hr 01/15/25 04:32 WBC 6.5 RBC 5.44 Hgb 16.1 Hct 49.3 MCV 90.6 MCH 29.6 MCHC 32.7 RDW 12.3 Plt Count 112 L MPV 9.4 Sodium 137 Potassium 4.7 Chloride 100 Carbon Dioxide 33 H Anion Gap 4 BUN 20 Creatinine 1.02 Estim Creat Clear Calc 80 Estimated GFR > 60 Glucose 122 H Calcium 9.1
--- NOTE | 2025-01-15 11:08 | P.DS_ITS ---
DS: Admitting Diagnosis Discharge Date 01/15/25 Admitting Diagnosis SOF, Leg swelling, chf exacerbation DS: Discharge Diagnosis Discharge Diagnosis (1) Acute exacerbation of CHF (congestive heart failure): Code(s): I50.9 - Heart failure, unspecified Status: Acute (2) Adjustment disorder with mixed anxiety and depressed mood: Code(s): F43.23 - Adjustment disorder with mixed anxiety and depressed mood Status: Acute (3) Chronic bilateral low back pain with left-sided sciatica: Code(s): M54.42 - Lumbago with sciatica, left side; G89.29 - Other chronic pain Status: Acute (4) Chronic obstructive pulmonary disease, unspecified: Code(s): J44.9 - Chronic obstructive pulmonary disease, unspecified Status: Acute Plan SOB; Acute on chronic chf elevated PROBNP Echo LVEF 25% continue po lasix * Continue Coreg 6.25 mg q.12 hours * Continue lisinopril 2.5 mg daily * Continue spironolactone 25 mg daily * furosemide 40 mg p.o. daily today * Strict intake and output * Daily weights chest pain improved troponin negative. will continue trend Echo Ef 25% COPd not taking medication continue to monitor HTN Lisinopril, Coreg chronic back pain pain meds as needed DS: Summary Hospital Course Hospital Course: Patient is 55 years pld male with history of combined CHF, COPD, GERD presented with SOB and chest pain since this morning. Patient notes his SOB is worse with activity. denies any cough/fever/chills. ayaz weight gain but has bilateral leg swelling. patient also complain of tightening midsternal chest pain, non radiating. presented to ER for further management. lab test showed Normal troponin, elevated BNP. admitted for IV lasix. patient was seen and examined at bedside. breathing improving still has mild chest pain.he already had breakfast. will continue Lasix. Echo LVef 25% 01/13/25 patient was seen and examined at bedside. he is feeling better. his breathing is better. cardiology team was consulted. spironolactone was added. continue with lasix. 01/15/25 patient was seen and examined at bedside. he is feeling fine, breathing is better. denies chest pain, ABd pain, Nausea vomiting. cardiology team on board lasix changed to po daily. will discharge on lasix, Aldactone, coreg, lisinopril and jardiance Status at Discharge Functional status at discharge: independent ambulation Overall status at discharge: patient is back to baseline Time Spent with Patient Time attestation: Total time spent providing and/or coordinating discharge services: Time spent: Greater than 30 minutes Exam Narrative: EXAMINATION OF ORGAN SYSTEMS/BODY AREAS: Constitutional: Vital signs per nursing GENERAL:[No acute distress, non-toxic appearing.] HEAD: Normal with no signs of head trauma. EYES: EOMI, conjunctiva normal ENT: Hearing grossly intact LUNGS: Sitting upright in bed without respiratory distress, no wheezing HEART: [Regular rate and rhythm] ABD: [Soft], [nontender to palpation] EXT: no edema SKIN: [No rashes or lesions.] NEURO: [Alert and oriented x 3. No gross focal sensory or strength deficits.] PSYCH: Normal affect DS: Data Data Completed and Pending Labs on day of discharge: Labs from last 24 hours 01/15/25 04:32 WBC 6.5 RBC 5.44 Hgb 16.1 Hct 49.3 MCV 90.6 MCH 29.6 MCHC 32.7 RDW 12.3 Plt Count 112 L MPV 9.4 Sodium 137 Potassium 4.7 Chloride 100 Carbon Dioxide 33 H Anion Gap 4 BUN 20 Creatinine 1.02 Estim Creat Clear Calc 80 Estimated GFR > 60 Glucose 122 H Calcium 9.1 Discharge Plan Discharge Attending physician on discharge: Lindsey Adan Consulting providers: Li Carty Discharging Clinician: Lindsey Adan Patient Disposition: Home Activity: as tolerated Diet: heart healthy Discharge Instructions: Continue Coreg 6.25 mg q.12 hours * Continue lisinopril 2.5 mg daily * Continue spironolactone 25 mg daily * furosemide 40 mg p.o. daily today * Strict intake and output * Daily weights and report to pCP if gaining more than 2-3 pounds * check Blood pressure and heart rate regularly and report to PCP * follow with PCP in one week * follow with cardiology clinic in 2-4 weeks Patient Instructions: Antibiotic Form Patient Language: Telugu Stand Alone Forms: General Discharge Information Follow-up/Referrals: UNKNOWN,DOCTOR [Primary Care Provider] - Magdaleno Wright MD [Physician] - Call for Appointment Discharge Medications: New spironolactone 25 mg Tablet 25 mg PO QAM Qty: 30 0RF furosemide 40 mg Tablet 40 mg PO DAILY Qty: 30 0RF Jardiance 10 mg tablet 10 mg PO DAILY Qty: 30 0RF Continued albuterol sulfate [Ventolin HFA] 90 mcg/actuation HFA aerosol inhaler 1 inhalation INHALATION Q4H PRN (Reason: shortness of breath) Qty: 18 0RF lisinopril 2.5 mg tablet 2.5 mg PO DAILY Qty: 1 0RF omeprazole 40 mg capsule,delayed release(DR/EC) 40 mg PO DAILY Qty: 1 0RF escitalopram oxalate 10 mg tablet 10 mg PO DAILY Qty: 1 0RF cyclobenzaprine 10 mg tablet 10 mg PO TID Qty: 1 0RF fluticasone propion-salmeterol 113-14 mcg/actuation aerosol powdr breath activated 1 puff INHALATION BID Qty: 1 0RF carvedilol 6.25 mg tablet 6.25 mg PO Q12H MDD 2 tablets Qty: 60 0RF Rx Instructions: must administer with a meal/food docusate sodium [Col-Rite] 100 mg capsule 100 mg PO BID Qty: 14 0RF lidocaine 5 % adhesive patch,medicated 1 patch topical PRN Rx Instructions: leave on most painful area for up to 12 hrs, lower back naproxen 500 mg tablet 500 mg PO BID PRN (Reason: pain) Qty: 20 0RF Discontinued furosemide 20 mg tablet 20 mg PO QAM Qty: 1 0RF potassium chloride [Klor-Con 10] 10 mEq tablet extended release 10 meq PO DAILY Qty: 1 0RF furosemide 20 mg tablet 20 mg PO Q12H cyclobenzaprine 10 mg tablet 10 mg PO TID PRN (Reason: muscle spasm) Qty: 30 0RF Date of admission: 01/13/25 13:42 Primary Care Provider: UNKNOWN,DOCTOR Admitting Provider: Lindsey Adan Attending physician on admission: Lindsey Adan Condition: Stable
== END 2025-01-15 13:35 | disposition home or self-care (01) | DRG 291 ==
LOC: ANHED 07:25 → ANH2MED 07:53
PROVIDERS: Emergency Medicine; Admitting Provider Internal Medicine; Emergency Provider Emergency Medicine; Visit Provider Internal Medicine
DX: I11.0 Hypertensive heart disease with heart failure (principal); I50.23 Acute on chronic systolic (congestive) heart failure; I42.8 Other cardiomyopathies; J44.9 Chronic obstructive pulmonary disease, unspecified; M54.42 Lumbago with sciatica, left side; G89.29 Other chronic pain; F43.23 Adjustment disorder with mixed anxiety and depressed mood; F17.210 Nicotine dependence, cigarettes, uncomplicated
CPT/HCPCS: 36415; 71046; 80048; 80053; 83690; 83880; 84484; 85025; 85027; 85055; 85610; 85730; 87637; 93005; 96374; 96375; 96376; 99285; A9270; C8929; G0378; J1650; J1938; Q9957

== ENCOUNTER 2025-01-25 12:40 | Observation (INO) | payer OTHER, SELFPAY ==
[2025-01-25] VITALS (41 sets, daily range): BP systolic 107–142; BP diastolic 73–109; PULSE 92–112; RESP 12–33; TEMP 36.8; O2SAT 89–98
--- NOTE | ~2025-01-25 | XR_ITS ---
CHEST RADIOGRAPH, PA AND LATERAL CLINICAL HISTORY: CP x 2 hours, LIGHT HEADED . COMPARISON: 01/12/2025 TECHNIQUE: PA and lateral views of the chest. Examination is limited by patient rotation to their left. Lateral view is nondiagnostic. FINDINGS The left mid lung is partially obscured due to pacemaker/AICD generator. Wires project over the right atrium and right ventricle. The remainder of the cardiomediastinal silhouette is enlarged and otherwise unremarkable. Increased i nterstitial markings are identified in the right hilum, likely secondary to patient rotation rather t eden intrinsic pulmonary pathology. The remainder of the lungs are clear. IMPRESSION: Cardiomegaly, without focal infiltrate or effusion. Reviewed, dictated and finalized at location A.
--- NOTE | ~2025-01-25 | CT_ITS ---
CTA chest PE protocol Ordering provider: Denis Haas MD History: 55 years Male with . Sob, Tachycardia . Comparison: None. Technique: CT angiogram chest was performed following timed intravenous injection of contrast. Thin s lice axial images and reformatted coronal images were obtained. Three dimensional reformatted images of the chest were also obtained using a Vericept workstation. . Automated exposure control and iterati ve reconstruction technique were employed. The dose-length product was 946.82 mGy-cm. 100 mL Omnipaqu e 350 was given IV. Findings: PULMONARY ARTERIES: No pulmonary embolus. VISUALIZED THORACIC INLET: Normal. MEDIASTINUM: Aorta/coronary arteries: The thoracic aorta is normal. Heart/other: The heart is not enlarged. Lymph nodes: No mediastinal or hilar adenopathy. LUNGS: No pulmonary nodules or masses. No infiltrates or effusions. No pneumothorax. Emphysematous changes o f the lungs. VISUALIZED UPPER ABDOMEN: the visualized upper abdomen is normal. MUSCULOSKELETAL: Soft tissues: The superficial soft tissues are normal. Bones: Age appropriate degenerative changes of the spine. S-shaped scoliosis. IMPRESSION: 1. No pulmonary embolism. 2. No acute cardiopulmonary pathology. Reviewed, dictated and finalized at location A.
--- NOTE | 2025-01-25 12:49 | ECG_ITS ---
Test Date: 2025-01-25 13:28:43 Measurements Intervals [place] Rate: 102 P: 45 TN: 181 QRS: 73 QRSD: 94 T: 7 QT: 330 QTc: 431 Interpretive Statements SINUS TACHYCARDIA POSSIBLE LEFT ATRIAL ENLARGEMENT [-0.1mV P WAVE IN V1/V2] LOW QRS VOLTAGE IN EXTREMITY LEADS [QRS DEFLECTION < 0.5 mV IN LIMB LEADS] ABNORMAL RHYTHM ECG Compared to ECG 01/12/2025 12:29:16 Sinus rhythm no longer present Electronically Signed On 01-26-2025 15:08:32 CDT by Aries Katz M.D.
--- NOTE | 2025-01-25 13:42 | ED.CHESTPAIN ---
HPI - Chest Pain General Chief Complaint: Chest Pain <Abimbola Thorne PA-C - Last Filed: 01/26/25 09:09> Stated Complaint: CP x 2 hours-Afib/SHOB <Abimbola Thorne PA-C - Last Filed: 01/26/25 09:09> Time Seen by Provider: 01/25/25 13:42 <Abimbola Thorne PA-C - Last Filed: 01/26/25 09:09> Focused HPI: This is a 55 year old male that presents to the ER for an episode of chest pain, shortness of breath. Reports this started a couple hours prior to arrival. Reports feeling lightheaded, like he was going to pass out. GENERAL: Well-appearing, well-nourished, and in no acute distress. HEAD: Normocephalic, atraumatic. CHEST: Clear to auscultation. ?No respiratory distress. HEART: Regular rate and rhythm.? NEURO: ?Alert and oriented x3. Patient screened in triage and initial orders placed.? ?Additional care and disposition to be based upon?diagnostic testing and treatment. <Abimbola Thorne PA-C - Last Filed: 01/26/25 09:09> History of Present Illness HPI narrative: This a 55-year-old male history of HFrEF 25-30% presenting for chest pain and shortness of breath. Patient says the pain started earlier today. It is a sharp pain on the left side of his chest going into his left arm. This is associated with shortness of breath. Patient has noticed some mild swelling in his legs. Patient states he is taking his Lasix as directed. He denies fevers, productive cough, abdominal pain / nausea / vomiting. <Denis Haas MD - Last Filed: 01/25/25 22:19> Related Data Home Medications: Home Medications ?Medication ?Instructions ?Recorded ?Confirmed ?Last Taken ?Type lisinopril 2.5 mg tablet 2.5 mg PO DAILY 01/26/25 01/26/25 Unknown History lisinopril 20 mg tablet 20 mg PO DAILY 01/26/25 01/26/25 Unknown History potassium chloride 20 mEq 20 meq PO DAILY 01/26/25 01/26/25 Unknown History tablet,extended release <Abimbola Thorne PA-C - Last Filed: 01/26/25 09:09> Allergies/Adverse Reactions: Allergies Allergy/AdvReac Type Severity Reaction Status Date / Time No Known Allergies Allergy Verified 01/12/25 09:27 <Abimbola Thorne PA-C - Last Filed: 01/26/25 09:09> Review of Systems Review of Systems: All systems reviewed & are unremarkable except as noted in HPI and below <Abimbola Thorne PA-C - Last Filed: 01/26/25 09:09> [facility] Past Medical History Medical History: Medical History History of hypertension Non-ischemic cardiomyopathy <RAQUEL Jeffers Last Filed: 01/26/25 09:09> Family History Family History: Family History (Updated 01/26/25 @ 00:45 by Trixie Sanchez RN) Other Unknown family medical history <Abimbola Thorne PA-C - Last Filed: 01/26/25 09:09> Social History Social History: Social History Smoking packs per day: 1.5 Smoking cigarettes per day: 30.0 Years smoked: 30 Smoking pack-years: 45.00 Smoking status: Former smoker Tobacco type: cigarettes Smoking end date: 01/12/25 Alcohol intake: former Substance use: current Substance use type: marijuana Other substance usage details: marijuana gummies Last use: 01/24/2025 Do You Feel Safe in your Home?: Yes Lack of Transportation: No Lack of Food: Sometimes True Current Housing: I Have Housing Concerned About Future Housing: No Difficulty Paying Gas/Electric Bills: No Difficulty Paying for Meds: No Currently Unemployed: No Education: High School Diploma/GED Difficulty w/ Childcare or Family Care: No Spiritual care concerns: No <RAQUEL Jeffers Last Filed: 01/26/25 09:09> Exam Narrative: APPEARANCE: No apparent distress. Head: atraumatic. EYES: EOMI, NOSE: Atraumatic NECK: Trachea midline RESPIRATORY: Bibasilar crackles, low 90s on room air CARDIOVASCULAR: Tachycardic, mild edema of the ankles ABDOMINAL: Non-distended MUSCULOSKELETAl: No obvious deformities NEURO: Alert. Moving 4/4 extremities SKIN:: Warm, dry. Normal color PSYCHIATRIC: Normal affect <Denis Haas MD - Last Filed: 01/25/25 22:19> Course Vital Signs Vital signs: Vital Signs Temperature 98.2 F 01/25/25 13:22 Pulse Rate 99 01/25/25 13:22 Respiratory Rate 16 01/25/25 13:22 Blood Pressure 118/77 01/25/25 13:22 Pulse Oximetry 96 01/25/25 13:22 Temperature 97.7 F 01/26/25 06:00 Pulse Rate 86 01/26/25 08:49 Respiratory Rate 18 01/26/25 06:00 Blood Pressure 113/80 01/26/25 06:00 Pulse Oximetry 98 01/26/25 06:00 Oxygen Delivery Room Air 01/26/25 08:51 <Abimbola Thorne PA-C - Last Filed: 01/26/25 09:09> Vital Signs Temperature 98.2 F 01/25/25 13:22 Pulse Rate 99 01/25/25 13:22 Respiratory Rate 16 01/25/25 13:22 Blood Pressure 118/77 01/25/25 13:22 Pulse Oximetry 96 01/25/25 13:22 Temperature 97.7 F 01/26/25 06:00 Pulse Rate 86 01/26/25 08:49 Respiratory Rate 18 01/26/25 06:00 Blood Pressure 113/80 01/26/25 06:00 Pulse Oximetry 98 01/26/25 06:00 Oxygen Delivery Room Air 01/26/25 08:51 <Denis Haas MD - Last Filed: 01/25/25 22:19> MDM - Chest Pain MDM Narrative Medical decision making narrative: -Course: 55-year-old male with HFrEF presenting with chest pain and shortness of breath. On arrival patient is tachycardic and tachypneic although maintaining his oxygen saturations. He has mild bibasilar crackles on lung exam. BNP elevated at 2100. Troponins within normal limits although up trending. Chest x-ray without significant edema. CT PE ordered for elevated dimer which not reveal pulmonary embolism infiltrates or other significant findings. I discussed admission versus discharge the patient was very uncomfortable with being discharged home although he cannot tell me exactly why. Patient will be placed observation for CHF exacerbation. -DDX includes but is not limited to: CHF exacerbation, ACS, pneumonia -Co-morbidities complicating care: Nonischemic cardiomyopathy Independent EKG interpretation: Rhythm [sinus], Rate [102], [place] -[normal], AR -[normal], QRS [narrow], QTC [normal], T waves -[negative for concerning inversions], ST Segments - [Negative for concerning elevations] Final interpretations: Sinus tachycardia <Denis Haas MD - Last Filed: 01/25/25 22:19> Lab Data Result diagrams: 01/25/25 13:43 01/25/25 13:43 <Abimbola Thorne PA-C - Last Filed: 01/26/25 09:09> Labs: Lab Results 01/25/25 01/25/25 01/25/25 Range/Units 13:43 16:45 18:56 WBC 9.0 (4.5-10.0) K/mm3 RBC 5.49 (4.6-6.20) M/mm3 Hgb 16.2 (14.0-18.0) g/dL Hct 48.2 (42.0-52.0) % MCV 87.8 (80-100) fl MCH 29.5 (26-34) pg MCHC 33.6 (32-36) g/dl RDW 12.2 (11.5-14.5) % Plt Count 136 L (150-375) k/mm3 MPV 9.1 (7.4-10.4) fl Immature Gran % (Auto) 0.6 H (0-0.5) % Neut % (Auto) 68.5 (45.5-73.1) % Lymph % (Auto) 21.1 (18.3-44.2) % Stanton % (Auto) 7.4 (2.6-8.5) % Eos % (Auto) 1.8 (0-4.4) % Baso % (Auto) 0.6 (0.2-1.2) % Lymph # (Auto) 1.89 (0.9-3.2) K/mm3 Stanton # (Auto) 0.7 H (0.1-0.6) K/mm3 Eos # (Auto) 0.2 (0-0.3) K/mm3 Baso # (Auto) 0.1 (0.0-0.1) K/mm3 Abs Immat Gran (auto) 0.05 H (0.00-0.031) K/mm3 Absolute Neuts (auto) 6.2 (1.3-6.7) K/mm3 Absolute Nucleated RBC 0.000 (0.0-0.012) K/mm3 Nucleated RBC % 0.0 (0.0-0.2) % PT 11.9 (11.1-14.7) Seconds INR 0.9 APTT 25.4 (22.3-36.8) Seconds D-Dimer 0.62 H (<0.48) ug/mL Sodium 138 (137-145) mmol/L Potassium 4.1 (3.4-5.0) mmol/L Chloride 102 (98-107) mmol/L Carbon Dioxide 29 (22-30) mmol/L Anion Gap 7 (4-12) mmol/L BUN 11 D (9-20) mg/dL Creatinine 0.81 (0.7-1.3) mg/dL Estim Creat Clear Calc 101 ml/min Estimated GFR > 60 (59 - ) Glucose 102 (65-110) mg/dL Calcium 9.2 (8.4-10.2) mg/dL Total Bilirubin 0.7 (0.2-1.3) mg/dL AST 36 (17-59) U/L ALT 33 (6-50) U/L Alkaline Phosphatase 64 (38-126) U/L Troponin I < 0.012 < 0.012 (0.000-0.034) ng/mL NT-Pro-B Natriuret Pep 2100 H (19.9-100) pg/mL Total Protein 7.0 (6.3-8.2) g/dL Albumin 4.1 (3.5-5.1) g/dL Lipase 61 (23-300) U/L Urine Opiates Screen (Negative) Urine Methadone Screen (Negative) Ur Barbiturates Screen (Negative) Ur Phencyclidine Scrn (Negative) Ur Amphetamine Screen (Negative) U Benzodiazepines Scrn (Negative) Urine Cocaine Screen (Negative) U Cannabinoids Screen (Negative) 01/25/25 01/25/25 Range/Units 19:57 21:53 WBC (4.5-10.0) K/mm3 RBC (4.6-6.20) M/mm3 Hgb (14.0-18.0) g/dL Hct (42.0-52.0) % MCV (80-100) fl MCH (26-34) pg MCHC (32-36) g/dl RDW (11.5-14.5) % Plt Count (150-375) k/mm3 MPV (7.4-10.4) fl Immature Gran % (Auto) (0-0.5) % Neut % (Auto) (45.5-73.1) % Lymph % (Auto) (18.3-44.2) % Stanton % (Auto) (2.6-8.5) % Eos % (Auto) (0-4.4) % Baso % (Auto) (0.2-1.2) % Lymph # (Auto) (0.9-3.2) K/mm3 Stanton # (Auto) (0.1-0.6) K/mm3 Eos # (Auto) (0-0.3) K/mm3 Baso # (Auto) (0.0-0.1) K/mm3 Abs Immat Gran (auto) (0.00-0.031) K/mm3 Absolute Neuts (auto) (1.3-6.7) K/mm3 Absolute Nucleated RBC (0.0-0.012) K/mm3 Nucleated RBC % (0.0-0.2) % PT (11.1-14.7) Seconds INR APTT (22.3-36.8) Seconds D-Dimer (<0.48) ug/mL Sodium (137-145) mmol/L Potassium (3.4-5.0) mmol/L Chloride (98-107) mmol/L Carbon Dioxide (22-30) mmol/L Anion Gap (4-12) mmol/L BUN (9-20) mg/dL Creatinine (0.7-1.3) mg/dL Estim Creat Clear Calc ml/min Estimated GFR (59 - ) Glucose (65-110) mg/dL Calcium (8.4-10.2) mg/dL Total Bilirubin (0.2-1.3) mg/dL AST (17-59) U/L ALT (6-50) U/L Alkaline Phosphatase (38-126) U/L Troponin I 0.020 D (0.000-0.034) ng/mL NT-Pro-B Natriuret Pep (19.9-100) pg/mL Total Protein (6.3-8.2) g/dL Albumin (3.5-5.1) g/dL Lipase (23-300) U/L Urine Opiates Screen Negative (Negative) Urine Methadone Screen Negative (Negative) Ur Barbiturates Screen Negative (Negative) Ur Phencyclidine Scrn Negative (Negative) Ur Amphetamine Screen Negative (Negative) U Benzodiazepines Scrn Negative (Negative) Urine Cocaine Screen Negative (Negative) U Cannabinoids Screen Positive A (Negative) <Aibmbola Thorne PA-C - Last Filed: 01/26/25 09:09> Lab Results 01/25/25 01/25/25 01/25/25 Range/Units 13:43 16:45 18:56 WBC 9.0 (4.5-10.0) K/mm3 RBC 5.49 (4.6-6.20) M/mm3 Hgb 16.2 (14.0-18.0) g/dL Hct 48.2 (42.0-52.0) % MCV 87.8 (80-100) fl MCH 29.5 (26-34) pg MCHC 33.6 (32-36) g/dl RDW 12.2 (11.5-14.5) % Plt Count 136 L (150-375) k/mm3 MPV 9.1 (7.4-10.4) fl Immature Gran % (Auto) 0.6 H (0-0.5) % Neut % (Auto) 68.5 (45.5-73.1) % Lymph % (Auto) 21.1 (18.3-44.2) % Stanton % (Auto) 7.4 (2.6-8.5) % Eos % (Auto) 1.8 (0-4.4) % Baso % (Auto) 0.6 (0.2-1.2) % Lymph # (Auto) 1.89 (0.9-3.2) K/mm3 Stanton # (Auto) 0.7 H (0.1-0.6) K/mm3 Eos # (Auto) 0.2 (0-0.3) K/mm3 Baso # (Auto) 0.1 (0.0-0.1) K/mm3 Abs Immat Gran (auto) 0.05 H (0.00-0.031) K/mm3 Absolute Neuts (auto) 6.2 (1.3-6.7) K/mm3 Absolute Nucleated RBC 0.000 (0.0-0.012) K/mm3 Nucleated RBC % 0.0 (0.0-0.2) % PT 11.9 (11.1-14.7) Seconds INR 0.9 APTT 25.4 (22.3-36.8) Seconds D-Dimer 0.62 H (<0.48) ug/mL Sodium 138 (137-145) mmol/L Potassium 4.1 (3.4-5.0) mmol/L Chloride 102 (98-107) mmol/L Carbon Dioxide 29 (22-30) mmol/L Anion Gap 7 (4-12) mmol/L BUN 11 D (9-20) mg/dL Creatinine 0.81 (0.7-1.3) mg/dL Estim Creat Clear Calc 101 ml/min Estimated GFR > 60 (59 - ) Glucose 102 (65-110) mg/dL Calcium 9.2 (8.4-10.2) mg/dL Total Bilirubin 0.7 (0.2-1.3) mg/dL AST 36 (17-59) U/L ALT 33 (6-50) U/L Alkaline Phosphatase 64 (38-126) U/L Troponin I < 0.012 < 0.012 (0.000-0.034) ng/mL NT-Pro-B Natriuret Pep 2100 H (19.9-100) pg/mL Total Protein 7.0 (6.3-8.2) g/dL Albumin 4.1 (3.5-5.1) g/dL Lipase 61 (23-300) U/L Urine Opiates Screen (Negative) Urine Methadone Screen (Negative) Ur Barbiturates Screen (Negative) Ur Phencyclidine Scrn (Negative) Ur Amphetamine Screen (Negative) U Benzodiazepines Scrn (Negative) Urine Cocaine Screen (Negative) U Cannabinoids Screen (Negative) 01/25/25 01/25/25 Range/Units 19:57 21:53 WBC (4.5-10.0) K/mm3 RBC (4.6-6.20) M/mm3 Hgb (14.0-18.0) g/dL Hct (42.0-52.0) % MCV (80-100) fl MCH (26-34) pg MCHC (32-36) g/dl RDW (11.5-14.5) % Plt Count (150-375) k/mm3 MPV (7.4-10.4) fl Immature Gran % (Auto) (0-0.5) % Neut % (Auto) (45.5-73.1) % Lymph % (Auto) (18.3-44.2) % Stanton % (Auto) (2.6-8.5) % Eos % (Auto) (0-4.4) % Baso % (Auto) (0.2-1.2) % Lymph # (Auto) (0.9-3.2) K/mm3 [place] # (Auto) (0.1-0.6) K/mm3 Eos # (Auto) (0-0.3) K/mm3 Baso # (Auto) (0.0-0.1) K/mm3 Abs Immat Gran (auto) (0.00-0.031) K/mm3 Absolute Neuts (auto) (1.3-6.7) K/mm3 Absolute Nucleated RBC (0.0-0.012) K/mm3 Nucleated RBC % (0.0-0.2) % PT (11.1-14.7) Seconds INR APTT (22.3-36.8) Seconds D-Dimer (<0.48) ug/mL Sodium (137-145) mmol/L Potassium (3.4-5.0) mmol/L Chloride (98-107) mmol/L Carbon Dioxide (22-30) mmol/L Anion Gap (4-12) mmol/L BUN (9-20) mg/dL Creatinine (0.7-1.3) mg/dL Estim Creat Clear Calc ml/min Estimated GFR (59 - ) Glucose (65-110) mg/dL Calcium (8.4-10.2) mg/dL Total Bilirubin (0.2-1.3) mg/dL AST (17-59) U/L ALT (6-50) U/L Alkaline Phosphatase (38-126) U/L Troponin I 0.020 D (0.000-0.034) ng/mL NT-Pro-B Natriuret Pep (19.9-100) pg/mL Total Protein (6.3-8.2) g/dL Albumin (3.5-5.1) g/dL Lipase (23-300) U/L Urine Opiates Screen Negative (Negative) Urine Methadone Screen Negative (Negative) Ur Barbiturates Screen Negative (Negative) Ur Phencyclidine Scrn Negative (Negative) Ur Amphetamine Screen Negative (Negative) U Benzodiazepines Scrn Negative (Negative) Urine Cocaine Screen Negative (Negative) U Cannabinoids Screen Positive A (Negative) <Denis Haas MD - Last Filed: 01/25/25 22:19> Imaging Data Radiologist's impression: ITS Impressions Chest X-Ray 01/25/25 13:20 IMPRESSION: Cardiomegaly, without focal infiltrate or effusion. Chest CTA 01/25/25 21:16 IMPRESSION: 1. No pulmonary embolism. 2. No acute cardiopulmonary pathology. <Abimbola Thorne PA-C - Last Filed: 01/26/25 09:09> Discharge Plan Discharge Clinical Impression: CHF (congestive heart failure) Qualifiers: Heart failure type: unspecified Heart failure chronicity: unspecified Qualified Code(s): I50.9 - Heart failure, unspecified <Abimbola Thorne PA-C - Last Filed: 01/26/25 09:09> Patient Disposition: Still a Patient <Abimbola Thorne PA-C - Last Filed: 01/26/25 09:09> Condition: Stable <Abimbola Thorne PA-C - Last Filed: 01/26/25 09:09>
[2025-01-25 13:56] LABS: Basophils Absolute Auto 0.1 K/mm3 (0.0-0.1); Basophils Percent Auto 0.6 % (0.2-1.2); Eosinophils Absolute Auto 0.2 K/mm3 (0-0.3); Eosinophils Percent Auto 1.8 % (0-4.4); Hematocrit 48.2 % (42.0-52.0); Hemoglobin 16.2 g/dL (14.0-18.0); Immature Granulocyte Absolute 0.05 K/mm3 (0.00-0.031); Immature Granulocyte Percent A 0.6 % (0-0.5); Lymphocytes Absolute Auto 1.89 K/mm3 (0.9-3.2); Lymphocytes Percent Auto 21.1 % (18.3-44.2); Mean Corpuscular HGB Conc 33.6 g/dl (32-36); Mean Corpuscular Hemoglobin 29.5 pg (26-34); Mean Corpuscular Volume 87.8 fl (80-100); Mean Platelet Volume 9.1 fl (7.4-10.4); Monocytes Absolute Auto 0.7 K/mm3 (0.1-0.6); Monocytes Percent Auto 7.4 % (2.6-8.5); Neutrophils Absolute Auto 6.2 K/mm3 (1.3-6.7); Neutrophils Percent Auto 68.5 % (45.5-73.1); Platelet Count Result 136 k/mm3 (150-375); Red Blood Count 5.49 M/mm3 (4.6-6.20); Red Cell Distribution Width 12.2 % (11.5-14.5)
[2025-01-25 14:09] LABS: Alanine Aminotransferase 33 U/L (6-50); Albumin Level 4.1 g/dL (3.5-5.1); Alkaline Phosphatase 64 U/L (38-126); Anion Gap 7 mmol/L (4-12); Aspartate Amino Transferase 36 U/L (17-59); Bilirubin,Total 0.7 mg/dL (0.2-1.3); Blood Urea Nitrogen 11 mg/dL (9-20); Calcium 9.2 mg/dL (8.4-10.2); Carbon Dioxide 29 mmol/L (22-30); Chloride 102 mmol/L (98-107); Estimated CRCL calculation 101 ml/min; Estimated Glomerular Filt Rate > 60; Glucose 102 mg/dL (65-110); Lipase 61 U/L (23-300); Potassium 4.1 mmol/L (3.4-5.0); Sodium 138 mmol/L (137-145)
[2025-01-25 14:20] LABS: NT Pro B Type Natriuretic Pept 2100 pg/mL (19.9-100); Troponin I < 0.012 ng/mL (0.000-0.034)
[2025-01-25 14:25] LABS: INR 0.9; Partial Thromboplastin Time 25.4 Seconds (22.3-36.8); Prothrombin Time 11.9 Seconds (11.1-14.7)
--- NOTE | 2025-01-25 15:58 | ECG_ITS ---
Test Date: 2025-01-25 16:56:11 Measurements Intervals [place] Rate: 97 P: 48 IA: 187 QRS: 80 QRSD: 97 T: 23 QT: 363 QTc: 461 Interpretive Statements SINUS RHYTHM POSSIBLE LEFT ATRIAL ENLARGEMENT [-0.1mV P-WAVE IN V1/V2] LOW QRS VOLTAGE IN EXTREMITY LEADS [QRS DEFLECTION < 0.5 mV IN LIMB LEADS] Compared to ECG 01/25/2025 13:28:43 Sinus tachycardia no longer present Electronically Signed On 01-26-2025 15:13:34 CDT by Aries Katz M.D.
[2025-01-25 17:39] LABS: Troponin I < 0.012 ng/mL (0.000-0.034)
--- NOTE | 2025-01-25 18:52 | ECG_ITS ---
Test Date: 2025-01-25 19:45:43 Measurements Intervals [place] Rate: 99 P: 54 TX: 176 QRS: 88 QRSD: 98 T: 44 QT: 355 QTc: 456 Interpretive Statements SINUS RHYTHM POSSIBLE LEFT ATRIAL ENLARGEMENT [-0.1mV P-WAVE IN V1/V2] LOW QRS VOLTAGE IN EXTREMITY LEADS NONSPECIFIC ST- T CHANGES Compared to ECG 01/25/2025 16:56:11 No significant changes Electronically Signed On 01-26-2025 15:18:29 CDT by Aries Katz M.D.
[2025-01-25] MEDS: FUROSEMIDE INJ 40 MG/4 ML VIAL IV PUSH (18:59)
[2025-01-25 19:42] LABS: D Dimer 0.62 ug/mL (<0.48)
--- NOTE | 2025-01-25 19:59 | PC.NURSE ---
Received report from ENRIQUE Faye for cont. of care. Pt lying AOx4 on stretcher respirations even and unlabored. Pt c/o 03/09 stabbing left side chest pain radiating down arm, denies n/v. Pt tachy HR 107 on secured entrance monitor, and placed on cont. pulse oximeter.
[2025-01-25 22:15] LABS: Amphetamine Screen Urine Negative (Negative); Barbiturate Screen Urine Negative (Negative); Benzodiazepines Screen Urine Negative (Negative); Cannabinoid Screen Urine Positive (Negative); Cocaine Screen Urine Negative (Negative); Methadone Screen Urine Negative (Negative); Opiate Screen Urine Negative (Negative); Phencyclidine Screen Urine Negative (Negative)
[2025-01-25 23:02] LABS: Influenza A QL RT-PCR Negative (Negative); Influenza B QL RT-PCR Negative (Negative); RSV RNA, RT-PCR Negative (Negative); SARS-CoV-2 RNA PCR Negative (Negative)
[2025-01-26] VITALS (9 sets, daily range): BP systolic 101–124; BP diastolic 70–95; PULSE 71–100; RESP 18–20; TEMP 36.1–36.7; O2SAT 95–100; BMI 34.0
--- NOTE | 2025-01-26 00:31 | ADMGEN ---
This patient, Altaf Rhodes, was admitted to Medical Room 349-01 at 0025. Patient/family oriented to hospital policies and general routines including ID bracelet, bed and alarms, visiting hours, pain management, procedures, bathroom and other care routines, personal items, smoking policy, room service/diet, and visiting hours. Information on how to activate the Rapid Response Team has been discussed. Patient/Family are encouraged to report perceived risks to care and to ask questions if they do not understand what they are told or what they should do.
--- NOTE | 2025-01-26 05:56 | PM.IMHP ---
H&P: HPI History of Present Illness Date/Time: 01/26/25 05:56 Chief Complaint: Shortness of breath and chest tightness Narrative: 55-year-old male with a history of hypertension, CHF, nonischemic cardiomyopathy, nicotine dependence presenting with 1 day of left chest tightness and shortness of breath. Patient discharged from [facility] on 01/15/2025 with similar symptoms of heart failure. He has not been compliant with medications. Reports having quit smoking since 15. His sister he lives with feel smokes. Symptoms improved in the ER. He was given Lasix 40 mg IV x1. Troponin negative. BNP 2100. Chest CTA without PE or acute pathology. Patient breathing well on room air. Reportedly he refused to return home, not feeling well enough in the ER. Review of Systems Review of Systems: All systems reviewed & are unremarkable except as noted in HPI and below (HPI) FOR[facility]LY [facility] Past Medical History Medical History History of hypertension Non-ischemic cardiomyopathy Family History Family History (Updated 01/26/25 @ 00:45 by Trixie Sanchez RN) Other Unknown family medical history Social History Social History Smoking packs per day: 1.5 Smoking cigarettes per day: 30.0 Years smoked: 30 Smoking pack-years: 45.00 Smoking status: Former smoker Tobacco type: cigarettes Smoking end date: 01/12/25 Alcohol intake: former Substance use: current Substance use type: marijuana Other substance usage details: marijuana gummies Last use: 01/24/2025 Do You Feel Safe in your Home?: Yes Lack of Transportation: No Lack of Food: Sometimes True Current Housing: I Have Housing Concerned About Future Housing: No Difficulty Paying Gas/Electric Bills: No Difficulty Paying for Meds: No Currently Unemployed: No Education: High School Diploma/GED Difficulty w/ Childcare or Family Care: No Spiritual care concerns: No Meds Home Medications and Allergies Home Medications ?Medication ?Instructions ?Recorded ?Confirmed ?Type carvedilol 6.25 mg tablet 6.25 mg PO Q12H #60 tabs 07/12/19 01/26/25 Rx empagliflozin 10 mg tablet 10 mg PO DAILY #30 tabs 01/15/25 01/26/25 Rx (Jardiance) furosemide 40 mg tablet 40 mg PO DAILY #30 tabs 01/15/25 01/26/25 Rx spironolactone 25 mg tablet 25 mg PO QAM #30 tabs 01/15/25 01/26/25 Rx lisinopril 2.5 mg tablet 2.5 mg PO DAILY 01/26/25 01/26/25 History lisinopril 20 mg tablet 20 mg PO DAILY 01/26/25 01/26/25 History potassium chloride 20 mEq 20 meq PO DAILY 01/26/25 01/26/25 History tablet,extended release Allergies Allergy/AdvReac Type Severity Reaction Status Date / Time No Known Allergies Allergy Verified 01/12/25 09:27 Vital Signs Vital Signs - 24 hr 01/25/25 13:22 01/25/25 16:01 01/25/25 16:16 Temperature 98.2 F Pulse Rate 99 97 96 Respiratory Rate 16 22 H 26 H Blood Pressure 118/77 124/91 H 126/84 Pulse Oximetry 96 97 93 Oxygen Delivery 01/25/25 16:45 01/25/25 17:00 01/25/25 17:01 Temperature Pulse Rate 100 98 103 H Respiratory Rate 32 H 24 H 16 Blood Pressure 122/89 Pulse Oximetry 95 94 93 Oxygen Delivery 01/25/25 17:15 01/25/25 17:16 01/25/25 17:30 Temperature Pulse Rate 95 101 H 97 Respiratory Rate 27 H 16 28 H Blood Pressure 118/89 Pulse Oximetry 93 93 93 Oxygen Delivery 01/25/25 17:31 01/25/25 17:45 01/25/25 17:46 Temperature Pulse Rate 99 96 102 H Respiratory Rate 23 H 16 25 H Blood Pressure 130/85 129/87 Pulse Oximetry 93 93 93 Oxygen Delivery 01/25/25 18:00 01/25/25 18:01 01/25/25 18:15 Temperature Pulse Rate 102 H 107 H 104 H Respiratory Rate 26 H 26 H 27 H Blood Pressure 126/97 H Pulse Oximetry 97 98 93 Oxygen Delivery 01/25/25 18:16 01/25/25 18:16 01/25/25 18:30 Temperature Pulse Rate 104 H 102 H 101 H Respiratory Rate 30 H 33 H 25 H Blood Pressure 130/96 H 130/96 H Pulse Oximetry 96 96 92 Oxygen Delivery 01/25/25 18:31 01/25/25 18:45 01/25/25 18:46 Temperature Pulse Rate 101 H 109 H 112 H Respiratory Rate 25 H 18 19 Blood Pressure 125/94 H 120/109 H Pulse Oximetry 94 94 98 Oxygen Delivery 01/25/25 19:00 01/25/25 19:01 01/25/25 19:46 Temperature Pulse Rate 104 H 98 110 H Respiratory Rate 12 18 22 H Blood Pressure 137/107 H 138/105 H Pulse Oximetry 94 93 93 Oxygen Delivery 01/25/25 19:58 01/25/25 20:01 01/25/25 20:15 Temperature Pulse Rate 110 H 105 H 97 Respiratory Rate 31 H 20 26 H Blood Pressure 142/101 H 132/106 H Pulse Oximetry 90 94 93 Oxygen Delivery 01/25/25 20:16 01/25/25 20:31 01/25/25 20:37 Temperature Pulse Rate 108 H 110 H 112 H Respiratory Rate 30 H 20 27 H Blood Pressure 107/73 135/79 Pulse Oximetry 94 94 93 Oxygen Delivery 01/25/25 20:45 01/25/25 20:46 01/25/25 21:00 Temperature Pulse Rate 104 H 108 H 102 H Respiratory Rate 22 H 25 H 30 H Blood Pressure 107/75 Pulse Oximetry 93 93 89 L Oxygen Delivery 01/25/25 21:01 01/25/25 21:15 01/25/25 21:16 Temperature Pulse Rate 102 H 107 H Respiratory Rate 30 H 19 Blood Pressure 118/74 132/94 H Pulse Oximetry 91 91 94 Oxygen Delivery 01/25/25 21:30 01/25/25 21:31 01/25/25 22:45 Temperature Pulse Rate 106 H 106 H 94 Respiratory Rate 30 H 24 H 23 H Blood Pressure 139/85 Pulse Oximetry 94 90 93 Oxygen Delivery 01/25/25 23:00 01/25/25 23:29 01/25/25 23:31 Temperature Pulse Rate 92 102 H 106 H Respiratory Rate 23 H 21 H 16 Blood Pressure 127/92 H 127/96 H Pulse Oximetry 94 98 Oxygen Delivery 01/26/25 01:53 01/26/25 01:55 Temperature 97.3 F L Pulse Rate 100 Respiratory Rate 18 Blood Pressure 124/95 H Pulse Oximetry 100 Oxygen Delivery Room Air Exam Const: General: comfortable and no acute distress HENMT: Mouth: Yes moist mucous membranes Eyes: Pupils: Equal, round and reactive pupils present Neck: Neck: supple Resp: Effort & Inspection: normal respiratory effort Auscultation: clear to auscultation bilaterally Other: Scant expiratory wheeze, dry crackles left lower lung field Cardio: Rate: regular rate Rhythm: regular rhythm GI: GI Palp: Yes Soft to palpation and No Tenderness to palpation present (GI) Extrem: General: no edema H&P: Results Labs Labs: Short CBC 01/25/25 Range/Units 13:43 WBC 9.0 (4.5-10.0) K/mm3 Hgb 16.2 (14.0-18.0) g/dL Hct 48.2 (42.0-52.0) % Plt Count 136 L (150-375) k/mm3 BMP 01/25/25 13:43 Sodium 138 Potassium 4.1 Chloride 102 Carbon Dioxide 29 BUN 11 D Creatinine 0.81 Glucose 102 Calcium 9.2 Cardiac Enzymes 01/25/25 01/25/25 01/25/25 Range/Units 13:43 16:45 19:57 Troponin I < 0.012 < 0.012 0.020 D (0.000-0.034) ng/mL Liver Function 01/25/25 Range/Units 13:43 Total Bilirubin 0.7 (0.2-1.3) mg/dL AST 36 (17-59) U/L ALT 33 (6-50) U/L Alkaline Phosphatase 64 (38-126) U/L Albumin 4.1 (3.5-5.1) g/dL Assessment and Plan Assessment and plan (1) Shortness of breath: Code(s): R06.02 - Shortness of breath Status: Acute Plan Presenting with shortness of breath. Improved. Has a scant/faint expiratory wheeze. Outside of a elevated BNP which is similar to when he was discharged 2 weeks ago he has no findings reflective of acute CHF such as weight gain, swelling, pulmonary edema on imaging. 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 Full code. SCDs. Hospitalist [facility] Advance Care Plan I have confirmed that the patient's Advanced Care Plan is present, code status is documented, or surrogate decision maker is listed in patient medical record.: Yes Medication Reconciliation I have utilized all available resources to obtain, update and review the patients current medications (includes all prescriptions, OTC, herbals, cannabis, and nutritional supplements).: Yes
[2025-01-26] MEDS: carvediloL 6.25 MG TABLET PO ×2 (08:49→20:50)
[2025-01-26] MEDS: lisinopriL 20 MG TABLET PO (08:49)
[2025-01-26] MEDS: POTASSIUM CHLORIDE 20 MEQ ER TABLET PO ×2 (08:49→17:16)
[2025-01-26] MEDS: FUROSEMIDE 40 MG TABLET PO (08:49)
[2025-01-26] MEDS: IPRATROPIUM BR 0.02% INH SOLN 0.5 MG/2.5 ML VIAL INHALATION ×3 (09:45→21:01)
--- NOTE | 2025-01-26 16:34 | P.PNIM_ITS ---
Progress Note: A&P Assessment and Plan (1) Shortness of breath: Code(s): R06.02 - Shortness of breath Status: Acute Assessment and Plan: See CHF and chest tightness (2) Acute exacerbation of CHF (congestive heart failure): Code(s): I50.9 - Heart failure, unspecified Status: Acute Assessment and Plan: Increasing shortness of breath, dizziness, and chest tightness. Tachycardic and increased edema --Monitor on tele --Fluid restriction, 1 liter per day for now --IV lasix --Labs q12 BMP, mag to monitor electrolytes (3) Chest tightness: Code(s): R07.89 - Other chest pain Status: Acute Assessment and Plan: Troponin negative x3 Suspect 2/2 heart failure and tachycardia (4) Tachycardia: Code(s): R00.0 - Tachycardia, unspecified Status: Acute Assessment and Plan: -Diuresing --EKG NSR HR 99 01/25 --on carvedilol 6.25 bid, continue for now Plan Presenting with shortness of breath. Improved. Has a scant/faint expiratory wheeze. Outside of a elevated BNP which is similar to when he was discharged 2 weeks ago he has no findings reflective of acute CHF such as weight gain, swelling, pulmonary edema on imaging. Resume [employer] medications, started ipratropium nebulizer. Full code. SCDs. Time Spent With Patient Time: 58 minutes Subjective Date/time seen: 01/26/25 16:34 Interval history: Has gradually be gaining weight since discharge. His understanding was that he was supposed to drink about 2 liters a day, which he has been doing. Has been taking medications regularly though did miss 1 dose earlier in the week. His in July last year and she had been helping him manage things. Needs a new scale. His needs a battery. Has had more abdominal swelling since discharge Unable to lie flat due to shortness of breath Dizziness when standing Chest tightness and tachycardic on exam Review of Systems Review of Systems: All systems reviewed & are unremarkable except as noted in HPI and below (HPI) Exam Narrative: General - Awake and alert. No acute distress Eyes - PERRLA, EOM intact ENT - No thrush, No erythema Neck - No noticeable or palpable swelling Lymph Nodes - No lymphadenopathy Cardiovascular - RRR no m/r/g, no JVD Lungs: Clear to auscultation, No wheezing, use of accessory muscles, basilar crackles . Skin - Skin warm and dry, no wounds or rashes Abdomen - Normal bowel sounds, abdomen soft and nontender, edematous Extremities - Generalized edema, abdomen, cyanosis or clubbing Musculoskeletal - 5/5 strength, normal range of motion, no swollen or erythematous joints. Neurological ? Alert and oriented x 3, CN 2-12 grossly intact. Psych: Normal mood and affect Objective Data Vital Signs Vital Signs: Vital Signs - 24 hr 01/25/25 16:45 01/25/25 17:00 01/25/25 17:01 Temperature Pulse Rate 100 98 103 H Respiratory Rate 32 H 24 H 16 Blood Pressure 122/89 Pulse Oximetry 95 94 93 Oxygen Delivery 01/25/25 17:15 01/25/25 17:16 01/25/25 17:30 Temperature Pulse Rate 95 101 H 97 Respiratory Rate 27 H 16 28 H Blood Pressure 118/89 Pulse Oximetry 93 93 93 Oxygen Delivery 01/25/25 17:31 01/25/25 17:45 01/25/25 17:46 Temperature Pulse Rate 99 96 102 H Respiratory Rate 23 H 16 25 H Blood Pressure 130/85 129/87 Pulse Oximetry 93 93 93 Oxygen Delivery 01/25/25 18:00 01/25/25 18:01 01/25/25 18:15 Temperature Pulse Rate 102 H 107 H 104 H Respiratory Rate 26 H 26 H 27 H Blood Pressure 126/97 H Pulse Oximetry 97 98 93 Oxygen Delivery 01/25/25 18:16 01/25/25 18:16 01/25/25 18:30 Temperature Pulse Rate 104 H 102 H 101 H Respiratory Rate 30 H 33 H 25 H Blood Pressure 130/96 H 130/96 H Pulse Oximetry 96 96 92 Oxygen Delivery 01/25/25 18:31 01/25/25 18:45 01/25/25 18:46 Temperature Pulse Rate 101 H 109 H 112 H Respiratory Rate 25 H 18 19 Blood Pressure 125/94 H 120/109 H Pulse Oximetry 94 94 98 Oxygen Delivery 01/25/25 19:00 01/25/25 19:01 01/25/25 19:46 Temperature Pulse Rate 104 H 98 110 H Respiratory Rate 12 18 22 H Blood Pressure 137/107 H 138/105 H Pulse Oximetry 94 93 93 Oxygen Delivery 01/25/25 19:58 01/25/25 20:01 01/25/25 20:15 Temperature Pulse Rate 110 H 105 H 97 Respiratory Rate 31 H 20 26 H Blood Pressure 142/101 H 132/106 H Pulse Oximetry 90 94 93 Oxygen Delivery 01/25/25 20:16 01/25/25 20:31 01/25/25 20:37 Temperature Pulse Rate 108 H 110 H 112 H Respiratory Rate 30 H 20 27 H Blood Pressure 107/73 135/79 Pulse Oximetry 94 94 93 Oxygen Delivery 01/25/25 20:45 01/25/25 20:46 01/25/25 21:00 Temperature Pulse Rate 104 H 108 H 102 H Respiratory Rate 22 H 25 H 30 H Blood Pressure 107/75 Pulse Oximetry 93 93 89 L Oxygen Delivery 01/25/25 21:01 01/25/25 21:15 01/25/25 21:16 Temperature Pulse Rate 102 H 107 H Respiratory Rate 30 H 19 Blood Pressure 118/74 132/94 H Pulse Oximetry 91 91 94 Oxygen Delivery 01/25/25 21:30 01/25/25 21:31 01/25/25 22:45 Temperature Pulse Rate 106 H 106 H 94 Respiratory Rate 30 H 24 H 23 H Blood Pressure 139/85 Pulse Oximetry 94 90 93 Oxygen Delivery 01/25/25 23:00 01/25/25 23:29 01/25/25 23:31 Temperature Pulse Rate 92 102 H 106 H Respiratory Rate 23 H 21 H 16 Blood Pressure 127/92 H 127/96 H Pulse Oximetry 94 98 Oxygen Delivery 01/26/25 01:53 01/26/25 01:55 01/26/25 06:00 Temperature 97.3 F L 97.7 F Pulse Rate 100 92 Respiratory Rate 18 18 Blood Pressure 124/95 H 113/80 Pulse Oximetry 100 98 Oxygen Delivery Room Air 01/26/25 08:49 01/26/25 08:51 01/26/25 14:00 Temperature 98.1 F Pulse Rate 86 75 Respiratory Rate 18 Blood Pressure 118/78 Pulse Oximetry 95 Oxygen Delivery Room Air Intake/Output Intake/Output: Intake & Output 01/23/25 01/24/25 01/25/25 01/26/25 23:59 23:59 23:59 23:59 Intake Total 1524 Output Total 1200 Balance 324 Meds/Results Medications: Active Medications Generic Name Dose Route Start Last Admin Trade Name Neto PRJuanita Reason Stop Dose Admin Carvedilol 6.25 mg 01/26/25 09:00 01/26/25 08:49 Carvedilol 6.25 Mg Tablet PO 6.25 mg Q12HR ZEINA Administration Furosemide 40 mg 01/26/25 17:00 Furosemide Inj 40 Mg/4 Ml Vial IV PUSH BID ZEINA Ipratropium [place] 0.5 mg 01/26/25 08:00 01/26/25 16:21 Ipratropium Br 0.02% Inh Soln 0.5 Mg/2.5 Ml Vial INHALATION 0.5 mg Q4HRT ZEINA Administration Lisinopril 20 mg 01/26/25 09:00 01/26/25 08:49 Lisinopril 20 Mg Tablet PO 20 mg DAILY ZEINA Administration Radiology Results: ITS Impressions Chest X-Ray 01/25/25 13:20 IMPRESSION: Cardiomegaly, without focal infiltrate or effusion. Chest CTA 01/25/25 21:16 IMPRESSION: 1. No pulmonary embolism. 2. No acute cardiopulmonary pathology. Labs Labs: Laboratory Results - last 24 hr 01/25/25 01/25/25 01/25/25 16:45 18:56 19:57 D-Dimer 0.62 H Troponin I < 0.012 0.020 D Urine Opiates Screen Urine Methadone Screen Ur Barbiturates Screen Ur Phencyclidine Scrn Ur Amphetamine Screen U Benzodiazepines Scrn Urine Cocaine Screen U Cannabinoids Screen Influenza A (RT-PCR) Influenza B (RT-PCR) RSV (RT-PCR) SARS-CoV-2 RNA (RT-PCR) 01/25/25 01/25/25 21:53 22:21 D-Dimer Troponin I Urine Opiates Screen Negative Urine Methadone Screen Negative Ur Barbiturates Screen Negative Ur Phencyclidine Scrn Negative Ur Amphetamine Screen Negative U Benzodiazepines Scrn Negative Urine Cocaine Screen Negative U Cannabinoids Screen Positive A Influenza A (RT-PCR) Negative Influenza B (RT-PCR) Negative RSV (RT-PCR) Negative SARS-CoV-2 RNA (RT-PCR) Negative Hospitalist [facility] Advance Care Plan I have confirmed that the patient's Advanced Care Plan is present, code status is documented, or surrogate decision maker is listed in patient medical record.: Yes Medication Reconciliation I have utilized all available resources to obtain, update and review the patients current medications (includes all prescriptions, OTC, herbals, cannabis, and nutritional supplements).: Yes
[2025-01-26] MEDS: FUROSEMIDE INJ 40 MG/4 ML VIAL IV PUSH (17:15)
[2025-01-26 21:05] LABS: Anion Gap 9 mmol/L (4-12); Blood Urea Nitrogen 21 mg/dL (9-20); Calcium 9.8 mg/dL (8.4-10.2); Carbon Dioxide 31 mmol/L (22-30); Chloride 96 mmol/L (98-107); Estimated CRCL calculation 78 ml/min; Estimated Glomerular Filt Rate > 60; Glucose 126 mg/dL (65-110); Potassium 4.2 mmol/L (3.4-5.0); Sodium 136 mmol/L (137-145)
[2025-01-27] VITALS (26 sets, daily range): BP systolic 97–120; BP diastolic 67–89; PULSE 80–110; RESP 16–20; TEMP 36.3–36.6; O2SAT 92–96
[2025-01-27] MEDS: IPRATROPIUM BR 0.02% INH SOLN 0.5 MG/2.5 ML VIAL INHALATION ×6 (00:57→19:51)
[2025-01-27 05:53] LABS: Anion Gap 6 mmol/L (4-12); Blood Urea Nitrogen 23 mg/dL (9-20); Calcium 9.4 mg/dL (8.4-10.2); Carbon Dioxide 34 mmol/L (22-30); Chloride 97 mmol/L (98-107); Estimated CRCL calculation 76 ml/min; Estimated Glomerular Filt Rate > 60; Glucose 110 mg/dL (65-110); Potassium 3.8 mmol/L (3.4-5.0); Sodium 137 mmol/L (137-145)
[2025-01-27] MEDS: POTASSIUM CHLORIDE 20 MEQ ER TABLET PO ×2 (09:10→17:25)
[2025-01-27] MEDS: FUROSEMIDE INJ 40 MG/4 ML VIAL IV PUSH ×2 (09:11→17:25)
[2025-01-27] MEDS: carvediloL 6.25 MG TABLET PO ×2 (09:11→21:02)
[2025-01-27] MEDS: MAGNESIUM OXIDE 400 MG TABLET PO (09:11)
--- NOTE | 2025-01-27 17:36 | PM.IMPN ---
Progress Note: A&P Assessment and Plan (1) Shortness of breath: Code(s): R06.02 - Shortness of breath Status: Acute Assessment and Plan: See CHF and chest tightness (2) Acute exacerbation of CHF (congestive heart failure): Code(s): I50.9 - Heart failure, unspecified Status: Acute Assessment and Plan: Increasing shortness of breath, dizziness, and chest tightness. Tachycardic and increased edema --Monitor on tele --Fluid restriction, 1 liter per day< 1500ml for now --IV lasix --Labs q12 BMP, mag to monitor electrolytes (3) Chest tightness: Code(s): R07.89 - Other chest pain Status: Acute Assessment and Plan: Troponin negative x3 Suspect 2/2 heart failure and tachycardia (4) Tachycardia: Code(s): R00.0 - Tachycardia, unspecified Status: Acute Assessment and Plan: -Diuresing --EKG NSR HR 99 01/25 --on carvedilol 6.25 bid, continue for now Plan Presenting with shortness of breath. Improved. Has a scant/faint expiratory wheeze. Outside of a elevated BNP which is similar to when he was discharged 2 weeks ago he has no findings reflective of acute CHF such as weight gain, swelling, pulmonary edema on imaging. 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 Full code. SCDs. Time Spent With Patient Time: 57 minutes Subjective Date/time seen: 01/27/25 14:15 Interval history: Shortness of breath improving, Net negative 2600 in 24 hours Increase fluid restriction to 1500 Unable to lie flat due to shortness of breath Dizziness and chest tightness improving Less tachycardic Review of Systems Review of Systems: All systems reviewed & are unremarkable except as noted in HPI and below (HPI) Exam Narrative: General - Awake and alert. No acute distress Eyes - PERRLA, EOM intact ENT - No thrush, No erythema Neck - No noticeable or palpable swelling Lymph Nodes - No lymphadenopathy Cardiovascular - RRR no m/r/g, no JVD Lungs: Clear to auscultation, No wheezing, use of accessory muscles, basilar crackles . Skin - Skin warm and dry, no wounds or rashes Abdomen - Normal bowel sounds, abdomen soft and nontender, edematous Extremities - Generalized edema, abdomen, cyanosis or clubbing Musculoskeletal - / strength, normal range of motion, no swollen or erythematous joints. Neurological ? Alert and oriented x 3, CN 2-12 grossly intact. Psych: Normal mood and affect Objective Data Vital Signs Vital Signs: Vital Signs - 24 hr 01/26/25 20:00 01/26/25 20:00 01/26/25 20:50 Temperature Pulse Rate 97 98 Respiratory Rate Blood Pressure Pulse Oximetry Oxygen Delivery Room Air 01/26/25 21:02 01/26/25 21:02 01/26/25 21:10 Temperature Pulse Rate 71 72 Respiratory Rate 20 20 Blood Pressure Pulse Oximetry 99 Oxygen Delivery Room Air 01/26/25 22:18 01/27/25 00:00 01/27/25 00:58 Temperature 97.0 F L Pulse Rate 100 96 83 Respiratory Rate 18 20 Blood Pressure 101/70 Pulse Oximetry 97 Oxygen Delivery 01/27/25 01:08 01/27/25 04:00 01/27/25 04:54 Temperature Pulse Rate 87 80 100 Respiratory Rate 20 20 Blood Pressure Pulse Oximetry Oxygen Delivery 01/27/25 05:05 01/27/25 08:00 01/27/25 08:26 Temperature 97.5 F L Pulse Rate 101 H 81 95 Respiratory Rate 20 16 Blood Pressure 110/76 Pulse Oximetry 93 Oxygen Delivery 01/27/25 08:28 01/27/25 08:28 01/27/25 09:03 Temperature 97.5 F L 97.5 F L Pulse Rate 109 H 98 Respiratory Rate 18 18 Blood Pressure 116/72 109/80 Pulse Oximetry 92 96 94 Oxygen Delivery Room Air 01/27/25 09:03 01/27/25 09:05 01/27/25 09:08 Temperature Pulse Rate 99 94 Respiratory Rate 16 16 Blood Pressure Pulse Oximetry Oxygen Delivery Room Air 01/27/25 09:11 01/27/25 11:56 01/27/25 12:00 Temperature Pulse Rate 105 H 87 95 Respiratory Rate 16 Blood Pressure Pulse Oximetry Oxygen Delivery 01/27/25 12:04 01/27/25 14:00 01/27/25 16:00 Temperature 97.9 F Pulse Rate 91 110 H 107 H Respiratory Rate 16 18 Blood Pressure 97/67 L Pulse Oximetry 95 Oxygen Delivery 01/27/25 17:08 01/27/25 17:15 01/27/25 17:24 Temperature Pulse Rate 96 90 Respiratory Rate 16 16 Blood Pressure 120/89 Pulse Oximetry Oxygen Delivery Intake/Output Intake/Output: Intake & Output 01/24/25 01/25/25 01/26/25 01/27/25 23:59 23:59 23:59 23:59 Intake Total 2664 1000 Output Total 2800 2600 Balance -136 -1600 Meds/Results Medications: Active Medications Generic Name Dose Route Start Last Admin Trade Name Freq PRN Reason Stop Dose Admin Carvedilol 6.25 mg 01/26/25 09:00 01/27/25 09:11 Carvedilol 6.25 Mg Tablet PO 6.25 mg Q12HR ZEINA Administration Furosemide 40 mg 01/26/25 17:00 01/27/25 17:25 Furosemide Inj 40 Mg/4 Ml Vial IV PUSH 40 mg BID ZEINA Administration Ipratropium [place] 0.5 mg 01/26/25 08:00 01/27/25 17:06 Ipratropium Br 0.02% Inh Soln 0.5 Mg/2.5 Ml Vial INHALATION 0.5 mg Q4HRT ZEINA Administration Lisinopril 20 mg 01/26/25 09:00 01/27/25 09:11 Lisinopril 20 Mg Tablet PO Not Given DAILY ZEINA Magnesium Oxide 400 mg 01/27/25 09:00 01/27/25 09:11 Magnesium Oxide 400 Mg Tablet PO 400 mg DAILY ZEINA Administration Potassium Chloride 20 meq 01/26/25 17:00 01/27/25 17:25 Potassium Chloride 20 Meq Er Tablet PO 20 meq BID ZEINA Administration Radiology Results: ITS Impressions Chest X-Ray 01/25/25 13:20 IMPRESSION: Cardiomegaly, without focal infiltrate or effusion. Chest CTA 01/25/25 21:16 IMPRESSION: 1. No pulmonary embolism. 2. No acute cardiopulmonary pathology. Labs Labs: Laboratory Results - last 24 hr 01/26/25 01/27/25 20:48 05:19 Sodium 136 L 137 Potassium 4.2 3.8 Chloride 96 L 97 L Carbon Dioxide 31 H 34 H Anion Gap 9 6 BUN 21 H D 23 H Creatinine 1.06 1.09 Estim Creat Clear Calc 78 76 Estimated GFR > 60 > 60 Glucose 126 H 110 Calcium 9.8 9.4 Magnesium 2.0 2.0 Quality VTE Prophylaxis VTE prophylaxis: pharmacologic ordered Hospitalist [facility] Advance Care Plan I have confirmed that the patient's Advanced Care Plan is present, code status is documented, or surrogate decision maker is listed in patient medical record.: Yes Medication Reconciliation I have utilized all available resources to obtain, update and review the patients current medications (includes all prescriptions, OTC, herbals, cannabis, and nutritional supplements).: Yes
[2025-01-28] VITALS (16 sets, daily range): BP systolic 103–114; BP diastolic 64–89; PULSE 86–120; RESP 16–18; TEMP 36.6–36.8; O2SAT 94–100
[2025-01-28] MEDS: IPRATROPIUM BR 0.02% INH SOLN 0.5 MG/2.5 ML VIAL INHALATION ×4 (00:10→12:00)
[2025-01-28 05:58] LABS: Anion Gap 6 mmol/L (4-12); Blood Urea Nitrogen 26 mg/dL (9-20); Calcium 9.4 mg/dL (8.4-10.2); Carbon Dioxide 33 mmol/L (22-30); Chloride 99 mmol/L (98-107); Estimated CRCL calculation 76 ml/min; Estimated Glomerular Filt Rate > 60; Glucose 121 mg/dL (65-110); Magnesium 2.2 mg/dL (1.6-2.3); Potassium 4.2 mmol/L (3.4-5.0); Sodium 138 mmol/L (137-145)
--- NOTE | 2025-01-28 08:22 | PM.IMPN ---
Progress Note: A&P Assessment and Plan (1) Shortness of breath: Code(s): R06.02 - Shortness of breath Status: Acute Assessment and Plan: See CHF and chest tightness (2) Acute exacerbation of CHF (congestive heart failure): Code(s): I50.9 - Heart failure, unspecified Status: Acute Assessment and Plan: Increasing shortness of breath, dizziness, and chest tightness. Tachycardic and increased edema --Monitor on tele --Fluid restriction, 1 liter per day< 1500ml for now --IV lasix --Labs q12 BMP, mag to monitor electrolytes (3) Chest tightness: Code(s): R07.89 - Other chest pain Status: Acute Assessment and Plan: Troponin negative x3 Suspect 2/2 heart failure and tachycardia (4) Tachycardia: Code(s): R00.0 - Tachycardia, unspecified Status: Acute Assessment and Plan: -Diuresing --EKG NSR HR 99 01/25 --on carvedilol 6.25 bid, continue for now Plan Presenting with shortness of breath. Improved. Has a scant/faint expiratory wheeze. Outside of a elevated BNP which is similar to when he was discharged 2 weeks ago he has no findings reflective of acute CHF such as weight gain, swelling, pulmonary edema on imaging. 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 Full code. SCDs. Subjective Date/time seen: 01/28/25 08:22 Interval history: Shortness of breath improving, Net negative 2600 in 24 hours Increase fluid restriction to 1500 Unable to lie flat due to shortness of breath Dizziness and chest tightness improving Less tachycardic Review of Systems Review of Systems: All systems reviewed & are unremarkable except as noted in HPI and below (HPI) Exam Narrative: General - Awake and alert. No acute distress Eyes - PERRLA, EOM intact ENT - No thrush, No erythema Neck - No noticeable or palpable swelling Lymph Nodes - No lymphadenopathy Cardiovascular - RRR no m/r/g, no JVD Lungs: Clear to auscultation, No wheezing, use of accessory muscles, basilar crackles . Skin - Skin warm and dry, no wounds or rashes Abdomen - Normal bowel sounds, abdomen soft and nontender, edematous Extremities - Generalized edema, abdomen, cyanosis or clubbing Musculoskeletal - 5/5 strength, normal range of motion, no swollen or erythematous joints. Neurological ? Alert and oriented x 3, CN 2-12 grossly intact. Psych: Normal mood and affect Objective Data Vital Signs Vital Signs: Vital Signs - 24 hr 01/27/25 08:26 01/27/25 08:28 01/27/25 08:28 Temperature 97.5 F L 97.5 F L 97.5 F L Pulse Rate 95 109 H 98 Respiratory Rate 16 18 18 Blood Pressure 110/76 116/72 109/80 Pulse Oximetry 93 92 96 Oxygen Delivery 01/27/25 09:03 01/27/25 09:03 01/27/25 09:05 Temperature Pulse Rate 99 Respiratory Rate 16 Blood Pressure Pulse Oximetry 94 Oxygen Delivery Room Air Room Air 01/27/25 09:08 01/27/25 09:11 01/27/25 11:56 Temperature Pulse Rate 94 105 H 87 Respiratory Rate 16 16 Blood Pressure Pulse Oximetry Oxygen Delivery 01/27/25 12:00 01/27/25 12:04 01/27/25 14:00 Temperature 97.9 F Pulse Rate 95 91 110 H Respiratory Rate 16 18 Blood Pressure 97/67 L Pulse Oximetry 95 Oxygen Delivery 01/27/25 16:00 01/27/25 17:08 01/27/25 17:15 Temperature Pulse Rate 107 H 96 90 Respiratory Rate 16 16 Blood Pressure Pulse Oximetry Oxygen Delivery 01/27/25 17:24 01/27/25 19:51 01/27/25 19:53 Temperature Pulse Rate 91 Respiratory Rate 16 Blood Pressure 120/89 Pulse Oximetry 95 Oxygen Delivery Room Air 01/27/25 20:00 01/27/25 20:01 01/27/25 21:02 Temperature Pulse Rate 90 90 90 Respiratory Rate 16 Blood Pressure Pulse Oximetry Oxygen Delivery 01/27/25 22:01 01/28/25 00:00 01/28/25 00:10 Temperature 97.3 F L Pulse Rate 105 H 96 89 Respiratory Rate 16 16 Blood Pressure 115/89 Pulse Oximetry 95 Oxygen Delivery 01/28/25 00:20 01/28/25 04:00 01/28/25 04:10 Temperature Pulse Rate 86 109 H 93 Respiratory Rate 16 16 Blood Pressure Pulse Oximetry Oxygen Delivery 01/28/25 04:18 01/28/25 06:00 01/28/25 07:35 Temperature 97.9 F Pulse Rate 102 H 103 H 106 H Respiratory Rate 16 16 16 Blood Pressure 103/78 Pulse Oximetry 94 Oxygen Delivery 01/28/25 07:43 Temperature Pulse Rate 102 H Respiratory Rate 16 Blood Pressure Pulse Oximetry Oxygen Delivery Intake/Output Intake/Output: Intake & Output 01/25/25 01/26/25 01/27/25 01/28/25 23:59 23:59 23:59 23:59 Intake Total 2664 1237 170 Output Total 2800 3500 400 Balance -136 -2263 -230 Meds/Results Medications: Active Medications Generic Name Dose Route Start Last Admin Trade Name Freq PRN Reason Stop Dose Admin Carvedilol 6.25 mg 01/26/25 09:00 01/27/25 21:02 Carvedilol 6.25 Mg Tablet PO 6.25 mg Q12HR ZEINA Administration Enoxaparin Sodium 40 mg 01/28/25 09:00 Enoxaparin 40 Mg/0.4 Ml Syringe SUB-Q DAILY [facility] Furosemide 40 mg 01/26/25 17:00 01/27/25 17:25 Furosemide Inj 40 Mg/4 Ml Vial IV PUSH 40 mg BID ZEINA Administration Ipratropium [place] 0.5 mg 01/26/25 08:00 01/28/25 07:37 Ipratropium Br 0.02% Inh Soln 0.5 Mg/2.5 Ml Vial INHALATION 0.5 mg Q4HRT [facility] Administration Lisinopril 20 mg 01/26/25 09:00 01/27/25 09:11 Lisinopril 20 Mg Tablet PO Not Given DAILY [facility] Magnesium Oxide 400 mg 01/27/25 09:00 01/27/25 09:11 Magnesium Oxide 400 Mg Tablet PO 400 mg DAILY [facility] Administration Potassium Chloride 20 meq 01/26/25 17:00 01/27/25 17:25 Potassium Chloride 20 Meq Er Tablet PO 20 meq BID ZEINA Administration Radiology Results: ITS Impressions Chest X-Ray 01/25/25 13:20 IMPRESSION: Cardiomegaly, without focal infiltrate or effusion. Chest CTA 01/25/25 21:16 IMPRESSION: 1. No pulmonary embolism. 2. No acute cardiopulmonary pathology. Labs Labs: Laboratory Results - last 24 hr 01/28/25 05:31 Sodium 138 Potassium 4.2 Chloride 99 Carbon Dioxide 33 H Anion Gap 6 BUN 26 H Creatinine 1.09 Estim Creat Clear Calc 76 Estimated GFR > 60 Glucose 121 H Calcium 9.4 Magnesium 2.2 Quality VTE Prophylaxis VTE prophylaxis: pharmacologic ordered
[2025-01-28] MEDS: carvediloL 6.25 MG TABLET PO (09:43)
[2025-01-28] MEDS: POTASSIUM CHLORIDE 20 MEQ ER TABLET PO (09:43)
[2025-01-28] MEDS: FUROSEMIDE INJ 40 MG/4 ML VIAL IV PUSH (09:43)
[2025-01-28] MEDS: MAGNESIUM OXIDE 400 MG TABLET PO (09:43)
[2025-01-28] MEDS: lisinopriL 20 MG TABLET PO (09:43)
[2025-01-28] MEDS: ENOXAPARIN 40 MG/0.4 ML SYRINGE SUB-Q (09:44)
--- NOTE | 2025-01-28 14:06 | P.DS_ITS ---
DS: Admitting Diagnosis Discharge Date 01/28/2025 Admitting Diagnosis [place]orn[place] of breath Chest tightness DS: Discharge Diagnosis Discharge Diagnosis (1) Shortness of breath: Code(s): R06.02 - Shortness of breath Status: Acute Assessment and Plan: (2) Acute exacerbation of CHF (congestive heart failure): Code(s): I50.9 - Heart failure, unspecified Status: Acute (3) Chest tightness: Code(s): R07.89 - Other chest pain Status: Acute (4) Tachycardia: Code(s): R00.0 - Tachycardia, unspecified Status: Acute Assessment and Plan: -Diuresing --EKG NSR HR 99 01/25 --on carvedilol 6.25 bid, continue for now Plan Presenting with shortness of breath. Improved. Has a scant/faint expiratory wheeze. Outside of a elevated BNP which is similar to when he was discharged 2 weeks ago he has no findings reflective of acute CHF such as weight gain, swelling, pulmonary edema on imaging. 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 Full code. SCDs. DS: Summary Hospital Course Reason for hospitalization: Copied from [facility] 01/26: 55-year-old male with a history of hypertension, CHF, nonischemic cardiomyopathy, nicotine dependence presenting with 1 day of left chest tightness and shortness of breath. Patient discharged from [facility] on 01/15/2025 with similar symptoms of heart failure. He has not been compliant with medications. Reports having quit smoking since 15. His sister he lives with feel smokes. Symptoms improved in the ER. He was given Lasix 40 mg IV x1. Troponin negative. BNP 2100. Chest CTA without PE or acute pathology. Patient breathing well on room air. Reportedly he refused to return home, not feeling well enough in the ER. Hospital Course: Acute exacerbation of CHF (congestive heart failure): Shortness of breath Generalized Edema Increasing shortness of breath, dizziness, and chest tightness. Has gradually be gaining weight since last discharge. His understanding was that he was supposed to drink about 2 liters a day, and had been doing that. He reported taking medications regularly though did miss 1 dose earlier in the week. His in July last year and she had been helping him manage things. Has had more abdominal swelling since discharge Tachycardic and increased edema. Monitored on telemetry. IV lasix during admission Wasn't sure about his lisinopril dose, tolerating 20mg dose during admission --Fluid restriction, 1500ml, discussed reducing to 1L a day if increased fluid --Continued Lasix 80mg BID for 5 days then 40mg BID after that --Potassium 20meq BID for 5 days then daliy --Continue jardiance 10mg daily --Continue lisinopril 20mg daily. Consider switching to entresto --Needs a new scale. His needs a battery. Discussed monitoring weight Chest tightness: Troponin negative x3 Resolved slowly with treatment of heart failure and improvement of tachycardia Tachycardia: EKG NSR HR 99 01/25 --on carvedilol 6.25 bid, continued Status at Discharge Cognitive/behavioral status at discharge: A&Ox4 Time Spent with Patient Time attestation: Total time spent providing and/or coordinating discharge services: 52 minutes Specific discharge activities: Reviewing heart failure instructions, discharge exam, adjusting medications, planning follow up Exam Narrative: General - Awake and alert. No acute distress Eyes - PERRLA, EOM intact ENT - No thrush, No erythema Neck - No noticeable or palpable swelling Lymph Nodes - No lymphadenopathy Cardiovascular - RRR no m/r/g, no JVD Lungs: Clear to auscultation, No wheezing, use of accessory muscles, basilar crackles . Skin - Skin warm and dry, no wounds or rashes Abdomen - Normal bowel sounds, abdomen soft and nontender, edematous Extremities - No generalized edema, abdomen, cyanosis or clubbing Musculoskeletal - 5/5 strength, normal range of motion, no swollen or erythematous joints. Neurological ? Alert and oriented x 3, CN 2-12 grossly intact. Psych: Normal mood and affect DS: Data Data Completed and Pending Labs on day of discharge: Labs from last 24 hours 01/28/25 05:31 Sodium 138 Potassium 4.2 Chloride 99 Carbon Dioxide 33 H Anion Gap 6 BUN 26 H Creatinine 1.09 Estim Creat Clear Calc 76 Estimated GFR > 60 Glucose 121 H Calcium 9.4 Magnesium 2.2 Discharge Plan Discharge Attending physician on discharge: Lyndsay Phan Consulting providers: Sae Pearson; Abimbola Thorne; Aries Katz; Steve David; Trixie Leiva Discharging Clinician: Lyndsay Phan Anticipated Discharge Date/Time: 01/28/25 14:43 Patient Disposition: Home Activity: may shower Diet: heart healthy Discharge Instructions: Weight yourself daily. If you gain 2-3 lb in 1 day or 5-7 lb in a week, he will need to have adjustments made to your diuretics (lasix). Continue higher dose of Lasix for 5 days with potassium and then resume lower dose. You should continue to drink no more than 1500 mL of fluids a day. And you can decrease that to 1 liter a day if you are gaining fluid and putting on weight. Other signs you have too much fluid are increased swelling, and inability to lie flat. Follow-up with cardiology next week if possible, and primary care doctor in 1-2 weeks. You should have labs checked in a week. Patient Instructions: Antibiotic Form Patient Language: Mosotho Stand Alone Forms: General Discharge Information Follow-up/Referrals: PHYSICIAN,BOTTLE SORTER [Primary Care Provider] - 2 Weeks Discharge Medications: New Combivent Respimat 20-100 mcg/actuation mist 1 puff inhalation Q4H PRN (Reason: shortness of breath or wheezing) Qty: 4 2RF Continued carvedilol 6.25 mg tablet 6.25 mg PO Q12H MDD 2 tablets Qty: 60 0RF Patient Comments: pt discharged 01/15/2025 on this dosage, but unsure what dose he is taking Rx Instructions: must administer with a meal/food spironolactone 25 mg Tablet 25 mg PO QAM Qty: 30 0RF Jardiance 10 mg tablet 10 mg PO DAILY Qty: 30 0RF lisinopril 20 mg tablet 20 mg PO DAILY Qty: 30 0RF Patient Comments: patient states he takes lisinopril, but unsure of dose Changed furosemide 40 mg Tablet See Rx Instructions .ROUTE .COMPLEX Qty: 60 0RF Rx Instructions: 80mg twice a day for 5 days, and then 40mg twice a day after that potassium chloride 20 mEq tablet extended release See Rx Instructions .ROUTE .COMPLEX Qty: 60 0RF Rx Instructions: 20 mEq orally twice a day for 5 days, and then daily Discontinued lisinopril 2.5 mg tablet 2.5 mg PO DAILY Patient Comments: patient was discharged with this dosage on 01/15/2025, but unsure what dose he takes Other Ambulatory Orders: Basic Metabolic Panel (Routine) Timeframe: 1 Week Location: Determined by Patient Ordered By: Lyndsay Phan Magnesium (Routine) Timeframe: 1 Week Location: Determined by Patient Ordered By: Lyndsay Phan Date of admission: 01/25/25 22:14 Primary Care Provider: PHYSICIAN,BOTTLE SORTER Admitting Provider: Elizabeth Ledesma Attending physician on admission: Lyndsay Phan Condition: Stable Quality VTE Prophylaxis VTE prophylaxis: pharmacologic ordered Hospitalist MIPS Heart Failure (Exclusion) Patient has history of Heart Transplant or Left Ventricular Assistive Device?: No IF YES, STOP HERE Heart Failure (Qualifier) Patient has current or prior documentation of LVEF less than or equal to 40%, or mod/servere depressed LVSF?: Yes IF NO, STOP HERE If Yes, Heart Failure (Qualifier) Patient was prescribed or already taking an Angiotensin-Converting Enzyme (NORMA) Inhibitor, or Antiotensin Receptor Ruben (ARB): Yes Patient was prescribed or already taking bisoprolol, carvedilol, or sustained release metoprolol succinate: Yes
== END 2025-01-28 15:40 | disposition home or self-care (01) ==
LOC: ANHED 22:19 → ANH3MEDSUR 23:20 → ANH3MED 23:58
PROVIDERS: Emergency Medicine; Admitting Provider General Practice; Emergency Provider Emergency Medicine; Visit Provider Nurse Practitioner Acute Care
DX: I11.0 Hypertensive heart disease with heart failure (principal); I50.9 Heart failure, unspecified; R07.89 Other chest pain; R00.0 Tachycardia, unspecified; R79.89 Other specified abnormal findings of blood chemistry; R06.02 Shortness of breath; I42.8 Other cardiomyopathies; Z87.891 Personal history of nicotine dependence; F12.90 Cannabis use, unspecified, uncomplicated; Z91.148 Patient's other noncompliance with medication regimen for other reason; Z79.899 Other long term (current) drug therapy; Z20.822 Contact with and (suspected) exposure to COVID-19
CPT/HCPCS: 36415; 71046; 71275; 80048; 80053; 80307; 83690; 83735; 83880; 84484; 85025; 85380; 85610; 85730; 87637; 93005; 94640; 96372; 96374; 96376; 99285; A9270; G0378; J1650; J1938; Q9967

== ENCOUNTER 2025-05-21 08:56 | Emergency (ER) | payer OTHER, SELFPAY ==
[2025-05-21] VITALS (7 sets, daily range): BP systolic 121–143; BP diastolic 66–101; PULSE 80–98; RESP 19–20; TEMP 36.7; O2SAT 96–97
--- NOTE | ~2025-05-21 | XR_ITS ---
Examination: XR chest 2V Clinical History: sob, and chest discomfort started this morning Comparison: X-rays 01/25 2025 Technique: PA and Lateral Findings: Left ICD. Cardiomediastinal silhouette normal size and configuration. Lungs clear. No acute bony abnormality. IMPRESSION: 1. No acute cardiopulmonary findings. Reviewed, dictated and finalized at location R.
--- NOTE | 2025-05-21 08:58 | ECG_ITS ---
Test Date: 2025-05-21 09:09:06 Measurements Intervals Graff Rate: 80 P: 91 CA: 179 QRS: 88 QRSD: 93 T: 20 QT: 357 QTc: 413 Interpretive Statements SINUS RHYTHM NONSPECIFIC ST-T WAVE CHANGES Compared to ECG 01/25/2025 19:45:43 No significant changes Electronically Signed On 05-22-2025 14:07:38 CDT by Aries Katz M.D.
--- OUTSIDE RECORDS SUMMARY | 2025-05-21 08:58 | XMS_ITS | Clinical Summary ---
Author Organization [facility] Address [address] [place] [address] Care Team Providers Care Waxed Bag Machine Operator Name Role Phone Malcolm Conteh MD Primary Care Provider [phone] Source Comments [facility],non-owned Affiliates and Associated Physician Practices is amultiple site organization consisting of ambulatory clinics and hospital sitesin [place], [place], [place] and [place]. This disclosure is being madepursuant to the Care Everywhere program and may not contain all information available regarding this patient. 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 Gender Identity Male 07/25/2017 5:45 PM VISUAL 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 MANAGER Sexual Orientation Not on file Last Filed [...] 11:22 AM CDT Height 170.2 cm (5' 7) 05/15/2019 5:51 PM CDT Body Mass Index 36.16 05/15/2019 5:51 PM CDT Plan of Treatment Health Maintenance Due Date Last Done Comments COLOGUARD (AGES 45-75) - COL ON CA SCREENING [...] of 2) 01/13/2020 LIPID TESTING 04/20/2020 04/20/2015 DEPRESSION SCREENING 08/31/2024 COVID-19 VACCINE (1 - 2023-2 5 season) 2025 INFLUENZA VACCINE (#1) 2025 8, 07/27/2017 HEPATITIS C SCREENING Completed 05/18/2019 HIV [...] Reactive Non Reactive 05/18/2019 6:51 AM CDT [facility] Blood BLOOD SPECIMEN / Unknown Lab Venipuncture / Unknown 05/18/2019 5:23 AM CDT 05/18/2019 6:02 AM CDT Narrative [facility] - 05/18/2019 6:51 AM CDT No Laboratory evidence of HIV infection. Dimitri Jones MD LAB - CHEMISTRY ORDERABLES Fin al Result Performing Organization Address City/[facility] Co de Phone Number [facility] [address] [place] [phone] * HEPATITIS SCREEN ACUTE (05/18/2019 5:23 AM CDT) HAV Antibody IgM Non Reactive Non Reactive 05/18/2019 6:51 AM CDT [facility] HBsAg Non Reactive Non Reactive 05/18/2019 6:51 AM CDT [facility] HBc Antibody IgM Non Reactive Non Reactive 05/18/2019 6:51 AM CDT [facility] HCV Antibody Screen Non Reactive Non Reactive 05/18/2019 6:51 AM CDT [facility] HCV S/C Ratio 0.05 0.00 - 0.79 05/18/2019 6:51 AM CDT [facility] Comment: Ysoyow-mw-newuow ratio (S/CO) <0.80: Non Reactive Blood BLOOD SPECIMEN / Unknown Lab Venipuncture / Unknown 05/18/2019 5:23 AM CDT 05/18/2019 6:01 AM CDT Narrative [facility] - 05/18/2019 6:51 AM CDT Non Reactive - Antibodies to Hepatitis C virus (HCV) were not detected, result does not exclude early acute HCV infection. Dimitri Jones MD LAB - CHEMISTRY ORDERABLES Fin al Result Performing Organization Address City/[facility] Co de Phone Number [facility] [address] [place] [phone] * (ABNORMAL) LIPID PROFILE (04/20/2015 5:55 AM CDT) Cholesterol 109 <200 mg/dL 04/20/2015 6:46 AM CDT [facility] Triglycerides 95 <150 mg/dL 04/20/2015 6:46 AM CDT [facility] HDL Cholesterol 34(L) >40 mg/dL 04/20/2015 6:46 AM CDT [facility] LDL Calculated 56 <130 mg/dL 04/20/2015 6:46 AM CDT [facility] VLDL Calculated 19 <=30 mg/dL 04/20/2015 6:46 AM CDT [facility] Chol HDL Ratio 3.2 <4.5 04/20/2015 6:46 AM CDT [facility] LDL/HDL Ratio 1.6 <5.0 04/20/2015 6:46 AM CDT [facility] Blood BLOOD SPECIMEN / Unknown Lab Venipuncture / Unknown 04/20/2015 5:55 AM CDT 04/20/2015 6:18 AM CDT us Ana Justin GERENTOLOGICAL PHYSIOTHERAPIST-EXCELLENCE COACH LAB - CHEMISTRY ORDERABL ES Final Result Performing Organization Address City/State/[facility] de Phone Number [facility] [address] [place] [address] from Last 3 Months or Most Recently Relevant to Health Maintenance Insurance [facility] Advance Directives * Full Code (Latest Code Status on File) Date Activated Date Inactivated Comments 05/15/2019 5:02 PM 05/18/2019 2:42 PM * Full Code Date Activated Date Inactivated Comments 07/25/2017 8:37 PM 07/30/2017 2:59 PM * Full Code Date Activated Date Inactivated Comments 04/19/2015 1:38 PM 04/20/2015 3:56 PM Care Teams Waxed Bag Machine Operator Relationship Specialty Start Date End Date Malcolm Conteh MD [address] [place] [address] PCP - General Internal Medicine 04/19/15
--- OUTSIDE RECORDS SUMMARY | 2025-05-21 08:58 | XMS_ITS | Clinical Summary ---
Author Organization [facility] Address [address] [place] [address] Phone Care Team Providers Care Cowlman Name Role Phone Malcolm Conteh MD Primary Care Provider [phone] Allergies No known active allergies Medications carvedilol (COREG) 25 mg tablet Take 50 mg by mouth 2 times daily with meals. Active aspirin (ECOTRIN EC) 81 mg Tablet, Delayed Release (E.C.) Take 81 mg by mouth daily. Active potassium chloride (KLOR-CON) 10 mEq Extended Release tablet Take 1 Tablet (10 mEq) by mouth every other day. 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 Active furosemide (LASIX) 40 mg tablet Take 1 Tablet (40 mg) by mouth 2 times daily. 60 Tablet 5 Active Active Problems Problem Noted Date Diagnosed Date Chest pain 03/14/2025 Pre-diabetes 03/13/2025 Type 2 diabetes mellitus 07/23/2019 Diabetes mellitus with hyperglycemia 07/23/2019 Positive D dimer 07/22/2019 Acute on chronic systolic (congestive) heart amor lure 07/21/2019 Morbid obesity with BMI of 50.0-59.9, adult 07/02 Hypertensive heart and chron ic kidney disease with diastolic congestive heart failure 07/19/2019 Demand ischemia 07/19/2019 Obesity (BMI 30.0-34.9) 12/04/2018 Tobacco dependence 12/04/2018 COPD (chronic obstructive pulmonary disease) Chronic systolic congestive heart failure HTN (hypertension), benign Atypical chest pain LV dysfunction Resolved Problems Problem Noted Date Diagnosed Date Resolved Date Hyperkalemia 07/23/2019 03/13/2025 Acute hypoxemic respiratory failure 07/19/2019 03/13/2025 COPD with exacerbation 07/19/201903/13 Leukocytosis (leucocytosis) 07/19/2019 03/13/2025 GEORGINA (acute kidney injury) 07/19/2019 Elevated liver enzymes 07/19/201903/13 Encounters Date Type Department Care Team Description 05/09/2025 External Device Data [facility] ABSTRACTION Provider, Abstract 04/26/2025 External Device Data [facility] ABSTRACTION Provider, Abstract 04/19/2025 External Device Data [facility] ABSTRACTION Provider, Abstract 04/11/2025 External Device Data [facility] ABSTRACTION Provider, Abstract 03/15/2025 External Device Data [facility] ABSTRACTION Provider, Abstract 03/15/2025 External Device Data [facility] ABSTRACTION Provider, Abstract 03/15/2025 External Device Data [facility] ABSTRACTION Provider, Abstract 03/15/2025 External Device Data ST[facility] ABSTRACTION Provider, Abstract 03/12/2025 9:43 PM CDT - 03/15/2025 6:41 PM CDT Hospital Encounter [facility] [address] [place] [address] Jerson IV, Ricci Gage, Flor Mitchell MD Khan, Mafaza, MD Habtu, Brenda Darling DO Acute on chronic systolic (congestive) heart failure ([facility]/HCC) Discharge Disposition: Home or Self Care 03/12/2025 Travel from Last 3 Months Immunizations Immunization Administration Dates Next Due (PREVNAR [...] 07/19/2019 Smokeless Tobacco: Never Tobacco Cessation:Counseling Given: Not Answered Alcohol Use Standard Drinks/Week Comments Not Currently [...] declined 07/19/2019 How often do you attend anglican or presybeterian serv ices? Patient declined 07/19/2019 Do you belong to any clubs o r organizations such as anglican groups, unions, fraternal or athletic groups, or [...] needed for daily living? Patient declined 07/19/2019 Feeling Safe Answer Date Recorded Are you in a relationship wi th someone who hurts you emotionally and/or physically? No 03/12/2025 Food Insecurity Answer Date Recorded Patient needs follow up regardin 03/13/2025 Transportation Needs Answer Date Record ed Patient needs follow up regardin 03/13/2025 Utility Needs Answer Date Recorded Patient needs follow up regardin 03/13/2025 Sex and Gender Information Value Date Recorded Sex Assigned at Not on file Legal Sex Male 10:51 PM CDT Gender Identity Not on file Sexual Orientation Not on file Last Filed Vital Signs Vital Sign Reading Time Taken Comments Blood Pressure 116/83 03/15/2025 5:02 PM CDT Pulse 85 03/15/2025 5:02 PM CDT Temperature 36.8 C (98.3 F) 03/15/2025 5:02 PM CDT Respiratory Rate 16 03/15/2025 5:02 PM CDT Oxygen Saturation 98% 03/15/2025 5:02 PM CDT Inhaled Oxygen Concentration - - Weight 98.7 kg (217 lb 8 oz) 03/15/2025 5:22 AM CDT Height 170.2 cm (5' 7) 03/13/2025 4:35 AM CDT Body Mass Index 34.07 03/13/2025 4:35 AM CDT Plan of Treatment Health Maintenance Due [...] Flex Sig/CT Colonography Q 5 years 2015 Lung Cancer Screening 01/13/2020 ZOSTER VACCINE (1 of 2) 01/13/2020 INFLUENZA VACCINE (#1) 2025 2, 06/25/2022, 07/02/2020, Additional history exists COVID-19 Vaccine (2 - 2024-2 6 season) 2025 11/05/2020 DIABETES HBA1C Q 6 MONTHS 09/13/20252024, 07/06/2022, 07/22/2019 Medical Devices Implanted Type Area Biscuit Maker Device Identifier Shelf Expiration Date Model / Serial / Lot Cardiac Defibrillator Procedures Procedure Name Priority Date/Time Associated Diagnosis Comments TELEMETRY REPORT 03/17/2025 12:0 0 PM CDT TELEMETRY REPORT 03/16/2025 4:15 PM CDT NM MYOCARD PERF IMAG SPECT MULT Routine 03/15/2025 3:07 PM CDT HM EJECTION FRACTION Routine 03/15/2025 3:07 PM CDT NM PHARMACOLOGICAL STRESS TEST Routine 03/15/2025 1:36 PM CDT CBC WITH DIFFERENTIAL Routine 03/15/2025 1:50 AM CDT BASIC METABOLIC PANEL Routine 03/15/2025 1:50 AM CDT EKG 12-LEAD Routine 03/14/2025 1:38 PM CDT ECHO COMPLETE Routine 03/14/2025 11:50 AM CDT CBC WITH DIFFERENTIAL Routine 03/14/2025 1:35 AM CDT MAGNESIUM LEVEL Routine 03/14/2025 1:35 AM CDT BASIC METABOLIC PANEL Routine 03/14/2025 1:35 AM CDT HEMOGLOBIN A1C Routine 03/13/2025 6:24 AM CDT TSH Routine 03/13/2025 6:24 AM CDT TROPONIN 6 HR, 5TH GEN Timed Study 5 4:02 AM CDT TROPONIN 2 HR, 5TH GEN Timed Study 5 12:09 AM CDT POC CREATININE Stat 03/12/2025 10:04 PM CDT XR CHEST PA AND LATERAL 2 VW Stat 03/12/2025 10:02 PM CDT TROPONIN BASELINE, 5TH GEN Stat 03/12/2025 9:58 PM CDT BRAIN NATRIURETIC PEPTIDE, BNP OR PROBNP Stat 03/12/2025 9:58 PM CDT COMPREHENSIVE METABOLIC PANEL Stat 03/12/2025 9:58 PM CDT CBC WITH DIFFERENTIAL Stat 03/12/2025 9:58 PM CDT EKG 12-LEAD Stat 03/12/2025 9:27 PM CDT from Last 3 Months Results * TELEMETRY REPORT (03/17/2025 12:00 PM CDT) Only the most recent of2 resultswithin the time period is included. us Provider Scanning ECG ORDERABLES Final Result * NM MYOCARD PERF IMAG SPECT MULT (03/15/2025 3:07 PM CDT) 03/15/2025 3:08 PM CDT Impressions INTERFACE SYSTEM - 03/15/2025 3:56 PM CDT IMPRESSION: 1) Stress EKG response was negative for ischemia. 2) The overall quality of the study is good. 3) The myocardial perfusion scan is abnormal with findings suggestive of a small inferoapical myocardial infarction. There is no convincing evidence for myocardial ischemia 4) Left ventricular size is mildly dilated with inferoapical hypokinesis left ventricular systolic function, and a calculated ejection fraction of 35%. 5) No previous study was available for comparison. Recommendations: Clinical correlation is recommended. Narrative INTERFACE SYSTEM - 03/15/2025 3:56 PM CDT Procedure Type: One Day Myoview Regadenoson Pharmacologic Stress Test Date of Procedure: 03/15/2025 3:07 PM Clinical Indication: This 55 years old Male with a clinical history of hypertension, diabetes, COPD, congestive heart failure, and prior tobacco use is undergoing an evaluation for coronary artery disease via a pharmacologic stress test due to chest pain. Height: 5 feet 7 inches; Weight: 218 pounds Medications:See List Pharmacologic Stress Procedure: The patient performed a pharmacologic stress test using 0.4 mg regadenoson IVP over 10 seconds with low level exercise. The heart rate was 67 bpm at baseline and increased to 107 bpm. The blood pressure was 98/68 mmHg at baseline and 110/68 mmHg during infusion, demonstrating a normal response to regadenoson. The patient felt shortness of breath during the procedure. EKG: The baseline electrocardiogram showed sinus rhythm, right axis deviation, delayed R-wave transition across the anterior precordium, nonspecific T wave abnormalities. The stress electrocardiogram showed no ischemic changes. The electrocardiogram changes show a non-ischemic response to regadenoson. Nuclear Imaging Protocol: Myocardial perfusion imaging was performed at rest approximately 30 minutes following the intravenous injection of 7.2 mCi TC99m Myoview. Immediately after regadenoson infusion, the patient was injected intravenously with 21.0 mCi TC99m Myoview. Gated post - stress tomographic imaging was performed approximately 60 minutes later in same manner. SPECT reconstruction was performed in the short, vertical long and horizontal axis views in both resting and gated image sets. Post-stress prone images were also obtained in the short, vertical long, and horizontal axis views. Findings: The overall quality of the study is good. Rotating planar images reveal no motion artifact. The left ventricular size is mildly dilated. Post-stress SPECT myocardial perfusion images reveals abnormal perfusion with a small territory of inferior and inferolateral apical decreased uptake seen on the rest, stress, and prone images. The rest images reveal no reversibility. Gated SPECT imaging demonstrates inferoapical hypokinesis, and a calculated left ventricular ejection fraction estimated to be 35%. Findings are consistent with prior small inferoapical myocardial infarction. There is no convincing evidence for myocardial ischemia. Procedure Note Chencho Garnett MD - 03/15/2025 Procedure Type: One Day Myoview Regadenoson Pharmacologic Stress Test Date of Procedure: 03/15/2025 3:07 PM Clinical Indication: This 55 years old Male with a clinical history of hypertension, diabetes, COPD, congestive heart failure, and prior tobacco use is undergoing an evaluation for coronary artery disease via a pharmacologic stress test due to chest pain. Height: 5 feet 7 inches; Weight: 218 pounds Medications:See List Pharmacologic Stress Procedure: The patient performed a pharmacologic stress test using 0.4 mg regadenoson IVP over 10 seconds with low level exercise. The heart rate was 67 bpm at baseline and increased to 107 bpm. The blood pressure was 98/68 mmHg at baseline and 110/68 mmHg during infusion, demonstrating a normal response to regadenoson. The patient felt shortness of breath during the procedure. EKG: The baseline electrocardiogram showed sinus rhythm, right axis deviation, delayed R-wave transition across the anterior precordium, nonspecific T wave abnormalities. The stress electrocardiogram showed no ischemic changes. The electrocardiogram changes show a non-ischemic response to regadenoson. Nuclear Imaging Protocol: Myocardial perfusion imaging was performed at rest approximately 30 minutes following the intravenous injection of 7.2 mCi TC99m Myoview. Immediately after regadenoson infusion, the patient was injected intravenously with 21.0 mCi TC99m Myoview. Gated post - stress tomographic imaging was performed approximately 60 minutes later in same manner. SPECT reconstruction was performed in the short, vertical long and horizontal axis views in both resting and gated image sets. Post-stress prone images were also obtained in the short, vertical long, and horizontal axis views. Findings: The overall quality of the study is good. Rotating planar images reveal no motion artifact. The left ventricular size is mildly dilated. Post-stress SPECT myocardial perfusion images reveals abnormal perfusion with a small territory of inferior and inferolateral apical decreased uptake seen on the rest, stress, and prone images. The rest images reveal no reversibility. Gated SPECT imaging demonstrates inferoapical hypokinesis, and a calculated left ventricular ejection fraction estimated to be 35%. Findings are consistent with prior small inferoapical myocardial infarction. There is no convincing evidence for myocardial ischemia. IMPRESSION: 1) Stress EKG response was negative for ischemia. 2) The overall quality of the study is good. 3) The myocardial perfusion scan is abnormal with findings suggestive of a small inferoapical myocardial infarction. There is no convincing evidence for myocardial ischemia 4) Left ventricular size is mildly dilated with inferoapical hypokinesis left ventricular systolic function, and a calculated ejection fraction of 35%. 5) No previous study was available for comparison. Recommendations: Clinical correlation is recommended. us Brenda Addison DO NM ORDERABLES Final Resu lt INTERFACE SYSTEM Refer to clinic/hospital department * (ABNORMAL) HM EJECTION FRACTION (03/15/2025 3:07 PM CDT) EJECTION FRACTION 35(A) 50 - 65 % Historical Provider HEALTH MAINTENANCE Final Res ult * NM PHARMACOLOGICAL STRESS TEST (03/15/2025 1:36 PM CDT) Narrative 03/15/2025 1:37 PM CDT Order information only. Exam was auto-finalized. Brenda Phong Azael DO NM ORDERABLES Final Resu lt * (ABNORMAL) CBC WITH DIFFERENTIAL (03/15/2025 1:50 AM CDT) Only the most recent of3 resultswithin the time period is included. WBC 6.8 4.0 - 9.8 K/uL 03/15/2025 3:21 AM CDT [facility] RBC 4.84 4.50 - 5.40 M/uL 03/15/2025 3:21 AM CDT [facility] HEMOGLOBIN 14.5 13.6 - 16.5 g/dL 03/15/2025 3:21 AM CDT [facility] HEMATOCRIT 42.2 40.0 - 48.0 % 03/15/2025 3:21 AM CDT [facility] MCV 87.2 82.0 - 99.0 fL 03/15/2025 3:21 AM CDT [facility] MCH 30.0 27.2 - 32.6 pg 03/15/2025 3:21 AM CDT [facility] MCHC 34.4 31.5 - 35.5 g/dL 03/15/2025 3:21 AM CDT [facility] RDW 12.7 11.5 - 14.5 % 03/15/2025 3:21 AM CDT [facility] RDW-STDEV 39.9 37.1 - 48.7 fL 03/15/2025 3:21 AM CDT [facility] PLATELETS 132(L) 140 - 350 K/uL 03/15/2025 3:21 AM CDT [facility] MPV 9.3 9.3 - 12.4 fL 03/15/2025 3:21 AM CDT [facility] - . [facility] NEUTROPHILS 53 % 03/15/2025 3:21 AM T [facility] - . [facility] LYMPHOCYTES 34 % 03/15/2025 3:21 AM T [facility] Instagram SERVICES - . [place] MONOCYTES 9 % 03/15/2025 3:21 AM CDT [facility] - . [place] EOSINOPHILS 3 % 03/15/2025 3:21 AM CDT [facility] - . [facility] BASOPHILS 1 % 03/15/2025 3:21 AM CDT [facility] - . [facility] IMMATURE GRANULOCYTES 1 % 03/15/2025 3:21 AM T [facility] Instagram SERVICES - [facility] Comment:IG (Immature Granulo cyte) count includes Metamyelocytes, Myelocytes, and Promyelocytes NEUTROPHIL ABSOLUTE 3.59 1.90 - 7.00 K/uL 03/15/2025 3:21 AM CDT [facility] Instagram SERVICES - . [facility] LYMPHOCYTE ABSOLUTE 2.28 0.70 - 4.50 K/uL 03/15/2025 3:21 AM CDT [facility] - . [facility] MONOCYTE ABSOLUTE 0.63 0.10 - 1.30 K/uL 03/15/2025 3:21 AM T [facility] Instagram SERVICES - . [facility] EOSINOPHIL ABSOLUTE 0.17 0.00 - 0.70 K/uL 03/15/2025 3:21 AM [facility] Instagram SERVICES - . [facility] BASOPHILS ABSOLUTE 0.04 0.00 - 0.20 K/uL 03/15/2025 3:21 AM T [facility] - [facility] IMMATURE GRANULOCYTES ABSOLUTE 0.05(H) 0.00 - 0.03 K/uL 03/15/2025 3:21 AM [facility] - [facility] Blood Venipuncture / Unknown 03/15/2025 1:50 AM CDT 03/15/2025 2:44 AM CDT Orin Ho MD HEMATOLOGY ORDERABLES Final R esult [facility] CLIA# [id number] [address] [place] [address] * (ABNORMAL) BASIC METABOLIC PANEL (03/15/2025 1:50 AM CDT) Only the most recent of2 resultswithin the time period is included. SODIUM 139 136 - 145 mmol/L 03/15/2025 3:26 AM [facility] POTASSIUM 4.1 3.5 - 5.0 mmol/L 03/15/2025 3:26 AM [facility] CHLORIDE 98 98 - 107 mmol/L 03/15/2025 3:26 AM [facility] CO2 30(H) 22 - 29 mmol/L 03/15/2025 3:26 AM [facility] CALCIUM 9.6 8.6 - 10.2 mg/dL 03/15/2025 3:26 AM [facility] BUN 24(H) 6 - 20 mg/dL 03/15/2025 3:26 AM [facility] CREATININE 1.04 0.67 - 1.17 mg/dL 03/15/2025 3:26 AM [facility] GLUCOSE 96 74 - 99 mg/dL 03/15/2025 3:26 AM [facility] GFR >60 >=60 mL/min/1.7 3 sq meter 03/15/2025 3:26 AM [facility] Comment:eGFR calculated with 2020 CKD-EPI equation. Vegetarian diet, extremely high or low muscle mass, and may affect results. Cystatin C with Glomerular Filtration Rate is a suitable alternative for these patients. ANION GAP 11 8 - 16 mmol/L 03/15/2025 3:26 AM [facility] Instagram [facility] Blood Venipuncture / Unknown 03/15/2025 1:50 AM CDT 03/15/2025 2:46 AM CDT Orin Ho MD CHEMISTRY ORDERABLES Final Re sult Performing Organization Address City/State/[facility] Co de Phone Number [facility]# [id number] [address] [place] [address] * EKG 12-LEAD (03/14/2025 1:38 PM CDT) Only the most recent of2 resultswithin the time period is included. 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: : 1970 Requested By: RICCI GAGE Order Number: [id number] Reading : Chencho Garnett Measurements Intervals [place] Rate: 72 P: 54 MN: 179 QRS: 80 QRSD: 94 T: 57 QT: 400 QTc: 438 Interpretive Statements Sinus rhythm Low voltage, extremity leads Abnormal R-wave progression, late transition Electronically Signed On 03-14-2025 18:36:54 CDT by Chencho Garnett Procedure Note Chencho Garnett MD - 03/14/2025 [facility] [address] [place] [address] Test Date: 2025-03-14 Pat Name: MERARI KIRKPATRICKALLISTER Department: 41 Room: 73 1 Gender: Male Trimmer Buffing Wheel: [facility] : 1970 Requested By: RICCI GAGE Order Number: [id number] Reading : Chencho Garnett Measurements Intervals [place] Rate: 72 P: 54 MN: 179 QRS: 80 QRSD: 94 T: 57 QT: 400 QTc: 438 Interpretive Statements Sinus rhythm Low voltage, extremity leads Abnormal R-wave progression, late transition Electronically Signed On 03-14-2025 18:36:54 CDT by Chencho Garnett Brenda Addison DO ECG ORDERABLES Final Resu lt INTERFACE SYSTEM Refer to clinic/hospital department * ECHO COMPLETE - CONTRAST AND STRAIN IF INDICATED (03/14/2025 11:50 AM CDT) EJECTION FRACTION EF: INTERFACE SYSTEM 03/14/2025 11:5 4 AM CDT Narrative INTERFACE SYSTEM - 03/14/2025 1:38 PM CDT [address] [address] [email or web address] Transthoracic Echocardiogram Patient: Merari Rhodse Study ID: [id number] Gender: M : 1970 Age: 55 Race: MAUREEN Height 170.2cm Study Date: 03/14/2025 Weight: 98.9kg Access. #: [id number] BP: 102 / 70 *Referring Physician:* Orin Ho *Ordering Physician:* Orin Ho vehicle painter: Nurse: Indications: Congestive heart failure. STUDY CONCLUSIONS: SUMMARY: - Left ventricle: The cavity size was mildly dilated. Wall thickness was normal. Global systolic function is moderately reduced. The estimated ejection fraction is 35-40%. Diastolic function assessment consistent with abnormal left ventricular relaxation (grade 1 diastolic dysfunction). - Mitral valve: Mild regurgitation. - Left atrium: The atrium is normal in size. - Right ventricle: The cavity size is normal. Systolic function is normal. - Tricuspid valve: Mild regurgitation. - Pulmonary arteries: The peak systolic pressure is 18mm Hg. Cardiac Anatomy: LEFT VENTRICLE: The cavity size was mildly dilated. Wall thickness was normal. Global systolic function is moderately reduced. The estimated ejection fraction is 35-40%. Although no diagnostic regional wall motion abnormality is identified, this possibility cannot be completely excluded on the basis of this study. Diastolic function assessment consistent with abnormal left ventricular relaxation (grade 1 diastolic dysfunction). AORTIC VALVE: Structurally normal valve. Trileaflet. No significant regurgitation. The mean systolic gradient is 2mm Hg. The peak systolic gradient is 3mm Hg. The LVOT to aortic valve VTI ratio is 0.65. The valve area is 2.1cm^2. The ratio of LVOT to aortic valve peak velocity is 0.61. AORTA: Aortic root: The root is normal-sized. MITRAL VALVE: Structurally normal valve. Mild regurgitation. The mean diastolic gradient is 1mm Hg. The peak diastolic gradient is 1mm Hg. LEFT ATRIUM: The atrium is normal in size. RIGHT VENTRICLE: The cavity size is normal. Systolic function is normal. PULMONIC VALVE: Structurally normal valve. No significant regurgitation. TRICUSPID VALVE: Structurally normal valve. Mild regurgitation. RIGHT ATRIUM: The atrium was normal in size. SYSTEMIC VEINS: Inferior vena cava: The IVC is normal-sized. PERICARDIUM: There is no pericardial effusion. Measurements Left ventricle Value Ref IVS, ED, LAX (N) 0.6 cm 0.6 - 1.0 KRISTIN, LAX (N) 4.9 cm 4.2 - 5.8 KRISTIN/bsa, LAX (N) 2.3 cm/m^2 2.2 - 3.0 KRISTIN, LAX chord (H) 5.9 cm 4.2 - 5.8 ESD, LAX chord (H) 4.9 cm 2.5 - 4.0 KRISTIN/bsa, LAX chord (N) 2.8 cm/m^2 2.2 - 3.0 ESD/bsa, LAX chord (H) 2.3 cm/m^2 1.3 - 2.1 FS, LAX chord (L) 17 % 25 - 43 IVS, ED (N) 0.6 cm 0.6 - 1.0 PW, ED (N) 0.7 cm 0.6 - 1.0 EDV, 2-p (H) 165 ml 62 - 150 ESV, 2-p (H) 101 ml 21 - 61 EF, 2-p (L) 39 % 52 - 72 SV, 2-p 64 ml --------- SV/bsa, 2-p 30.5 ml/m^2 --------- E', lat vasquez, TDI (L) 6.1 cm/sec >=10.0 E/e', lat vasquez, TDI (N) 9 <=13 E', med vasquez, TDI (L) 5.1 cm/sec >=7.0 E/e', med vasquez, TDI 11 --------- E', avg, TDI 5.6 cm/sec --------- E/e', avg, TDI (N) 10 <=14 LVOT Value Ref Diam, S 2.0 cm --------- Area 3.1 cm^2 --------- Peak marito, S 0.51 m/sec --------- VTI, S 10.0 cm --------- Right ventricle Value Ref KRISTIN minor ax, A4C base (N) 3.8 cm 2.5 - 4.1 KRISTIN minor ax, A4C mid (N) 2.6 cm 1.9 - 3.5 KRISTIN major ax, A4C (N) 6.4 cm 5.9 - 8.3 TAPSE, MM (N) 1.8 cm >=1.7 Pressure, S 19 mm Hg --------- S' lateral (N) 10.3 cm/sec >=9.5 Left atrium Value Ref AP dim, ES (H) 4.5 cm 3.0 - 4.0 AP dim index, ES (N) 2.1 cm/m^2 1.5 - 2.3 SI dim, A4C 5.2 cm --------- Area ES, A4C (N) 18 cm^2 <=20 Area/bsa ES, A4C 8.43 cm^2/m^2 --------- SI dim, A2C 4.6 cm --------- SI dim, shorter 4.6 cm --------- Vol, ES, 1-p A2C (N) 36 ml 18 - 58 Vol/bsa, ES, 1-p A2C (N) 17 ml/m^2 11 - 43 Vol, ES, 2-p 42 ml --------- Vol/bsa, ES, 2-p (N) 20 ml/m^2 16 - 34 LA/Ao root ratio 1.29 --------- Right atrium Value Ref SI dim, ES, A4C (N) 4.6 cm 3.4 - 5.3 SI dim/bsa, ES, A4C (N) 2.2 cm/m^2 1.8 - 3.0 Area, ES, A4C (N) 16 cm^2 10 - 18 Vol, ES, 1-p A4C 47 ml --------- Vol/bsa, ES, 1-p A4C (N) 22 ml/m^2 11 - 39 Aortic valve Value Ref Peak v, S 0.8 m/sec --------- Mean v, S 0.63 m/sec --------- VTI, S 15.3 cm --------- Mean grad, S 2 mm Hg --------- Peak grad, S 3 mm Hg --------- LVOT/AV, VTI ratio 0.65 --------- FLACA, VTI 2.1 cm^2 --------- FLACA/bsa, VTI 0.98 cm^2/m^2 --------- LVOT/AV, Vpeak ratio 0.61 --------- FLACA, Vmax 1.9 cm^2 --------- FLACA/bsa, Vmax 0.92 cm^2/m^2 --------- Mitral valve Value Ref Mean v, D 0.41 m/sec --------- Peak E 0.54 m/sec --------- Peak A 0.59 m/sec --------- Decel time 154 ms --------- PHT 45 ms --------- Mean grad, D 1 mm Hg --------- Peak grad, D 1 mm Hg --------- Peak E/A ratio 0.9 --------- A-VTI 16.4 cm --------- MVA, PHT 4.9 cm^2 --------- MVA/bsa, PHT 2.33 cm^2/m^2 --------- Pulmonic valve Value Ref Peak v, S 0.61 m/sec --------- Peak grad, S 1 mm Hg --------- Tricuspid valve Value Ref TR peak v (N) 1.9 m/sec <=2.8 Peak RV-RA grad, S 14 mm Hg --------- Aortic root Value Ref Root diam, 3.5 cm --------- Ascending aorta Value Ref AAo AP diam, S 3.5 cm --------- AAo AP diam/bsa, S 1.7 cm/m^2 --------- Pulmonary artery Value Ref Pressure, S 18 mm Hg --------- Systemic veins Value Ref Estimated RA pressure 5 mm Hg --------- Legend: (L) and (H) chelsey values outside specified reference range. (N) ayala values inside specified reference range. Procedure data: Procedure information: A transthoracic echocardiogram was performed. Scanning was performed from the parasternal, apical, and subcostal acoustic windows. Intravenous contrast (Definity) was administered. Transthoracic echocardiogram. Complete 2D, complete spectral Doppler, and color Doppler. Birthdate: Patient birthdate: 1970. Age: Patient is 55year(s) old. Sex: gender: male. Height: 170.2cm. 67in. Weight: 98.9kg. 218lb. Body mass index: 34.1kg/m^2. Body surface area: 2.1m^2. Blood pressure: 102/70 Study date: Study date: 03/14/2025. Study time: 11:54 AM. Prepared and Electronically Authenticated Chencho Garnett M.D. [id number] Procedure Note Chencho Garnett MD - 03/14/[address] [place] [address] [email or web address] Transthoracic Echocardiogram Patient: Merari Rhodes Study ID: [id number] Gender: M : 1970 Age: 55 Race: MAUREEN Height 170.2cm Study Date: 03/14/2025 Weight: 98.9kg Access. #: [id number] BP: 102 / 70 *Referring Physician:* Orin Ho *Ordering Physician:* Orin Ho vehicle painter: Nurse: Indications: Congestive heart failure. STUDY CONCLUSIONS: SUMMARY: - Left ventricle: The cavity size was mildly dilated. Wall thickness was normal. Global systolic function is moderately reduced. The estimated ejection fraction is 35-40%. Diastolic function assessment consistentwith abnormal left ventricular relaxation (grade 1 diastolic dysfunction). - Mitral valve: Mild regurgitation. - Left atrium: The atrium is normal in size. - Right ventricle: The cavity size is normal. Systolic function isnormal. - Tricuspid valve: Mild regurgitation. - Pulmonary arteries: The peak systolic pressure is 18mm Hg. Cardiac Anatomy: LEFT VENTRICLE: The cavity size was mildly dilated. Wall thickness was normal. Global systolic function is moderately reduced. The estimatedejection fraction is 35-40%. Although no diagnostic regional wall motionabnormality is identified, this possibility cannot be completely excluded on the basisof this study. Diastolic function assessment consistent with abnormal left ventricular relaxation (grade 1 diastolic dysfunction). AORTIC VALVE: Structurally normal valve. Trileaflet. No significant regurgitation. The mean systolic gradient is 2mm Hg. The peak systolic gradient is 3mm Hg. The LVOT to aortic valve VTI ratio is 0.65. The valvearea is 2.1cm^2. The ratio of LVOT to aortic valve peak velocity is 0.61. AORTA: Aortic root: The root is normal-sized. MITRAL VALVE: Structurally normal valve. Mild regurgitation. Themean diastolic gradient is 1mm Hg. The peak diastolic gradient is 1mm Hg. LEFT ATRIUM: The atrium is normal in size. RIGHT VENTRICLE: The cavity size is normal. Systolic function isnormal. PULMONIC VALVE: Structurally normal valve. No significantregurgitation. TRICUSPID VALVE: Structurally normal valve. Mild regurgitation. RIGHT ATRIUM: The atrium was normal in size. SYSTEMIC VEINS: Inferior vena cava: The IVC is normal-sized. PERICARDIUM: There is no pericardial effusion. Measurements Left ventricle Value Ref IVS, ED, LAX (N) 0.6 cm 0.6 - 1.0 KRISTIN, LAX (N) 4.9 cm 4.2 - 5.8 KRISTIN/bsa, LAX (N) 2.3 cm/m^2 2.2 - 3.0 KRISTIN, LAX chord (H) 5.9 cm 4.2 - 5.8 ESD, LAX chord (H) 4.9 cm 2.5 - 4.0 KRISTIN/bsa, LAX chord (N) 2.8 cm/m^2 2.2 - 3.0 ESD/bsa, LAX chord (H) 2.3 cm/m^2 1.3 - 2.1 FS, LAX chord (L) 17 % 25 - 43 IVS, ED (N) 0.6 cm 0.6 - 1.0 PW, ED (N) 0.7 cm 0.6 - 1.0 EDV, 2-p (H) 165 ml 62 - 150 ESV, 2-p (H) 101 ml 21 - 61 EF, 2-p (L) 39 % 52 - 72 SV, 2-p 64 ml --------- SV/bsa, 2-p 30.5 ml/m^2 --------- E', lat vasquez, TDI (L) 6.1 cm/sec >=10.0 E/e', lat vasquez, TDI (N) 9 <=13 E', med vasquez, TDI (L) 5.1 cm/sec >=7.0 E/e', med vasquez, TDI 11 --------- E', avg, TDI 5.6 cm/sec --------- E/e', avg, TDI (N) 10 <=14 LVOT Value Ref Diam, S 2.0 cm --------- Area 3.1 cm^2 --------- Peak marito, S 0.51 m/sec --------- VTI, S 10.0 cm --------- Right ventricle Value Ref KRISTIN minor ax, A4C base (N) 3.8 cm 2.5 - 4.1 KRISTIN minor ax, A4C mid (N) 2.6 cm 1.9 - 3.5 KRISTIN major ax, A4C (N) 6.4 cm 5.9 - 8.3 TAPSE, MM (N) 1.8 cm >=1.7 Pressure, S 19 mm Hg --------- S' lateral (N) 10.3 cm/sec >=9.5 Left atrium Value Ref AP dim, ES (H) 4.5 cm 3.0 - 4.0 AP dim index, ES (N) 2.1 cm/m^2 1.5 - 2.3 SI dim, A4C 5.2 cm --------- Area ES, A4C (N) 18 cm^2 <=20 Area/bsa ES, A4C 8.43 cm^2/m^2 --------- SI dim, A2C 4.6 cm --------- SI dim, shorter 4.6 cm --------- Vol, ES, 1-p A2C (N) 36 ml 18 - 58 Vol/bsa, ES, 1-p A2C (N) 17 ml/m^2 11 - 43 Vol, ES, 2-p 42 ml --------- Vol/bsa, ES, 2-p (N) 20 ml/m^2 16 - 34 LA/Ao root ratio 1.29 --------- Right atrium Value Ref SI dim, ES, A4C (N) 4.6 cm 3.4 - 5.3 SI dim/bsa, ES, A4C (N) 2.2 cm/m^2 1.8 - 3.0 Area, ES, A4C (N) 16 cm^2 10 - 18 Vol, ES, 1-p A4C 47 ml --------- Vol/bsa, ES, 1-p A4C (N) 22 ml/m^2 11 - 39 Aortic valve Value Ref Peak v, S 0.8 m/sec --------- Mean v, S 0.63 m/sec --------- VTI, S 15.3 cm --------- Mean grad, S 2 mm Hg --------- Peak grad, S 3 mm Hg --------- LVOT/AV, VTI ratio 0.65 --------- FLACA, VTI 2.1 cm^2 --------- FLACA/bsa, VTI 0.98 cm^2/m^2 --------- LVOT/AV, Vpeak ratio 0.61 --------- FLACA, Vmax 1.9 cm^2 --------- FLACA/bsa, Vmax 0.92 cm^2/m^2 --------- Mitral valve Value Ref Mean v, D 0.41 m/sec --------- Peak E 0.54 m/sec --------- Peak A 0.59 m/sec --------- Decel time 154 ms --------- PHT 45 ms --------- Mean grad, D 1 mm Hg --------- Peak grad, D 1 mm Hg --------- Peak E/A ratio 0.9 --------- A-VTI 16.4 cm --------- MVA, PHT 4.9 cm^2 --------- MVA/bsa, PHT 2.33 cm^2/m^2 --------- Pulmonic valve Value Ref Peak v, S 0.61 m/sec --------- Peak grad, S 1 mm Hg --------- Tricuspid valve Value Ref TR peak v (N) 1.9 m/sec <=2.8 Peak RV-RA grad, S 14 mm Hg --------- Aortic root Value Ref Root diam, 3.5 cm --------- Ascending aorta Value Ref AAo AP diam, S 3.5 cm --------- AAo AP diam/bsa, S 1.7 cm/m^2 --------- Pulmonary artery Value Ref Pressure, S 18 mm Hg --------- Systemic veins Value Ref Estimated RA pressure 5 mm Hg --------- Legend: (L) and (H) chelsey values outside specified reference range. (N) ayala values inside specified reference range. Procedure data: Procedure information: A transthoracic echocardiogram was performed.Scanning was performed from the parasternal, apical, and subcostal acousticwindows. Intravenous contrast (Definity) was administered. Transthoracic echocardiogram. Complete 2D, complete spectral Doppler, and colorDoppler. Birthdate: Patient birthdate: 1970. Age: Patient is 55year(s)old. Sex: gender: male. Height: 170.2cm. 67in. Weight: 98.9kg.218lb. Body mass index: 34.1kg/m^2. Body surface area: 2.1m^2. Bloodpressure: 102/70 Study date: Study date: 03/14/2025. Study time: 11:54 AM. Prepared and Electronically Authenticated Chencho Garnett M.D. [id number] us Orin Ho MD US ORDERABLES Final Result Performing Organization Address City/[facility] de Phone Number INTERFACE SYSTEM Refer to clinic/hospital department * MAGNESIUM LEVEL (03/14/2025 1:35 AM CDT) MAGNESIUM 2.0 1.6 - 2.6 mg/dL 03/14/2025 2:35 AM CDT [facility] Blood Venipuncture / Unknown 03/14/2025 1:35 AM CDT 03/14/2025 1:52 AM CDT us Orin Ho MD CHEMISTRY ORDERABLES Final Re sult Performing Organization Address [facility] de Phone Number [facility] Instagram [facility]# [id number] [address] [place] [address] [place] [address] * TSH (03/13/2025 6:24 AM CDT) TSH 2.25 0.27 - 4.20 uIU/mL 03/13/2025 7:33 AM CDT [facility] Blood Venipuncture / Unknown 03/13/2025 6:24 AM CDT 03/13/2025 6:38 AM CDT us Orin Ho MD CHEMISTRY ORDERABLES Final Re sult Performing Organization Address City/[facility] Co de Phone Number [facility] Instagram [facility] [id number] [address] [place] [address] * (ABNORMAL) HEMOGLOBIN A1C (03/13/2025 6:24 AM CDT) HEMOGLOBIN A1C 6.5(H) <5.7 % 03/13/2025 7:13 AM CDT [facility] Instagram [facility] EST. AVG GLUCOSE, A1C 140 mg/dL 03/13/2025 7:13 AM CDT [facility] Instagram [facility] Blood Venipuncture / Unknown 03/13/2025 6:24 AM CDT 03/13/2025 6:38 AM CDT [facility] Instagram [facility] - 03/13/2025 7:13 AM CDT HGB A1C INTERPRETATION NORMAL: <5.7% PRE-DIABETES: 5.7 - 6.4% DIABETES: 6.5% OR GREATER Orin Ho MD CHEMISTRY ORDERABLES Final Re sult [facility] Instagram [facility] [id number] [address] [place] [address] * (ABNORMAL) TROPONIN 6 HR, 5TH GEN (03/13/2025 4:02 AM CDT) TROPONIN T, 6 HR 5TH GEN 16(H) <=15 ng/L 03/13/2025 4:48 AM CDT [facility] Instagram [facility] DELTA 6HR TROPONIN T -2 See Interp. 03/13/2025 4:48 AM CDT [facility] Instagram [facility] Blood Venipuncture / Unknown 03/13/2025 4:02 AM CDT 03/13/2025 4:[address] [facility] [employer] Instagram [facility] - 03/13/2025 4:48 AM CDT Troponin elevated. Delta indeterminate. Delay in collection of timed specimen beyond recommended collection interval. Results must be interpreted in clinical context. Ricci Arthur IV, DO CHEMISTRY ORDERAB LES Final Result Performing Organization Address City/[facility]/ZIP Co de Phone Number [facility] Instagram [facility]# [id number] [address] [place] [address] * (ABNORMAL) TROPONIN 2 HR, 5TH GEN (03/13/2025 12:09 AM CDT) TROPONIN T, 2 HR 5TH GEN 18(H) <=15 ng/L 03/13/2025 12:43 AM CDT [facility] Instagram [facility] DELTA 2HR TROPONIN T 0 See Interp. 03/13/2025 12:43 AM CDT [facility] Instagram [facility] Blood Venipuncture / Unknown 03/13/2025 12:09 AM CDT 03/13/2025 12:16 AM CDT Narrative [facility] Instagram [facility] - 03/13/2025 12:43 AM CDT Troponin elevated. Delta not changing. Ricci Arthur IV, DO CHEMISTRY ORDERAB LES Final Result Performing Organization Address City/[facility] Co de Phone Number [facility] Instagram [facility]# [id number] [employer] [place] [place] [address] * POC CREATININE (03/12/2025 10:04 PM CDT) CREATININE POC 1.00 0.70 - 1.20 mg/dL 03/12/2025 10:04 PM CDT [facility] Instagram [facility] GFR POC >60 >=60 mL/min/1.7 3 sq meter 03/12/2025 10:04 PM CDT [facility] Instagram [facility] Comment:eGFR calculated with 2020 CKD-EPI equation. Vegetarian diet, extremely high or low muscle mass, and may affect results. Cystatin C with Glomerular Filtration Rate is a suitable alternative for these patients. Blood, whole 03/12/2025 10:0 4 PM CDT 03/12/2025 10:07 PM CDT Ricci Arthur IV, DO POINT OF CARE IVET TING Final Result [facility] Instagram [facility]# [id number] [address] [place] [address] * XR CHEST PA AND LATERAL 2 VW (03/12/2025 10:02 PM CDT) Anatomical Region Laterality Modality Chest Computed Radiogr aphy 03/12/2025 10:0 2 PM CDT Impressions 03/12/2025 10:06 PM CDT IMPRESSION: 1. Clear lungs. DICTATION LOCATION: Location [address] [place] [address] Narrative 03/12/2025 10:06 PM CDT CHEST, 2 VIEWS DATE: 03/12/2025 10:02 PM HISTORY: Shortness of Breath SOB. See Reason for Exam COMPARISON: 08/31/2019 FINDINGS: Frontal and lateral views of the chest are submitted. Lungs: No focal consolidation or edema. Pleural Spaces: No pneumothorax or substantive pleural effusion. Heart and Mediastinum: Left subclavian approach cardiac pacemaker with leads in the right atrium and right ventricle. Heart and mediastinum are stable with normal heart size. Bones: Unremarkable. Procedure Note Tc III, Josh Grissom MD - 03/12/2025 CHEST, 2 VIEWS DATE: 03/12/2025 10:02 PM HISTORY: Shortness of Breath SOB. See Reason for Exam COMPARISON: 08/31/2019 FINDINGS: Frontal and lateral views of the chest are submitted. Lungs: No focal consolidation or edema. Pleural Spaces: No pneumothorax or substantive pleural effusion. Heart and Mediastinum: Left subclavian approach cardiac pacemaker with leads in the right atrium and right ventricle. Heart and mediastinum are stable with normal heart size. Bones: Unremarkable. IMPRESSION: 1. Clear lungs. DICTATION LOCATION: Location [address] [place] [address] Ricci Arthur IV, DO DIAGNOSTIC IMAGIN G ORDERABLES Final Result * (ABNORMAL) TROPONIN BASELINE, 5TH GEN (03/12/2025 9:58 PM CDT) TROPONIN T, BASELINE 5TH GEN 18(H) <=15 ng/L 03/12/2025 10:48 PM CDT [facility] Blood Venipuncture / Unknown 03/12/2025 9:58 PM CDT 03/12/2025 10:02 PM CDT Narrative [facility] - 03/12/2025 10:48 PM CDT Troponin elevated. Ricci Arthur IV, DO CHEMISTRY ORDERAB LES Final Result [facility] Instagram [facility] CLIA# [id number] [address] [place] [address] * (ABNORMAL) BRAIN NATRIURETIC PEPTIDE, BNP OR PROBNP (03/12/2025 9:58 PM CDT) PROBNP, N TERMINAL 1,333(H) <124 pg/mL 03/12/2025 10:29 PM CDT [facility] Comment: INTERPRETIVE COMMENT based on diagnosis: Diagnostic NT pro-BNP cutoffs for Heart Failure in the absence of renal failure is suggested for the following ranges <75 years: <125 pg/mL >=75 years: <450 pg/mL Exclusionary rule out cut-point for Acute Decompensated Heart Failure(ADHF) All ages: <300 pg/mL Diagnostic NT pro-BNP cutoffs for Acute Decompensated Heart Failure(ADHF) in the absence of renal failure is suggested for the following ages <50 years: > 450 pg/mL 50-75 years: > 900 pg/mL >75 years: >1800 pg/mL Blood Venipuncture / Unknown 03/12/2025 9:58 PM CDT 03/12/2025 10:02 PM CDT Ricci Arthur IV, DO CHEMISTRY ORDERAB LES Final Result [facility] Instagram [facility] CLIA# [id number] [address] [place] [address] * (ABNORMAL) COMPREHENSIVE METABOLIC PANEL (03/12/2025 9:58 PM CDT) [facility] SODIUM 137 136 - 145 mmol/L 03/12/2025 10:29 PM CDT [facility] [place] POTASSIUM 3.8 3.5 - 5.0 mmol/L 03/12/2025 10:29 PM CDT [facility] [place] CHLORIDE 103 98 - 107 mmol/L 03/12/2025 10:29 PM CDT [facility] [place] CO2 22 22 - 29 mmol/L 03/12/2025 10:29 PM CDT [facility] [place] CALCIUM 9.5 8.6 - 10.2 mg/dL 03/12/2025 10:29 PM T [facility] [place] BUN 9 6 - 20 mg/dL 03/12/2025 10:29 PM T [facility] [place] CREATININE 0.90 0.67 - 1.17 mg/dL 03/12/2025 10:29 PM CDT [facility] [place] GLUCOSE 86 74 - 99 mg/dL 03/12/2025 10:29 PM CDT [facility] [place] TOTAL PROTEIN 6.5(L) 6.7 - 8.6 g/dL 03/12/2025 10:29 PM T [facility] [place] ALBUMIN 4.4 3.5 - 5.2 g/dL 03/12/2025 10:29 PM T [facility] [place] BILIRUBIN TOTAL 0.7 0.0 - 1.2 mg/dL 03/12/2025 10:29 PM CDT [facility] [place] ALKALINE PHOSPHATASE 77 40 - 129 U/L 03/12/2025 10:29 PM CDT [facility] [place] AST 33 <41 U/L 03/12/2025 10:29 PM CDT [facility] [place] ALT 31 <42 U/L 03/12/2025 10:29 PM CDT [facility] [place] GFR >60 >=60 mL/min/1.7 3 sq meter 03/12/2025 10:29 PM CDT [facility] [place] Comment:eGFR calculated with 2020 CKD-EPI equation. Vegetarian diet, extremely high or low muscle mass, and may affect results. Cystatin C with Glomerular Filtration Rate is a suitable alternative for these patients. ANION GAP 12 8 - 16 mmol/L 03/12/2025 10:29 PM [facility] Blood Venipuncture / Unknown 03/12/2025 9:58 PM CDT 03/12/2025 10:02 PM CDT Narrative [facility] - 03/12/2025 10:29 PM T Samples containing indocyanine green cause interferences on Total and/or Direct Bilirubin and must not be measured. Ricci Arthur IV, DO CHEMISTRY ORDERAB LES Final Result [facility] CLIA# [id number] [address] [place] [id number] from Last 3 Months Insurance [facility] MEDICAID GENERIC MEDICARE MANAGED CARE RX [employer] Medicare Part D RX [employer] (INTERNAL) [facility] Plans Advance Directives For more information, please contact: [phone] * Full Code (Latest Code Status on File) Date Activated Date Inactivated Comments 03/13/2025 4:58 AM 03/15/2025 8:46 PM * Full Code Date Activated Date Inactivated Comments 07/19/2019 12:17 PM 07/23/2019 4:02 PM * Full Code Date Activated Date Inactivated Comments 12/02/2018 9:56 AM 12/04/2018 6:18 PM Care Teams [place] Relationship Specialty Start Date End Date Malcolm Conteh MD [facility] [place] [address] PCP - General Internal Medicine 07/19/19
[2025-05-21 09:30] LABS: Hematocrit 48.6 % (42.0-52.0); Hemoglobin 16.8 g/dL (14.0-18.0); Immature Granulocyte Percent A 0.6 % (0-0.5); Lymphocytes Absolute Auto 1.95 K/mm3 (0.9-3.2); Mean Corpuscular HGB Conc 34.6 g/dl (32-36); Mean Corpuscular Hemoglobin 30.2 pg (26-34); Mean Corpuscular Volume 87.4 fl (80-100); Nucleated Red Blood Cells Absolute Auto 0.000 K/mm3 (0.0-0.012); Nucleated Red Blood Cells Perc 0.0 % (0.0-0.2); Platelet Count Result 169 k/mm3 (150-375); Red Blood Count 5.56 M/mm3 (4.6-6.20); White Blood Count 8.4 K/mm3 (4.5-10.0)
[2025-05-21] MEDS: ALBUTEROL SULFATE NEB 2.5 MG/3 ML INH 5 MG INHALATION (09:42)
--- NOTE | 2025-05-21 09:42 | ED_ITS ---
HPI - General Adult General Chief complaint: Shortness of Breath/Dyspnea Stated complaint: weakness, SOB Time Seen by Provider: 05/21/25 09:01 History of Present Illness HPI narrative: 55-year-old male presents to the emergency department for evaluation for worsening chest tightness and shortness of breath. Patient reports that chest tightness has been ongoing for the last few days. Denies any prior history of [facility]. Patient does have a prior history of CHF does have a pacemaker. Related Data Allergies Allergy/AdvReac Type Severity Reaction Status Date / Time No Known Allergies Allergy Verified 01/12/25 09:27 Review of Systems 2 Review of Systems: All systems reviewed & are unremarkable except as noted in HPI and below PMFSH Past Medical History Medical History (Updated 05/21/25 @ 13:48 by Immanuel Hernandez MD) Pre-syncope History of hypertension Non-ischemic cardiomyopathy Family History Family History (Updated 01/26/25 @ 00:45 by Trixie Sanchez RN) Other Unknown family medical history Social History Social History Smoking packs per day: 1.5 Smoking cigarettes per day: 30.0 Years smoked: 30 Smoking pack-years: 45.00 Smoking status: Former smoker Tobacco type: cigarettes Smoking end date: 01/12/25 Alcohol intake: former Substance use: current Substance use type: marijuana Other substance usage details: marijuana gummies Last use: 01/24/2025 Do You Feel Safe in your Home?: Yes Lack of Transportation: No Lack of Food: Sometimes True Current Housing: I Have Housing Concerned About Future Housing: No Difficulty Paying Gas/Electric Bills: No Difficulty Paying for Meds: No Currently Unemployed: No Education: High School Diploma/GED Difficulty w/ Childcare or Family Care: No Spiritual care concerns: No Exam 2 Narrative: APPEARANCE: Well appearing, no pain, no distress, well-nourished. HEAD: normocephalic, atraumatic. EYES: PERRLA/EOMI, conjunctivae clear. NOSE: Normal no drainage EARS:TMS clear with good light reflex. THROAT: Pharynx clear, no exudate. NECK: Supple. No adenopathy, no masses. RESPIRATORY: Airway patent, respirations nonlabored. Clear to auscultation bilaterally, no rales, rhonchi, wheezing. CARDIOVASCULAR: Regular rate and rhythm without murmurs rubs or gallops. ABDOMINAL: Soft, nontender, nondistended, normal bowel sounds MUSCULOSKELETAL: Moves all extremities. Strength/ROM intact, No edema, No calf tenderness. NEURO: Alert. Cranial nerves II through XII intact. Good gait. Good coordination SKIN: Warm, dry. Normal Color Course Vital Signs Vital signs: Vital Signs Temperature 98.0 F 05/21/25 09:12 Pulse Rate 90 05/21/25 09:12 Respiratory Rate 20 05/21/25 09:12 Blood Pressure 143/101 H 05/21/25 09:12 Pulse Oximetry 96 05/21/25 09:12 Oxygen Delivery Room Air 05/21/25 09:12 Temperature 98.0 F 05/21/25 09:12 Pulse Rate 98 05/21/25 14:09 Respiratory Rate 19 05/21/25 14:09 Blood Pressure 121/66 05/21/25 14:09 Pulse Oximetry 96 05/21/25 14:09 Oxygen Delivery Room Air 05/21/25 09:46 Medical Decision Making [facility] Narrative Medical decision making narrative: 55-year-old male presents emergency department for evaluation for intermittent shortness of breath and chest tightness. Patient is currently afebrile no leukocytosis hemoglobin of 16.8. Patient has an INR of 1.0. No acute abnormalities on the CMP and patient had negative serial troponins. Patient was negative for influenza RSV and for COVID. Patient does have a mild elevation in his Pro BNP at 811 which is lower than his most recent values and similar to his possible baseline. Chest x-ray shows no acute cardiopulmonary abnormality. EKG shows normal sinus rhythm. Patient was treated with an albuterol breathing treatment patient did feel improved with treatment. Patient was up to the results of his workup patient was comfortable the plan for discharge and close follow-up with his primary care physician and Cardiology. Differential Diagnosis Differential Diagnosis: ACS, pulmonary embolism, COPD, pneumonia, CHF, COVID, RSV, influenza Vital Signs Vital Signs: Vital Signs Temperature 98.0 F 05/21/25 09:12 Pulse Rate 90 05/21/25 09:12 Respiratory Rate 20 05/21/25 09:12 Blood Pressure 143/101 H 05/21/25 09:12 Pulse Oximetry 96 05/21/25 09:12 Oxygen Delivery Room Air 05/21/25 09:12 Temperature 98.0 F 05/21/25 09:12 Pulse Rate 98 05/21/25 14:09 Respiratory Rate 19 05/21/25 14:09 Blood Pressure 121/66 05/21/25 14:09 Pulse Oximetry 96 05/21/25 14:09 Oxygen Delivery Room Air 05/21/25 09:46 Lab Data Lab results reviewed: Yes I reviewed the patient's lab results. 05/21/25 09:16 05/21/25 09:16 Labs: Lab Results 05/21/25 05/21/25 Range/Units 09:16 13:06 WBC 8.4 (4.5-10.0) K/mm3 RBC 5.56 (4.6-6.20) M/mm3 Hgb 16.8 (14.0-18.0) g/dL Hct 48.6 (42.0-52.0) % MCV 87.4 (80-100) fl MCH 30.2 (26-34) pg MCHC 34.6 (32-36) g/dl RDW 12.5 (11.5-14.5) % Plt Count 169 (150-375) k/mm3 MPV 9.0 (7.4-10.4) fl Immature Gran % (Auto) 0.6 H (0-0.5) % Neut % (Auto) 66.1 (45.5-73.1) % Lymph % (Auto) 23.3 (18.3-44.2) % Treasure % (Auto) 7.4 (2.6-8.5) % Eos % (Auto) 1.9 (0-4.4) % Baso % (Auto) 0.7 (0.2-1.2) % Lymph # (Auto) 1.95 (0.9-3.2) K/mm3 [place] # (Auto) 0.6 (0.1-0.6) K/mm3 Eos # (Auto) 0.2 (0-0.3) K/mm3 Baso # (Auto) 0.1 (0.0-0.1) K/mm3 Abs Immat Gran (auto) 0.05 H (0.00-0.031) K/mm3 Absolute Neuts (auto) 5.5 (1.3-6.7) K/mm3 Absolute Nucleated RBC 0.000 (0.0-0.012) K/mm3 Nucleated RBC % 0.0 (0.0-0.2) % PT 12.7 (11.1-14.7) Seconds INR 1.0 APTT 26.1 (22.3-36.8) Seconds Sodium 139 (137-145) mmol/L Potassium 3.6 (3.4-5.0) mmol/L Chloride 102 (98-107) mmol/L Carbon Dioxide 28 (22-30) mmol/L Anion Gap 9 (4-12) mmol/L BUN 13 D (9-20) mg/dL Creatinine 0.89 (0.7-1.3) mg/dL Estim Creat Clear Calc 93 ml/min Estimated GFR > 60 (59 - ) Glucose 117 H (65-110) mg/dL Calcium 9.4 (8.4-10.2) mg/dL Total Bilirubin 1.0 (0.2-1.3) mg/dL AST 39 (17-59) U/L ALT 50 (6-50) U/L Alkaline Phosphatase 85 (38-126) U/L Troponin I < 0.012 < 0.012 (0.000-0.034) ng/mL NT-Pro-B Natriuret Pep 811 H (19.9-100) pg/mL Total Protein 7.5 (6.3-8.2) g/dL Albumin 4.5 (3.5-5.1) g/dL Influenza A (RT-PCR) Negative (Negative) Influenza B (RT-PCR) Negative (Negative) RSV (RT-PCR) Negative (Negative) SARS-CoV-2 RNA (RT-PCR) Negative (Negative) Imaging Data Radiologist's impression: Impressions Chest X-Ray 05/21/25 10:08 IMPRESSION: 1. No acute cardiopulmonary findings. Discharge Plan Discharge Clinical Impression: Dyspnea, Chest pain Patient Disposition: Home Condition: Stable Instructions: Antibiotic Form, Chest Pain (ED), How to Stop Smoking (ED) Additional Instructions: Have close follow-up with your primary care physician for additional outpatient cardiac testing. If you have any worsening symptoms please call or return to the emergency department. Refrain from smoking Patient Language: Cambodian Prescriptions: New albuterol sulfate 90 mcg/actuation HFA aerosol inhaler 1 puff inhalation QID Qty: 6.7 0RF No Action carvedilol 6.25 mg tablet 6.25 mg PO Q12H MDD 2 tablets Qty: 60 0RF Patient Comments: pt discharged 01/15/2025 on this dosage, but unsure what dose he is taking Rx Instructions: must administer with a meal/food spironolactone 25 mg Tablet 25 mg PO QAM Qty: 30 0RF Jardiance 10 mg tablet 10 mg PO DAILY Qty: 30 0RF furosemide 40 mg Tablet See Rx Instructions .ROUTE .COMPLEX Qty: 60 0RF Rx Instructions: 80mg twice a day for 5 days, and then 40mg twice a day after that lisinopril 20 mg tablet 20 mg PO DAILY Qty: 30 0RF Patient Comments: patient states he takes lisinopril, but unsure of dose potassium chloride 20 mEq tablet extended release See Rx Instructions .ROUTE .COMPLEX Qty: 60 0RF Rx Instructions: 20 mEq orally twice a day for 5 days, and then daily Combivent Respimat 20-100 mcg/actuation mist 1 puff inhalation Q4H PRN (Reason: shortness of breath or wheezing) Qty: 4 2RF Follow-up/Referrals: UNKNOWN,DOCTOR [Primary Care Provider] Quality HEART score for chest pain patients History: slightly suspicious ECG: normal Age: > 45 and < 65 years Risk factors: 1 or 2 risk factors Troponin: < or = to 1x normal limit Heart score: 2
[2025-05-21 09:43] LABS: INR 1.0; Prothrombin Time 12.7 Seconds (11.1-14.7)
[2025-05-21 09:44] LABS: Partial Thromboplastin Time 26.1 Seconds (22.3-36.8)
[2025-05-21 09:51] LABS: Alanine Aminotransferase 50 U/L (6-50); Albumin Level 4.5 g/dL (3.5-5.1); Alkaline Phosphatase 85 U/L (38-126); Anion Gap 9 mmol/L (4-12); Aspartate Amino Transferase 39 U/L (17-59); Bilirubin,Total 1.0 mg/dL (0.2-1.3); Blood Urea Nitrogen 13 mg/dL (9-20); Calcium 9.4 mg/dL (8.4-10.2); Carbon Dioxide 28 mmol/L (22-30); Chloride 102 mmol/L (98-107); Estimated CRCL calculation 93 ml/min; Estimated Glomerular Filt Rate > 60; Glucose 117 mg/dL (65-110); Potassium 3.6 mmol/L (3.4-5.0); Sodium 139 mmol/L (137-145); Total Protein 7.5 g/dL (6.3-8.2)
[2025-05-21 10:03] LABS: NT Pro B Type Natriuretic Pept 811 pg/mL (19.9-100); Troponin I < 0.012 ng/mL (0.000-0.034)
[2025-05-21 10:07] LABS: Influenza A QL RT-PCR Negative (Negative); Influenza B QL RT-PCR Negative (Negative); RSV RNA, RT-PCR Negative (Negative); SARS-CoV-2 RNA PCR Negative (Negative)
[2025-05-21] MEDS: FUROSEMIDE INJ 40 MG/4 ML VIAL IV PUSH (10:45)
--- NOTE | 2025-05-21 12:59 | ECG_ITS ---
Test Date: 2025-05-21 13:05:41 Measurements Intervals [place] Rate: 78 P: 36 AR: 179 QRS: 63 QRSD: 92 T: 12 QT: 361 QTc: 413 Interpretive Statements SINUS RHYTHM LOW QRS VOLTAGE IN EXTREMITY LEADS [QRS DEFLECTION < 0.5 mV IN LIMB LEADS] NONSPECIFIC ST-T WAVE CHANGES Compared to ECG 05/21/2025 09:09:06 Low QRS voltage now present Electronically Signed On 05-22-2025 14:13:31 CDT by Aries Katz M.D.
[2025-05-21 13:39] LABS: Troponin I < 0.012 ng/mL (0.000-0.034)
[2025-05-21] MEDS: KETOROLAC 15 MG/ML VIAL (*BKC) IV PUSH (13:50)
== END 2025-05-21 14:10 | disposition home or self-care (01) ==
PROVIDERS: Emergency Provider Emergency Medicine
DX: R06.02 Shortness of breath (principal); R07.9 Chest pain, unspecified; I10 Essential (primary) hypertension
CPT/HCPCS: 36415; 71046; 80053; 83880; 84484; 85025; 85610; 85730; 87637; 93005; 94640; 96374; 96375; 99284; J1885; J1938

== ENCOUNTER 2025-05-22 10:21 | Emergency (ER) | payer OTHER, SELFPAY ==
--- NOTE | ~2025-05-22 | XR_ITS ---
EXAMINATION: XR chest 2V 05/22/2025 11:14 INDICATION: Left-sided chest pain which radiates into the left arm TECHNIQUE:2 images of the chest were obtained. COMPARISON: None available FINDINGS: Small opacities in the lower lungs. The cardiomediastinal silhouette is within normal limits. There are no pleural effusions. There is no pneumothorax suspected. Left-sided generator with 2 leads. IMPRESSION: 1: Small opacities in the mid and lower lungs which represents atelectasis/scarring or infiltrates. Reviewed, dictated and finalized at location Q. IMPRESSION: 1: Small opacities in the mid and lower lungs which represents atelectasis/sca rring or infiltrates.
--- NOTE | 2025-05-22 10:23 | ECG_ITS ---
Test Date: 2025-05-22 10:28:08 Measurements Intervals [place] Rate: 94 P: 47 AL: 182 QRS: 79 QRSD: 93 T: -59 QT: 359 QTc: 450 Interpretive Statements SINUS RHYTHM NONSPECIFIC ST-T-WAVE CHANGES Compared to ECG 05/21/2025 13:05:41 NO SIGNIFICANT CHANGES Electronically Signed On 05-22-2025 14:38:00 CDT by Aries Katz M.D.
[2025-05-22 10:43] VITALS: BP 130/87; PULSE 98; RESP 18; TEMP 36.3; O2SAT 99
[2025-05-22 10:48] LABS: Hematocrit 46.4 % (42.0-52.0); Hemoglobin 16.4 g/dL (14.0-18.0); Immature Granulocyte Percent A 0.3 % (0-0.5); Lymphocytes Absolute Auto 1.96 K/mm3 (0.9-3.2); Mean Corpuscular HGB Conc 35.3 g/dl (32-36); Mean Corpuscular Hemoglobin 30.7 pg (26-34); Mean Corpuscular Volume 86.7 fl (80-100); Nucleated Red Blood Cells Absolute Auto 0.000 K/mm3 (0.0-0.012); Nucleated Red Blood Cells Perc 0.0 % (0.0-0.2); Platelet Count Result 144 k/mm3 (150-375); Red Blood Count 5.35 M/mm3 (4.6-6.20); White Blood Count 7.3 K/mm3 (4.5-10.0)
[2025-05-22 10:58] LABS: Alanine Aminotransferase 47 U/L (6-50); Albumin Level 4.3 g/dL (3.5-5.1); Alkaline Phosphatase 74 U/L (38-126); Anion Gap 7 mmol/L (4-12); Aspartate Amino Transferase 43 U/L (17-59); Bilirubin,Total 1.2 mg/dL (0.2-1.3); Blood Urea Nitrogen 14 mg/dL (9-20); Calcium 9.1 mg/dL (8.4-10.2); Carbon Dioxide 29 mmol/L (22-30); Chloride 102 mmol/L (98-107); Estimated CRCL calculation 97 ml/min; Estimated Glomerular Filt Rate > 60; Glucose 111 mg/dL (65-110); Potassium 3.7 mmol/L (3.4-5.0); Sodium 138 mmol/L (137-145); Total Protein 7.1 g/dL (6.3-8.2)
--- OUTSIDE RECORDS SUMMARY | 2025-05-22 11:29 | XMS_ITS | Clinical Summary ---
Author Organization [facility] Address [address] [place] [address] Phone Care Team Providers Care Junior Software Developer Name Role Phone Malcolm Conteh MD Primary Care Provider [phone] Allergies No known active allergies Medications carvedilol (COREG) 25 mg tablet Take 50 mg by mouth 2 times daily with meals. Active aspirin (ECOTRIN EC) 81 mg Tablet, Delayed Release (E.C.) Take 81 mg by mouth daily. Active potassium chloride (KLOR-CON) 10 mEq Extended Release tablet Take 1 Tablet (10 mEq) by mouth every other day. 10 Tablet 07/23/2019 1:25 PM FARM BUTCHER 9 Active Additional Information Patient taking differently:10 [...] - 03/15/2025 6:41 PM CDT Hospital Encounter [facility] [address] [place] [address] Jerson IV, Ricci Gage, Flor Mitchell MD Khan, Mafaza, MD Habtu, Brenda Darling DO Acute on chronic systolic (congestive) heart failure ([facility]/HCC) Discharge Disposition: Home or Self Care 03/12/2025 [...] declined 07/19/2019 How often do you attend methodist or islam serv ices? Patient declined 07/19/2019 Do you belong to any clubs o r organizations such as methodist groups, unions, fraternal or athletic groups, or [...] 07/06/2022, 07/22/2019 Medical Devices Implanted Type Area Advertising Copy Writer Device Identifier Shelf Expiration Date Model / [...] - 9.8 K/uL 03/15/2025 3:21 AM CDT [facility] - [facility] RBC 4.84 4.50 - 5.40 M/uL 03/15/2025 3:21 AM CDT [facility] - [facility] HEMOGLOBIN 14.5 13.6 - 16.5 g/dL 03/15/2025 3:21 AM CDT [facility] - [facility] HEMATOCRIT 42.2 40.0 - 48.0 % 03/15/2025 3:21 AM CDT [facility] - [facility] MCV 87.2 82.0 - 99.0 fL 03/15/2025 3:21 AM CDT [facility] - [facility] MCH 30.0 27.2 - 32.6 pg 03/15/2025 3:21 AM CDT [facility] - [facility] MCHC 34.4 31.5 - 35.5 g/dL 03/15/2025 3:21 AM CDT [facility] - [facility] RDW 12.7 11.5 - 14.5 % 03/15/2025 3:21 AM CDT [facility] - [facility] RDW-STDEV 39.9 37.1 - 48.7 fL 03/15/2025 3:21 AM CDT [facility] - [facility] PLATELETS 132(L) 140 - 350 K/uL 03/15/2025 3:21 AM CDT [facility] - [facility] MPV 9.3 9.3 - 12.4 fL 03/15/2025 3:21 AM CDT [facility] LABORATORY SERVICES - . [facility] NEUTROPHILS 53 % 03/15/2025 3:21 AM T [facility] LABORATORY SERVICES - . [facility] LYMPHOCYTES 34 % 03/15/2025 3:21 AM T [facility] [email or web address] SERVICES - . [place] MONOCYTES 9 % 03/15/2025 3:21 AM CDT [facility]ORY SERVICES - . [place] EOSINOPHILS 3 % 03/15/2025 3:21 AM CDT [facility] LABORATORY SERVICES - . [facility] BASOPHILS 1 % 03/15/2025 3:21 AM CDT [facility] LABORATORY SERVICES - . [facility] IMMATURE GRANULOCYTES 1 % 03/15/2025 3:21 AM T [facility] [email or web address] SERVICES - [facility] Comment:IG (Immature Granulo cyte) count includes Metamyelocytes, Myelocytes, and Promyelocytes NEUTROPHIL ABSOLUTE 3.59 1.90 - 7.00 K/uL 03/15/2025 3:21 AM CDT [facility] [email or web address] SERVICES - . [facility] LYMPHOCYTE ABSOLUTE 2.28 0.70 - 4.50 K/uL 03/15/2025 3:21 AM CDT [facility] LABORATORY SERVICES - . [facility] MONOCYTE ABSOLUTE 0.63 0.10 - 1.30 K/uL 03/15/2025 3:21 AM T [facility] [email or web address] SERVICES - . [facility] EOSINOPHIL ABSOLUTE 0.17 0.00 - 0.70 K/uL 03/15/2025 3:21 AM [facility] [email or web address] SERVICES - . [facility] BASOPHILS ABSOLUTE 0.04 0.00 - 0.20 K/uL 03/15/2025 3:21 AM T [facility] LABORATORY SERVICES - [facility] IMMATURE GRANULOCYTES ABSOLUTE 0.05(H) 0.00 - 0.03 K/uL 03/15/2025 3:21 AM [facility] [email or web address] SERVICES - [facility] Blood Venipuncture / Unknown 03/15/2025 1:50 AM CDT 03/15/2025 2:44 AM CDT Orin Ho MD HEMATOLOGY ORDERABLES Final R esult [facility] CLIA# [id number] [address] [place] [address] * (ABNORMAL) BASIC METABOLIC PANEL (03/15/2025 1:50 AM CDT) Only the most recent of2 resultswithin the time period is included. SODIUM 139 136 - 145 mmol/L 03/15/2025 3:[address] [facility] POTASSIUM 4.1 3.5 - 5.0 mmol/L 03/15/2025 3:[address] [facility] CHLORIDE 98 98 - 107 mmol/L 03/15/2025 3:[address] [facility] CO2 30(H) 22 - 29 mmol/L 03/15/2025 3:[address] [facility] CALCIUM 9.6 8.6 - 10.2 mg/dL 03/15/2025 3:[address] [facility] BUN 24(H) 6 - 20 mg/dL 03/15/2025 3:[address] [facility] CREATININE 1.04 0.67 - 1.17 mg/dL 03/15/2025 3:[address] [facility] GLUCOSE 96 74 - 99 mg/dL 03/15/2025 3:[address] [facility] GFR >60 >=60 mL/min/1.7 3 sq meter 03/15/2025 3:[address] [facility] Comment:eGFR calculated with 2020 CKD-EPI equation. Vegetarian diet, extremely high or low muscle mass, and may affect results. Cystatin C with Glomerular Filtration Rate is a suitable alternative for these patients. ANION GAP 11 8 - 16 mmol/L 03/15/2025 3:26 AM [facility] [email or web address] [facility] Blood Venipuncture / Unknown 03/15/2025 1:50 AM CDT 03/15/2025 2:46 AM CDT Orin Ho MD CHEMISTRY ORDERABLES Final Re sult Performing Organization Address City/State/[facility] Co de Phone Number [facility] LABORATORY SERVICES [facility]# [id number] [address] [place] [address] * EKG 12-LEAD (03/14/2025 1:38 PM CDT) Only the most recent of2 resultswithin the time period is included. 03/14/2025 1:38 PM CDT Narrative INTERFACE SYSTEM - 03/14/2025 6:36 PM CDT [facility] [address] [place] [address] Test Date: 2025-03-14 Pat Name: MERARI RHODES Department: 41 Room: [facility] Gender: Male Personal Development Coach: : 1970 Requested By: RICCI GAGE Order Number: [id number] Reading : Chencho Garnett Measurements Intervals [place] Rate: 72 P: 54 MD: 179 QRS: 80 QRSD: 94 T: 57 QT: 400 QTc: 438 Interpretive Statements Sinus rhythm Low voltage, extremity leads Abnormal R-wave progression, late transition Electronically Signed On 03-14-2025 18:36:54 CDT by Chencho Garnett Procedure Note Chencho Garnett MD - 03/14/2025 [facility] [address] [place] [address] Test Date: 2025-03-14 Pat Name: MERARI KIRKPATRICKALLISTER Department: 41 Room: 73 1 Gender: Male Personal Development Coach: [facility] : 1970 Requested By: RICCI GAGE Order Number: [id number] Reading : Chencho Garnett Measurements Intervals [place] Rate: 72 P: 54 MD: 179 QRS: 80 QRSD: 94 T: 57 [...] INTERFACE SYSTEM - 03/14/2025 1:38 PM CDT [address] [address] [email or web address] Transthoracic Echocardiogram Patient: Merari Rhodes Study ID: [id number] Gender: M : 1970 Age: 55 Race: MAUREEN Height 170.2cm Study Date: 03/14/2025 Weight: 98.9kg Access. #: [id number] BP: 102 / 70 *Referring Physician:* Orin Ho *Ordering Physician:* Orin Ho golf club maker: Nurse: Indications: Congestive heart failure. STUDY CONCLUSIONS: [...] Prepared and Electronically Authenticated Chencho Garnett M.D. [id number] Procedure Note Chencho Garnett MD - 03/14/[address] [place] [address] [email or web address] Transthoracic Echocardiogram Patient: Merari Rhodes Study ID: [id number] Gender: M : 1970 Age: 55 Race: MAUREEN Height 170.2cm Study Date: 03/14/2025 Weight: 98.9kg Access. #: [id number] BP: 102 / 70 *Referring Physician:* Orin Ho *Ordering Physician:* Orin Ho golf club maker: Nurse: Indications: Congestive heart failure. STUDY CONCLUSIONS: [...] Prepared and Electronically Authenticated Chencho Garnett M.D. [id number] us Orin Ho MD US ORDERABLES Final Result Performing Organization Address City/[facility]/[place] de Phone Number INTERFACE SYSTEM Refer to clinic/hospital department * MAGNESIUM LEVEL (03/14/2025 1:35 AM CDT) MAGNESIUM 2.0 1.6 - 2.6 mg/dL 03/14/2025 2:35 AM CDT [facility] LABORATORY [facility] Blood Venipuncture / Unknown 03/14/2025 1:35 AM CDT 03/14/2025 1:52 AM CDT us Orin Ho MD CHEMISTRY ORDERABLES Final Re sult Performing Organization Address [facility] de Phone Number [facility] [email or web address] [facility]# [id number] [address] [place] [address] [place] [address] * TSH (03/13/2025 6:24 AM CDT) TSH 2.25 0.27 - 4.20 uIU/mL 03/13/2025 7:[address] [facility] Blood Venipuncture / Unknown 03/13/2025 6:24 AM CDT 03/13/2025 6:38 AM CDT us Orin Ho MD CHEMISTRY ORDERABLES Final Re sult Performing Organization Address City/[facility] Co de Phone Number [facility] [email or web address] [facility] [id number] [address] [place] [address] * (ABNORMAL) HEMOGLOBIN A1C (03/13/2025 6:24 AM CDT) HEMOGLOBIN A1C 6.5(H) <5.7 % 03/13/2025 7:13 AM CDT [facility] [email or web address] [facility] EST. AVG GLUCOSE, A1C 140 mg/dL 03/13/2025 7:13 AM CDT [facility] [email or web address] [facility] Blood Venipuncture / Unknown 03/13/2025 6:24 AM CDT 03/13/2025 6:38 AM CDT [facility] [email or web address] [facility] - 03/13/2025 7:13 AM CDT HGB A1C INTERPRETATION NORMAL: <5.7% PRE-DIABETES: 5.7 - 6.4% DIABETES: 6.5% OR GREATER Orin Ho MD CHEMISTRY ORDERABLES Final Re sult [facility] [email or web address] [facility]# [id number] [address] [place] [address] * (ABNORMAL) TROPONIN 6 HR, 5TH GEN (03/13/2025 4:02 AM CDT) TROPONIN T, 6 HR 5TH GEN 16(H) <=15 ng/L 03/13/2025 4:48 AM CDT [facility] [email or web address] [facility] DELTA 6HR TROPONIN T -2 See Interp. 03/13/2025 4:48 AM CDT [facility] [email or web address] [facility] Blood Venipuncture / Unknown 03/13/2025 4:02 AM CDT 03/13/2025 4:03 AM CDT [facility] [employer] [email or web address] [facility] - 03/13/2025 4:48 AM CDT Troponin elevated. Delta indeterminate. Delay in collection of timed specimen beyond recommended collection interval. Results must be interpreted in clinical context. Rcici Arthur IV, DO CHEMISTRY ORDERAB LES Final Result Performing Organization Address City/[facility]/ZIP Co de Phone Number [facility] [email or web address] [facility]# [id number] [address] [place] [address] * (ABNORMAL) TROPONIN 2 HR, 5TH GEN (03/13/2025 12:09 AM CDT) TROPONIN T, 2 HR 5TH GEN 18(H) <=15 ng/L 03/13/2025 12:43 AM CDT [facility] [email or web address] [facility] DELTA 2HR TROPONIN T 0 See Interp. 03/13/2025 12:43 AM CDT [facility] [email or web address] [facility] Blood Venipuncture / Unknown 03/13/2025 12:09 AM CDT 03/13/2025 12:16 AM CDT Narrative [facility] [email or web address] [facility] - 03/13/2025 12:43 AM CDT Troponin elevated. Delta not changing. Ricci Arthur IV, DO CHEMISTRY ORDERAB LES Final Result Performing Organization Address City/[facility] Co de Phone Number [facility] [email or web address] [facility]# [id number] [facility] [place] [address] [place] [address] * POC CREATININE (03/12/2025 10:04 PM CDT) CREATININE POC 1.00 0.70 - 1.20 mg/dL 03/12/2025 10:04 PM CDT [facility] [email or web address] [facility] GFR POC >60 >=60 mL/min/1.7 3 sq meter 03/12/2025 10:04 PM CDT [facility] [email or web address] [facility] Comment:eGFR calculated with 2020 CKD-EPI equation. Vegetarian diet, extremely high or low muscle mass, and may affect results. Cystatin C with Glomerular Filtration Rate is a suitable alternative for these patients. Blood, whole 03/12/2025 10:0 4 PM CDT 03/12/2025 10:07 PM CDT Ricci Arthur IV, DO POINT OF CARE IVET TING Final Result [facility] [email or web address] SERVICES [facility] [place]# [id number] [address] [place] [address] * XR CHEST PA AND LATERAL 2 VW (03/12/2025 10:02 PM CDT) Anatomical Region Laterality Modality Chest Computed Radiogr aphy 03/12/2025 10:0 2 PM CDT Impressions 03/12/2025 10:06 PM CDT IMPRESSION: 1. Clear lungs. DICTATION LOCATION: Location [address] [place] [address] Narrative 03/12/2025 10:06 PM CDT CHEST, 2 [...] IMPRESSION: 1. Clear lungs. DICTATION LOCATION: Location [address] [place] [address] Ricci Arthur IV, DO DIAGNOSTIC IMAGIN G ORDERABLES Final Result * (ABNORMAL) TROPONIN BASELINE, 5TH GEN (03/12/2025 9:58 PM CDT) TROPONIN T, BASELINE 5TH GEN 18(H) <=15 ng/L 03/12/2025 10:[address] [facility] Blood Venipuncture / Unknown 03/12/2025 9:58 PM CDT 03/12/2025 10:02 PM CDT Narrative [facility] LABORATORY [facility] - 03/12/2025 10:48 PM CDT Troponin elevated. Ricci Arthur IV, DO CHEMISTRY ORDERAB LES Final Result [facility] [email or web address] [facility] CLIA# [id number] [address] [place] [address] * (ABNORMAL) BRAIN NATRIURETIC PEPTIDE, BNP OR PROBNP (03/12/2025 9:58 PM CDT) PROBNP, N TERMINAL 1,333(H) <124 pg/mL 03/12/2025 10:29 PM CDT [facility] LAB[facility]ATORY [facility] Comment: INTERPRETIVE COMMENT based on diagnosis: Diagnostic [...] IV, DO CHEMISTRY ORDERAB LES Final Result [facility] [email or web address] [facility] CLIA# [id number] [address] [place] [address] * (ABNORMAL) COMPREHENSIVE METABOLIC PANEL (03/12/2025 9:58 PM CDT) [facility] SODIUM 137 136 - 145 mmol/L 03/12/2025 10:29 PM CDT [facility] [place] POTASSIUM 3.8 3.5 - 5.0 mmol/L 03/12/2025 10:29 PM CDT [facility] [place] CHLORIDE 103 98 - 107 mmol/L 03/12/2025 10:29 PM CDT [facility] [place] CO2 22 22 - 29 mmol/L 03/12/2025 10:29 PM CDT [facility] [place] CALCIUM 9.5 8.6 - 10.2 mg/dL 03/12/2025 10:29 PM T [facility] [place] BUN 9 6 - 20 mg/dL 03/12/2025 10:29 PM T [facility] [place] [place] CREATININE 0.90 0.67 - 1.17 mg/dL 03/12/2025 10:29 PM CDT [facility] [place] [place] GLUCOSE 86 74 - 99 mg/dL 03/12/2025 10:29 PM CDT [facility] [place] [place] TOTAL PROTEIN 6.5(L) 6.7 - 8.6 g/dL 03/12/2025 10:29 PM T [facility] [place] [place] ALBUMIN 4.4 3.5 - 5.2 g/dL 03/12/2025 10:29 PM T [facility] [place] [place] BILIRUBIN TOTAL 0.7 0.0 - 1.2 mg/dL 03/12/2025 10:29 PM CDT [facility] [place] [place] ALKALINE PHOSPHATASE 77 40 - 129 U/L 03/12/2025 10:29 PM CDT [facility] [place] [place] AST 33 <41 U/L 03/12/2025 10:29 PM CDT [facility] [place] [place] ALT 31 <42 U/L 03/12/2025 10:29 PM CDT [facility] - [place] GFR >60 >=60 mL/min/1.7 3 sq meter 03/12/2025 10:29 PM CDT [facility] - [place] Comment:eGFR calculated with 2020 CKD-EPI equation. Vegetarian diet, extremely high or low muscle mass, and may affect results. Cystatin C with Glomerular Filtration Rate is a suitable alternative for these patients. ANION GAP 12 8 - 16 mmol/L 03/12/2025 10:29 PM [facility] Blood Venipuncture / Unknown 03/12/2025 9:58 PM CDT 03/12/2025 10:02 PM CDT Narrative [facility] LABORATORY [facility] - 03/12/2025 10:29 PM T Samples containing indocyanine green cause interferences on Total and/or Direct Bilirubin and must not be measured. Ricci Arthur IV, DO CHEMISTRY ORDERAB LES Final Result [facility] CLIA# [id number] [address] [place] [place] [id number] from Last 3 Months Insurance [facility] MEDICAID GENERIC MEDICARE MANAGED CARE RX MER[employer] Medicare Part D RX [employer] PLANS (INTERNAL) [facility] Plans Advance Directives For more information, please contact: [phone] * Full Code (Latest Code Status on File) Date Activated Date Inactivated Comments 03/13/2025 4:58 AM 03/15/2025 8:46 PM * Full Code Date Activated Date Inactivated Comments 07/19/2019 12:17 PM 07/23/2019 4:02 PM * Full Code Date Activated Date Inactivated Comments 12/02/2018 9:56 AM 12/04/2018 6:18 PM Care Teams Junior Software Developer Relationship Specialty Start Date End Date Malcolm Conteh MD [facility] [place] [address] PCP - General Internal Medicine 07/19/19
--- OUTSIDE RECORDS SUMMARY | 2025-05-22 11:29 | XMS_ITS | Encounter Summary ---
Author Organization [facility] Address [address] [place] [address] Care Team Providers Care Life Trainer Name Role Phone Malcolm Conteh MD Primary Care Provider Reason for Visit * Reason Onset Date Comments TO NOTIFY PCP 07/19/2019 Encounter Details Date Type Department Care Team (Late st Contact Info) Description 07/19/2019 Telephone [facility] Admitting [address] [place] [address] [place] [address] [facility] [address] [place] [address] TO NOTIFY PCP Social History [...] declined 07/19/2019 How often do you attend lutheran or confucianist serv ices? Patient declined 07/19/2019 Do you belong to any clubs o r organizations such as lutheran groups, unions, fraternal or athletic groups, or [...] on filedocumented in this encounter Care Teams Life Trainer Relationship Specialty Start Date End Date Malcolm Conteh MD [address] [place] [address] PCP - General Internal Medicine 07/19/19 documented as of this encounter
--- OUTSIDE RECORDS SUMMARY | 2025-05-22 11:29 | XMS_ITS | Clinical Summary ---
Author Organization [facility] Address [address] [place] [address] Care Team Providers Care Tool Analyst Name Role Phone Malcolm Conteh MD Primary Care Provider [phone] Source Comments [facility],non-owned Affiliates and Associated Physician Practices is amultiple site organization consisting of ambulatory clinics and hospital sitesin [place], [place], [place] and [place]. This disclosure is being madepursuant to the Care Everywhere program and may not contain all information available regarding this patient. Last updated 18.[facility] Allergies No known active allergies Medications * [...] on file Legal Sex Male 5:33 AM TILE CLASSIFIER Gender Identity Male 07/25/2017 5:45 PM TILE CLASSIFIER Sexual Orientation Not on file Last Filed [...] Non Reactive 05/18/2019 6:51 AM CDT [facility] Blood BLOOD SPECIMEN / Unknown Lab Venipuncture / Unknown 05/18/2019 5:23 AM CDT 05/18/2019 6:02 AM CDT Narrative [facility] - 05/18/2019 6:51 AM CDT No Laboratory evidence of HIV infection. Dimitri Jones MD LAB - CHEMISTRY ORDERABLES Fin al Result Performing Organization Address City/[facility] Co de Phone Number [facility] [address] [place] [phone] * HEPATITIS SCREEN ACUTE (05/18/2019 5:23 AM CDT) HAV Antibody IgM Non Reactive Non Reactive 05/18/2019 6:51 AM CDT [facility] HBsAg Non Reactive Non Reactive 05/18/2019 6:51 AM CDT [facility] HBc Antibody IgM Non Reactive Non Reactive 05/18/2019 6:51 AM CDT [facility] HCV Antibody Screen Non Reactive Non Reactive 05/18/2019 6:51 AM CDT [facility] HCV S/C Ratio 0.05 0.00 - 0.79 05/18/2019 6:51 AM CDT [facility] Comment: Katfln-oq-phodmq ratio (S/CO) <0.80: Non Reactive Blood BLOOD SPECIMEN / Unknown Lab Venipuncture / Unknown 05/18/2019 5:23 AM CDT 05/18/2019 6:01 AM CDT Narrative [facility] - 05/18/2019 6:51 AM CDT Non Reactive - Antibodies to Hepatitis C virus (HCV) were not detected, result does not exclude early acute HCV infection. Dimitri Jones MD LAB - CHEMISTRY ORDERABLES Fin al Result Performing Organization Address City/[facility] Co de Phone Number [facility] [address] [place] [phone] * (ABNORMAL) LIPID PROFILE (04/20/2015 5:55 AM CDT) Cholesterol 109 <200 mg/dL 04/20/2015 6:46 AM CDT [facility] Triglycerides 95 <150 mg/dL 04/20/2015 6:46 AM CDT [facility] HDL Cholesterol 34(L) >40 mg/dL 04/20/2015 6:46 AM CDT [facility] LDL Calculated 56 <130 mg/dL 04/20/2015 6:46 AM CDT [facility] VLDL Calculated 19 <=30 mg/dL 04/20/2015 6:46 AM CDT [facility] Chol HDL Ratio 3.2 <4.5 04/20/2015 6:46 AM CDT [facility] LDL/HDL Ratio 1.6 <5.0 04/20/2015 6:46 AM CDT [facility] Blood BLOOD SPECIMEN / Unknown Lab Venipuncture / Unknown 04/20/2015 5:55 AM CDT 04/20/2015 6:18 AM CDT us Ana Justin RESEARCH INSTRUCTOR-CORE PASTER LAB - CHEMISTRY ORDERABL ES Final Result Performing Organization Address City/State/[facility] de Phone Number [facility] [address] [place] [address] from Last 3 Months or Most Recently Relevant to Health Maintenance Insurance [facility] Advance Directives * Full Code (Latest Code Status on File) Date Activated Date Inactivated Comments 05/15/2019 5:02 PM 05/18/2019 2:42 PM * Full Code Date Activated Date Inactivated Comments 07/25/2017 8:37 PM 07/30/2017 2:59 PM * Full Code Date Activated Date Inactivated Comments 04/19/2015 1:38 PM 04/20/2015 3:56 PM Care Teams Tool Analyst Relationship Specialty Start Date End Date Malcolm Conteh MD [address] [place] [address] PCP - General Internal Medicine 04/19/15
[2025-05-22 11:40] VITALS: PULSE 86; RESP 17; O2SAT 96
[2025-05-22 12:03] LABS: Troponin I < 0.012 ng/mL (0.000-0.034)
[2025-05-22 12:42] LABS: NT Pro B Type Natriuretic Pept 288 pg/mL (19.9-100)
--- NOTE | 2025-05-22 13:00 | ED_ITS ---
HPI - General Adult General Chief complaint: Shortness of Breath/Dyspnea Stated complaint: sob, chest discomfort since yesterday Time Seen by Provider: 05/22/25 12:06 History of Present Illness HPI narrative: Patient is a 55-year-old gentleman presents emergency department chief complaint of shortness of breath. Patient reports that he has history of congestive heart failure reports that he has gained about 5 lb of weight recently but also reports that he has had a cough and had some discomfort in his chest the patient was seen in the emergency department yesterday and had an x-ray and cardiac markers that were negative his BNP was also lower than when he has been an exacerbation in the past. Patient reports that his cough has been productive of yellow sputum Related Data Allergies Allergy/AdvReac Type Severity Reaction Status Date / Time No Known Allergies Allergy Verified 01/12/25 09:27 Review of Systems 2 Review of Systems: A 10 system review of systems was completed on the patient and is negative except for what is stated in the HPI. Nursing and ancillary documentation was reviewed. FOR[facility]LY [facility] Past Medical History Medical History Pre-syncope History of hypertension Non-ischemic cardiomyopathy Family History Family History Other Unknown family medical history Social History Social History Smoking packs per day: 1.5 Smoking cigarettes per day: 30.0 Years smoked: 30 Smoking pack-years: 45.00 Smoking status: Former smoker Tobacco type: cigarettes Smoking end date: 01/12/25 Alcohol intake: former Substance use: current Substance use type: marijuana Other substance usage details: marijuana gummies Last use: 01/24/2025 Do You Feel Safe in your Home?: Yes Lack of Transportation: No Lack of Food: Sometimes True Current Housing: I Have Housing Concerned About Future Housing: No Difficulty Paying Gas/Electric Bills: No Difficulty Paying for Meds: No Currently Unemployed: No Education: High School Diploma/GED Difficulty w/ Childcare or Family Care: No Spiritual care concerns: No Exam 2 Narrative: GENERAL: Well-appearing, well-nourished, and in no acute distress. HEAD: Normocephalic, atraumatic. EYES: PERRLA and EOMI. ENT: Nares clear, no rhinorrhea or epistaxis. Mucous membranes moist. NECK: Supple. CHEST: Clear to auscultation. No respiratory distress. HEART: Regular rate and rhythm. No murmur heard. Normal peripheral pulses. ABDOMEN: Soft, nontender, nondistended, normal active bowel sounds. EXTREMITIES: Normal range of motion. No edema. SKIN: Warm, dry, no rash. NEURO: No focal deficits. Alert and oriented x3. PSYCH: Normal mood and affect. Course Vital Signs Vital signs: Vital Signs Temperature 36.3 C L 05/22/25 10:43 Pulse Rate 98 05/22/25 10:43 Respiratory Rate 18 05/22/25 10:43 Blood Pressure 130/87 05/22/25 10:43 Pulse Oximetry 99 05/22/25 10:43 Oxygen Delivery Room Air 05/22/25 10:43 Temperature 36.3 C L 05/22/25 10:43 Pulse Rate 86 05/22/25 11:40 Respiratory Rate 17 05/22/25 11:40 Blood Pressure 130/87 05/22/25 10:43 Pulse Oximetry 96 05/22/25 11:40 Oxygen Delivery Room Air 05/22/25 11:44 Medical Decision Making MDM Narrative Medical decision making narrative: Differential diagnosis includes congestive heart failure exacerbation, pneumonia, ACS, EKG showed no evidence of acute ST elevations . White blood cell count is 7.3 Lactic acid was 1 point will put troponin was negative BNP was 288 this is improved from the patient's previous BNPs Chest x-ray showed atelectasis versus infiltrate Given the patient has had a productive cough that has had yellow sputum the patient will be treated for pneumonia. Vital Signs Vital Signs: Vital Signs Temperature 36.3 C L 05/22/25 10:43 Pulse Rate 98 05/22/25 10:43 Respiratory Rate 18 05/22/25 10:43 Blood Pressure 130/87 05/22/25 10:43 Pulse Oximetry 99 05/22/25 10:43 Oxygen Delivery Room Air 05/22/25 10:43 Temperature 36.3 C L 05/22/25 10:43 Pulse Rate 86 05/22/25 11:40 Respiratory Rate 17 05/22/25 11:40 Blood Pressure 130/87 05/22/25 10:43 Pulse Oximetry 96 05/22/25 11:40 Oxygen Delivery Room Air 05/22/25 11:44 Lab Data 05/22/25 10:37 05/22/25 10:37 Labs: Lab Results 05/22/25 05/22/25 Range/Units 10:37 13:33 WBC 7.3 (4.5-10.0) K/mm3 RBC 5.35 (4.6-6.20) M/mm3 Hgb 16.4 (14.0-18.0) g/dL Hct 46.4 (42.0-52.0) % MCV 86.7 (80-100) fl MCH 30.7 (26-34) pg MCHC 35.3 (32-36) g/dl RDW 12.4 (11.5-14.5) % Plt Count 144 L (150-375) k/mm3 MPV 9.0 (7.4-10.4) fl Immature Gran % (Auto) 0.3 (0-0.5) % Neut % (Auto) 64.5 (45.5-73.1) % Lymph % (Auto) 26.7 (18.3-44.2) % [place] % (Auto) 6.4 (2.6-8.5) % Eos % (Auto) 1.6 (0-4.4) % Baso % (Auto) 0.5 (0.2-1.2) % Lymph # (Auto) 1.96 (0.9-3.2) K/mm3 [place] # (Auto) 0.5 (0.1-0.6) K/mm3 Eos # (Auto) 0.1 (0-0.3) K/mm3 Baso # (Auto) 0.0 (0.0-0.1) K/mm3 Abs Immat Gran (auto) 0.02 (0.00-0.031) K/mm3 Absolute Neuts (auto) 4.7 (1.3-6.7) K/mm3 Absolute Nucleated RBC 0.000 (0.0-0.012) K/mm3 Nucleated RBC % 0.0 (0.0-0.2) % Sodium 138 (137-145) mmol/L Potassium 3.7 (3.4-5.0) mmol/L Chloride 102 (98-107) mmol/L Carbon Dioxide 29 (22-30) mmol/L Anion Gap 7 (4-12) mmol/L BUN 14 (9-20) mg/dL Creatinine 0.85 (0.7-1.3) mg/dL Estim Creat Clear Calc 97 ml/min Estimated GFR > 60 (59 - ) Glucose 111 H (65-110) mg/dL Lactic Acid 1.1 (0.7-2.0) mmol/L Calcium 9.1 (8.4-10.2) mg/dL Total Bilirubin 1.2 (0.2-1.3) mg/dL AST 43 (17-59) U/L ALT 47 (6-50) U/L Alkaline Phosphatase 74 (38-126) U/L Troponin I < 0.012 (0.000-0.034) ng/mL NT-Pro-B Natriuret Pep 288 H (19.9-100) pg/mL Total Protein 7.1 (6.3-8.2) g/dL Albumin 4.3 (3.5-5.1) g/dL Discharge Plan Discharge Clinical Impression: Pneumonia Patient Disposition: Home Condition: Stable Instructions: Antibiotic Form, Community Acquired Pneumonia (ED) Patient Language: Bhutanese Prescriptions: New benzonatate 200 mg capsule 200 mg PO TID PRN (Reason: cough) Qty: 21 0RF azithromycin [Zithromax Z-Wilder] 250 mg tablet See Rx Instructions PO .COMPLEX Qty: 6 0RF Rx Instructions: For 250 mg dose pack: take 500 mg today (day 1), then 250 mg for 4 days (days 2-5) cefdinir 300 mg capsule 300 mg PO Q12H 10 Days Qty: 20 0RF No Action carvedilol 6.25 mg tablet 6.25 mg PO Q12H MDD 2 tablets Qty: 60 0RF Patient Comments: pt discharged 01/15/2025 on this dosage, but unsure what dose he is taking Rx Instructions: must administer with a meal/food spironolactone 25 mg Tablet 25 mg PO QAM Qty: 30 0RF Jardiance 10 mg tablet 10 mg PO DAILY Qty: 30 0RF albuterol sulfate 90 mcg/actuation HFA aerosol inhaler 1 puff inhalation QID Qty: 6.7 0RF furosemide 40 mg Tablet See Rx Instructions .ROUTE .COMPLEX Qty: 60 0RF Rx Instructions: 80mg twice a day for 5 days, and then 40mg twice a day after that lisinopril 20 mg tablet 20 mg PO DAILY Qty: 30 0RF Patient Comments: patient states he takes lisinopril, but unsure of dose potassium chloride 20 mEq tablet extended release See Rx Instructions .ROUTE .COMPLEX Qty: 60 0RF Rx Instructions: 20 mEq orally twice a day for 5 days, and then daily Combivent Respimat 20-100 mcg/actuation mist 1 puff inhalation Q4H PRN (Reason: shortness of breath or wheezing) Qty: 4 2RF Follow-up/Referrals: UNKNOWN,DOCTOR [Primary Care Provider] Time of Disposition: 14:08
--- OUTSIDE RECORDS SUMMARY | 2025-05-22 13:00 | XMS_ITS | Encounter Summary ---
Author Organization [facility] Address [address] [place] [address] Care Team Providers Care Asphalt Patcher Name Role Phone Malcolm Conteh MD Primary Care Provider [phone] Reason for Visit * Reason Onset Date Comments TO NOTIFY PCP 07/19/2019 Encounter Details Date Type Department Care Team (Late st Contact Info) Description 07/19/2019 Telephone [facility] Admitting [address] [place] [address] [place] [address] [facility] [address] [place] [address] TO NOTIFY PCP Social History [...] declined 07/19/2019 How often do you attend buddhism or mandaeism serv ices? Patient declined 07/19/2019 Do you belong to any clubs o r organizations such as buddhism groups, unions, fraternal or athletic groups, or [...] on filedocumented in this encounter Care Teams Asphalt Patcher Relationship Specialty Start Date End Date Malcolm Conteh MD [address] [place] [address] PCP - General Internal Medicine 07/19/19 documented as of this encounter
--- OUTSIDE RECORDS SUMMARY | 2025-05-22 13:00 | XMS_ITS | Clinical Summary ---
Author Organization [facility] Address [address] [place] [address] Phone Care Team Providers Care Application Performance Engineer Name Role Phone Malcolm Conteh MD Primary Care Provider [phone] Allergies No known active allergies Medications carvedilol (COREG) 25 mg tablet Take 50 mg by mouth 2 times daily with meals. Active aspirin (ECOTRIN EC) 81 mg Tablet, Delayed Release (E.C.) Take 81 mg by mouth daily. Active potassium chloride (KLOR-CON) 10 mEq Extended Release tablet Take 1 Tablet (10 mEq) by mouth every other day. 10 Tablet 07/23/2019 1:25 PM SPOOL CARRIER 9 Active Additional Information Patient taking differently:10 [...] - 03/15/2025 6:41 PM CDT Hospital Encounter [facility] [address] [place] [address] Jerson IV, Ricci Gage, Flor Mitchell MD Khan, Mafaza, MD Habtu, Brenda Darling DO Acute on chronic systolic (congestive) heart failure ([facility]/HCC) Discharge Disposition: Home or Self Care [...] declined 07/19/2019 How often do you attend tenriism or jainism serv ices? Patient declined 07/19/2019 Do you belong to any clubs o r organizations such as tenriism groups, unions, fraternal or athletic groups, or [...] 07/06/2022, 07/22/2019 Medical Devices Implanted Type Area Debarker Operator Device Identifier Shelf Expiration Date Model / [...] - 9.8 K/uL 03/15/2025 3:21 AM CDT [facility] - [facility] RBC 4.84 4.50 - 5.40 M/uL 03/15/2025 3:21 AM CDT [facility] HEMOGLOBIN 14.5 13.6 - 16.5 g/dL 03/15/2025 3:21 AM CDT [facility] - [facility] HEMATOCRIT 42.2 40.0 - 48.0 % 03/15/2025 3:21 AM CDT [facility] - [facility] MCV 87.2 82.0 - 99.0 fL 03/15/2025 3:21 AM CDT [facility] - [facility] MCH 30.0 27.2 - 32.6 pg 03/15/2025 3:21 AM CDT [facility] - [facility] MCHC 34.4 31.5 - 35.5 g/dL 03/15/2025 3:21 AM CDT [facility] RDW 12.7 11.5 - 14.5 % 03/15/2025 3:21 AM CDT [facility] - [facility] RDW-STDEV 39.9 37.1 - 48.7 fL 03/15/2025 3:21 AM CDT [facility] PLATELETS 132(L) 140 - 350 K/uL 03/15/2025 3:21 AM CDT [facility] - [facility] MPV 9.3 9.3 - 12.4 fL 03/15/2025 3:21 AM CDT [facility] SERVICES - . [facility] NEUTROPHILS 53 % 03/15/2025 3:21 AM T [facility] - . [facility] LYMPHOCYTES 34 % 03/15/2025 3:21 AM T [facility] - . [place] MONOCYTES 9 % 03/15/2025 3:21 AM CDT [facility] - . [place] EOSINOPHILS 3 % 03/15/2025 3:21 AM CDT [facility] - . [facility] BASOPHILS 1 % 03/15/2025 3:21 AM CDT [facility] - . [facility] IMMATURE GRANULOCYTES 1 % 03/15/2025 3:21 AM T [facility] [facility] - [facility] Comment:IG (Immature Granulo cyte) count includes Metamyelocytes, Myelocytes, and Promyelocytes NEUTROPHIL ABSOLUTE 3.59 1.90 - 7.00 K/uL 03/15/2025 3:21 AM CDT [facility] - . [facility] LYMPHOCYTE ABSOLUTE 2.28 0.70 - 4.50 K/uL 03/15/2025 3:21 AM CDT [facility] - . [facility] MONOCYTE ABSOLUTE 0.63 0.10 - 1.30 K/uL 03/15/2025 3:21 AM T [facility] [facility] - . [facility] EOSINOPHIL ABSOLUTE 0.17 0.00 - 0.70 K/uL 03/15/2025 3:21 AM [facility] - . [facility] BASOPHILS ABSOLUTE 0.04 0.00 - 0.20 K/uL 03/15/2025 3:21 AM T [facility] SERVICES - [facility] IMMATURE GRANULOCYTES ABSOLUTE 0.05(H) 0.00 - 0.03 K/uL 03/15/2025 3:21 AM [facility] - [facility] Blood Venipuncture / Unknown 03/15/2025 1:50 AM CDT 03/15/2025 2:44 AM CDT Orin Ho MD HEMATOLOGY ORDERABLES Final R esult [facility] CLIA# [id number] [address] [place] [address] * (ABNORMAL) BASIC METABOLIC PANEL (03/15/2025 1:50 AM CDT) Only the most recent of2 resultswithin the time period is included. SODIUM 139 136 - 145 mmol/L 03/15/2025 3:26 AM [facility] POTASSIUM 4.1 3.5 - 5.0 mmol/L 03/15/2025 3:26 AM [facility] CHLORIDE 98 98 - 107 mmol/L 03/15/2025 3:26 AM [facility] CO2 30(H) 22 - 29 mmol/L 03/15/2025 3:26 AM [facility] CALCIUM 9.6 8.6 - 10.2 mg/dL 03/15/2025 3:26 AM [facility] BUN 24(H) 6 - 20 mg/dL 03/15/2025 3:26 AM [facility] CREATININE 1.04 0.67 - 1.17 mg/dL 03/15/2025 3:26 AM [facility] GLUCOSE 96 74 - 99 mg/dL 03/15/2025 3:26 AM [facility] GFR >60 >=60 mL/min/1.7 3 sq meter 03/15/2025 3:26 AM [facility] Comment:eGFR calculated with 2020 CKD-EPI equation. Vegetarian diet, extremely high or low muscle mass, and may affect results. Cystatin C with Glomerular Filtration Rate is a suitable alternative for these patients. ANION GAP 11 8 - 16 mmol/L 03/15/2025 3:26 AM [facility] [employer] [facility] Blood Venipuncture / Unknown 03/15/2025 1:50 AM CDT 03/15/2025 2:46 AM CDT Orin Ho MD CHEMISTRY ORDERABLES Final Re sult Performing Organization Address City/State/[facility] Co de Phone Number [facility] SERVICES [facility]# [id number] [address] [place] [address] * EKG 12-LEAD (03/14/2025 1:38 PM CDT) Only the most recent of2 resultswithin the time period is included. 03/14/2025 1:38 PM CDT Narrative INTERFACE SYSTEM - 03/14/2025 6:36 PM CDT [facility] [address] [place] [address] Test Date: 2025-03-14 Pat Name: MERARI RHODES Department: 41 Room: [facility] Gender: Male Brazer Electronic: : 1970 Requested By: RICCI GAGE Order Number: [id number] Reading : Chencho aGrnett Measurements Intervals [place] Rate: 72 P: 54 WA: 179 QRS: 80 QRSD: 94 T: 57 QT: 400 QTc: 438 Interpretive Statements Sinus rhythm Low voltage, extremity leads Abnormal R-wave progression, late transition Electronically Signed On 03-14-2025 18:36:54 CDT by Chencho Garnett Procedure Note Chencho Garnett MD - 03/14/2025 [facility] [address] [place] [address] Test Date: 2025-03-14 Pat Name: MERARI KIRKPATRICKALLISTER Department: 41 Room: 73 1 Gender: Male Brazer Electronic: [facility] : 1970 Requested By: RICCI GAGE Order Number: [id number] Reading : Chencho Garnett Measurements Intervals [place] Rate: 72 P: 54 WA: 179 QRS: 80 QRSD: 94 T: 57 [...] INTERFACE SYSTEM - 03/14/2025 1:[address] PM [address]T [address] [address] [email or web address] Transthoracic Echocardiogram Patient: Merari Rhodes Study ID: [id number] Gender: M : 1970 Age: 55 Race: MAUREEN Height 170.2cm Study Date: 03/14/2025 Weight: 98.9kg Access. #: [id number] BP: 102 / 70 *Referring Physician:* Orin Ho *Ordering Physician:* Orin Ho watershed program manager: Nurse: Indications: Congestive heart failure. STUDY CONCLUSIONS: [...] Prepared and Electronically Authenticated Chencho Garnett M.D. [id number] Procedure Note Chencho Garnett MD - 03/14/[address] [place] [address] [email or web address] Transthoracic Echocardiogram Patient: Merari Rhodes Study ID: [id number] Gender: M : 1970 Age: 55 Race: MAUREEN Height 170.2cm Study Date: 03/14/2025 Weight: 98.9kg Access. #: [id number] BP: 102 / 70 *Referring Physician:* Orin Ho *Ordering Physician:* Orin Ho watershed program manager: Nurse: Indications: Congestive heart failure. STUDY CONCLUSIONS: [...] Prepared and Electronically Authenticated Chencho Garnett M.D. [id number] us Orin Ho MD US ORDERABLES Final Result Performing Organization Address City/[facility] de Phone Number INTERFACE SYSTEM Refer to clinic/hospital department * MAGNESIUM LEVEL (03/14/2025 1:35 AM CDT) MAGNESIUM 2.0 1.6 - 2.6 mg/dL 03/14/2025 2:35 AM CDT [facility] LABORATORY [facility] Blood Venipuncture / Unknown 03/14/2025 1:35 AM CDT 03/14/2025 1:52 AM CDT us Orin Ho MD CHEMISTRY ORDERABLES Final Re sult Performing Organization Address [facility] de Phone Number [facility] [employer] [facility]# [id number] [address] [place] [address] [place] [address] * TSH (03/13/2025 6:24 AM CDT) TSH 2.25 0.27 - 4.20 uIU/mL 03/13/2025 7:33 AM CDT [facility] Blood Venipuncture / Unknown 03/13/2025 6:24 AM CDT 03/13/2025 6:38 AM CDT us Orin Ho MD CHEMISTRY ORDERABLES Final Re sult Performing Organization Address City/[facility] Co de Phone Number [facility] [facility] [id number] [address] [place] [address] * (ABNORMAL) HEMOGLOBIN A1C (03/13/2025 6:24 AM CDT) HEMOGLOBIN A1C 6.5(H) <5.7 % 03/13/2025 7:13 AM CDT [facility] [employer] [facility] EST. AVG GLUCOSE, A1C 140 mg/dL 03/13/2025 7:13 AM CDT [facility] [employer] [facility] Blood Venipuncture / Unknown 03/13/2025 6:24 AM CDT 03/13/2025 6:38 AM CDT [facility] [employer] [facility] - 03/13/2025 7:13 AM CDT HGB A1C INTERPRETATION NORMAL: <5.7% PRE-DIABETES: 5.7 - 6.4% DIABETES: 6.5% OR GREATER Orin Ho MD CHEMISTRY ORDERABLES Final Re sult [facility] [facility] [id number] [address] [place] [address] * (ABNORMAL) TROPONIN 6 HR, 5TH GEN (03/13/2025 4:02 AM CDT) TROPONIN T, 6 HR 5TH GEN 16(H) <=15 ng/L 03/13/2025 4:48 AM CDT [facility] [employer] [facility] DELTA 6HR TROPONIN T -2 See Interp. 03/13/2025 4:48 AM CDT [facility] [employer] [facility] Blood Venipuncture / Unknown 03/13/2025 4:02 AM CDT 03/13/2025 4:03 AM CDT [facility] [employer] [facility] - 03/13/2025 4:48 AM CDT Troponin elevated. Delta indeterminate. Delay in collection of timed specimen beyond recommended collection interval. Results must be interpreted in clinical context. Ricci Arthur IV, DO CHEMISTRY ORDERAB LES Final Result Performing Organization Address City/[facility]/ZIP Co de Phone Number [facility] [employer] [facility]# [id number] [address] [place] [address] * (ABNORMAL) TROPONIN 2 HR, 5TH GEN (03/13/2025 12:09 AM CDT) TROPONIN T, 2 HR 5TH GEN 18(H) <=15 ng/L 03/13/2025 12:43 AM CDT [facility] [employer] [facility] DELTA 2HR TROPONIN T 0 See Interp. 03/13/2025 12:43 AM CDT [facility] [employer] [facility] Blood Venipuncture / Unknown 03/13/2025 12:09 AM CDT 03/13/2025 12:16 AM CDT Narrative [facility] [employer] [facility] - 03/13/2025 12:43 AM CDT Troponin elevated. Delta not changing. Ricci Arthur IV, DO CHEMISTRY ORDERAB LES Final Result Performing Organization Address City/[facility] Co de Phone Number [facility] [employer] [facility]# [id number] [facility] [place] [address] [place] [address] * POC CREATININE (03/12/2025 10:04 PM CDT) CREATININE POC 1.00 0.70 - 1.20 mg/dL 03/12/2025 10:04 PM CDT [facility] [employer] [facility] GFR POC >60 >=60 mL/min/1.7 3 sq meter 03/12/2025 10:04 PM CDT [facility] [employer] [facility] Comment:eGFR calculated with 2020 CKD-EPI equation. Vegetarian diet, extremely high or low muscle mass, and may affect results. Cystatin C with Glomerular Filtration Rate is a suitable alternative for these patients. Blood, whole 03/12/2025 10:0 4 PM CDT 03/12/2025 10:07 PM CDT Ricci Arthur IV, DO POINT OF CARE IVET TING Final Result [facility] [employer] [facility]# [id number] [address] [place] [address] * XR CHEST PA AND LATERAL 2 VW (03/12/2025 10:02 PM CDT) Anatomical Region Laterality Modality Chest Computed Radiogr aphy 03/12/2025 10:0 2 PM CDT Impressions 03/12/2025 10:06 PM CDT IMPRESSION: 1. Clear lungs. DICTATION LOCATION: Location [address] [place] [address] Narrative 03/12/2025 10:06 PM CDT CHEST, 2 [...] IMPRESSION: 1. Clear lungs. DICTATION LOCATION: Location [address] [place] [address] Ricci Arthur IV, DO DIAGNOSTIC IMAGIN G ORDERABLES Final Result * (ABNORMAL) TROPONIN BASELINE, 5TH GEN (03/12/2025 9:58 PM CDT) TROPONIN T, BASELINE 5TH GEN 18(H) <=15 ng/L 03/12/2025 10:48 PM CDT [facility] Blood Venipuncture / Unknown 03/12/2025 9:58 PM CDT 03/12/2025 10:02 PM CDT Narrative [facility] - 03/12/2025 10:48 PM CDT Troponin elevated. Ricci Arthur IV, DO CHEMISTRY ORDERAB LES Final Result [facility] [employer] [facility] CLIA# [id number] [address] [place] [address] * (ABNORMAL) BRAIN NATRIURETIC PEPTIDE, BNP OR PROBNP (03/12/2025 9:58 PM CDT) PROBNP, N TERMINAL 1,333(H) <124 pg/mL 03/12/2025 10:29 PM CDT [facility] Comment: INTERPRETIVE COMMENT based on diagnosis: [...] IV, DO CHEMISTRY ORDERAB LES Final Result [facility] [employer] [facility] CLIA# [id number] [address] [place] [address] * (ABNORMAL) COMPREHENSIVE METABOLIC PANEL (03/12/2025 9:58 PM CDT) [facility] SODIUM 137 136 - 145 mmol/L 03/12/2025 10:29 PM CDT [facility] [place] [place] POTASSIUM 3.8 3.5 - 5.0 mmol/L 03/12/2025 10:29 PM CDT [facility] [place] [place] CHLORIDE 103 98 - 107 mmol/L 03/12/2025 10:29 PM CDT [facility] [place] [place] CO2 22 22 - 29 mmol/L 03/12/2025 10:29 PM CDT [facility] [place] [place] CALCIUM 9.5 8.6 - 10.2 mg/dL 03/12/2025 10:29 PM T [facility] [place] [place] BUN 9 6 - 20 mg/dL 03/12/2025 10:29 PM T [facility] [place] [place] CREATININE 0.90 0.67 - 1.17 mg/dL 03/12/2025 10:29 PM CDT [facility] [place] GLUCOSE 86 74 - 99 mg/dL 03/12/2025 10:29 PM CDT [facility] [place] [place] TOTAL PROTEIN 6.5(L) 6.7 - 8.6 g/dL 03/12/2025 10:29 PM T [facility] [place] [place] ALBUMIN 4.4 3.5 - 5.2 g/dL 03/12/2025 10:29 PM T [facility] [place] [place] BILIRUBIN TOTAL 0.7 0.0 - 1.2 mg/dL 03/12/2025 10:29 PM CDT [facility] [place] [place] ALKALINE PHOSPHATASE 77 40 - 129 U/L 03/12/2025 10:29 PM CDT [facility] [place] AST 33 <41 U/L 03/12/2025 10:29 PM CDT [facility] [place] [place] ALT 31 <42 U/L 03/12/2025 10:29 PM CDT [facility] [place] GFR >60 >=60 mL/min/1.7 3 sq meter 03/12/2025 10:29 PM CDT [facility] - [facility] [place] Comment:eGFR calculated with 2020 CKD-EPI equation. Vegetarian diet, extremely high or low muscle mass, and may affect results. Cystatin C with Glomerular Filtration Rate is a suitable alternative for these patients. ANION GAP 12 8 - 16 mmol/L 03/12/2025 10:29 PM [facility] Blood Venipuncture / Unknown 03/12/2025 9:58 PM CDT 03/12/2025 10:02 PM CDT Narrative [facility] - 03/12/2025 10:29 PM T Samples containing indocyanine green cause interferences on Total and/or Direct Bilirubin and must not be measured. Ricci Arthur IV, DO CHEMISTRY ORDERAB LES Final Result [facility] CLIA# [id number] [address] [place] [place] [id number] from Last 3 Months Insurance [facility] MEDICAID GENERIC MEDICARE MANAGED CARE RX [employer] Medicare Part D RX [employer] (INTERNAL) [facility] Advance Directives For more information, please contact: [phone] * Full Code (Latest Code Status on File) Date Activated Date Inactivated Comments 03/13/2025 4:58 AM 03/15/2025 8:46 PM * Full Code Date Activated Date Inactivated Comments 07/19/2019 12:17 PM 07/23/2019 4:02 PM * Full Code Date Activated Date Inactivated Comments 12/02/2018 9:56 AM 12/04/2018 6:18 PM Care Teams Application Performance Engineer Relationship Specialty Start Date End Date Malcolm Conteh MD [facility] [place] [address] PCP - General Internal Medicine 07/19/19
--- OUTSIDE RECORDS SUMMARY | 2025-05-22 13:00 | XMS_ITS | Clinical Summary ---
Author Organization [email or web address] Address [address] [place] [address] Care Team Providers Care Caustic Mixer Name Role Phone Malcolm Conteh MD Primary Care Provider [phone] Source Comments [email or web address],non-owned Affiliates and Associated Physician Practices is amultiple site organization consisting of ambulatory clinics and hospital sitesin [place], [place], [place] and [place]. This disclosure is being madepursuant to the Care Everywhere program and may not contain all information available regarding this patient. 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 Dimitri Jones MD LAB - CHEMISTRY ORDERABLES Fin al Result Performing Organization Address City/[facility] Co de Phone Number [facility] [address] [place] [phone] * HEPATITIS SCREEN ACUTE (05/18/2019 5:23 AM CDT) HAV Antibody IgM Non Reactive Non Reactive 05/18/2019 6:51 AM CDT [facility] HBsAg Non Reactive Non Reactive 05/18/2019 6:51 AM CDT [facility] HBc Antibody IgM Non Reactive Non Reactive 05/18/2019 6:51 AM CDT [facility] HCV Antibody Screen Non Reactive Non Reactive 05/18/2019 6:51 AM CDT [facility] HCV S/C Ratio 0.05 0.00 - 0.79 05/18/2019 6:51 AM CDT [facility] Comment: Dkgwyk-oj-bnruzc ratio (S/CO) <0.80: Non Reactive Blood BLOOD SPECIMEN / Unknown Lab Venipuncture / Unknown 05/18/2019 5:23 AM CDT 05/18/2019 6:01 AM CDT Narrative [facility] - 05/18/2019 6:51 AM CDT Non Reactive - Antibodies to Hepatitis C virus (HCV) were not detected, result does not exclude early acute HCV infection. Dimitri Jones MD LAB - CHEMISTRY ORDERABLES Fin al Result Performing Organization Address City/[facility] Co de Phone Number [facility] [address] [place] [phone] * (ABNORMAL) LIPID PROFILE (04/20/2015 5:55 AM CDT) Cholesterol 109 <200 mg/dL 04/20/2015 6:46 AM CDT [facility] Triglycerides 95 <150 mg/dL 04/20/2015 6:46 AM CDT [facility] HDL Cholesterol 34(L) >40 mg/dL 04/20/2015 6:46 AM CDT [facility] LDL Calculated 56 <130 mg/dL 04/20/2015 6:46 AM CDT [facility] VLDL Calculated 19 <=30 mg/dL 04/20/2015 6:46 AM CDT [facility] Chol HDL Ratio 3.2 <4.5 04/20/2015 6:46 AM CDT [facility] LDL/HDL Ratio 1.6 <5.0 04/20/2015 6:46 AM CDT [facility] Blood BLOOD SPECIMEN / Unknown Lab Venipuncture / Unknown 04/20/2015 5:55 AM CDT 04/20/2015 6:18 AM CDT us Ana Justin NITRATOR OPERATOR-FEATHER MAKER LAB - CHEMISTRY ORDERABL ES Final Result Performing Organization Address City/State/[facility] de Phone Number [facility] [address] [place] [address] from Last 3 Months or Most Recently Relevant to Health Maintenance Insurance [facility] Advance Directives * Full Code (Latest Code Status on File) Date Activated Date Inactivated Comments 05/15/2019 5:02 PM 05/18/2019 2:42 PM * Full Code Date Activated Date Inactivated Comments 07/25/2017 8:37 PM 07/30/2017 2:59 PM * Full Code Date Activated Date Inactivated Comments 04/19/2015 1:38 PM 04/20/2015 3:56 PM Care Teams Caustic Mixer Relationship Specialty Start Date End Date Malcolm Conteh MD [address] [place] [address] PCP - General Internal Medicine 04/19/15
[2025-05-22 14:28] VITALS: PULSE 88; RESP 18; O2SAT 95
== END 2025-05-22 14:31 | disposition home or self-care (01) ==
PROVIDERS: Emergency Medicine; Emergency Provider Emergency Medicine
DX: J18.9 Pneumonia, unspecified organism (principal); I11.0 Hypertensive heart disease with heart failure; I50.9 Heart failure, unspecified; I42.8 Other cardiomyopathies; Z87.891 Personal history of nicotine dependence
CPT/HCPCS: 36415; 71046; 80053; 83605; 83880; 84484; 85025; 87040; 93005; 99284

== ENCOUNTER 2025-06-24 15:53 | Emergency (ER) | payer OTHER, SELFPAY ==
--- NOTE | ~2025-06-24 | XR_ITS ---
EXAMINATION: XR chest 2V, 06/24/2025 16:20 CDT HISTORY: cp COMPARISON: No comparisons available. Technique: 2 views obtained. Findings: Mild pulmonary venous congestion. No pneumothorax. Mild cardiomegaly. Mediastinal and hilar contours are within normal limits. Bony thorax no acute abnormality. Left pacemaker. Impression: Mild CHF Reviewed, dictated and finalized at location P. Impression: Mild CHF
[2025-06-24 15:56] VITALS: BP 126/85; PULSE 103; RESP 20; TEMP 36.6; O2SAT 93
--- NOTE | 2025-06-24 15:57 | ECG_ITS ---
Test Date: 2025-06-24 16:06:58 Measurements Intervals [place] Rate: 97 P: 51 OK: 174 QRS: 74 QRSD: 89 T: 2 QT: 322 QTc: 409 Interpretive Statements SINUS RHYTHM DELAYED PRECORDIAL R/S TRANSITION BORDERLINE ST-T WAVE ABNORMALITY- INF/HIGH LAT LEADS BASELINE ARTIFACT- I, II, AVR, AVL, V1 BORDERLINE ECG Compared to ECG 05/22/2025 10:28:08 No significant changes Electronically Signed On 06-24-2025 19:31:59 CDT by Charly Prescott D.O.
--- NOTE | 2025-06-24 15:59 | ED.CHESTPAIN ---
HPI - Chest Pain General Chief Complaint: Chest Pain Stated Complaint: chest tightness History of Present Illness HPI narrative: 55-year-old male with a history of congestive heart failure with reduced ejection fraction, COPD, GERD. Patient presents to the emergency department with chest tightness and bloating. States that he has had symptoms since this morning. No chest pain just feels tight with shortness of breath and he attributed to feeling more bloated recently. Takes Lasix at home with his not missed any dosages. Denies any new symptoms such as cough, fever, chills, back pain, abdominal pain, worsening leg swelling. Was otherwise in his normal state of health. Recently treated for pneumonia last month. Has been hospitalized here previously for CHF exacerbations. Related Data Allergies Allergy/AdvReac Type Severity Reaction Status Date / Time No Known Allergies Allergy Verified 01/12/25 09:27 Review of Systems Review of Systems: As reviewed above in HPI [facility] Past Medical History Medical History Pre-syncope History of hypertension Non-ischemic cardiomyopathy Family History Family History Other Unknown family medical history Social History Social History Smoking packs per day: 1.5 Smoking cigarettes per day: 30.0 Years smoked: 30 Smoking pack-years: 45.00 Smoking status: Former smoker Tobacco type: cigarettes Smoking end date: 01/12/25 Alcohol intake: former Substance use: current Substance use type: marijuana Other substance usage details: marijuana gummies Last use: 01/24/2025 Do You Feel Safe in your Home?: Yes Lack of Transportation: No Lack of Food: Sometimes True Current Housing: I Have Housing Concerned About Future Housing: No Difficulty Paying Gas/Electric Bills: No Difficulty Paying for Meds: No Currently Unemployed: No Education: High School Diploma/GED Difficulty w/ Childcare or Family Care: No Spiritual care concerns: No Exam Narrative: GENERAL: [Well-appearing, well-nourished, and in no acute distress.] HEAD: [Normocephalic, atraumatic.] EYES: [PERRLA and EOMI.] ENT: Nares clear, no rhinorrhea or epistaxis. Mucous membranes moist. NECK: Supple. CHEST: [Clear to auscultation. No respiratory distress.] HEART: [Regular rate and rhythm]. No murmur heard. [Normal peripheral pulses.] ABDOMEN: [Soft, nondistended], [nontender], [No rigidity or guarding] EXTREMITIES: Normal range of motion. [No edema.] SKIN: Warm, dry, no rash. NEURO: [No focal deficits]. Alert and oriented [x3.] PSYCH: [Normal mood and affect.] Course Vital Signs Vital signs: Vital Signs Temperature 36.6 C 06/24/25 15:56 Pulse Rate 103 H 06/24/25 15:56 Respiratory Rate 20 06/24/25 15:56 Blood Pressure 126/85 06/24/25 15:56 Pulse Oximetry 93 06/24/25 15:56 Oxygen Delivery Room Air 06/24/25 15:56 Temperature 36.6 C 06/24/25 15:56 Pulse Rate 93 06/24/25 17:04 Respiratory Rate 20 06/24/25 17:04 Blood Pressure 113/84 06/24/25 17:04 Pulse Oximetry 93 06/24/25 17:04 Oxygen Delivery Room Air 06/24/25 16:00 MDM - Chest Pain MDM Narrative Medical decision making narrative: 55-year-old male with a history of congestive heart failure with reduced ejection fraction, COPD, GERD. Patient presents to the emergency department with chest tightness and bloating. States that he has had symptoms since this morning. No chest pain just feels tight with shortness of breath and he attributed to feeling more bloated recently. Takes Lasix at home with his not missed any dosages. Denies any new symptoms such as cough, fever, chills, back pain, abdominal pain, worsening leg swelling. Was otherwise in his normal state of health. Recently treated for pneumonia last month. Has been hospitalized here previously for CHF exacerbations. Patient is not any acute distress, otherwise well-appearing. Normal blood pressure. No tachypnea or fever. 93% on room air, mild tachycardia 103. Suspect mild CHF exacerbation versus COPD versus bronchitis. Laboratory studies ordered including troponin, BNP, EKG, chest x-ray. 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 Laboratory studies shows negative troponin. BNP not significant elevated but chest x-ray does show mild CHF. No leukocytosis or anemia. Patient given a dose of Lasix for presumptive heart failure exacerbation with some improvement in symptoms. Remains hemodynamically stable. Discussed increasing his Lasix dose slightly until he can see his primary care provider for further recommendations. Patient comfortable with the plan safe for discharge home at this time with return precautions. Medical Records Data Attestation: I reviewed the patient's medical records. Lab Data Attestation: I reviewed the patient's lab results. 06/24/25 16:03 06/24/25 16:03 Labs: Lab Results 06/24/25 06/24/25 Range/Units 16:03 16:03 WBC 8.2 (4.5-10.0) K/mm3 RBC 5.38 (4.6-6.20) M/mm3 Hgb 16.1 (14.0-18.0) g/dL Hct 47.7 (42.0-52.0) % MCV 88.7 (80-100) fl MCH 29.9 (26-34) pg MCHC 33.8 (32-36) g/dl RDW 12.2 (11.5-14.5) % Plt Count 155 (150-375) k/mm3 MPV 9.0 (7.4-10.4) fl Immature Gran % (Auto) 0.5 (0-0.5) % Neut % (Auto) 58.6 (45.5-73.1) % Lymph % (Auto) 30.7 (18.3-44.2) % [place] % (Auto) 7.5 (2.6-8.5) % Eos % (Auto) 2.1 (0-4.4) % Baso % (Auto) 0.6 (0.2-1.2) % Lymph # (Auto) 2.51 (0.9-3.2) K/mm3 [place] # (Auto) 0.6 (0.1-0.6) K/mm3 Eos # (Auto) 0.2 (0-0.3) K/mm3 Baso # (Auto) 0.1 (0.0-0.1) K/mm3 Abs Immat Gran (auto) 0.04 H (0.00-0.031) K/mm3 Absolute Neuts (auto) 4.8 (1.3-6.7) K/mm3 Absolute Nucleated RBC 0.000 (0.0-0.012) K/mm3 Nucleated RBC % 0.0 (0.0-0.2) % PT 12.4 (11.1-14.7) Seconds INR 0.9 APTT 26.0 (22.3-36.8) Seconds Sodium 137 (137-145) mmol/L Potassium 4.2 (3.4-5.0) mmol/L Chloride 99 (98-107) mmol/L Carbon Dioxide 31 H (22-30) mmol/L Anion Gap 7 (4-12) mmol/L BUN 24 H D (9-20) mg/dL Creatinine 1.06 (0.7-1.3) mg/dL Estim Creat Clear Calc 81 ml/min Estimated GFR > 60 (59 - ) Glucose 107 (65-110) mg/dL Calcium 9.7 (8.4-10.2) mg/dL Total Bilirubin 0.6 (0.2-1.3) mg/dL AST 36 (17-59) U/L ALT 40 (6-50) U/L Alkaline Phosphatase 62 (38-126) U/L Troponin I < 0.012 (0.000-0.034) ng/mL NT-Pro-B Natriuret Pep 162 H Cancelled (19.9-100) pg/mL Total Protein 6.9 (6.3-8.2) g/dL Albumin 4.4 (3.5-5.1) g/dL Lipase 110 (23-300) U/L Imaging Data Attestation: I personally reviewed and interpreted this imaging study as follows: My impression: Impressions Chest X-Ray 06/24/25 16:35 Impression: Mild CHF Discharge Plan Discharge Clinical Impression: Acute exacerbation of CHF (congestive heart failure) Patient Disposition: Home Condition: Stable Instructions: Antibiotic Form, Heart Failure (DC) Additional Instructions: Laboratory studies show no acute cardiac concerns. X-ray shows some mild CHF which could explain your symptoms. We have given you Lasix here through an IVC OB urinating more frequently. Recommendations are to increase your Lasix dose to 40 mg in the morning and keep your 20 mg at night until he can see her primary care provider and discuss further options. Return with any worsening or new emergent concerns. Patient Language: Portuguese Prescriptions: No Action carvedilol 6.25 mg tablet 6.25 mg PO Q12H MDD 2 tablets Qty: 60 0RF Patient Comments: pt discharged 01/15/2025 on this dosage, but unsure what dose he is taking Rx Instructions: must administer with a meal/food spironolactone 25 mg Tablet 25 mg PO QAM Qty: 30 0RF Jardiance 10 mg tablet 10 mg PO DAILY Qty: 30 0RF albuterol sulfate 90 mcg/actuation HFA aerosol inhaler 1 puff inhalation QID Qty: 6.7 0RF benzonatate 200 mg capsule 200 mg PO TID PRN (Reason: cough) Qty: 21 0RF azithromycin [Zithromax Z-Wilder] 250 mg tablet See Rx Instructions PO .COMPLEX Qty: 6 0RF Rx Instructions: For 250 mg dose pack: take 500 mg today (day 1), then 250 mg for 4 days (days 2-5) cefdinir 300 mg capsule 300 mg PO Q12H 10 Days Qty: 20 0RF furosemide 40 mg Tablet See Rx Instructions .ROUTE .COMPLEX Qty: 60 0RF Rx Instructions: 80mg twice a day for 5 days, and then 40mg twice a day after that lisinopril 20 mg tablet 20 mg PO DAILY Qty: 30 0RF Patient Comments: patient states he takes lisinopril, but unsure of dose potassium chloride 20 mEq tablet extended release See Rx Instructions .ROUTE .COMPLEX Qty: 60 0RF Rx Instructions: 20 mEq orally twice a day for 5 days, and then daily Combivent Respimat 20-100 mcg/actuation mist 1 puff inhalation Q4H PRN (Reason: shortness of breath or wheezing) Qty: 4 2RF Follow-up/Referrals: UNKNOWN,DOCTOR [Non-Staff] Time of Disposition: 17:27
[2025-06-24 16:00] VITALS: PULSE 100; O2SAT 93
[2025-06-24 16:08] LABS: Hematocrit 47.7 % (42.0-52.0); Hemoglobin 16.1 g/dL (14.0-18.0); Immature Granulocyte Percent A 0.5 % (0-0.5); Lymphocytes Absolute Auto 2.51 K/mm3 (0.9-3.2); Mean Corpuscular HGB Conc 33.8 g/dl (32-36); Mean Corpuscular Hemoglobin 29.9 pg (26-34); Mean Corpuscular Volume 88.7 fl (80-100); Nucleated Red Blood Cells Absolute Auto 0.000 K/mm3 (0.0-0.012); Nucleated Red Blood Cells Perc 0.0 % (0.0-0.2); Platelet Count Result 155 k/mm3 (150-375); Red Blood Count 5.38 M/mm3 (4.6-6.20); White Blood Count 8.2 K/mm3 (4.5-10.0)
[2025-06-24 16:19] LABS: INR 0.9; Prothrombin Time 12.4 Seconds (11.1-14.7)
[2025-06-24 16:20] LABS: Partial Thromboplastin Time 26.0 Seconds (22.3-36.8)
[2025-06-24] MEDS: ASPIRIN 81 MG CHEWABLE TABLET 324 MG PO (16:25)
[2025-06-24 16:27] LABS: Alanine Aminotransferase 40 U/L (6-50); Albumin Level 4.4 g/dL (3.5-5.1); Alkaline Phosphatase 62 U/L (38-126); Anion Gap 7 mmol/L (4-12); Aspartate Amino Transferase 36 U/L (17-59); Bilirubin,Total 0.6 mg/dL (0.2-1.3); Blood Urea Nitrogen 24 mg/dL (9-20); Calcium 9.7 mg/dL (8.4-10.2); Carbon Dioxide 31 mmol/L (22-30); Chloride 99 mmol/L (98-107); Estimated CRCL calculation 81 ml/min; Estimated Glomerular Filt Rate > 60; Glucose 107 mg/dL (65-110); Lipase 110 U/L (23-300); Potassium 4.2 mmol/L (3.4-5.0); Sodium 137 mmol/L (137-145); Total Protein 6.9 g/dL (6.3-8.2)
--- OUTSIDE RECORDS SUMMARY | 2025-06-24 16:36 | XMS_ITS | Encounter Summary ---
Author Organization [facility] Address [address] [place] [address] Care Team Providers Care Coffee Supervisor Name Role Phone Malcolm Conteh MD Primary Care Provider [phone] Reason for Visit * Reason Onset Date Comments TO NOTIFY PCP 07/19/2019 Encounter Details Date Type Department Care Team (Late st Contact Info) Description 07/19/2019 Telephone [facility] Admitting [address] [place] [address] [place] [address] [facility] [address] [place] [address] TO NOTIFY PCP Social History [...] declined 07/19/2019 How often do you attend restoration or shinto serv ices? Patient declined 07/19/2019 Do you belong to any clubs o r organizations such as restoration groups, unions, fraternal or athletic groups, or [...] on filedocumented in this encounter Care Teams Coffee Supervisor Relationship Specialty Start Date End Date Malcolm Conteh MD [address] [place] [address] PCP - General Internal Medicine 07/19/19 documented as of this encounter
--- OUTSIDE RECORDS SUMMARY | 2025-06-24 16:36 | XMS_ITS | Data Portability ---
Author Organization [facility], Main Office Address [address] [place] [address] Assessment No assessment recorded. Plan of Treatment [...] Organization Detail LastModifiedTime 06/22/2006/22/2022 EKG 12 LEADS [id number] [facility] [address] [place] [address] Test Date: 06-22 Pat Name: JUDSON Arguello tment : EOP Patiaudrey nt ID: [id number] [facility] Reque sted By: Order Numbe r: [id number] Gbay fuentes MD: Measu remen ts Inter vals [place] Rate: 93 P: 62 ND: 161 QRS: 90 QRSD: 93 T: 51 QT: 348 QTc: 433 Inter preti ve State ments Sinus rhyth m Borde rline right axis devia tion Low volta ge, extre mity leads Not Available [facility] [address] [place] [address], [place], [address], 06/22/2022 18:56:20 06/05/2006/05/2022 EKG 12 LEADS [id number] [facility] [address] [place] [address] Test Date: 05-30 Pat Name: JUDSON EL MCCAL LISTE R Depar tment : EOP Patie nt ID: [id number] Room: Gende r: M Techn ician : : 01-12 Reque sted By: Order Karissa r: [id number] 0400 Gaby fuentes MD: Daisy fitzgerald ts Inter vals [place] Rate: 80 P: 69 ND: 176 QRS: 89 QRSD: 91 T: 44 QT: 373 QTc: 431 Inter preti ve State ments Sinus rhyth m Aziza paz On 2021 23:23 :16 CDT by Daisy hutchinson Not Available [facility] [address] [place] [address], [address], 06/05/2022 00:23:24 05/30/20 22 05/30/2022 EKG 12 LEADS [id number] [facility] [address] [place] [address] Test Date: 05-30 Pat Name: JUDSON CUNNINGHAM VANESSA Arguello tment : EOP Patie nt ID: [id number] Room: Gende r: M Techn ician : : 01-12 Reque sted By: Order Karissa r: [id number] 0400 Gaby fuentes MD: Bernardo fitzgerald ts Inter vals [place] Rate: 80 P: 69 ND: 176 QRS: 89 QRSD: 91 T: 44 QT: 373 QTc: 431 Inter preti ve State ments Sinus rhyth m Low volta ge, extre mity leads Not Available [facility] [address] [place] [address], [address], 05/30/2022 12:58:38 05/30/20 22 05/30/2022 ABBOT T [...] AUTHO RIZED LABOR ATORI ES. Not Available [facility] [address] [place] [address], 464[address], 05/30/2022 09:58:57 05/30/20 22 05/30/2022 ABBOT T ID NOW COVID 19 internal qqc valid Not Available [facility] [address] [place] [address], [address], 05/30/2022 09:58:57 05/30/20 22 05/30/2022 ABBOT T ID NOW COVID 19 kit lot [id number] 1 Not Available [facility] [address] [place] [address], 95513, 05/30/2022 09:58:57 05/30/20 22 05/30/2022 ABBOT T ID NOW COVID 19 kit exp [id number] Not Available [address], [address], 05/30/2022 09:58:57 05/30/20 22 05/30/2022 D-DIM ER, [...] 400 ng/mL or less) . Not Available [facility] [address] [place] [address], [address], 05/30/2022 09:45:56 05/30/20 22 05/30/2022 D-DIM ER, QUANT internal qqc valid Not Available [facility] [address] [place] [address], 76[address], 05/30/2022 09:45:56 05/30/20 22 05/30/2022 D-DIM ER, QUANT kit lot [id number] Not Available [address], [address], 05/30/2022 09:45:56 05/30/20 22 05/30/2022 D-DIM ER, QUANT kit exp [id number] Not Available [facility] [address] [place] [address], 10410, 05/30/2022 09:45:56 05/30/20 22 05/30/2022 NATRI URETI [...] RESUL TS OF STUDY CONDU CTED BY [employer]. Not Available [facility] [address] [place] [address], 14991, 05/30/2022 09:35:15 05/30/20 22 05/30/2022 NATRI URETI C PEPTI DE kit lot [id number] Not Available [facility] [address] [place] [address], 49197, 05/30/2022 09:35:15 05/30/20 22 05/30/2022 NATRI URETI C PEPTI DE kit exp [id number] Not Available [facility] [address] [place] [address], 66920, 05/30/2022 09:35:15 05/30/20 22 05/30/2022 COMP METAB OLIC PNL glucose 106 mg/dL 74-106 Not Available [address], [address], 05/30/2022 09:29:27 05/30/20 22 05/30/2022 COMP METAB OLIC PNL BUN 14 mg/dL 7-18 Not Available [facility] [address] [place] [address], 96497, 05/30/2022 09:29:27 05/30/20 22 05/30/2022 COMP METAB OLIC PNL sodium 142 mmol/ L 136-14 5 Not Available [facility] [address] [place] [address], 68442, 05/30/2022 09:29:27 05/30/20 22 05/30/2022 COMP METAB OLIC PNL K 4.3 mmol/ L 3.5-5. 1 Not Available [facility] [address] [place] [address] [place], [address], 05/30/2022 09:29:27 05/30/20 22 05/30/2022 COMP METAB OLIC PNL chloride 103 mmol/ L 98-107 Not Available [facility] [address] [place] [address] [place], [address], 05/30/2022 09:29:27 05/30/20 22 05/30/2022 COMP METAB OLIC PNL tot CO2 35 mmol/ L 21.0-3 2.0 high Not Available [facility] [address] [place] [address], 11064, 05/30/2022 09:29:27 05/30/20 22 05/30/2022 COMP METAB OLIC PNL calcium 8.4 mg/dL 8.5-10 .1 low Not Available [facility] [address] [place] [address], 18660, 05/30/2022 09:29:27 05/30/20 22 05/30/2022 COMP METAB OLIC PNL creatinine 0.9 mg/dL 0.8-1. 3 Not Available [facility] [address] [place] [address], 82009, 05/30/2022 09:29:27 05/30/20 22 05/30/2022 COMP METAB OLIC PNL alkaline phos 74 U/L 38-126 Not Available [facility] [address] [place] [address], 25117, 05/30/2022 09:29:27 05/30/20 22 05/30/2022 COMP METAB OLIC PNL AST (SGOT) 22 U/L 15-37 Not Available [facility] [address] [place] [address], 35796, 05/30/2022 09:29:27 05/30/20 22 05/30/2022 COMP METAB OLIC PNL albumin 3.4 g/dL 3.4-5. 0 Not Available [facility] [address] [place] [address], 55915, 05/30/2022 09:29:27 05/30/20 22 05/30/2022 COMP METAB OLIC PNL globulin 3.0 2.0-4. 8 Not Available [facility] [address] [place] [address], 41826, 05/30/2022 09:29:27 05/30/20 22 05/30/2022 COMP METAB OLIC PNL total protein 6.4 g/dL 6.4-8. 2 Not Available [facility] [address] [place] [address], 76499, 05/30/2022 09:29:27 05/30/20 22 05/30/2022 COMP METAB OLIC PNL A/G ratio 1.1 0.7-3. 5 Not Available [address], 76[address], 05/30/2022 09:29:27 05/30/20 22 05/30/2022 COMP METAB OLIC PNL ALT (SGPT) 52 U/L 21-72 Not Available [facility] [address] [place] [address], 88760, 05/30/2022 09:29:27 05/30/20 22 05/30/2022 COMP METAB OLIC PNL total bilirubin 0.5 mg/dL 0.2-1. 1 Not Available [facility] [address] [place] [address], 84942, 05/30/2022 09:29:27 05/30/20 22 05/30/2022 COMP METAB OLIC PNL GFR >60 60- Refer ence Range : [place] ge GFR Healt hy Adult : >60 [...] lator can be locat ed on the [facility] websi te: https :[email or web address] [email or web address] rg/pr ofess ional s/kdo qi/gf r_cal culat or Not Available [facility] [address] [place] [address], [address], 05/30/2022 09:29:27 05/30/20 22 05/30/2022 COMP METAB OLIC PNL agap 8.7 mmol/ L 5.0-19 .0 Not Available [facility] [address] [place] [address], 87765, 05/30/2022 09:29:27 05/30/20 22 05/30/2022 CBC WITH AUTOM ATED DIFF WBC 6.7 10 4.2-9. 1 Not Available [facility] [address] [place] [address], 59912, 05/30/2022 09:17:48 05/30/20 22 05/30/2022 CBC WITH AUTOM ATED DIFF RBC 5.38 10 4.60-6 .08 Not Available [facility] [address] [place] [address], 11235, 05/30/2022 09:17:48 05/30/20 22 05/30/2022 CBC WITH AUTOM ATED DIFF HGB 16.0 g/dL 13.7-1 7.5 Not Available [facility] [address] [place] [address], 33351, 05/30/2022 09:17:48 05/30/20 22 05/30/2022 CBC WITH AUTOM ATED DIFF HCT 50.2 % 40.1-5 1.0 Not Available [facility] [address] [place] [address], 06386, 05/30/2022 09:17:48 05/30/20 22 05/30/2022 CBC WITH AUTOM ATED DIFF MCV 93.3 fL 79.0-9 2.2 high Not Available [facility] [address] [place] [address], 28414, 05/30/2022 09:17:48 05/30/20 22 05/30/2022 CBC WITH AUTOM ATED DIFF MCH 29.7 pg 29.0-3 4.5 Not Available [facility] [address] [place] [address], 64160, 05/30/2022 09:17:48 05/30/20 22 05/30/2022 CBC WITH AUTOM ATED DIFF MCHC 31.9 g/dL 32.5-3 5.5 low Not Available [facility] [address] [place] [address], 44706, 05/30/2022 09:17:48 05/30/20 22 05/30/2022 CBC WITH AUTOM ATED DIFF RDW 12.2 11.5-1 4.5 Not Available [facility] [address] [place] [address], 15445, 05/30/2022 09:17:48 05/30/20 22 05/30/2022 CBC WITH AUTOM ATED DIFF platelet 133 10 160-34 0 low Not Available [facility] [address] [place] [address], 01430, 05/30/2022 09:17:48 05/30/20 22 05/30/2022 CBC WITH AUTOM ATED DIFF MPV 8.90 fL 9.0-12 .4 low Not Available [facility] [address] [place] [address], 82300, 05/30/2022 09:17:48 05/30/20 22 05/30/2022 CBC WITH AUTOM ATED DIFF marco% 60.8 % 34.0-6 7.9 Not Available [facility] [address] [place] [address], 55527, 05/30/2022 09:17:48 05/30/20 22 05/30/2022 CBC WITH AUTOM ATED DIFF lym% 28.5 % 22-53 Not Available [facility] [address] [place] [address], 35284, 05/30/2022 09:17:48 05/30/20 22 05/30/2022 CBC WITH AUTOM ATED DIFF mon% 7.20 % 5-12 Not Available [facility] [address] [place] [address], 82277, 05/30/2022 09:17:48 05/30/20 22 05/30/2022 CBC WITH AUTOM ATED DIFF eos% 2.70 % 0-7 Not Available [facility] [address] [place] [address], 86724, 05/30/2022 09:17:48 05/30/20 22 05/30/2022 CBC WITH AUTOM ATED DIFF bas% 0.40 % 0-2 Not Available [facility] [address] [place] [address], 18361, 05/30/2022 09:17:48 05/30/20 22 05/30/2022 CBC WITH AUTOM ATED DIFF Ig% 0.4 0-1.0 Not Available [facility] [address] [place] [address], 02784, 05/30/2022 09:17:48 05/30/20 22 05/30/2022 CBC WITH AUTOM ATED DIFF marco# 4.08 10 1.5-7 Not Available [facility] [address] [place] [address], 00409, 05/30/2022 09:17:48 05/30/20 22 05/30/2022 CBC WITH AUTOM ATED DIFF lym# 1.9 10 1.18-4 .00 Not Available [address], 147[address], 05/30/2022 09:17:48 05/30/20 22 05/30/2022 CBC WITH AUTOM ATED DIFF mon# 0.5 10 0.00-0 .90 Not Available [address], 30985, 05/30/2022 09:17:48 05/30/20 22 05/30/2022 CBC WITH AUTOM ATED DIFF eos# 0.2 10 0.00-0 .60 Not Available [address], 51602, 05/30/2022 09:17:48 05/30/20 22 05/30/2022 CBC WITH AUTOM ATED DIFF bas# 0.0 10 0.00-0 .10 Not Available [address], 89248, 05/30/2022 09:17:48 05/30/20 22 05/30/2022 CBC WITH AUTOM ATED DIFF Ig# 0.03 0-0.05 Not Available [address], 92721, 05/30/2022 09:17:48 06/22/20 22 06/22/2022 ABBOT T [...] AUTHO RIZED LABOR ATORI ES. Not Available [facility] [address] [place] [address], 65141, 06/22/2022 19:18:38 06/22/20 22 06/22/2022 ABBOT T ID NOW COVID 19 internal qqc valid Not Available [facility] [address] [place] [address], 47081, 06/22/2022 19:18:38 06/22/20 22 06/22/2022 ABBOT T ID NOW COVID 19 kit lot [id number] Not Available [facility] [address] [place] [address], 70475, 06/22/2022 19:18:38 06/22/20 22 06/22/2022 ABBOT T ID NOW COVID 19 kit exp 09 Not Available [facility] [address] [place] [address], 58781, 06/22/2022 19:18:38 06/22/20 22 06/22/2022 COMP METAB OLIC PNL glucose 116 mg/dL 74-106 high Not Available [facility] [address] [place] [address], 44393, 06/22/2022 19:45:47 06/22/20 22 06/22/2022 COMP METAB OLIC PNL BUN 15 mg/dL 7-18 Not Available [facility] [address] [place] [address], 60156, 06/22/2022 19:45:47 06/22/20 22 06/22/2022 COMP METAB OLIC PNL sodium 142 mmol/ L 136-14 5 Not Available [facility] [address] [place] [address], 35830, 06/22/2022 19:45:47 06/22/2006/22/2022 COMP METAB OLIC PNL K 3.9 mmol/ L 3.5-5. 1 Not Available [facility] [address] [place] [address], 67574, 06/22/2022 19:45:47 06/22/20 22 06/22/2022 COMP METAB OLIC PNL chloride 101 mmol/ L 98-107 Not Available [facility] [address] [place] [address], 70817, 06/22/2022 19:45:47 06/22/20 22 06/22/2022 COMP METAB OLIC PNL tot CO2 35 mmol/ L 21.0-3 2.0 high Not Available [facility] [address] [place] [address], 23200, 06/22/2022 19:45:47 06/22/20 22 06/22/2022 COMP METAB OLIC PNL calcium 8.2 mg/dL 8.5-10 .1 low Not Available [facility] [address] [place] [address], 36421, 06/22/2022 19:45:47 06/22/20 22 06/22/2022 COMP METAB OLIC PNL creatinine 1.0 mg/dL 0.8-1. 3 Not Available [facility] [address] [place] [address], 93132, 06/22/2022 19:45:47 06/22/2006/22/2022 COMP METAB OLIC PNL alkaline phos 65 U/L 38-126 Not Available [facility] [address] [place] [address], 99117, 06/22/2022 19:45:47 06/22/2006/22/2022 COMP METAB OLIC PNL AST (SGOT) 44 U/L 15-37 high Not Available [facility] [address] [place] [address], 57847, 06/22/2022 19:45:47 06/22/2006/22/2022 COMP METAB OLIC PNL albumin 3.2 g/dL 3.4-5. 0 low Not Available [facility] [address] [place] [address], 94959, 06/22/2022 19:45:47 06/22/2006/22/2022 COMP METAB OLIC PNL globulin 2.9 2.0-4. 8 Not Available [facility] [address] [place] [address], 48323, 06/22/2022 19:45:47 06/22/2006/22/2022 COMP METAB OLIC PNL total protein 6.1 g/dL 6.4-8. 2 low Not Available [facility] [address] [place] [address], 20810, 06/22/2022 19:45:47 06/22/2006/22/2022 COMP METAB OLIC PNL A/G ratio 1.1 0.7-3. 5 Not Available [facility] [address] [place] [address], 61693, 06/22/2022 19:45:47 06/22/2006/22/2022 COMP METAB OLIC PNL ALT (SGPT) 56 U/L 21-72 Not Available [facility] [address] [place], [address], 06/22/2022 19:45:47 06/22/2006/22/2022 COMP METAB OLIC PNL total bilirubin 0.3 mg/dL 0.2-1. 1 Not Available [facility] [address] [place], [address], 06/22/2022 19:45:47 06/22/20 22 06/22/2022 COMP METAB OLIC PNL GFR >60 60- Refer ence Range : [place] ge GFR Healt hy Adult : >60 [...] lator can be locat ed on the [facility] websi te: https ://[email or web address] [email or web address] ann/pr beless ional s/kdo qi/gf r_cal culat or Not Available [facility] [address] [place], [address], 06/22/2022 19:45:47 06/22/2006/22/2022 COMP METAB OLIC PNL agap 10.2 mmol/ L 5.0-19 .0 Not Available [facility] [address] [place] [address], 31197, 06/22/2022 19:45:47 06/22/2006/22/2022 LACTI C ACID (PLAS MA) lactic acid 1.3 mmol/ L 0.4-2. 0 Not Available [facility] [address] [place] [address], 51053, 06/22/2022 19:14:12 06/22/2006/22/2022 NATRI URETI C PEPTI [...] RESUL TS OF STUDY CONDU CTED BY [employer] Not Available [address], [address], 06/22/2022 19:05:18 06/22/2006/22/2022 NATRI URETI C PEPTI DE kit lot [id number] Not Available [facility] [address] [place] [address], 75485, 06/22/2022 19:05:18 06/22/2006/22/2022 NATRI URETI C PEPTI DE kit exp [id number] 10 Not Available [address], 24658, 06/22/2022 19:05:18 06/22/20 22 06/22/2022 CBC WITH AUTOM ATED DIFF WBC 3.8 10 4.2-9. 1 low Not Available [facility] [address] [place] [address], 26359, 06/22/2022 18:55:40 06/22/2006/22/2022 CBC WITH AUTOM ATED DIFF RBC 5.00 10 4.60-6 .08 Not Available [facility] [address] [place] [address], 02890, 06/22/2022 18:55:40 06/22/2006/22/2022 CBC WITH AUTOM ATED DIFF HGB 14.8 g/dL 13.7-1 7.5 Not Available [facility] [address] [place] [address], 97642, 06/22/2022 18:55:40 06/22/2006/22/2022 CBC WITH AUTOM ATED DIFF HCT 46.1 % 40.1-5 1.0 Not Available [facility] [address] [place] [address], 85987, 06/22/2022 18:55:40 06/22/2006/22/2022 CBC WITH AUTOM ATED DIFF MCV 92.2 fL 79.0-9 2.2 Not Available [facility] [address] [place] [address], 88681, 06/22/2022 18:55:40 06/22/2006/22/2022 CBC WITH AUTOM ATED DIFF MCH 29.6 pg 29.0-3 4.5 Not Available [facility] [address] [place] [address], 48491, 06/22/2022 18:55:40 06/22/2006/22/2022 CBC WITH AUTOM ATED DIFF MCHC 32.1 g/dL 32.5-3 5.5 low Not Available [facility] [address] [place] [address], 70965, 06/22/2022 18:55:40 06/22/2006/22/2022 CBC WITH AUTOM ATED DIFF RDW 12.3 11.5-1 4.5 Not Available [facility] [address] [place] [address], 44316, 06/22/2022 18:55:40 06/22/2006/22/2022 CBC WITH AUTOM ATED DIFF platelet 95 10 160-34 0 critical low Not Available [facility] [address] [place] [address], 52628, 06/22/2022 18:55:40 06/22/2006/22/2022 CBC WITH AUTOM ATED DIFF MPV 8.70 fL 9.0-12 .4 low Not Available [facility] [address] [place] [address], 33679, 06/22/2022 18:55:40 06/22/2006/22/2022 CBC WITH AUTOM ATED DIFF marco% 48.3 % 34.0-6 7.9 Not Available [facility] [address] [place] [address], 08289, 06/22/2022 18:55:40 06/22/2006/22/2022 CBC WITH AUTOM ATED DIFF lym% 39.5 % 22-53 Not Available [facility] [address] [place] [address], 38312, 06/22/2022 18:55:40 06/22/2006/22/2022 CBC WITH AUTOM ATED DIFF mon% 10.30 % 5-12 Not Available [facility] [address] [place] [address], 70529, 06/22/2022 18:55:40 06/22/2006/22/2022 CBC WITH AUTOM ATED DIFF eos% 1.10 % 0-7 Not Available [facility] [address] [place] [address], 61752, 06/22/2022 18:55:40 06/22/2006/22/2022 CBC WITH AUTOM ATED DIFF bas% 0.50 % 0-2 Not Available [facility] [address] [place] [address], 00019, 06/22/2022 18:55:40 06/22/20 22 06/22/2022 CBC WITH AUTOM ATED DIFF Ig% 0.3 0-1.0 Not Available [facility] [address] [place] [address], 18893, 06/22/2022 18:55:40 06/22/20 22 06/22/2022 CBC WITH AUTOM ATED DIFF marco# 1.82 10 1.5-7 Not Available [facility] [address] [place] [address], [place], [address], 06/22/2022 18:55:40 06/22/20 22 06/22/2022 CBC WITH AUTOM ATED DIFF lym# 1.5 10 1.18-4 .00 Not Available [facility] [address] [place] [address], [place], [address], 06/22/2022 18:55:40 06/22/20 22 06/22/2022 CBC WITH AUTOM ATED DIFF mon# 0.4 10 0.00-0 .90 Not Available [facility] [address] [place] [address], [place], [address], 06/22/2022 18:55:40 06/22/20 22 06/22/2022 CBC WITH AUTOM ATED DIFF eos# 0.0 10 0.00-0 .60 Not Available [facility] [address] [place] [address], 92415, 06/22/2022 18:55:40 06/22/20 22 06/22/2022 CBC WITH AUTOM ATED DIFF bas# 0.0 10 0.00-0 .10 Not Available [facility] [address] [place] [address], [place], [address], 06/22/2022 18:55:40 06/22/20 22 06/22/2022 CBC WITH AUTOM ATED DIFF Ig# 0.01 0-0.05 Not Available [facility] [address] [place] [address], [place], [address], 06/22/2022 18:55:40 06/06/20 21 06/06/2021 elect rocar diogr am No observ ation record ed. [id number] [id number] [address], [address], 10/29/2022 08:15:31 06/06/20 21 elect rocar diogr am No observ ation record ed. [id number] [email or web address] [address], [address], 10/29/2022 08:15:31 05/30/20 22 05/30/2022 XR, chest , [address] [address] KATHLEEN Frankel REPORT Name: NANCY THOMAS Room #: : 1969 Accoun t #: [id number] Bed #: Age: 52 Years Patien t Type: Outpat ient Order Date/T merle: 2021 08:32: 40 AM Sex: M Access ion#: Exam Descri ption: Exam Reason : [id number] XR CHEST 1V Dyspne a Dictat [...] 022 9:01 AM CDT Workst ation: [id number] PAGE 1 OF [id number] [facility] [address] [place] [address], [address], 10/29/2022 08:15:31 05/30/20 22 05/30/2022 CT, head, w/o contr ast [facility] al [address] [place], [place] [id number] IMAGIN G REPORT Name: NANCY THOMAS Steve Room #: : 1969 Accoun t #: [id number] Bed #: Age: 52 Years Patien t Type: Outpat ient Order Date/T merle: 2021 07:55: 00 AM Sex: M Access ion#: Exam Descri ption: Exam Reason : [id number] CT HEAD WO Headac he Dictat ed By: Harshil Enrique ng Physic darlyn: JANET ABREU Attend ing Physic [...] Room #: : 1969 Accoun t #: [id number] Bed #: Age: 52 Years Patien t Type: Outpat ient Order Date/T merle: 2021 07:55: 00 AM Sex: M Visual ized orbits and parana rajni sinuse s are unrema rkable . IMPRES [place]: * No acute intrac ranial pathol ogy. * No mass effect or midlin e shift. * Mild age-re lated struct ural change s. Electr onical ly signed by: Harshil quesaad MD 022 9:03 AM CDT Workst ation: [id number] PAGE 2 OF [id number], [address], 10/29/2022 08:15:31 06/12/20 22 05/30/2022 elect zenia berg am No observ ation record ed. [id number], [address], 10/29/2022 08:15:31 06/22/20 22 06/22/2022 XR, chest , [address] [id number] KATHLEEN Frankel REPORT Name: NANCY THOMAS Steve Room #: : 1969 Accoun t #: [id number] Bed #: Age: 52 Years Patien t Type: Outpat ient Order Date/T merle: 2021 05:33: 00 PM Sex: M Access ion#: Exam Descri ption: Exam Reason : [id number] XR CHEST 1V Dyspne a Dictat ed By: Mina Hodgson ng Physic darlyn: HIDALG O, IMELDA Attend ing Physic darlyn: HIDALG IMELDA Mejia Prim[facility] y Care Physic darlyn: TOMAS AMADOR INDICA TION: Dyspne a EXAMIN ATION/ TECHNI [...] noted. IMPRES [place]: PAGE 1 OF 2 KATHLEEN G REPORT Name: NANCY THOMAS Steve Room #: : 1969 Accmindy t #: [id number] Bed #: Age: 52 Years Patiroya t Type: Outpat clemente Order Date/T merle: 2021 05:33: 00 PM Sex: M No radiog raphic eviden ce of acute cardio pulmon shin tamayo e. Electr onical ly signed by: Mina Hodgson MD 2021 6:30 PM CDT Workst ation: 109-10 14ZPW PAGE 2 OF [id number] [facility] [address] [place] [address], [id number], 10/29/2022 08:15:31 07/01/20 22 06/22/2022 elect zenia berg am No observ ation record ed. MIGRATION. Not Available 10/29/2022 08:15:31 07/04/20 22 07/04/2022 XR, chest , 2 view No observ ation record ed. [id number] [facility], [place], [address], 10/29/2022 08:15:31 07/04/20 22 07/04/2022 CT, angio gram, chest + abdom en + pelvi s, w/ contr ast No observ ation record ed. [id number] [facility], [place], [address], 10/29/2022 08:15:31 Result Notes Documentation Provider Name and Address Organization Details Recorded Time Xr, Chest, 1 View : [address] [id number] IMAGING REPORT Name: MERARI DC Room #: : 1970 Bed #: Age: 52 Years Patient Type: Outpatient Order Date/Time: 05/30/2022 08:32:40 AM Sex: M Accession#: Exam Description: Exam Reason: [id number] XR CHEST 1V Dyspnea Dictated By: Harshil Moore Ordering Physician: GIL ABREU Attending Physician: GIL ABREU Primary Care Physician: AMADOR MARIN EXAMINATION: XR CHEST 1V CLINICAL HISTORY: 52 years Male,Dyspnea COMPARISON: 02/09/2020 TECHNIQUE: Single view chest FINDINGS: Left subclavian dual lead transvenous cardiac pacemaker with atrial and ventricular leads intact and unchanged in position. The lungs are clear of infiltrate. The cardiac silhouette and pulmonary vascularity are within normal limits. No pleural effusion or pneumothorax. IMPRESSION: No active cardiopulmonary disease . Electronically signed by: Harshil Moore MD 05/30/2022 9:01 AM CDT PAGE 1 OF 1 Not Available [facility] 10/29/2022 08:15:32 Ct, Head, W/o Contrast : [address] [id number] IMAGING REPORT Name: MERARI DC Room #: : 1970 Bed #: Age: 52 Years Patient Type: Outpatient Order Date/Time: 05/30/2022 07:55:00 AM Sex: M Accession#: Exam Description: Exam Reason: [id number] CT HEAD WO Headache Dictated By: Harshil Moore Ordering Physician: GIL ABREU Attending Physician: GIL ABREU Primary Care Physician: AMADOR MARIN EXAMINATION: CT HEAD WO CLINICAL HISTORY: 52 years Male,Headache COMPARISON: There is no prior similar study available for correlation. TECHNIQUE: Axial imaging and 2-D reformatting performed without IV contrast. This exam was performed according to our departmental dose-optimization program, which includes automated exposure control, adjustment of the mA and/or kV according to patient size and/or use of iterative reconstruction technique. IV CONTRAST: No IV contrast TOTAL DLP: 1065.3 mGy-cm FINDINGS: No acute infarct or intracranial hemorrhage. No mass lesion or mass effect. No midline shift. The extraaxial compartment is unremarkable. Mild bilateral cerebral and cerebellar atrophy. No acute fracture or bone malalignment. No gross bone destruction. The mastoid air cells are well aerated bilaterally. PAGE 1 OF 2 IMAGING REPORT Name: MERARI DC Room #: : 1970 Bed #: Age: 52 Years Patient Type: Outpatient Order Date/Time: 05/30/2022 07:55:00 AM Sex: M Visualized orbits and paranasal sinuses are unremarkable. IMPRESSION: * No acute intracranial pathology. * No mass effect or midline shift. * Mild age-related structural changes. Electronically signed by: Harshil Moore MD 05/30/2022 9:03 AM CDT PAGE 2 OF 2 Not Available [facility] 10/29/2022 08:15:32 Xr, Chest, 1 View : [address] [id number] IMAGING REPORT Name: MERARI DC Room #: : 1970 Bed #: Age: 52 Years Patient Type: Outpatient Order Date/Time: 06/22/2022 05:33:00 PM Sex: M Accession#: Exam Description: Exam Reason: [id number] XR CHEST 1V Dyspnea Dictated By: Mina Hodgson Ordering Physician: IMELDA MOORE Attending Physician: IMELDA MOORE Primary Care Physician: AMADOR MARIN INDICATION: Dyspnea EXAMINATION/TECHNIQUE: X-RAY - XR CHEST 1 VIEW COMPARISON: Chest x-ray 05/30/2022 FINDINGS: LINES/DEVICES: AICD leads are stable in position LUNGS: No consolidation, edema or effusion. No pneumothorax. MEDIASTINUM AND CARDIOVASCULAR STRUCTURES: Cardiac silhouette is not enlarged. Central airways and mediastinal contour are unremarkable. BONES AND SOFT TISSUES: Dextroconvex scoliosis of the spine is again noted. IMPRESSION: PAGE 1 OF 2 IMAGING REPORT Name: MERARI DC Room #: : 1970 Bed #: Age: 52 Years Patient Type: Outpatient Order Date/Time: 06/22/2022 05:33:00 PM Sex: M No radiographic evidence of acute cardiopulmonary disease. Electronically signed by: Mina Hodgson MD 06/22/2022 6:30 PM CDT PAGE 2 OF 2 Not Available [facility] 10/29/2022 08:15:32 Problems Name Problem SNOMED Code Status Onset Date Resolution Date Notes Provider Name and Address Organization Details Recorded Time Acute exacerbation of chronic obstructive pulmonary disease 456444048 Active Not Available [facility] 3 08:10:16 Congestive heart failure 80437630 Active 2015 Not Available [facility] 3 08:10:17 Chronic obstructive pulmonary disease 30067171 Active 2018 Not Available [facility] 3 08:10:16 Hypertensive disorder 10948933 Active 2018 Not Available [facility] 3 08:10:17 Acute respiratory failure 37081792 Active 2018 Not Available [facility] 3 08:10:17 Status migrainosus 555650208 Active 2021 Not Available [facility] 3 08:10:17 Insomnia 248301597 Active 2021 Not Available [facility] 3 08:10:16 Type 2 diabetes mellitus without complication 129849390 Active 2021 Not Available [facility] 3 08:10:17 Smoker 30292980 Active 2021 Not Available [facility] 3 08:10:17 Notes:heart defibrillator Problem Notes None recorded. Procedures Surgical History Date Name Laterality Status Provider Name and Address Organization Details Recorded Time 10/30/19 19 Appendectomy completed Not Available [facility] 10/29/2022 08:05:43 08/31/19 16 implantation of cardiac defibrillator lead completed Not Available [facility] 10/29/2022 08:05:43 cardiac catheterization completed Not Available [facility] 10/29/2022 08:05:43 Imaging Results None recorded. Procedure Notes None recorded. Medical Equipment None [...] Heart rate Body temperature Body weight Systolic And Diastolic Provider Name and Address Organization Details Last Updated DateTime 2 35.6 kg/m2 170.18 cm 95 % 95 % 95 /min 97.8 [degF] 529046. 93 g 120/80 mm[Hg] Not [facility] 08:08:02 Date Recorded Body mass index (BMI) Body height Oxygen saturation Oxygen saturation in Arterial blood by Pulse oximetry Pain severity - 0-10 verbal numeric rating [Score] - Reported Heart rate Body temperature Body weight Systolic And Diastolic Provider Name and Address Organization Details Last Updated DateTime 1 35.1 kg/m2 170.18 cm 95 % 95 % 0 93 /min 97.7 [degF] 250926. 69 g 110/68 mm[Hg] Not Available [facility] 3 08:08:02 Date Recorded Body mass index (BMI) Body height Oxygen saturation Oxygen saturation in Arterial blood by Pulse oximetry Heart rate Body temperature Body weight Systolic And Diastolic Provider Name and Address Organization Details Last Updated DateTime 2 36.3 kg/m2 170.18 cm 93 % 93 % 88 /min 97.8 [degF] 393246. 43 g 108/80 mm[Hg] Not Available [facility] 3 08:08:02 Date Recorded Body mass index (BMI) Body height Oxygen saturation Oxygen saturation in Arterial blood by Pulse oximetry Heart rate Respiratory rate Body temperature Body weight Systolic And Diastolic Provider Name and Address Organization Details Last Updated DateTime 1 34.7 kg/m2 170.18 cm 93 % 93 % 89 /min 18 /min 98 [degF] 841347. 71 g 106/72 mm[Hg] Not Available [facility] 3 08:08:02 Date Recorded Body mass index (BMI) Body height Oxygen saturation Oxygen saturation in Arterial blood by Pulse oximetry Heart rate Body temperature Body weight Systolic And Diastolic Provider Name and Address Organization Details Last Updated DateTime 2 35.6 kg/m2 170.18 cm 96 % 96 % 102 /min 97.8 [degF] 207489. 47 g 94/60 mm[Hg] Not Available [facility] 3 08:08:02 Social History Question Answer Notes LastModified by Organizat ion Details LastModified Time Tobacco Smoking Status Current Every Day Smoker Not Available [facility] 10/29/2022 08:05:26 Do You Have An Advance Directive? No [id number] Information not available 10/29/2022 What Is Your Level Of Caffeine Consumption? Moderate MIGRATION.[id number] Information not available 10/29/2022 In The 14 Days Before Symptom Onset, Have You Had Close Contact With A Laboratory-confirm ed COVID-19 While That Case Was Ill? No MIGRATION.[id number] 1046 Information not available 10/29/2022 In The 14 Days Before Symptom Onset, Have You Had Close Contact With A Person Who Is Under Investigation For COVID-19 While That Person Was Ill? No [id number].[id number] 0131 Information not available 10/29/2022 What Type Of Diet Are You Following? REGULAR MIGRATION.[id number] 0096 Information not available 10/29/2022 Which Illicit Or Recreational Drugs Have You Used? Marijuana MIGRATION.[id number] 6612 Information not available 10/29/2022 Have There Been Any Changes To Your Family Or Social Situation? No MIGRATION.905095 8941 Information not available 10/29/2022 What Is The Fluoride Status Of Your Home? Unknown MIGRATION.[id number] 7749 Information not available 10/29/2022 Do You Use Insect Repellent Routinely? Yes MIGRATION.942264 6078 Information not available 10/29/2022 Do You Have A Medical Power Of Counter Help? No MIGRATION.[id number] 3454 Information not available 10/29/2022 What Was The Date Of Your Most Recent Tobacco Screening? 06/03/2022 MIGRATION.[id number] 9708 Information not available 10/29/2022 What Is Your Current Pack Years? 30ormorepacky ears MIGRATION.479594 2695 Information not available 10/29/2022 Do You Have Any Pets? Yes MIGRATION.572707 1683 Information not available 10/29/2022 What Is Your Relationship Status? MIGRATION.674795 2282 Information not available 10/29/2022 Do You Use Your Seat Belt Or Car Seat Routinely? Yes MIGRATION.430424 9060 Information not available 10/29/2022 Do You Have Smoke And Carbon Monoxide Detectors In Your Home? Yes MIGRATION.209541 7061 Information not available 10/29/2022 At What Age Did You Start Smoking Tobacco? 14 MIGRATION.487372 2041 Information not available 10/29/2022 Are You Passively Exposed To Smoke? No MIGRATION.662299 9352 Information not available 10/29/2022 Are There Any Smokers In Your House? No MIGRATION.611480 4498 Information not available 10/29/2022 How Much Tobacco Do You Smoke? 1 PPD MIGRATION.716093 8996 Information not available 10/29/2022 Do You Use Sunscreen Routinely? Yes MIGRATION.003750 9579 Information not available 10/29/2022 Have You Recently Traveled Abroad? No MIGRATION.098935 4916 Information not available 10/29/2022 Have You Used IV Drugs? No MIGRATION.123234 3230 Information not available 10/29/2022 Do You Have Any Dietary Restrictions? No MIGRATION.741959 1454 Information not available 10/29/2022 Sex: Unknown Functional Status Question Answer Note LastModified by Organizat ion Details LastModified Time Do you use any illicit or recreational drugs? Yes MIGRATION.5421970 026 Information not available 10/29/2022 Do you or have you ever used any other forms of tobacco or nicotine? No MIGRATION.3515832 026 Information not available 10/29/2022 What is your level of alcohol consumption? None MIGRATION.5819203 026 Information not available 10/29/2022 What is your exercise level? Occasional MIGRATION.[id number] 026 Information not available 10/29/2022 Mental Status None recorded. Family History Nothing Reported Notes:He was adopted Medical History Condition Response CARDIAC ARRHYTHMIA Y HEADACHES/MIGRAINES Y ATRIAL FIBRILLATION Y ASTHMA Y PULMONARY DISEASE Y ALLERGIES/HAYFEVER Y HYPERTENSION Y Immunizations Vaccine Type Date Status Note Provider Nam e and Address Organization Details Recorded Time Influenza, split virus, trivalent, preservative 2 completed Not Available [facility] 10/29/2022 08:15:10 Influenza, split virus, quadrivalent, preservative 9 completed Not Available [facility] 10/29/2022 08:15:10 COVID-19 vaccine, vector-nr, rS-Ad26, PF, 0.5 mL 1 completed Not Available [facility] 10/29/2022 08:15:10 Influenza, split virus, quadrivalent, preservative 0 completed Not Available [facility] 10/29/2022 08:15:10 Past Encounters Encounter ID Performer Location Encounter Start Date Encounter Closed Date Diagnosis/Indication Diagnosis SNOMED-CT Code Diagnosis ICD10 Code Diagnosis IMO Codes Diagnosis Note [id number] _ATHN_MIGR ATION_1 _ATHENA_M IGRATION_ DEFAULT_1 _1 , 04/05/2021 00:00:00 04/05/2021 12:58:33 [id number] _ATHN_MIGR ATION_1 _ATHENA_M IGRATION_ DEFAULT_1 _1 , 06/06/2021 00:00:00 06/06/2021 12:16:46 [id number] _ATHN_MIGR ATION_1 _ATHENA_M IGRATION_ DEFAULT_1 _1 , 10/15/2021 00:00:00 10/15/2021 11:33:50 [id number] _ATHN_MIGR ATION_1 _ATHENA_M IGRATION_ DEFAULT_1 _1 , 06/03/2022 00:00:00 06/03/2022 11:40:32 [id number] _ATHN_MIGR ATION_1 _ATHENA_M IGRATION_ DEFAULT_1 _1 , 07/08/2022 00:00:00 07/10/2022 15:05:30 Health Concerns Section Related Observation LastModified by Organization Detai ls LastModified Time None Recorded Concern Status LastModified by Organization Details LastModified Time None Recorded Advance Directives Directive N: Payers Insurance Date Sequence Insurance Name Policy Number Policy Rodrigues Covered Member ID Rodrigues Member ID Guarantor Name 10/29/2022 1 [facility] ON OR AFTER 02/28/21 (MEDICAID REPLACEMENT - HMO) [id number] Mearri Dc [id number]
[2025-06-24 16:37] LABS: NT Pro B Type Natriuretic Pept 162 pg/mL (19.9-100); Troponin I < 0.012 ng/mL (0.000-0.034)
--- OUTSIDE RECORDS SUMMARY | 2025-06-24 16:37 | XMS_ITS | Data Portability ---
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 Lab None recorded. Referral None recorded. Procedures None recorded. Surgeries None recorded. Imaging XR, foot, 3 or more view 2023 024 ATHENAFAX Not available 12:00:55 Medication Orders cyclobenza antwon 10 mg tablet 2023 024 [facility] [address] [place], [address], 4 11:39:11 Medrol (Wilder) 4 mg tablets in a dose pack 2023 [facility] [address] [place] [address], [address], 4 11:39:13 ofloxacin 0.3 % ear drops 2023 024 [facility] [address] [place] [address], [address], 4 09:09:43 amoxicilli n 875 mg-potassi um clavulanat e 125 mg tablet 2023 024 [facility] [address] [place] [address], [address], 4 09:09:35 Patient TargetsNo targets recorded. Patient Instructions Encounter Date Encounter Id Patient Instructions Last Modified By Organization Details Last Modified Time 12/30/2023 [id number] [email or web address] Not available 12/30/2023 11:39:04 Reason for Referral None Reported. Results Created Date Observation Date Name Description Value Unit Range Abnormal Flag Note LastModifiedBy Organization Detail LastModifiedTime 07/06/20 23 07/06/2023 EKG 12 LEADS [id number] [facility] [address] [facility] [place] [address] Test Date: 07-06 Pat Name: JUDSON CUNNINGHAM VANESSA Arguello tment : Thomas nt ID: [id number] Room: [facility] r: Techn ician : : 01-12 Reque sted By: Order Karissa r: [id number] 0900 Gaby fuentes MD: Bernardo fitzgerald ts Inter vals [place] Rate: 91 P: 85 MN: 169 QRS: 85 QRSD: 98 T: 13 QT: 378 QTc: 466 Inter preti ve State ments Sinus rhyth m Low volta ge, extre mity leads Abnor mal R-wav e progr essio n, late trans ition Basel ine wande r in lead( s) V3 Not Available [facility] [address] [place] [address], [address], 07/06/2023 17:22:05 07/08/20 23 07/08/2023 EKG 12 LEADS [id number] [facility] [address] [place] [address] Test Date: 07-06 Pat Name: JUDSON Mohamud Depar tment : Patie nt ID: [id number] Room: [facility] r: M Techn ician : : 01-12 Reque sted By: Order Numbe r: [id number] Gaby fuentes MD: Daisy hutchinson Measu remen ts Inter vals [place] Rate: 91 P: 85 MN: 169 QRS: 85 QRSD: 98 T: 13 QT: 378 QTc: 466 Inter preti ve State ments Sinus rhyth m Abnor mal R-wav e progr essio n, late trans ition Elect spring paz On 07-07 23:57 :52 NEUROLOGY PHYSICIAN ASSISTANT by Daisy hutchinson Not Available [facility] [address] [place] [address], [address], 07/08/2023 00:58:07 09/17/19 24 09/17/2023 EKG 12 LEADS [id number] perfor med Not Available [facility] [address] [place] [address], [address], 09/17/2023 16:58:47 09/17/19 24 09/17/2023 EKG 12 LEADS [id number] perfor med Not Available [facility] [address] [place] [address], [address], 09/17/2023 16:58:52 07/06/20 23 07/06/2023 CBC WITH AUTOM ATED DIFF WBC 5.7 10 4.2-9. 1 Not Available [facility] [address] [place] [address], [address], 07/06/2023 17:34:42 11/0607/06/2023 CBC WITH AUTOM ATED DIFF RBC 5.04 10 4.60-6 .08 Not Available [facility] [address] [place] [address], [address], 07/06/2023 17:34:42 07/06/20 23 07/06/2023 CBC WITH AUTOM ATED DIFF HGB 15.4 g/dL 13.7-1 7.5 Not Available [facility] [address] [place] [address], [address], 07/06/2023 17:34:42 07/06/20 23 07/06/2023 CBC WITH AUTOM ATED DIFF HCT 46.3 % 40.1-5 1.0 Not Available [facility] [address] [place] [address], [address], 07/06/2023 17:34:42 07/06/20 23 07/06/2023 CBC WITH AUTOM ATED DIFF MCV 91.9 fL 80.0-9 7.0 Not Available [facility] [address] [place] [address], [address], 07/06/2023 17:34:42 07/06/20 23 07/06/2023 CBC WITH AUTOM ATED DIFF MCH 30.6 pg 29.0-3 4.5 Not Available [facility] [address] [place] [address], [address], 07/06/2023 17:34:42 07/06/20 23 07/06/2023 CBC WITH AUTOM ATED DIFF MCHC 33.3 g/dL 32.5-3 5.5 Not Available [facility] [address] [place] [address], [address], 07/06/2023 17:34:42 07/06/20 23 07/06/2023 CBC WITH AUTOM ATED DIFF RDW 11.9 11.5-1 4.5 Not Available [facility] [address] [place] [address], [address], 07/06/2023 17:34:42 07/06/20 23 07/06/2023 CBC WITH AUTOM ATED DIFF platelet 130 10 160-34 0 low Not Available [facility] [address] [place] [address], [address], 07/06/2023 17:34:42 07/06/20 23 07/06/2023 CBC WITH AUTOM ATED DIFF MPV 8.80 fL 9.0-12 .4 low Not Available [facility] [address] [place] [address], [address], 07/06/2023 17:34:42 07/06/20 23 07/06/2023 CBC WITH AUTOM ATED DIFF marco% 60.5 % 34.0-6 7.9 Not Available [facility] [address] [place] [address], [address], 07/06/2023 17:34:42 07/06/20 23 07/06/2023 CBC WITH AUTOM ATED DIFF lym% 27.7 % 22-53 Not Available [facility] [address] [place] [address], [address], 07/06/2023 17:34:42 07/06/20 23 07/06/2023 CBC WITH AUTOM ATED DIFF mon% 8.60 % 5-12 Not Available [facility] [address] [place] [address], [address], 07/06/2023 17:34:42 07/06/20 23 07/06/2023 CBC WITH AUTOM ATED DIFF eos% 2.40 % 0-7 Not Available [facility] [address] [place] [address], [address], 07/06/2023 17:34:42 07/06/20 23 07/06/2023 CBC WITH AUTOM ATED DIFF bas% 0.50 % 0-2 Not Available [facility] [address] [place] [address], [address], 07/06/2023 17:34:42 07/06/20 23 07/06/2023 CBC WITH AUTOM ATED DIFF Ig% 0.3 0-1.0 Not Available [facility] [address] [place] [address], [address], 07/06/2023 17:34:42 07/06/20 23 07/06/2023 CBC WITH AUTOM ATED DIFF marco# 3.46 10 1.5-7 Not Available [address], [place], [address], 07/06/2023 17:34:42 07/06/20 23 07/06/2023 CBC WITH AUTOM ATED DIFF lym# 1.6 10 1.18-4 .00 Not Available [facility] [address] [place] [address], [place], [address], 07/06/2023 17:34:42 07/06/20 23 07/06/2023 CBC WITH AUTOM ATED DIFF mon# 0.5 10 0.00-0 .90 Not Available [address], [address], 07/06/2023 17:34:42 07/06/20 23 07/06/2023 CBC WITH AUTOM ATED DIFF eos# 0.1 10 0.00-0 .60 Not Available [address], [place], [address], 07/06/2023 17:34:42 07/06/20 23 07/06/2023 CBC WITH AUTOM ATED DIFF bas# 0.0 10 0.00-0 .10 Not Available [address], [address], 07/06/2023 17:34:42 07/06/20 23 07/06/2023 CBC WITH AUTOM ATED DIFF Ig# 0.02 0-0.05 Not Available [facility] [address] [place] [address], [place], [address], 07/06/2023 17:34:42 07/06/20 23 07/06/2023 PROTI ME protime (PT) 9.5 secs 9.0-11 .5 Not Available [facility] [address] [place] [address], [address], 07/06/2023 17:45:22 07/06/20 23 07/06/2023 PROTI ME INR 0.9 ANDRÉS L RANGE FOR INR < OR = TO 1.0 (BECKY ENTS NOT ON ANTIC OAGUL ANT THERA PY). INR THERA PEUTI C RANGE 2.0 - 3.0 PREVE NTION AND TREAT MENT OF DVT 2.5 - 3.5 PREVE NTION OF RECUR RENT GA, OR POST CARDI AC VALVE REPLA DAVID T. Not Available [facility] [address] [place] [address], [address], 07/06/2023 17:45:22 07/06/20 23 07/06/2023 PTT APTT 24.1 secs 24.0-3 2.80 Not Available [facility] [address] [place] [address], [address], 07/06/2023 17:45:27 07/06/20 23 07/06/2023 COMP METAB OLIC PNL glucose 116 mg/dL 74-106 high Not Available [facility] [address] [place] [address], [address], 07/06/2023 17:46:24 07/06/20 23 07/06/2023 COMP METAB OLIC PNL BUN 13 mg/dL 7-18 Not Available [facility] [address] [place] [address], [address], 07/06/2023 17:46:24 07/06/20 23 07/06/2023 COMP METAB OLIC PNL sodium 142 mmol/ L 136-14 5 Not Available [facility] [address] [place] [address], [address], 07/06/2023 17:46:24 07/06/20 23 07/06/2023 COMP METAB OLIC PNL K 4.0 mmol/ L 3.5-5. 1 Not Available [facility] [address] [place] [address], [address], 07/06/2023 17:46:24 07/06/20 23 07/06/2023 COMP METAB OLIC PNL chloride 104 mmol/ L 98-107 Not Available [address], [address], 07/06/2023 17:46:24 07/06/20 23 07/06/2023 COMP METAB OLIC PNL tot CO2 30 mmol/ L 21.0-3 2.0 Not Available [address], [address], 07/06/2023 17:46:24 07/06/20 23 07/06/2023 COMP METAB OLIC PNL calcium 9.0 mg/dL 8.5-10 .1 Not Available [address], [address], 07/06/2023 17:46:24 07/06/20 23 07/06/2023 COMP METAB OLIC PNL creatinine 0.9 mg/dL 0.8-1. 3 Not Available [address], [address], 07/06/2023 17:46:24 07/06/20 23 07/06/2023 COMP METAB OLIC PNL alkaline phos 75 U/L 46-116 Not Available [address], [address], 07/06/2023 17:46:24 07/06/20 23 07/06/2023 COMP METAB OLIC PNL AST (SGOT) 38 U/L 15-37 high Not Available [address], [address], 07/06/2023 17:46:24 07/06/20 23 07/06/2023 COMP METAB OLIC PNL albumin 3.4 g/dL 3.4-5. 0 Not Available [address], [address], 07/06/2023 17:46:24 07/06/20 23 07/06/2023 COMP METAB OLIC PNL globulin 2.8 2.0-4. 8 Not Available [facility] [address] [place] [address], 235[address], 07/06/2023 17:46:24 07/06/20 23 07/06/2023 COMP METAB OLIC PNL total protein 6.2 g/dL 6.4-8. 2 low Not Available [facility] [address] [place] [address], [address], 07/06/2023 17:46:24 07/06/20 23 07/06/2023 COMP METAB OLIC PNL A/G ratio 1.2 0.7-3. 5 Not Available [facility] [address] [place] [address], [address], 07/06/2023 17:46:24 07/06/20 23 07/06/2023 COMP METAB OLIC PNL ALT (SGPT) 65 U/L 16-63 high Not Available [facility] [address] [place] [address], [address], 07/06/2023 17:46:24 07/06/20 23 07/06/2023 COMP METAB OLIC PNL total bilirubin 0.4 mg/dL 0.2-1. 1 Not Available [facility] [address] [place] [address], [address], 07/06/2023 17:46:24 07/06/20 23 07/06/2023 COMP METAB OLIC PNL GFR >60 60- Refer ence Range : Atkins ge GFR Healt hy Adult : >60 [...] can be locat ed on the [facility] websi te: https ://sabina w.an bourney.o rg/pr ofess ional s/kdo qi/gf r_cal culat or Not Available [facility] [address] [place] [address], [address], 07/06/2023 17:46:24 07/06/20 23 07/06/2023 COMP METAB OLIC PNL agap 11.7 mmol/ L 5.0-19 .0 Not Available [facility] [address] [place] [address], [address], 07/06/2023 17:46:24 07/06/20 23 07/06/2023 LIPAS E lipase 57 IU/L 16-77 Not Available [facility] [address] [place] [address], [address], 07/06/2023 17:46:33 07/06/20 23 07/06/2023 NATRI URETI [...] RESUL TS OF STUDY CONDU CTED BY [employer] Not Available [facility] [address] [place] [address], [address], 07/06/2023 17:46:57 07/06/20 23 07/06/2023 NATRI URETI C PEPTI DE kit lot [id number] Not Available [facility] [address] [place] [address], [address], 07/06/2023 17:46:57 07/06/20 23 07/06/2023 NATRI URETI C PEPTI DE kit exp [id number] Not Available [facility] [address] [place] [address], [address], 07/06/2023 17:46:57 07/06/20 23 07/06/2023 TROPO ESME I HIGHL Y SENSI TIVE troponin I high sensitivity 11.8 NG/L <77- low lainez d to jaquelin at 1650 hs THE REFER ENCE RANGE IS BASED ON THE 99TH PERCE NTILE . ACCOR DING TO THE 4TH UNIVE RSAL DEFIN ITION OF ACUTE GA, AN ACUTE GA IS AN ACUTE MYOCA RDIAL INJUR Y [...] LY DEPRE SSED RESUL TS. Not Available [facility] [address] [place] [address], [address], 07/06/2023 17:49:40 07/06/2007/06/2023 ABBOT T ID NOW COVID 19 franco [...] ATORI ES. Not Available [facility] [address] [place] [address], [address], 07/06/2023 18:09:35 07/06/20 23 07/06/2023 ABBOT T ID NOW COVID 19 internal qqc VALID Not Available [facility] [address] [place] [address], 60761, 07/06/2023 18:09:35 07/06/20 23 07/06/2023 ABBOT T ID NOW COVID 19 kit lot [id number] Not Available [address], [address], 07/06/2023 18:09:35 07/06/2007/06/2023 ABBOT T ID NOW COVID 19 kit exp [id number] Not Available [address], [address], 07/06/2023 18:09:35 08/08/20 23 08/08/2023 CBC WITH AUTOM ATED DIFF WBC 6.2 10 4.2-9. 1 Not Available [address], [address], 08/08/2023 10:40:34 08/08/20 23 08/08/2023 CBC WITH AUTOM ATED DIFF RBC 5.56 10 4.60-6 .08 Not Available [address], [address], 08/08/2023 10:40:34 08/08/20 23 08/08/2023 CBC WITH AUTOM ATED DIFF HGB 16.5 g/dL 13.7-1 7.5 Not Available [address], [address], 08/08/2023 10:40:34 08/08/20 23 08/08/2023 CBC WITH AUTOM ATED DIFF HCT 50.8 % 40.1-5 1.0 Not Available [address], [address], 08/08/2023 10:40:34 08/08/20 23 08/08/2023 CBC WITH AUTOM ATED DIFF MCV 91.4 fL 80.0-9 7.0 Not Available [address], [address], 08/08/2023 10:40:34 08/08/20 23 08/08/2023 CBC WITH AUTOM ATED DIFF MCH 29.7 pg 29.0-3 4.5 Not Available [address], [address], 08/08/2023 10:40:34 08/08/20 23 08/08/2023 CBC WITH AUTOM ATED DIFF MCHC 32.5 g/dL 32.5-3 5.5 Not Available [facility] [address] [facility], [place], [address], 08/08/2023 10:40:34 08/08/20 23 08/08/2023 CBC WITH AUTOM ATED DIFF RDW 11.9 11.5-1 4.5 Not Available [facility] [place] [facility] [address] [place] [address], [place], [address], 08/08/2023 10:40:34 08/08/20 23 08/08/2023 CBC WITH AUTOM ATED DIFF platelet 155 10 160-34 0 low Not Available [facility] [address] [place] [address], [address], 08/08/2023 10:40:34 08/08/20 23 08/08/2023 CBC WITH AUTOM ATED DIFF MPV 9.30 fL 9.0-12 .4 Not Available [facility] [address] [place] [address], [address], 08/08/2023 10:40:34 08/08/20 23 08/08/2023 CBC WITH AUTOM ATED DIFF marco% 79.3 % 34.0-6 7.9 high Not Available [facility] [address] [place] [address], 28[address], 08/08/2023 10:40:34 08/08/20 23 08/08/2023 CBC WITH AUTOM ATED DIFF lym% 10.3 % 22-53 low Not Available [facility] [address] [place] [address], [address]27, 08/08/2023 10:40:34 08/08/20 23 08/08/2023 CBC WITH AUTOM ATED DIFF mon% 7.90 % 5-12 Not Available [facility] [address] [place] [address], 69860, 08/08/2023 10:40:34 08/08/20 23 08/08/2023 CBC WITH AUTOM ATED DIFF eos% 1.60 % 0-7 Not Available [facility] [address] [place] [address], [place], [address], 08/08/2023 10:40:34 08/08/20 23 08/08/2023 CBC WITH AUTOM ATED DIFF bas% 0.30 % 0-2 Not Available [facility] [address] [place] [address], [place], [address], 08/08/2023 10:40:34 08/08/20 23 08/08/2023 CBC WITH AUTOM ATED DIFF Ig% 0.6 0-1.0 Not Available [facility] [address] [place] [address], [place], [address], 08/08/2023 10:40:34 08/08/20 23 08/08/2023 CBC WITH AUTOM ATED DIFF marco# 4.95 10 1.5-7 Not Available [facility] [address] [place] [address], [place], [address], 08/08/2023 10:40:34 08/08/20 23 08/08/2023 CBC WITH AUTOM ATED DIFF lym# 0.6 10 1.18-4 .00 low Not Available [facility] [address] [place] [address], [place], [address], 08/08/2023 10:40:34 08/08/20 23 08/08/2023 CBC WITH AUTOM ATED DIFF mon# 0.5 10 0.00-0 .90 Not Available [facility] [address] [place] [address], [place], [address], 08/08/2023 10:40:34 08/08/20 23 08/08/2023 CBC WITH AUTOM ATED DIFF eos# 0.1 10 0.00-0 .60 Not Available [facility] [address] [place] [address], [place], [address], 08/08/2023 10:40:34 08/08/20 23 08/08/2023 CBC WITH AUTOM ATED DIFF bas# 0.0 10 0.00-0 .10 Not Available [address], [address], 08/08/2023 10:40:34 08/08/20 23 08/08/2023 CBC WITH AUTOM ATED DIFF Ig# 0.04 0-0.05 Not Available [address], [address], 08/08/2023 10:40:34 08/08/20 23 08/08/2023 LACTI C ACID (PLAS MA) lactic acid 1.8 mmol/ L 0.4-2. 0 Not Available [address], [address], 08/08/2023 10:42:29 08/08/20 23 08/08/2023 NATRI URETI [...] RESUL TS OF STUDY CONDU CTED BY [employer] Not Available [address], [address], 08/08/2023 10:46:27 08/08/20 23 08/08/2023 NATRI URETI C PEPTI DE kit lot [id number] A Not Available [address], [address], 08/08/2023 10:46:27 08/08/20 23 08/08/2023 NATRI URETI C PEPTI DE kit exp 2-29-2 4 Not Available [address], [address], 08/08/2023 10:46:27 08/08/20 23 08/08/2023 COMP METAB OLIC PNL glucose 199 mg/dL 74-106 high Not Available [facility] [address] [place] [address] [place], [address], 08/08/2023 10:54:22 08/08/20 23 08/08/2023 COMP METAB OLIC PNL BUN 15 mg/dL 7-18 Not Available [facility] [address] [place] [address] [place], [address], 08/08/2023 10:54:22 08/08/20 23 08/08/2023 COMP METAB OLIC PNL sodium 138 mmol/ L 136-14 5 Not Available [facility] [address] [place] [address] [place], [address], 08/08/2023 10:54:22 08/08/20 23 08/08/2023 COMP METAB OLIC PNL K 4.2 mmol/ L 3.5-5. 1 Not Available [facility] [address] [place] [address] [place], [address], 08/08/2023 10:54:22 08/08/20 23 08/08/2023 COMP METAB OLIC PNL chloride 98 mmol/ L 98-107 Not Available [facility] [address] [place] [address] [place], [address], 08/08/2023 10:54:22 08/08/20 23 08/08/2023 COMP METAB OLIC PNL tot CO2 30 mmol/ L 21.0-3 2.0 Not Available [facility] [address] [place] [address] [place], [address], 08/08/2023 10:54:22 08/08/20 23 08/08/2023 COMP METAB OLIC PNL calcium 9.4 mg/dL 8.5-10 .1 Not Available [facility] [address] [place] [address] [place], [address], 08/08/2023 10:54:22 08/08/20 23 08/08/2023 COMP METAB OLIC PNL creatinine 1.0 mg/dL 0.8-1. 3 Not Available [facility] [address] [place] [address], [place], [address], 08/08/2023 10:54:22 08/08/20 23 08/08/2023 COMP METAB OLIC PNL alkaline phos 86 U/L 46-116 Not Available [facility] [address] [place] [address], [place], [address], 08/08/2023 10:54:22 08/08/20 23 08/08/2023 COMP METAB OLIC PNL AST (SGOT) 61 U/L 15-37 high Not Available [facility] [address] [place] [address], [place], [address], 08/08/2023 10:54:22 08/08/20 23 08/08/2023 COMP METAB OLIC PNL albumin 3.5 g/dL 3.4-5. 0 Not Available [facility] [address] [place] [address], [place], [address], 08/08/2023 10:54:22 08/08/20 23 08/08/2023 COMP METAB OLIC PNL globulin 3.3 2.0-4. 8 Not Available [facility] [address] [place] [address], [place], [address], 08/08/2023 10:54:22 08/08/20 23 08/08/2023 COMP METAB OLIC PNL total protein 6.8 g/dL 6.4-8. 2 Not Available [facility] [address] [place] [address], [address], 08/08/2023 10:54:22 08/08/20 23 08/08/2023 COMP METAB OLIC PNL A/G ratio 1.1 0.7-3. 5 Not Available [facility] [address] [place] [address], [address], 08/08/2023 10:54:22 08/08/20 23 08/08/2023 COMP METAB OLIC PNL ALT (SGPT) 83 U/L 16-63 high Not Available [facility] [address] [place] [address], [address], 08/08/2023 10:54:22 08/08/20 23 08/08/2023 COMP METAB OLIC PNL total bilirubin 0.7 mg/dL 0.2-1. 1 Not Available [facility] [address] [place] [address], [address], 08/08/2023 10:54:22 08/08/20 23 08/08/2023 COMP METAB OLIC PNL GFR >60 60- Refer ence Range : Atkins ge GFR Healt hy Adult : >60 [...] can be locat ed on the [facility] websi te: https ://sabina amaya.o rg/pr ofess ional s/kdo qi/gf r_cal culat or Not Available [facility] [address] [place] [address], [address], 08/08/2023 10:54:22 08/08/20 23 08/08/2023 COMP METAB OLIC PNL agap 14.3 mmol/ L 5.0-19 .0 Not Available [address], [address], 08/08/2023 10:54:22 08/08/20 23 08/08/2023 D-DIM ER, [...] 400 ng/mL or less) . Not Available [facility] [address] [place] [address], [address], 08/08/2023 10:55:08 08/08/20 23 08/08/2023 D-DIM ER, QUANT internal qqc VALID Not Available [facility] [address] [place] [address], [address], 08/08/2023 10:55:08 08/08/20 23 08/08/2023 D-DIM ER, QUANT kit lot [id number] Not Available [facility] [address] [place] [address], 9[address], 08/08/2023 10:55:08 08/08/20 23 08/08/2023 D-DIM ER, QUANT kit exp 2-16-2 4 Not Available [address], [address], 08/08/2023 10:55:08 08/08/20 23 08/08/2023 LIPAS E lipase >250 IU/L 16-77 high LIPAS E: 923 U/L Not Available [facility] [address] [place] [address], [address], 08/08/2023 11:22:31 08/08/2008/08/2023 COVID -19 PCR CEPHE ID covid-19 PCR [...] clini aura evalu ating the patie nt. Plese calix w the Fact Sheet s for healt h care provi ders and patie nts at the [facility] shawna: https ://ww w.fda .gov/ media /1363 12/do wnloa d https ://ww w.fda .gov/ media /1363 13/do wnloa d https ://ww w.fda .gov/ media /1421 92/[place] [address] 1/stacey nload Metho dolog y: Real- Time RT-PC R Not Available [facility] [address] [place] [address], [id number], 08/08/2023 11:26:18 08/08/20 23 08/08/2023 COVID -19 PCR CEPHE ID internal qqc VALID Not Available [facility] [address] [place] [address], [id number], 08/08/2023 11:26:18 08/08/20 23 08/08/2023 COVID -19 PCR CEPHE ID kit lot [id number] Not Available [facility] [address] [place] [address], [id number], 08/08/2023 11:26:18 08/08/20 23 08/08/2023 COVID -19 PCR CEPHE ID kit exp 2 4 Not Available [facility] [address] [place] [address], [place], [id number], 08/08/2023 11:26:18 08/08/20 23 08/08/2023 FLU AB flu A and B screen REPORT report Refer ence Inter danielle: FLU A: NEGAT LUCRECIA FLU B: NEGAT LUCRECIA Not Available [facility] [address] [place] [address], [place], [address], 08/08/2023 11:27:49 08/08/20 23 08/08/2023 FLU AB flu A NEGATI VE negati ve Refer ence Inter danielle: FLU A: NEGAT LUCRECIA FLU B: NEGAT LUCRECIA Not Available [facility] [address] [place] [address], [place], [id number], 08/08/2023 11:27:49 08/08/20 23 08/08/2023 FLU AB flu B NEGATI VE negati ve Refer ence Inter danielle: FLU A: NEGAT LUCRECIA FLU B: NEGAT LUCRECIA Not Available [facility] [address] [place] [address], [place], [address], 08/08/2023 11:27:49 08/08/20 23 08/08/2023 FLU AB internal QC VALID Not Available [facility] [address] [place] [address], [place], [address], 08/08/2023 11:27:49 08/08/20 23 08/08/2023 FLU AB lot # [id number] Not Available [facility] [address] [place] [address], [place], [address], 08/08/2023 11:27:49 08/08/20 23 08/08/2023 FLU AB kit exp 07-03-2 4 Not Available [facility] [address] [place] [address], [place], [address], 08/08/2023 11:27:49 07/06/20 23 07/06/2023 XR, chest , 1 view [place] [facility] [address] [place] [address] [phone] IMAGIN G REPORT Name: NANCY THOMAS Room #: : 1969 Accoun t #: [id number] Bed #: Age: 53 Years Patien t Type: Outpat ient Order Date/T merle: 2022 04:51: 07 PM Sex: M Access ion#: Exam Descri ption: Exam Reason : [id number] XR CHEST 1V Chest Pain withou t Traum Dictat ed By: Venus Enrique Physic darlyn: IMELDA HUGHES Attend ing Physic darlyn: IMELDA HUGHES Primar y Care Physic darlyn: BERONICA MARIN EXAMIN ATION: XR [...] by: Venus quesada MD 2022 05:00 PM NEUROLOGY PHYSICIAN ASSISTANT Workst ation: [id number] PAGE 1 OF 1 [email or web address] [address] [place] [address], [address], 07/07/2023 17:16:11 07/06/20 23 07/06/2023 CT, head, w/o contr ast [address] [address] IMAGIN G REPORT Name: NANCY THOMAS Room #: : 1969 Accoun t #: [id number] Bed #: Age: 53 Years Patien t Type: Outpat ient Order Date/T merle: 2022 04:51: 17 PM Sex: M Access ion#: Exam Descri ption: Exam Reason : [id number] CT HEAD WO Declin ing State / weakne Dictat ed By: Bobby Dent Physic darlyn: HIDALG O, IMELDA Attend ing Physic darlyn: HIDALG O, IMELDA Primar y Care Physic darlyn: BERONICA MARIN EXAMIN ATION: CT HEAD WO CLINIC AL HISTOR Y: 53 years. Male. Declin ing State / weakne ss. COMPAR DIANA: CT head obtain ed Septem 2021. TECHNI QUE: Axial imagin g of the brain was perfor med withou t IV contra st. Amos l and ericka al reform ats were obtain ed. The [...] Room #: : 1969 Accoun t #: [id number] Bed #: Age: 53 Years Patien [...] by: Bobby damon MD 2022 05:25 PM NEUROLOGY PHYSICIAN ASSISTANT Workst ation: [id number] PAGE 2 OF [address] [facility] [address] [place] [address], [address], 07/07/2023 17:16:12 07/13/20 23 elect rocar diogr am No observ ation record ed. [email or web address] Not Available 2022 17:50:07 08/08/20 23 08/08/2023 XR, chest , [address] [address] [phone] IMAGIN G REPORT Name: NANCY THOMAS Room #: : 1969 Accoun t #: [id number] Bed #: Age: 53 Years Patien t Type: Outpat ient Order Date/T merle: 2022 09:32: 52 AM Sex: M Access ion#: Exam Descri ption: Exam Reason : [id number] XR CHEST 1V Chest Tightn ess Dictat ed By: Imamnuel Verma Physic darlyn: CHRISTINA SHELBY [facility] Physic darlyn: CHRISTINA SHELBY Primar y Care Physic darlyn: BERONICA MARIN EXAMIN ATION: XR [...] 1 OF 2 IMAGIN G REPORT Name: ARNOLD MASTNANCY Room #: : 1969 Accoun t #: [id number] Bed #: Age: 53 Years Patien t Type: Outpat ient Order Date/T merle: 2022 09:32: 52 AM Sex: M RECOMM ENDATI ONS: Electr onical ly signed by: Immanuel gomez MD 2022 10:14 AM NEUROLOGY PHYSICIAN ASSISTANT Workst ation: [id number] PAGE 2 OF [email or web address] [place] [address] [place] [address], [address], 08/10/2023 23:20:21 08/09/20 23 08/08/2023 XR, chest , 2 view No observ ation record ed. [email or web address] [address], [place], [address], 08/11/2023 15:47:17 08/10/20 23 08/08/2023 CT, abdom en + pelvi s, w/o contr ast No observ ation record ed. [address] [facility] [address] [place] [address], [address], 08/11/2023 15:57:28 08/18/20 23 08/18/2023 elect rocar [...] view No observ ation record ed. [email or web address] [facility] [address] [place], [address], 11/23/2023 16:17:36 11/24/19 24 11/23/2023 XR, foot, 3 or more view No observ ation record ed. [email or web address] [facility] [address] [place], [address], 11/24/2023 10:23:46 Result Notes Documentation Provider Name and Address Organization Details Recorded Time Xr, Chest, 1 View : [address] [address] IMAGING REPORT Name: MERARI DC Room #: : 1970 Bed #: Age: 53 Years Patient Type: Outpatient Order Date/Time: 07/06/2023 04:51:07 PM Sex: M Accession#: Exam Description: Exam Reason: [id number] XR CHEST 1V Chest Pain without Traum Dictated By: Venus Moore Ordering Physician: IMELDA MOORE Attending Physician: IMELDA MOORE Primary Care Physician: BERONICA MARIN EXAMINATION: XR CHEST 1V CLINICAL HISTORY: 53 years Male,Chest Pain without Trauma/Injury COMPARISON: 06/22/2022 TECHNIQUE: Single radiographic view of the chest FINDINGS: Left subclavian dual-lead transvenous cardiac pacemaker with atrial and ventricular leads intact and unchanged in position. The cardiac silhouette and pulmonary vascularity are within normal limits. No pleural effusion or pneumothorax. IMPRESSION: No active cardiopulmonary disease . Electronically signed by: Venus Moore MD 07/06/2023 05:00 PM [facility] PAGE 1 OF 1 Beronica Marin NP [address] [place] [address] [address], [place], [address], [facility] 07/07/2023 17:16:11 Ct, Head, W/o Contrast : [place] [id number] IMAGING REPORT Name: MERARI DC Room #: : 1970 Bed #: Age: 53 Years Patient Type: Outpatient Order Date/Time: 07/06/2023 04:51:17 PM Sex: M Accession#: Exam Description: Exam Reason: [id number] CT HEAD WO Declining State / weakne Dictated By: Bobby Escobedo Ordering Physician: IMELDA MOORE Attending Physician: IMELDA MOORE Primary Care Physician: BERONICA MARIN EXAMINATION: CT HEAD WO CLINICAL HISTORY: 53 years. Male. Declining State / weakness. COMPARISON: CT head obtained May 30, 2022. TECHNIQUE: Axial imaging of the brain was performed without IV contrast. Coronal and sagittal reformats were obtained. The exam was performed according to our departmental dose-optimization program, which includes automated exposure control, adjustment of the mA and/or kV according to patient size and/or use of iterative reconstruction technique. DLP - 1080.7 mGy*cm. FINDINGS: There is no acute intracranial hemorrhage. No large vascular territory infarct is present. There is no significant midline shift. There is no hydrocephalus. There is atherosclerotic calcification of the carotid siphons. PAGE 1 OF 2 IMAGING REPORT Name: MERARI DC Room #: : 1970 Bed #: Age: 53 Years Patient Type: Outpatient Order Date/Time: 07/06/2023 04:51:17 PM Sex: M There are changes compatible with a remote left medial orbital wall fracture. The orbits are otherwise unremarkable. The paranasal sinuses and mastoid air cells are predominantly clear. There is no skull fracture. No concerning bone lesions are identified. The extracranial soft tissues are unremarkable. IMPRESSION: 1. No acute hemorrhage, large vascular territory infarct, or evidence of mass lesion. If clinical concern is high for an acute infarct, MRI can be obtained for further evaluation. 2. Intracranial atherosclerosis. 3. Remote left medial orbital wall fracture. Electronically signed by: Bobby Escobedo MD 07/06/2023 05:25 PM [facility] PAGE 2 OF 2 Beronica Marin NP [address] [place] [address], [address], [facility] 07/07/2023 17:16:12 Xr, Chest, 1 View : [address] [id number] IMAGING REPORT Name: MERARI DC Room #: : 1970 Bed #: Age: 53 Years Patient Type: Outpatient Order Date/Time: 08/08/2023 09:32:52 AM Sex: M Accession#: Exam Description: Exam Reason: [id number] XR CHEST 1V Chest Tightness Dictated By: Immanuel Salinas Ordering Physician: FERDINAND SHELBY Attending Physician: FERDINAND SHELBY Primary Care Physician: BERONICA MARIN EXAMINATION: XR CHEST 1V CLINICAL HISTORY: Chest Tightness COMPARISON: July 06, 2023 FINDINGS: The lungs are clear. There is no pleural effusion or pneumothorax. The cardiomediastinal silhouette is without acute process. The osseous structures are without acute process. Pacemaker device is stable. IMPRESSION: No acute process. Scoliosis. PAGE 1 OF 2 IMAGING REPORT Name: MERARI DC Room #: : 1970 Bed #: Age: 53 Years Patient Type: Outpatient Order Date/Time: 08/08/2023 09:32:52 AM Sex: M RECOMMENDATIONS: Electronically signed by: Immanuel Salinas MD 08/08/2023 10:14 AM [facility] PAGE 2 OF 2 Beronica Marin NP [address] [place] [address], [place], [address], [facility] 08/10/2023 23:20:21 Problems Name Problem SNOMED Code Status Onset Date Resolution Date Notes Provider Name and Address Organization Details Recorded Time Congestive heart failure 14387367 Active 2015 Not Available [facility] 3 13:15:37 Syncope and collapse 137391345 Active 2015 Jazzy apodaca [facility] 3 17:48:28 Chronic systolic heart failure 704569293 Active 2015 Jazzy apodaca [facility] 3 17:48:28 Cardiomyop athy 76982878 Active 2015 [facility] 3 17:48:28 Automatic implantabl e cardiac defibrilla tor in situ 300676606 Active 2015 Jazzy apodacaAR[facility] 3 17:48:28 Chronic obstructiv e pulmonary disease 11721724 Active 2018 Not Available [facility] 3 13:15:37 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 667459331 Active 2018 Jazzy apodacaARH [facility] 3 17:48:27 Acute hypoxemic respirator y failure 656380067 Active 2018 Jazzy apodacaAR[facility] 3 17:48:28 Hyperglyce thea due to type 2 diabetes mellitus 1172217392059 09 Active 2018 Jazzy apodacaARH [facility] 3 17:48:28 Hypertensi ve disorder 26829396 Active 2018 Not Available [facility] 3 13:15:37 Acute respirator y failure 39062666 Active 2018 Not Available [facility] 3 13:15:37 Essential hypertensi on 62231601 Active 2019 Jazzy [facility]acaAR[facility] 3 17:48:28 Supraventr icular tachycardi a 9954870 Active 2020 Jazzy apodacaAR[facility] 3 17:48:28 Ventricula r fibrillati on 03739790 Active 2020 Jazzy apodacaAR[facility] 3 17:48:28 Status migrainosu s 221011644 Active 2021 Not Available [facility] 3 13:15:37 Left ventricula r cardiac dysfunctio n 237789857 Active 2021 Jazzy [facility]odacaAR[facility] 3 17:48:28 Acute exacerbati on of chronic obstructiv e pulmonary disease 030548620 Active 2021 Jazzy Dru apodaca [place] [facility] 3 17:48:27 Insomnia 730343419 Active 2021 Not Available [facility] 3 13:15:37 Type 2 diabetes mellitus without complicati on 136878106 Active 2021 Not Available [facility] 3 13:15:37 Smoker 31469586 Active 2021 Not Available [facility] 3 13:15:37 Injury of great toe 465028163 Active 2022 Not Available [facility] 3 13:15:37 Pain in throat 170992414 Active 2022 Not Available [facility] 3 13:15:37 Congestion of nasal sinus 49555589 Active 2022 Not Available [facility] 3 13:15:37 Cervical lymphadeno adonis 989279502 Active 2022 Not Available [facility] 3 13:15:37 Low back pain 565177855 Active 2022 Not Available [facility] 3 13:15:37 Lumbago with sciatica 060628189 Active 2022 Not Available [facility] 3 13:15:37 Neuralgia 93263456 Active 2022 Not Available [facility] 3 13:15:37 Otalgia of right ear 7046604590 Active 2022 Not Available [facility] 3 13:15:37 Impacted cerumen in left ear 1591495658594 101 Active 2022 Not Available [facility] 3 13:15:37 Impacted cerumen in right ear 2688242446148 103 Active 2022 Not Available [facility] 3 13:15:37 Otitis externa of right ear 5689718525152 101 Active 2022 Not Available [facility] 3 13:15:37 Pain of left shoulder joint 6058722415999 9109 Active 2022 Beronica Marin NP [address], [place], [address] , [facility] 3 11:47:06 Acute otitis media 4284837 Active 2023 SHMUEL Rose [address], [place], [address] , [facility] 4 14:52:48 Pain of toe of left foot 8287861515861 08 Active 2023 SHMUEL SORIANO [address], [place], [address] , [facility] 4 11:07:27 Left side sciatica 6739815613982 04 Active 2023 SHMUEL SORIANO [address], [place], [place], [address] [place] [address] , [facility] 4 11:36:56 Disorder of lumbar disc 764638875 Active 2023 Maria M Maharaj [facility] 4 14:12:08 Notes:heart defibrillator So me problems listed in Documents: #[id number], #[id number], #[id number], #[id number] could not be added to this patient's chart. Please review these documents and add these problems to the patient's chart manually as needed. Problem Notes None recorded. Procedures Surgical History Date Name Laterality Status Provider Name and Address Organization Details Recorded Time 06/15/20 23 Ear Irrigation completed Dea Cervantes NP [address], [place], [address], [facility] 06/15/2023 22:23:40 10/30/19 19 Appendectomy completed Not Available [facility] 09/07/2022 19:03:07 08/31/19 16 implantation of cardiac defibrillator lead completed Not Available [facility] 09/07/2022 19:03:07 cardiac catheterization completed Not Available [facility] 09/07/2022 19:03:07 Imaging Results None recorded. Procedure Notes None recorded. Medical Equipment None Reported. Allergies Allergen ID Allergen Name Allergen Category Reaction Reaction Severity Criticality Documentation Date Start Date Code Code System Note Provider Name and Address Organization Details Recorded Time 762598 No known allergy (situatio n) Not available Not available Not available Not available 06/15/2023 52605 6003 SNOMED Jazzy Gonsales [facility] 3 17:48:26 No known drug allergies Medications Name Sig Start Date Stop Date Status Note LastModified by Organization Details LastModified Time cyclobenz aprine 10 mg tablet TAKE 1 TABLET BY MOUTH THREE TIMES DAILY NEEDED FOR MUSCLE SPASM active Not Available Not Available No t Available furosemid e 40 mg tablet TAKE 2 TABLETS BY MOUTH TWICE DAILY FOR 5 DAYS THEN TAKE 1 TABLET BY MOUTH TWICE DAILY AFTER THAT active Not Available Not Available No t [...] carvedilo l 25 mg tablet TAKE 1 & 1/2 (ONE & ONE-HALF ) TABLETS BY MOUTH TWICE DAILY active Not [...] tion route. active Started 08/14/23 dc from [facility]. Not Available Not Available Not Available tizanidin [...] completed Not Available Not Available Not Available spironola ctone 25 mg tablet TAKE 1 TABLET BY MOUTH ONCE DAILY active Not Available Not Available No t Available glimepiri de 2 mg tablet 02/16 [...] tablet,ex tended release(p art/cryst ) TAKE 1 BY MOUTH ONCE DAILY active Not Available Not Available No t Available amitripty line 25 mg tablet Take 1 tablet every day by oral route at bedtime. active Not Available Not Available No t Available magnesium oxide 400 mg (241.3 mg magnesium ) tablet TAKE 1 TABLET BY MOUTH TWICE DAILY 06/06 completed Not Available Not Available Not Available methocarb ruben 750 mg tablet TAKE 2 TABLETS BY MOUTH THREE TIMES DAILY NEEDED FOR MUSCLE SPASM active Not Available Not Available No t Available oxycodone -acetamin ophen 10 mg-325 mg [...] Not Available Not Available No t Available docusate sodium 100 mg capsule TAKE [...] TAKE 1 TABLET BY MOUTH TWICE DAILY NEEDED FOR PAIN active Not Available Not Available No t Available amoxicill in 875 mg-potass ium clavulana [...] Available No t Available Symbicort 160 mcg-4.5 mcg/actua tion HFA aerosol inhaler INHALE 2 PUFFS BY MOUTH TWICE DAILY 01/13 completed pt has not had to use this inhaler since quiting smoking Not Available Not Available Not Available Combivent Respimat 20 mcg-100 mcg/actua tion solution for inhalatio n INHALE 1 PUFF BY MOUTH EVERY 4 HOURS NEEDED FOR SHORTNES S OF BREATH FOR WHEEZING active Not Available Not Available No t Available potassium chloride ER 20 mEq tablet,ex tended release TAKE 1 TABLET BY MOUTH TWICE DAILY FOR 5 DAYS THEN TAKE 1 TABLET BY MOUTH ONCE DAILY active Not Available Not Available No t Available guaifenes in ER 600 mg tablet, extended release 12 hr Take 1 tablet every 12 hours by oral route. 12/29 completed Started 08/14/23 dc from [facility]. Not Available Not Available Not Available Jardiance 10 mg tablet TAKE 1 TABLET BY MOUTH ONCE DAILY active Not Available Not Available No t Available fluticaso ne 113 mcg-salme terol 14 mcg/actua tion breath activated powdr 02/16 completed Not Available Not Available Not Available Fluzone Quad (PF) 60 mcg (15 mcg x 4)/0.5 mL IM syringe active Not Available Not Available Not Available Vitals Date Recorded Body height Body mass index (BMI) Body weight Body temperature Heart rate Oxygen saturation Oxygen saturation in Arterial blood by Pulse oximetry Systolic And Diastolic Provider Name and Address Organization Details Last Updated DateTime 4 170.18 cm 36.8 kg/m2 239374. 21 g 97.6 [degF] 83 /min 95 % 95 % 126/76 mm[Hg] Camilla Escobedo [facility] 4 14:40:00 Date Recorded Body height Body mass index (BMI) Body weight Body temperature Oxygen saturation Oxygen saturation in Arterial blood by Pulse oximetry Heart rate Systolic And Diastolic Provider Name and Address Organization Details Last Updated DateTime 4 170.18 cm 35.6 kg/m2 344629. 47 g 97.6 [degF] 96 % 96 % 107 /min 120/80 mm[Hg] [facility] 4 10:39:23 Date Recorded Body height Body temperature Heart rate Oxygen saturation Oxygen saturation in Arterial blood by Pulse oximetry Systolic And Diastolic Provider Name and Address Organization Details Last Updated DateTime 4 170.18 cm 97.6 [degF] 81 /min 94 % 94 % 120/80 mm[Hg] [facility] 4 11:12:39 Date Recorded Body height Body weight Body temperature Heart rate Oxygen saturation Oxygen saturation in Arterial blood by Pulse oximetry Systolic And Diastolic Provider Name and Address Organization Details Last Updated DateTime 3 170.18 cm 170496. 17 g 97.9 [degF] 72 /min 98 % 98 % 124/80 mm[Hg] Lisa Damico [facility] 3 15:01:48 Date Recorded Body height Body mass index (BMI) Body weight Body temperature Heart rate Oxygen saturation Oxygen saturation in Arterial blood by Pulse oximetry Systolic And Diastolic Provider Name and Address Organization Details Last Updated DateTime 3 170.18 cm 37.5 kg/m2 882278. 33 g 97.8 [degF] 73 /min 97 % 97 % 120/82 mm[Hg] Jazzy Gonsales [facility] 17:51:55 Social History Question Answer Notes LastModified by Organizat ion Details LastModified Time Tobacco Smoking Status Former Smoker quit smoking 10/2022 Lisa apodaca [facility] 10/21/2022 11:36:07 Do You Have An Advance Directive? No MIGRATION.86752 26885 Information not available 09/07/2022 What Is Your Level Of Caffeine Consumption? Moderate MIGRATION.90031 51996 Information not available 09/07/2022 In The 14 Days Before Symptom Onset, Have You Had Close Contact With A Laboratory-confir med COVID-19 While That Case Was Ill? No MIGRATION.78001 43803 Information not available 09/07/2022 In The 14 Days Before Symptom Onset, Have You Had Close Contact With A Person Who Is Under Investigation For COVID-19 While That Person Was Ill? No MIGRATION.62347 17350 Information not available 09/07/2022 What Type Of Diet Are You Following? REGULAR MIGRATION.87113 78418 Information not available 09/07/2022 Which Illicit Or Recreational Drugs Have You Used? Marijuana MIGRATION.92342 06255 Information not available 09/07/2022 Have There Been Any Changes To Your Family Or Social Situation? No MIGRATION.05062 42609 Information not available 09/07/2022 What Is The Fluoride Status Of Your Home? Unknown MIGRATION.73026 74192 Information not available 09/07/2022 Do You Use Insect Repellent Routinely? Yes MIGRATION.82068 19261 Information not available 09/07/2022 Are You In An Abusive/frighteni ng Relationship? No MIGRATION.49015 10354 Information not available 09/07/2022 Do You Feel Safe At Home Yes MIGRATION.72189 60090 Information not available 09/07/2022 Do You Have A Medical Power Of Master Sheet Clerk? No MIGRATION.64180 85142 Information not available 09/07/2022 What Was The Date Of Your Most Recent Tobacco Screening? 09/07/2023 [email or web address] Information not available 09/07/2023 What Is Your Current Pack Years? 30ormorepacky ears MIGRATION.91149 16487 Information not available 09/07/2022 Do You Have Any Pets? Yes MIGRATION.58099 59851 Information not available 09/07/2022 What Is Your Relationship Status? MIGRATION.50329 10885 Information not available 09/07/2022 Do You Use Your Seat Belt Or Car Seat Routinely? Yes MIGRATION.44198 36630 Information not available 09/07/2022 Do You Have Smoke And Carbon Monoxide Detectors In Your Home? Yes MIGRATION.21657 70387 Information not available 09/07/2022 At What Age Did You Start Smoking Tobacco? 14 MIGRATION.26991 51277 Information not available 09/07/2022 Are You Passively Exposed To Smoke? No MIGRATION.86751 17714 Information not available 09/07/2022 Are There Any Smokers In Your House? No MIGRATION.71720 15361 Information not available 09/07/2022 How Much Tobacco Do You Smoke? 1 PPD MIGRATION.81188 77789 Information not available 09/07/2022 Do You Use Sunscreen Routinely? Yes MIGRATION.45319 09559 Information not available 09/07/2022 Have You Recently Traveled Abroad? No MIGRATION.39613 38920 Information not available 09/07/2022 Have You Used IV Drugs? No MIGRATION.33823 62067 Information not available 09/07/2022 Do You Have Any Dietary Restrictions? No MIGRATION.27565 34364 Information not available 09/07/2022 Sex: Unknown Functional Status Question Answer Note LastModified by [employer] ion Details LastModified Time Do you use any illicit or recreational drugs? Yes MIGRATION.88522 13699 Information not available 09/07/2022 Do you or have you ever used any other forms of tobacco or nicotine? No MIGRATION.37981 36475 Information not available 09/07/2022 What is your level of alcohol consumption? None MIGRATION.08403 92765 Information not available 09/07/2022 Are you currently employed? No on disability MIGRATION.90476 04318 Information not available 09/07/2022 What is your exercise level? Occasional MIGRATION.91428 15934 Information not available 09/07/2022 Mental Status None recorded. Family History Nothing Reported Notes:He was adopted Medical History Condition Response ALLERGIES/HAYFEVER Y INSOMNIA Y ASTHMA Y PULMONARY DISEASE Y HEADACHES/MIGRAINES Y HYPERTENSION Y CARDIAC ARRHYTHMIA Y OBESITY Y ATRIAL FIBRILLATION Y Immunizations Vaccine Type Date Status Note Provider Antonio ventura and Address Organization Details Recorded Time Influenza, split virus, trivalent, preservative 2 completed Not Available [facility] 08/18/2023 04:04:02 Influenza, split virus, quadrivalent, preservative 9 completed Not Available [facility] 08/18/2023 04:04:02 COVID-19 vaccine, vector-nr, rS-Ad26, PF, 0.5 mL 1 completed Not Available [facility] 08/18/2023 04:04:02 Influenza, split virus, quadrivalent, preservative 0 completed Not Available [facility] 08/18/2023 04:04:02 Influenza, split virus, quadrivalent, PF 3 completed Dea Cervantes NP [address], [place], [address], [facility] 06/15/2023 22:19:39 Past Encounters Encounter ID Performer Location Encounter Start Date Encounter Closed Date Diagnosis/Indication Diagnosis SNOMED-CT Code Diagnosis ICD10 Code Diagnosis IMO Codes Diagnosis Note [id number] Beronica Marin PLAYGROUND SUPERVISOR [facility] [address] [place] [address] 04/05/2021 00:00:00 04/05/2021 12:58:33 [id number] Beronica Marin, PLAYGROUND SUPERVISOR [facility] [place] [address] [place] [address] 06/06/2021 00:00:00 06/06/2021 12:16:46 [id number] Beronica Marin, PLAYGROUND SUPERVISOR DIPC_RB [facility] [place] [address] [place] [address] 10/15/2021 00:00:00 10/15/2021 11:33:50 [id number] Beronica Marin, PLAYGROUND SUPERVISOR [facility]IPC[facility] [place] [address] [place] [address] 06/03/2022 00:00:00 06/03/2022 11:40:32 [id number] Beronica Marin, PLAYGROUND SUPERVISOR [facility] [place] [place] [address] 07/08/2022 00:00:00 07/10/2022 15:05:30 [id number] Beronica Marin PLAYGROUND SUPERVISOR [facility] [place] [place] [address] 10/21/2022 11:19:39 10/21/2022 12:05:21 Hypertensive disorder [id number] I10 BP looks very good, Reviewed DASH diet & exercise guidelines , check home BP reading 1 x week and call if greater than 140/90 x 2 readings Smoker 95221424 F17.200 Smoking cessation counseling and techniques reviewed at length with pt. Literature reviewed. Avoid triggers, support groups. reviewed how to use chantix, mech action and potential SE. hand out provided. reviewed needs to take for entire 6 mo for least chance relapse Injury of great toe 2827 83779 S99.922A [id number] DAISY LEY MD DIPC_[facility] [address] [place] [address] 11/12/2022 14:36:53 11/12/2022 15:43:14 Pain in throat 527341854 R07.0 11/10/22 rapid test in ER negative. persistent symptoms will recheck for strep & reflex to culture.ne gative strep Congestion of nasal sinus 22967254 R09.81 Gave recommenda tions for OTC's for symptomati c relief. Encouraged extra fluids and rest. Call if symptoms worsen or persist. Cervical lymphadenopathy 882251879 R59.0 right sided. history of smoking. Discussed if symptoms persist will send for ultrasound . Former hea vy tobacco smoker [id number] 82222 Z87.160 [id number] Beronica Marin NP DIPC[facility] [address] [place] [address] 12/05/2022 14:43:42 12/05/2022 15:28:45 Congestive heart failure 82847627 I50.9 Lumbago with sciatica 20 6946756 M54.42 [id number] Beronica Marin NP DIPC[facility] [address] [place] [address] 01/13/2023 15:26:44 01/13/2023 16:10:01 Chronic obstructive pulmonary disease 60520485 J44.9 Hypertensive disorder 38 916340 I10 BP looks very good, Reviewed DASH diet & exercise guidelines , check home BP reading 1 x week and call if greater than 140/90 x 2 readings Congestive heart failure 15908887 I50.9 Adult [facility] th examination 648145841 Z00.00 Reviewed healthy diet and exercise guidelines the Screening for malignant neoplasm of prostate 911264613 Z12.5 patient is over 50 years of age Hepatitis C screening 41 9327997 Z11.59 [id number] Beronica Marin NP [facility] [address] [address] 02/24/2023 14:44:46 02/24/2023 15:08:29 Neuralgia 55200240 M79.2 Advised patient if the rash appears [...] 7 days for inflammati on to area [id number] DAISY LEY MD [facility] [address] [address] 06/15/2023 17:28:52 06/15/2023 18:22:04 Active or passive immunization 253698406 Z23 Impacted c erumen in left ear [id number] 555652 H61.22 recommend debrox in left ear. Impacted c erumen in right ear 3612593466 891446 H61.21 resolved. after ear wash, slight erythema in canal, instructed to call if tenderness worsens or persists. Otalgia of right ear 406 3259312 H92.01 after ear wash. Avoid anything else in the ear for the next 3-5 days, slight erythema in canal, instructed to call if tenderness worsens or persists. [id number] FERDINAND SHELBY MD D[facility] [address] [place] [address] 09/03/2023 14:28:24 09/03/2023 14:56:16 Otitis externa of right ear [id number] 138135 H60.91 Otic drops as directed. Discussed instructio ns for use. Recommende d avoidance of swimming and diving. Recommende d placement of a cotton ball coated in petroleum jelly in affected EAC(s) when bathing/sh owering. Recommende d follow up if persistent , new, or worsening symptoms. Patient verbalized understand ing and agreement to treatment plan. Acute otitis media 87093 03 H66.91 Will tx with abxs, take with food and probiotic, call if sxs don't improve [id number] DAISY LEY MD [facility] [address] [address] 11/23/2023 10:21:40 11/23/2023 11:11:20 Pain of toe of left foot [id number] 97465 M79.675 Dropped glass bowl on toe. Check STAT xray. Recommend rest, ice, elevation, and NSAIDs OTC as needed. Wear supportive shoe and latoya tape toe for comfort. [id number] MD MARIAMA WING_RB [facility] [address] [place] [address] 12/30/2023 10:52:54 12/30/2023 11:41:05 Left side sciatica [id number] 17524 M54.32 Discussed symptoms consistent with sciatica. Discussed [...] Member ID Rodrigues Member ID Guarantor Name 12/28/2024 1 [facility] - DOS ON OR AFTER 21 (MEDICAID REPLACEMENT - HMO) [id number] Merari Dc [id number] Merari Dc 12/28/2024 1 [place] Merari Dc [id number] Merari Dc 12/28/2024 2 [place] Merari Dc [id number] Merari Marinelliister 03/08/2025 1 [facility] (MEDICARE REPLACEMENT/A DVANTAGE - HMO) Merari Dc [id number] Merari Marinelliister 06/04/2023 1 UNSPECIFIED REMIT PAYOR Merari Marinelliister 01/20/2025 2 [place] [facility] Merari Marinelliister [id number] Merari Marinelliister Notes Date Note Type Note Provider Name [...] ongoing x 3 days Beronica Marin NP [address], [place], [address], [facility] 02/24/2023 15:11:58 06/15/2023 text/html ROS as noted in the HPI Here for R ear pain that started on Thursday. Pt would also like his flu shot.no swimming, nothing in the ear.Intake: at baselineOutput: at baselineAny fever: noneOther symptoms: denies sick symptoms todayTreatments: nothing Dea Cervantes NP [address], [place], [address], [facility] 06/15/2023 22:27:42 09/03/2023 text/html Bilateral ear pain. Right ear is more painful than the left x 2 days.No fever, nasal d/c, ST, decrease hearingTx with ibuprofen, excedrin with some relief.congestion, MAY, off balance SHMUEL Rose [address], [place], [address], [facility] 09/03/2023 14:56:41 11/23/2023 text/html 53 year old male here today with left middle toe pain since yesterday after dropping a glass bowl on it. Has been able to ambulate. No breaks in skin. SHMUEL SORIANO [address] [facility],[address], [place], [address], [facility] 11/23/2023 12:05:53 12/30/2023 text/html ROS as noted in the HPI 53 year old male here today with left hip pain since yesterday morning. Noticed upon waking up. No known injury. No change in activity recently. Pain worse with movement. No stiffness. No back pain. Pain and tingling radiates down into left calf. No weakness. No bowel or bladder incontinence. No dysuria. Has tried OTC ibuprofen with mild relief. SHMUEL SORIANO [address] [place], [place] [address], [place], [address], [facility] 12/30/2023 12:11:39
--- OUTSIDE RECORDS SUMMARY | 2025-06-24 16:37 | XMS_ITS | Clinical Summary ---
Author Organization [facility] Address [address] [place] [address] Phone Care Team Providers Care Technical Lead Name Role Phone Malcolm Conteh MD Primary Care Provider [phone] Allergies No known active allergies Medications carvedilol (COREG) 25 mg tablet Take 50 mg by mouth 2 times daily with meals. Active aspirin (ECOTRIN EC) 81 mg Tablet, Delayed Release (E.C.) Take 81 mg by mouth daily. Active potassium chloride (KLOR-CON) 10 mEq Extended Release tablet Take 1 Tablet (10 mEq) by mouth every other day. 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 9 Active Additional Information Patient taking differently:10 [...] Encounters Date Type Department Care Team Description 06/06/2025 External Device Data ST[facility] ABSTRACTION Provider, Abstract 06/06/2025 External Device Data ST[facility] ABSTRACTION Provider, Abstract 06/06/2025 External Device Data ST[facility] ABSTRACTION Provider, Abstract 05/09/2025 External Device Data STL ABSTRACTION Provider, Abstract 04/26/2025 External Device Data ST[facility] ABSTRACTION Provider, Abstract 04/19/2025 External Device Data STL ABSTRACTION Provider, Abstract 04/11/2025 External Device Data STL ABSTRACTION Provider, Abstract from Last 3 Months Immunizations Immunization Administration [...] declined 07/19/2019 How often do you attend confucianism or scientologist serv ices? Patient declined 07/19/2019 Do you belong to any clubs o r organizations such as confucianism groups, unions, fraternal or athletic groups, or [...] 07/06/2022, 07/22/2019 Medical Devices Implanted Type Area Maintenance Mechanic 2Nd Shift Device Identifier Shelf Expiration Date Model / Serial / Lot Cardiac Defibrillator Procedures Procedure Name Priority Date/Time Associated Diagnosis Comments HEMOGLOBIN A1C Routine 03/13/2025 6:24 AM CDT from Last 3 Months or Most Recently Relevant to Health Maintenance Results * (ABNORMAL) HEMOGLOBIN A1C (03/13/2025 6:24 AM CDT) HEMOGLOBIN A1C 6.5(H) <5.7 % 03/13/2025 7:13 AM CDT [facility] EST. AVG GLUCOSE, A1C 140 mg/dL 03/13/2025 7:13 AM CDT [facility] Blood Venipuncture / Unknown 03/13/2025 6:24 AM CDT 03/13/2025 6:38 AM CDT Narrative [facility] - 03/13/2025 7:13 AM CDT HGB A1C INTERPRETATION NORMAL: <5.7% PRE-DIABETES: 5.7 - 6.4% DIABETES: 6.5% OR GREATER Orin Ho MD CHEMISTRY ORDERABLES Final Re sult [facility] [employer] [facility] CLIA# [id number] [address] [place] [phone] from Last 3 Months or Most Recently Relevant to Health Maintenance Insurance [facility] [employer] GENERIC MEDICARE MANAGED CARE RX [employer] Medicare Part D RX [employer] (INTERNAL) [facility] Plans Advance Directives For more information, please contact: [phone] * Full Code (Latest Code Status on File) Date Activated Date Inactivated Comments 03/13/2025 4:58 AM 03/15/2025 8:46 PM * Full Code Date Activated Date Inactivated Comments 07/19/2019 12:17 PM 07/23/2019 4:02 PM * Full Code Date Activated Date Inactivated Comments 12/02/2018 9:56 AM 12/04/2018 6:18 PM Care Teams Technical Lead Relationship Specialty Start Date End Date Malcolm Conteh MD [address] [place] [address] PCP - General Internal Medicine 07/19/19
--- OUTSIDE RECORDS SUMMARY | 2025-06-24 16:37 | XMS_ITS | Clinical Summary ---
Author Organization [facility] Address [address] [place] [address] Care Team Providers Care Benefits Processor Name Role Phone Malcolm Conteh MD Primary Care Provider [phone] Source Comments [facility],non-owned Affiliates and Associated Physician Practices is amultiple site organization consisting of ambulatory clinics and hospital sitesin [place], [place], [place] and [place]. This disclosure is being madepursuant to the Care Everywhere program and may not contain all information available regarding this patient. 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 Dimitri Jones MD LAB - CHEMISTRY ORDERABLES Fin al Result Performing Organization Address City/[facility] Co de Phone Number [facility] [address] [place] [phone] * HEPATITIS SCREEN ACUTE (05/18/2019 5:23 AM CDT) HAV Antibody IgM Non Reactive Non Reactive 05/18/2019 6:51 AM CDT [facility] HBsAg Non Reactive Non Reactive 05/18/2019 6:51 AM CDT [facility] HBc Antibody IgM Non Reactive Non Reactive 05/18/2019 6:51 AM CDT [facility] HCV Antibody Screen Non Reactive Non Reactive 05/18/2019 6:51 AM CDT [facility] HCV S/C Ratio 0.05 0.00 - 0.79 05/18/2019 6:51 AM CDT [facility] Comment: Kjddrm-qq-sytabu ratio (S/CO) <0.80: Non Reactive Blood BLOOD SPECIMEN / Unknown Lab Venipuncture / Unknown 05/18/2019 5:23 AM CDT 05/18/2019 6:01 AM CDT Narrative [facility] - 05/18/2019 6:51 AM CDT Non Reactive - Antibodies to Hepatitis C virus (HCV) were not detected, result does not exclude early acute HCV infection. Dimitri Jones MD LAB - CHEMISTRY ORDERABLES Fin al Result Performing Organization Address City/[facility] Co de Phone Number [facility] [address] [place] [phone] * (ABNORMAL) LIPID PROFILE (04/20/2015 5:55 AM CDT) Cholesterol 109 <200 mg/dL 04/20/2015 6:46 AM CDT [facility] Triglycerides 95 <150 mg/dL 04/20/2015 6:46 AM CDT [facility] HDL Cholesterol 34(L) >40 mg/dL 04/20/2015 6:46 AM CDT [facility] LDL Calculated 56 <130 mg/dL 04/20/2015 6:46 AM CDT [facility] VLDL Calculated 19 <=30 mg/dL 04/20/2015 6:46 AM CDT [facility] Chol HDL Ratio 3.2 <4.5 04/20/2015 6:46 AM CDT [facility] LDL/HDL Ratio 1.6 <5.0 04/20/2015 6:46 AM CDT [facility] Blood BLOOD SPECIMEN / Unknown Lab Venipuncture / Unknown 04/20/2015 5:55 AM CDT 04/20/2015 6:18 AM CDT us Ana Justin VEGETABLE GRADER-PHOTOGRAPHER AERIAL LAB - CHEMISTRY ORDERABL ES Final Result Performing Organization Address City/State/[facility] de Phone Number [facility] [address] [place] [address] from Last 3 Months or Most Recently Relevant to Health Maintenance Insurance [facility] Advance Directives * Full Code (Latest Code Status on File) Date Activated Date Inactivated Comments 05/15/2019 5:02 PM 05/18/2019 2:42 PM * Full Code Date Activated Date Inactivated Comments 07/25/2017 8:37 PM 07/30/2017 2:59 PM * Full Code Date Activated Date Inactivated Comments 04/19/2015 1:38 PM 04/20/2015 3:56 PM Care Teams Benefits Processor Relationship Specialty Start Date End Date Malcolm Conteh MD [address] [place] [address] PCP - General Internal Medicine 04/19/15
[2025-06-24] MEDS: FUROSEMIDE INJ 100 MG/10 ML VIAL 40 MG IV PUSH (16:57)
[2025-06-24 17:04] VITALS: BP 113/84; PULSE 93; RESP 20; O2SAT 93
[2025-06-24 17:29] VITALS: BP 112/74; PULSE 92; RESP 18; O2SAT 95
== END 2025-06-24 17:32 | disposition home or self-care (01) ==
PROVIDERS: Emergency Provider Student in an Organized Health Care Education/Training Program; PCP Internal Medicine Infectious Disease
DX: I50.9 Heart failure, unspecified (principal); J44.9 Chronic obstructive pulmonary disease, unspecified; K21.9 Gastro-esophageal reflux disease without esophagitis; I11.0 Hypertensive heart disease with heart failure; Z87.891 Personal history of nicotine dependence
CPT/HCPCS: 36415; 71046; 80053; 83690; 83880; 84484; 85025; 85610; 85730; 93005; 96374; 99284; A9270; J1938